=== PATIENT | male | born 1980 | race Caucasian/White ===

== ENCOUNTER 2019-07-14 11:46 | Inpatient (IN) | payer SELFPAY ==
[2019-07-14] VITALS (51 sets, daily range): BP systolic 117–156; BP diastolic 64–110; PULSE 82–120; RESP 15–33; TEMP 36.2–37.6; O2SAT 96–100
[2019-07-14 13:04] LABS: Abs Immature Grans 0.09 k/cumm (0.0-0.09); Absolute Basophil Count 0.02 k/cumm (0.0-0.2); Absolute Lymphocyte Count 0.48 k/cumm (1.2-3.4); Absolute Monocyte Count 1.33 k/cumm (0.11-0.7); Absolute Neutrophil Count 17.12 k/cumm (1.2-6.7); Basophils % 0.1; HCT 49.9 % (40.0-50.0); HGB 17.3 g/dL (13.5-17.5); Immature Grans % 0.5 %; Lymphocytes % 2.5; Mean Corp. HGB Concentration 34.7 g/dL (32.0-36.0); Mean Corpuscular Hemoglobin 33.7 pg (27.0-33.0); Mean Corpuscular Volume 97.1 fL (80-95); Mean Platelet Volume 9.9 fL (8.0-11.0); Neutrophils % 89.9; Platelet Count 296 x1000/uL (130-400); RBC 5.14 m/cumm (4.50-6.00); RBC Distribution Width 13.3 % (11.8-14.1); White Blood Cell Count 19.04 k/cumm (4.4-10.8)
[2019-07-14] MEDS: Normal Saline 1,000 ML 1000 ML IV ×2 (13:19→14:48)
[2019-07-14] MEDS: Lidocaine 5% Patch 1 PATCH TP (13:19)
[2019-07-14 13:24] LABS: ALT 38 U/L (16-63); AST 57 U/L (15-37); Albumin 3.5 g/dL (3.4-5.0); Alkaline Phosphatase 107 U/L (46-116); Anion Gap 10.6 mmol/L (3-11); BUN 11 mg/dL (7-18); Bilirubin, Total 1.4 mg/dL (0.2-1.0); CO2 28.4 mmol/L (21.0-32.0); CREATININE 0.84 mg/dL (0.70-1.30); Calcium 8.8 mg/dL (8.5-10.1); Chloride 96 mmol/L (98-107); Glucose 107 mg/dL (74-106); Potassium 3.7 mmol/L (3.5-5.1); Sodium 135 mmol/L (136-145); Total Protein 7.5 g/dL (6.4-8.2)
[2019-07-14 13:41] LABS: Lipase 2858 U/L (73-393)
[2019-07-14 14:01] LABS: Troponin I < 0.05 ng/Ml (<0.06)
[2019-07-14 14:24] LABS: D-Dimer 4212 ng/mlFEU (<500)
--- NOTE | 2019-07-14 14:30 | DI.CT_ITS ---
EXAM: CT CHEST PE ABD PELVIS W CLINICAL HISTORY: R/O PE; CHEST AND ABDOMINAL PAIN. WBC 20K TECHNIQUE: CT angiogram chest, abdomen and pelvis was performed with intravenous infusion of 100 cc of Omnipaque 350. COMPARISON: No exams were available for comparison FINDINGS: No evidence of pulmonary embolic disease. No abnormality of the thoracic aorta. No mediastinal or h ilar adenopathy. Predominantly subpleural emphysema noted. No pulmonary consolidation. Tracheobron chial tree appears intact. There is large quantity of free fluid surrounding the pancreas, lesser sac and retroperitoneal, and f ree fluid is present in the pericolic gutters in the pelvis. The pancreas appears mildly edematous a nd somewhat heterogeneous in appearance particularly the pancreatic head and body. The findings are highly suggestive of severe acute pancreatitis. There is associated wall thickening of the duodenum and proximal jejunum, presumably secondary to adjacent inflammation. No biliary dilatation. Unrema rkable appearance of the gallbladder, liver, and spleen. Abdominal aorta is of normal diameter and no abnormality is seen apart from slight calcified plaque. Major arterial branches of the abdominal aorta appear normal. No abdominal or pelvic adenopathy see n. Unremarkable appearance of adrenals and kidneys. No significant abdominal wall hernia. Appendix is normal. No evidence of diverticulitis. IMPRESSION: No evidence of pulmonary embolic disease. Severe acute pancreatitis with associated small bowel wall thickening as described above. Intraperit matson and retroperitoneal fluid collections as described above.
[2019-07-14] MEDS: HYDROmorphone 2 MG/ML VIAL 1 MG IVP (15:24)
--- NOTE | 2019-07-14 15:28 | W.ED.GENAD ---
Discharge Plan Disposition Patient Disposition: [facility] INPATIENT Condition: Poor Discharge Details Chief Complaint: Abd Prob Clinical Impression: Pancreatitis Admit Date/Time: 07/14/19 18:15 Admit Provider: Dipak Lopez Attending Provider: Dipak Lopez Primary Care Provider: Antonio Harper ED Provider: Elizabeth Chávez Discharge Data Discharge Date/Time-TO BE ENTERED AT DEPARTURE: 07/14/19 18:50 Medical Decision Making <STACIE Wilson - Last Filed: 07/15/19 14:22> Is a 39-year-old patient presenting to the emergency room for acute onset of abdominal pain in the last 2 days. Patient is also complaining of moderate back pain for approximately 3 months. Patient due to see a chiropractor today but has had no evaluation. Patient has had difficulty sleeping in the last 2 nights due to severe belly pain. Patient reports difficulty breathing due to pain. Patient reports shallowly breathing and heart racing. Patient denies obvious fever. Generalized malaise present with associated nausea in the last few days. Patient denies bowel changes. No history of similar. Patient does report he drinks alcohol approximately 3 drinks daily, does smoke marijuana as well as cigarettes. Denies any history of IV drug use. Initial presentation of patient reveals an ill-appearing patient with moderate upper abdominal pain. Patient's initial vital signs reveal obvious tachycardia. Patient is somewhat ill-appearing. Afebrile. On exam patient has moderate upper abdominal pain with palpation and is complaining predominantly of back pain and pain with deep breathing. Patient does report shortness of breath however lung sounds are clear oxygenation is normal and patient has no increase in respiratory effort. Labs initially ordered as well as IV fluids. Patient's labs reveal significant leukocytosis of 19,000 and a lipase of 2858. Minimal elevation of bilirubin at 1.4. LFTs essentially normal. Patient's d-dimer was elevated at [address] at this time to include PE protocol of chest and abdomen and pelvis. Additional IV fluid ordered as well as Dilaudid for pain relief as patient is uncomfortable at this time. CT reveals right pancreatitis without sign of abscess at this time with peritoneal fluid present. Patient has no gallbladder abnormalities noted on CT specifically no ductal dilation or gallstones present. Patient signed out pending disposition with a plan for admission and discussion with hospitalist. <STACIE Griffin - Last Filed: 07/14/19 21:04> Care transitioned to myself from Nirali Ayon PA-C, with consult from hospitalist pending. Patient diagnosed with pancreatitis. Please see her notes for initial presentation and exam. In brief, patient presented chief complaint of back and abdominal discomfort. Back pain began 3 months ago, abdominal pain new over the past 24 hours. Patient was having difficulty breathing secondary to pain. Initial laboratory evaluation significant for leukocytosis with a white count of 19, absolute neutrophil count 17. D-dimer was elevated at 4000, CT for PE protocol was obtained which was significant for severe pancreatitis but did not show any evidence of pulmonary embolism. Sodium was mildly low at 135. He is currently on his third liter of normal saline. Normal anion gap, normal BUN, creatinine and GFR. Total bili 1.4, AST 57, ALT 38, albumin 3.5. No previous for comparisons. Troponin negative at 0.05. Lipase 2858. Patient does drink alcohol daily, had reported 3 drinks daily. Patient continues to have pain, states that pain is severe but he was sleeping on arrival to the room. Will give IV tylenol, toradol and 50mcg Fentanyl. The patient's request, ordered an nicotine patch. Consulted with Dr. Lopez, he agrees to admission. He is requested that I place admission orders to include pain management orders. Orders are placed. Patient transition to medical surgical unit for further management of pancreatitis. HPI <STACIE Wilson - Last Filed: 07/15/19 14:22> General Date/Time Provider Initiated Documentation: 07/14/19 12:27. HPI Narrative: This is a 39-year-old patient presenting to the emergency room for complaints of back pain and abdominal pain. Patient reports onset of back pain approximately 3 months ago with no associated injury or trauma. Patient reports he is due to see chiropractor today. Patient reports in the last few days increase in abdominal pain. Patient reports when breathing having difficulty breathing due to pain in his back and breathing shallowly. Patient denies active chest pain. Patient does report mild dizziness, does feel like his heart is racing. Patient reports abdominal pain for the last 24 hours causing difficulty sleeping at night. Patient reports nausea without vomiting. Denies associated diarrhea or bowel change. Patient denies dysuria, urgency or frequency. Patient denies any measured fever. Patient does report a mild headache intermittently. Patient reports difficulty sleeping for the last few days due to pain. Patient denies any history of similar pain. Patient reports he has been taking ibuprofen frequently due to his back pain. Patient denies radicular symptoms into the legs. Denies any other concerns or complaints at this time. Patient denies IV drug use. Patient admits to smoking cigarettes and marijuana. Related Data Home Medications Medication Instructions Recorded Confirmed Unknown [No Known Home Meds] 07/14/19 07/14/19 Allergies Allergy/AdvReac Type Severity Reaction Status Date / Time No Known Allergies Allergy Unverified 07/14/19 12:00 General Stated Complaint: Abd Prob DEIDRE: 3 Review of Systems <STACIE Wilson - Last Filed: 07/15/19 14:22> All systems reviewed & are unremarkable except as noted in HPI and below Constitutional Constitutional: Denies chills, Denies fatigue, Denies fever(s), Reports headache(s) and Reports malaise ENT Ears, Nose, Mouth, and Throat: Reports headache(s) and Denies neck pain Cardiovascular Cardiovascular: Denies chest pain and Denies diaphoresis Respiratory Respiratory: Denies cough, Reports pain on inspiration, Reports pain with cough and Denies wheezing Gastrointestinal Gastrointestinal: Reports abdominal pain, Denies diarrhea, Reports nausea and Denies vomiting Musculoskeletal Musculoskeletal: Reports back pain, Denies neck pain, Denies numbness and Denies radiating pain into limb Neurologic Neurologic: Reports headache(s) and Denies numbness Endocrine Endocrine: Denies fatigue Allergic/Immunologic Allergic/Immunologic: Denies wheezing PFSH <STACIE Wilson - Last Filed: 07/15/19 14:22> Medical History (Updated 07/15/19 @ 12:39 by Yelitza Ramirez NP) Chronic alcohol use (Chronic) Tobacco dependence (Chronic) Social History Smoking/Tobacco Use Status: Current every day Tobacco Type: cigarettes Alcohol Intake: current Alcohol Intake frequency: 3 or more drinks per day Drug use: Occasionally Substance use type: marijuana Do you feel safe at home: Yes Do you feel safe in your relationship?: Yes Exam <STCAIE Wilson - Last Filed: 07/15/19 14:22> Narrative Exam Narrative: CONST: Ill appearing patient, alert and oriented. HENMT: Head nomocephalic, normal to inspection. Atraumatic. Hearing grossly normal. External ear canal no erythema or swelling. TM normal bilaterally. Nose normal to inspection. No rhinnorhea. Normal facial exam. Oral mucosa normal. Tounge normal. Dentition normal. Normal posterior oropharynx. Uvula midline. EYES: General normal appearance. Alignment normal. Eyelids normal. Conjunctiva normal. Sclera normal. PERRL. NECK: Normal visual inspection. FROM. No lymphadenopathy. Trachea midline. No Midline tenderness. CHEST: Normal insepection of the chest. RESP: Normal respiratory effort. Speaking full sentences. No cough. No wheezing. No retractions. Clear to auscaltation. Breath sound equal and present bilaterally. CARDIO: No JVD. Normal PMI. Tachycardic. Regular Rhythm. Normal peripheral pulses. GI: Normal inspection of abdomen. No distension. Soft. Diffuse upper abdominal tenderness. Periumbilical tenderness. Bowel sounds present diminished throughout. No guarding. MUSCULOSKELETAL: no LE edema Course <STACIE Wilson - Last Filed: 07/15/19 14:22> Vital Signs Vital signs: Vital Signs Temperature 36.5 C 07/14/19 11:53 Pulse 120 H 07/14/19 11:53 Respiratory Rate 18 07/14/19 11:53 Blood Pressure 133/89 07/14/19 11:53 Pulse Oximetry 100 07/14/19 11:53 Temperature 36.2 C L 07/14/19 12:46 Temperature Source Skin 07/14/19 12:46 Pulse 100 H 07/14/19 14:46 Pulse Rhythm Regular 07/14/19 12:46 Pulse Strength Strong 07/14/19 12:46 Pulse 108 H 07/14/19 14:46 Respiratory Rate 26 H 07/14/19 14:46 Respiratory Effort 07/14/19 12:46 Respiratory Depth Normal 07/14/19 12:46 Respiratory Pattern Normal 07/14/19 12:46 Blood Pressure 145/97 H 07/14/19 14:46 Blood Pressure Mean 108 07/14/19 14:46 Blood Pressure Position Sitting 07/14/19 12:46 Pulse Oximetry 99 07/14/19 14:46 Oxygen Delivery Method Room Air 07/14/19 12:46 Oxygen Flow Rate 0 07/14/19 12:46 Pain Level 10 07/14/19 15:24 Comment takes excedrin and ibuprofen 07/14/19 11:53 Lab/Test Results Lab/Test Results: Laboratory Tests Range/Units 07/14/19 07/14/19 07/14/19 12:57 12:57 13:27 WBC (4.4-10.8) k/cumm 19.04 H RBC (4.50-6.00) m/cumm 5.14 Hgb (13.5-17.5) g/dL 17.3 Hct (40.0-50.0) % 49.9 MCV (80-95) fL 97.1 H MCH (27.0-33.0) pg 33.7 H MCHC (32.0-36.0) g/dL 34.7 RDW (11.8-14.1) % 13.3 Plt Count (130-400) x1000/uL 296 MPV (8.0-11.0) fL 9.9 Immature Gran % % 0.5 Neutrophils % 89.9 Lymphocytes % 2.5 Monocytes % 7.0 Eosinophils % 0.0 Basophils % 0.1 Absolute Neutrophils (1.2-6.7) k/cumm 17.12 H Absolute Lymphocytes (1.2-3.4) k/cumm 0.48 L Absolute Monocytes (0.11-0.7) k/cumm 1.33 H Absolute Eosinophils (0.0-0.7) k/cumm 0.00 Absolute Basophils (0.0-0.2) k/cumm 0.02 D-Dimer (<500) ng/mlFEU Sodium (136-145) mmol/L 135 L Cancelled Potassium (3.5-5.1) mmol/L 3.7 Cancelled Chloride (98-107) mmol/L 96 L Cancelled Carbon Dioxide (21.0-32.0) mmol/L 28.4 Cancelled Anion Gap (3-11) mmol/L 10.6 Cancelled BUN (7-18) mg/dL 11 Cancelled Creatinine (0.70-1.30) mg/dL 0.84 Cancelled Estimated GFR/1.73 m2 (mL/min/1.73m2) >= 60.00 Cancelled Glucose (74-106) mg/dL 107 H Cancelled Calcium (8.5-10.1) mg/dL 8.8 Cancelled Total Bilirubin (0.2-1.0) mg/dL 1.4 H Cancelled AST (15-37) U/L 57 H Cancelled ALT (16-63) U/L 38 Cancelled Alkaline Phosphatase (46-116) U/L 107 Cancelled Troponin I (<0.06) ng/Ml < 0.05 Total Protein (6.4-8.2) g/dL 7.5 Cancelled Albumin (3.4-5.0) g/dL 3.5 Cancelled Lipase (73-393) U/L 2858 H Range/Units 07/14/19 07/14/19 13:27 16:04 WBC (4.4-10.8) k/cumm RBC (4.50-6.00) m/cumm Hgb (13.5-17.5) g/dL Hct (40.0-50.0) % MCV (80-95) fL MCH (27.0-33.0) pg MCHC (32.0-36.0) g/dL RDW (11.8-14.1) % Plt Count (130-400) x1000/uL MPV (8.0-11.0) fL Immature Gran % % Neutrophils % Lymphocytes % Monocytes % Eosinophils % Basophils % Absolute Neutrophils (1.2-6.7) k/cumm Absolute Lymphocytes (1.2-3.4) k/cumm Absolute Monocytes (0.11-0.7) k/cumm Absolute Eosinophils (0.0-0.7) k/cumm Absolute Basophils (0.0-0.2) k/cumm D-Dimer (<500) ng/mlFEU 4212 H Sodium (136-145) mmol/L Potassium (3.5-5.1) mmol/L Chloride (98-107) mmol/L Carbon Dioxide (21.0-32.0) mmol/L Anion Gap (3-11) mmol/L BUN (7-18) mg/dL Creatinine (0.70-1.30) mg/dL Estimated GFR/1.73 m2 (mL/min/1.73m2) Glucose (74-106) mg/dL Calcium (8.5-10.1) mg/dL Total Bilirubin (0.2-1.0) mg/dL AST (15-37) U/L ALT (16-63) U/L Alkaline Phosphatase (46-116) U/L Troponin I (<0.06) ng/Ml Cancelled Total Protein (6.4-8.2) g/dL Albumin (3.4-5.0) g/dL Lipase (73-393) U/L Sign Out <STACIE Wilson - Last Filed: 07/15/19 14:22> Sign Out Data: Sign Out Comment: Signed out pending admission for pancreatitis Last updated by Lucie Ayon PA at 07/14/19 16:53
[2019-07-14] MEDS: Omnipaque 350 MG/ML 100 ML BTL IJ (15:56)
[2019-07-14] MEDS: Normal Saline 1,000 ML 250 ML IV (16:14)
[2019-07-14 17:18] LABS: Triglyceride 53 mg/dL (<150)
[2019-07-14] MEDS: ACETAMINOPHEN 1,000 MG/100 ML BTL 400 MG IVPB (17:30)
[2019-07-14] MEDS: Ketorolac 15 MG/ML VIAL IVP ×2 (17:30→23:18)
[2019-07-14] MEDS: fentaNYL 100 MCG/2 ML VIAL 50 MCG IVP ×3 (17:31→23:16)
[2019-07-14 17:41] LABS: ETHANOL BLOOD < 3.0 mg/dL (<3)
[2019-07-14] MEDS: Nicotine 21 MG/24 HR PATCH TD (17:53)
[2019-07-14] MEDS: Normal Saline Flush 10 ML SYR IVP ×2 (20:40→23:19)
--- NOTE | 2019-07-14 21:38 | HPE_ITS ---
Date of service: 07/14/19 Time of Service: 21:38 Assessment and Plan Assessment and plan (1) Pancreatitis: Start date: 07/14/19 Status: Acute Assessment and plan: This is a 39-year-old gentleman who uses alcohol daily and most likely has alcoholic pancreatitis. CT scan of the abdomen was consistent with this diagnosis as well as an elevated lipase. Will treat with gastric rest with n.p.o. for diet and only ice chips for comfort. Pain control will be continued with IV Toradol and acetaminophen for longer acting pain control and IV fentanyl as needed for acute pain. He will be watched closely for alcohol withdrawal. He is a full code. Qualifiers: Acute pancreatitis complication: no infection or necrosis Chronicity: acute Pancreatitis type: alcohol induced Qualified Code(s): K85.20 - Alcohol induced acute pancreatitis without necrosis or infection (2) Chronic alcohol use: Status: Chronic Assessment and plan: Patient drinks heavily with beer daily and has decreased recently though he has had increased abdominal discomfort as he has weaned. Motivation for complete cessation may be present at this time but patient may need alcohol rehabilitation as an outpatient after he recovers from his acute pancreatitis. This consultation will be made after he is medically stable. Continue IV hydration patient appears slightly dry with tachycardia and watch closely for alcohol withdrawal with CIWA protocol and treatment with Ativan p.o. (3) Tobacco dependence: Status: Chronic Assessment and plan: Patient has been attempting to wean on nicotine I will place him on NicoDerm patch while in the hospital and he cannot smoke in the hospital. He also uses THC and does have some lung disease with nebulizers to be used as needed. There is no evidence of acute pulmonary complications by CT of the chest. History of Present Illness History of Present Illness Chief Complaint: Abdominal pain for 2 days with nausea Narrative: This is a 39-year-old gentleman who has a long history of alcohol use drinking up to 15 beers daily recently decreasing to 4 beers daily. He also smokes tobacco decreased to 1/2 pack/day more recently. He has biweekly use of marijuana for treatment of pain. He chronically has low back pain and this is been worse over the last 3 months. More recently been to have epigastric abdominal pain which radiates around the bottom of his chest into his back. He has associated nausea with malaise but no fever or chills. He does have increased pain when breathing deep but this is referred into his upper abdomen. He is thin and has had a decrease appetite recently but no significant weight loss. In the ED he was evaluated for his symptoms with a negative CT of the chest for any embolic phenomenon in the pulmonary vasculature but significant changes consistent with pancreatitis with no abscess or pseudocyst formation. His lipase was markedly elevated at 2,850 he had a negative troponin. The CT PE protocol was done because of significantly increased d- dimer but this is most likely secondary to his acute pancreatitis. Is most likely alcoholic pancreatitis with his history. His triglycerides were not elevated. His white blood cell count was elevated. This will be trended. He did respond to IV acetaminophen with IV Toradol and IV fentanyl. IV Dilaudid was not effective. He denies any significant nausea if he does not try to drink anything at this time. He is comfortable at the time of my exam except for palpation of his abdomen. Review of Systems Narrative: 13 point review of systems otherwise unrevealing or stable this patient. He has attempted to decrease his alcohol intake recently has had no alcohol withdrawal symptoms but does drink alcohol daily. [facility] Medical History (Updated 07/14/19 @ 21:46 by Dipak Lopez) Chronic alcohol use (Chronic) Tobacco dependence (Chronic) Social History Smoking/Tobacco Use Status: Current every day Tobacco Type: cigarettes Alcohol Intake: current Alcohol Intake frequency: 3 or more drinks per day Drug use: Occasionally Substance use type: marijuana Do you feel safe at home: Yes Do you feel safe in your relationship?: Yes Meds Home Medications and Allergies Home Medications Medication Instructions Recorded Confirmed Type Unknown [No Known Home Meds] 07/14/19 07/14/19 History Allergies Allergy/AdvReac Type Severity Reaction Status Date / Time No Known Allergies Allergy Unverified 07/14/19 12:00 Exam Narrative Exam Narrative: General: Patient is thin, appears slightly older than stated age but in no acute distress with flattened affect but good eye contact and normal conversation. HEENT: Normocephalic with slightly dry oral mucosa and fair dentition. Eyes with pupils equal reactive light symmetrically and extraocular movement intact. Sclera anicteric. External ears normal. Neck: Supple without JVD. Back: Slightly stooped posture and loss of lumbar lordotic curve, no CVA tenderness. Lungs: Bronchovesicular breath sounds diffusely with no focalizing rales or rhonchi and no expiratory wheeze. Fair aeration. Heart: Tachycardic rate with normal rhythm, no murmurs or gallops appreciated. Abdomen: Scaphoid contour, tender to palpation over the epigastrium mostly with guarding and no appreciable hepatosplenomegaly with limited palpation secondary to guarding. Bowel sounds are positive but hypoactive in all quadrants. Genitalia/rectal: Exam deferred. Extremities: Without clubbing, cyanosis or edema. Peripheral pulses are intact and symmetrical. Skin: Tanned, warm and dry with no rash noted. Slightly decreased turgor. Neuro: Cranial nerves II through XII grossly intact, no focalizing motor deficits, no tremor or asterixis. Psych: Flattened affect with poor eye contact but remote and recent memory intact. Normal thought processes. Some denial process with conversation as to his addictions but he is attempting to wean his use of tobacco and alcohol. Results Imaging Imaging Studies: EXAM: CT CHEST PE ABD PELVIS W CLINICAL HISTORY: R/O PE; CHEST AND ABDOMINAL PAIN. WBC 20K TECHNIQUE: CT angiogram chest, abdomen and pelvis was performed with intravenous infusion of 100 cc of Omnipaque 350. COMPARISON: No exams were available for comparison FINDINGS: No evidence of pulmonary embolic disease. No abnormality of the thoracic aorta. No mediastinal or hilar adenopathy. Predominantly subpleural emphysema noted. No pulmonary consolidation. Tracheobronchial tree appears intact. There is large quantity of free fluid surrounding the pancreas, lesser sac and retroperitoneal, and free fluid is present in the pericolic gutters in the pelvis. The pancreas appears mildly edematous and somewhat heterogeneous in appearance particularly the pancreatic head and body. The findings are highly suggestive of severe acute pancreatitis. There is associated wall thickening of the duodenum and proximal jejunum, presumably secondary to adjacent inflammation. No biliary dilatation. Unremarkable appearance of the gallbladder, liver, and spleen. Abdominal aorta is of normal diameter and no abnormality is seen apart from slight calcified plaque. Major arterial branches of the abdominal aorta appear normal. No abdominal or pelvic adenopathy seen. Unremarkable appearance of adrenals and kidneys. No significant abdominal wall hernia. Appendix is normal. No evidence of diverticulitis. IMPRESSION: No evidence of pulmonary embolic disease. Severe acute pancreatitis with associated small bowel wall thickening as described above. Intraperitoneal and retroperitoneal fluid collections as described above. Labs Result diagrams: 07/14/19 12:57 07/14/19 12:57 Labs: Laboratory Results - last 24 hr 07/14/19 07/14/19 07/14/19 12:57 12:57 13:27 WBC 19.04 H RBC 5.14 Hgb 17.3 Hct 49.9 MCV 97.1 H MCH 33.7 H MCHC 34.7 RDW 13.3 Plt Count 296 MPV 9.9 Immature Gran % 0.5 Neutrophils % 89.9 Lymphocytes % 2.5 Monocytes % 7.0 Eosinophils % 0.0 Basophils % 0.1 Absolute Neutrophils 17.12 H Absolute Lymphocytes 0.48 L Absolute Monocytes 1.33 H Absolute Eosinophils 0.00 Absolute Basophils 0.02 D-Dimer Sodium 135 L Cancelled Potassium 3.7 Cancelled Chloride 96 L Cancelled Carbon Dioxide 28.4 Cancelled Anion Gap 10.6 Cancelled BUN 11 Cancelled Creatinine 0.84 Cancelled Estimated GFR/1.73 m2 >= 60.00 Cancelled Glucose 107 H Cancelled Calcium 8.8 Cancelled Total Bilirubin 1.4 H Cancelled AST 57 H Cancelled ALT 38 Cancelled Alkaline Phosphatase 107 Cancelled Troponin I < 0.05 Total Protein 7.5 Cancelled Albumin 3.5 Cancelled Triglycerides Lipase 2858 H Ethyl Alcohol 07/14/19 07/14/19 07/14/19 13:27 13:27 16:04 WBC RBC Hgb Hct MCV MCH MCHC RDW Plt Count MPV Immature Gran % Neutrophils % Lymphocytes % Monocytes % Eosinophils % Basophils % Absolute Neutrophils Absolute Lymphocytes Absolute Monocytes Absolute Eosinophils Absolute Basophils D-Dimer 4212 H Sodium Potassium Chloride Carbon Dioxide Anion Gap BUN Creatinine Estimated GFR/1.73 m2 Glucose Calcium Total Bilirubin AST ALT Alkaline Phosphatase Troponin I Cancelled Total Protein Albumin Triglycerides 53 Lipase Ethyl Alcohol 07/14/19 17:14 WBC RBC Hgb Hct MCV MCH MCHC RDW Plt Count MPV Immature Gran % Neutrophils % Lymphocytes % Monocytes % Eosinophils % Basophils % Absolute Neutrophils Absolute Lymphocytes Absolute Monocytes Absolute Eosinophils Absolute Basophils D-Dimer Sodium Potassium Chloride Carbon Dioxide Anion Gap BUN Creatinine Estimated GFR/1.73 m2 Glucose Calcium Total Bilirubin AST ALT Alkaline Phosphatase Troponin I Total Protein Albumin Triglycerides Lipase Ethyl Alcohol < 3.0 Last Vital Signs Temp 37.6 C H 07/14/19 20:46 Pulse 82 07/14/19 20:46 Resp 18 07/14/19 20:46 BP 124/78 07/14/19 20:46 Pulse Ox 99 07/14/19 20:46
[2019-07-14] MEDS: Normal Saline 1,000 ML 150 ML IV (23:28)
[2019-07-14] MEDS: MULTIVITAMIN 10 ML, THIAMINE 100 MG, FOLIC ACID 1 MG in DEXTROSE 5%-0.45% SALINE 1,000 ML 42 ML IV (23:45)
--- NOTE | 2019-07-15 | DI.US_ITS ---
EXAM: US ABDOMEN CLINICAL HISTORY: pancreatitis, ? gall bladder TECHNIQUE: Ultrasound performed using standard protocol. COMPARISON: No exams were available for comparison FINDINGS: Abdominal ultrasound was performed according to the usual protocol. Liver appears mildly enlarged. There is no evidence of cholelithiasis. Gallbladder wall is not thickened. There is no significant pericholecystic fluid collection. Negative sonographic Ward sign. Pancreas not ideally visualized, pancreas appears mildly heterogeneous. Mild peripancreatic fluid no jorden, this was also noted CT obtained yesterday. No biliary dilatation. Spleen is unremarkable in ap pearance. Abdominal aorta and IVC are of normal diameter. Kidneys are unremarkable in appearance with no nephrolithiasis or hydronephrosis. IMPRESSION: Mild free intraperitoneal fluid in patient with CT findings consistent with pancreatitis. No evidenc e of cholelithiasis. DATA REPOSITORY:
[2019-07-15 00:05] LABS: Magnesium 1.5 mg/dL (1.8-2.4)
[2019-07-15 00:09] LABS: PHOSPHORUS 2.1 mg/dL (2.6-4.7)
[2019-07-15 01:29] VITALS: BP 123/81; PULSE 97; RESP 16; TEMP 36.8; O2SAT 99
[2019-07-15] MEDS: fentaNYL 100 MCG/2 ML VIAL 50 MCG IVP ×4 (02:21→10:27)
[2019-07-15] MEDS: Normal Saline Flush 10 ML SYR IVP ×3 (02:22→06:00)
[2019-07-15 03:10] VITALS: BP 127/86; PULSE 93; RESP 16; TEMP 36.7; O2SAT 99
[2019-07-15] MEDS: Ketorolac 15 MG/ML VIAL IVP ×2 (05:47→14:59)
[2019-07-15 05:51] VITALS: BP 123/85; PULSE 99; RESP 21; TEMP 36.6; O2SAT 99
[2019-07-15] MEDS: Normal Saline 1,000 ML 150 ML IV ×2 (05:59→17:15)
[2019-07-15 07:57] LABS: HCT 42.5 % (40.0-50.0); HGB 14.1 g/dL (13.5-17.5); Mean Corp. HGB Concentration 33.2 g/dL (32.0-36.0); Mean Corpuscular Hemoglobin 33.1 pg (27.0-33.0); Mean Corpuscular Volume 99.8 fL (80-95); Mean Platelet Volume 10.4 fL (8.0-11.0); Platelet Count 233 x1000/uL (130-400); RBC 4.26 m/cumm (4.50-6.00); RBC Distribution Width 13.6 % (11.8-14.1)
[2019-07-15 08:21] LABS: ALT 21 U/L (16-63); AST 31 U/L (15-37); Albumin 2.2 g/dL (3.4-5.0); Alkaline Phosphatase 65 U/L (46-116); Anion Gap 6.5 mmol/L (3-11); BUN 10 mg/dL (7-18); Bilirubin, Total 0.8 mg/dL (0.2-1.0); CO2 26.5 mmol/L (21.0-32.0); CREATININE 0.67 mg/dL (0.70-1.30); Chloride 104 mmol/L (98-107); Glucose 85 mg/dL (74-106); Lipase 705 U/L (73-393); Potassium 3.8 mmol/L (3.5-5.1); Sodium 137 mmol/L (136-145); Total Protein 5.5 g/dL (6.4-8.2)
[2019-07-15 08:39] VITALS: BP 126/80; PULSE 89; RESP 16; TEMP 36.7; O2SAT 99
[2019-07-15] MEDS: Magnesium Gluconate 500 MG TAB PO (09:38)
[2019-07-15] MEDS: MAGNESIUM SULFATE 4 GM/100 ML BAG IVPB (09:38)
--- NOTE | 2019-07-15 12:36 | W.PM.PROGNOT ---
Date of Service Date of service: 07/15/19 Time of Service: 12:37 Assessment and Plan Assessment and plan (1) Pancreatitis: Status: Acute Assessment and plan: Pain improved with bowel rest, hydration and pain management. lipase normalizing. will taper pain medications and advance diet after abdominal ultrasound to r/o gall bladder disease. this is most likely alcoholic pancreatitis Qualifiers: Acute pancreatitis complication: no infection or necrosis Chronicity: acute Pancreatitis type: alcohol induced Qualified Code(s): K85.20 - Alcohol induced acute pancreatitis without necrosis or infection (2) Chronic alcohol use: Status: Chronic Assessment and plan: Patient drinks heavily with beer daily and has decreased recently though he has had increased abdominal discomfort as he has weaned. Motivation for complete cessation may be present at this time but patient may need alcohol rehabilitation as an outpatient after he recovers from his acute pancreatitis. This consultation will be made after he is medically stable. Continue IV hydration patient appears slightly dry with tachycardia and watch closely for alcohol withdrawal with CIWA protocol and treatment with Ativan p.o. (3) Tobacco dependence: Status: Chronic Assessment and plan: nicotine replacement while hospitalized (4) Discharge planning issues: Status: Acute Assessment and plan: discharge to home tomorrow if tolerates po and remains medically stable. Subjective Subjective Patient reports: feels better and still having pain (but markedly improved and with no signs of distress on exam) Interval history since last seen: reporting thirst, wanting to take PO Exam Const General: cooperative, healthy appearing, comfortable, no acute distress and well developed Nutritional Appearance: average body habitus Orientation: alert, awake and oriented x3 HENMT Head: normal to inspection, normocephalic and atraumatic Mouth: oral mucosae normal (no exudate) Resp Effort & Inspection: normal respiratory effort Auscultation: clear to auscultation bilaterally Cardio Rate: regular rate Rhythm: regular rhythm GI Inspection: normal to inspection, no edema and non-distended Palpation: soft and tender in the epigastrum Auscultation: normal bowel sounds Skin General skin exam: no rashes or lesions noted Neuro General: alert, awake and oriented x3 Extrem General: normal to inspection, full ROM and no pedal edema Objective Objective Clinical Data: Abnormal lab results 07/14/19 07/14/19 07/14/19 Range/Units 12:57 12:57 12:57 WBC 19.04 H (4.4-10.8) k/cumm RBC (4.50-6.00) m/cumm MCV 97.1 H (80-95) fL MCH 33.7 H (27.0-33.0) pg Absolute Neutrophils 17.12 H (1.2-6.7) k/cumm Absolute Lymphocytes 0.48 L (1.2-3.4) k/cumm Absolute Monocytes 1.33 H (0.11-0.7) k/cumm D-Dimer (<500) ng/mlFEU Sodium 135 L (136-145) mmol/L Chloride 96 L (98-107) mmol/L Creatinine (0.70-1.30) mg/dL Glucose 107 H (74-106) mg/dL Calcium (8.5-10.1) mg/dL Phosphorus (2.6-4.7) mg/dL Magnesium 1.5 L (1.8-2.4) mg/dL Total Bilirubin 1.4 H (0.2-1.0) mg/dL AST 57 H (15-37) U/L Total Protein (6.4-8.2) g/dL Albumin (3.4-5.0) g/dL Lipase 2858 H (73-393) U/L 07/14/19 07/14/19 07/15/19 Range/Units 12:57 13:27 07:20 WBC (4.4-10.8) k/cumm RBC (4.50-6.00) m/cumm MCV (80-95) fL MCH (27.0-33.0) pg Absolute Neutrophils (1.2-6.7) k/cumm Absolute Lymphocytes (1.2-3.4) k/cumm Absolute Monocytes (0.11-0.7) k/cumm D-Dimer 4212 H (<500) ng/mlFEU Sodium (136-145) mmol/L Chloride (98-107) mmol/L Creatinine 0.67 L (0.70-1.30) mg/dL Glucose (74-106) mg/dL Calcium 8.0 L (8.5-10.1) mg/dL Phosphorus 2.1 L (2.6-4.7) mg/dL Magnesium (1.8-2.4) mg/dL Total Bilirubin (0.2-1.0) mg/dL AST (15-37) U/L Total Protein 5.5 L (6.4-8.2) g/dL Albumin 2.2 L (3.4-5.0) g/dL Lipase 705 H (73-393) U/L 07/15/19 Range/Units 07:20 WBC 13.00 H D (4.4-10.8) k/cumm RBC 4.26 L (4.50-6.00) m/cumm MCV 99.8 H (80-95) fL MCH 33.1 H (27.0-33.0) pg Absolute Neutrophils (1.2-6.7) k/cumm Absolute Lymphocytes (1.2-3.4) k/cumm Absolute Monocytes (0.11-0.7) k/cumm D-Dimer (<500) ng/mlFEU Sodium (136-145) mmol/L Chloride (98-107) mmol/L Creatinine (0.70-1.30) mg/dL Glucose (74-106) mg/dL Calcium (8.5-10.1) mg/dL Phosphorus (2.6-4.7) mg/dL Magnesium (1.8-2.4) mg/dL Total Bilirubin (0.2-1.0) mg/dL AST (15-37) U/L Total Protein (6.4-8.2) g/dL Albumin (3.4-5.0) g/dL Lipase (73-393) U/L Vital Signs Temperature 36.7 C 07/15/19 08:39 Temperature Source Tympanic 07/15/19 08:39 Pulse 89 07/15/19 08:39 Pulse Rhythm Regular 07/15/19 04:12 Pulse Strength Strong 07/14/19 12:46 Pulse 108 H 07/14/19 18:46 Respiratory Rate 16 07/15/19 08:39 Respiratory Effort Non-Labored 07/15/19 04:12 Respiratory Depth Normal 07/15/19 04:12 Respiratory Pattern Normal 07/15/19 04:12 Blood Pressure 126/80 07/15/19 08:39 Blood Pressure Mean 99 07/14/19 18:45 Blood Pressure Position Sitting 07/14/19 12:46 Pulse Oximetry 99 07/15/19 08:39 Oxygen Delivery Method Room Air 07/15/19 08:39 Oxygen Flow Rate 0 07/15/19 08:39 Pain Level 8 07/15/19 10:27 Comment takes excedrin and ibuprofen 07/14/19 11:53 Intake & Output 07/14/19 07/15/19 07/15/19 23:59 11:59 23:59 Intake Total 2099 / 2100 977.5 / 977.5 Output Total 900 / 900 450 / 450 Balance 1200 / 1200 527.5 / 527.5 Weight 72.575 kg 74.3 kg Intake: IV 2099 977.5 / 977.5 Output: Urine 900 / 900 450 / 450 Other: Urine Color [place] Urine Appearance Clear Clear Urine Odor Normal Voiding Methods Toilet Laboratory Results WBC 13.00 k/cumm (4.4-10.8) H D 07/15/19 07:20 RBC 4.26 m/cumm (4.50-6.00) L 07/15/19 07:20 Hgb 14.1 g/dL (13.5-17.5) D 07/15/19 07:20 Hct 42.5 % (40.0-50.0) 07/15/19 07:20 MCV 99.8 fL (80-95) H 07/15/19 07:20 MCH 33.1 pg (27.0-33.0) H 07/15/19 07:20 MCHC 33.2 g/dL (32.0-36.0) 07/15/19 07:20 RDW 13.6 % (11.8-14.1) 07/15/19 07:20 Plt Count 233 x1000/uL (130-400) 07/15/19 07:20 MPV 10.4 fL (8.0-11.0) 07/15/19 07:20 Immature Gran % 0.5 % 07/14/19 12:57 Neutrophils % 89.9 07/14/19 12:57 Lymphocytes % 2.5 07/14/19 12:57 Monocytes % 7.0 07/14/19 12:57 Eosinophils % 0.0 07/14/19 12:57 Basophils % 0.1 07/14/19 12:57 Absolute Neutrophils 17.12 k/cumm (1.2-6.7) H 07/14/19 12:57 Absolute Lymphocytes 0.48 k/cumm (1.2-3.4) L 07/14/19 12:57 Absolute Monocytes 1.33 k/cumm (0.11-0.7) H 07/14/19 12:57 Absolute Eosinophils 0.00 k/cumm (0.0-0.7) 07/14/19 12:57 Absolute Basophils 0.02 k/cumm (0.0-0.2) 07/14/19 12:57 D-Dimer 4212 ng/mlFEU (<500) H 07/14/19 13:27 Sodium 137 mmol/L (136-145) 07/15/19 07:20 Potassium 3.8 mmol/L (3.5-5.1) 07/15/19 07:20 Chloride 104 mmol/L (98-107) 07/15/19 07:20 Carbon Dioxide 26.5 mmol/L (21.0-32.0) 07/15/19 07:20 Anion Gap 6.5 mmol/L (3-11) 07/15/19 07:20 BUN 10 mg/dL (7-18) 07/15/19 07:20 Creatinine 0.67 mg/dL (0.70-1.30) L 07/15/19 07:20 Estimated GFR/1.73 m2 >= 60.00 (mL/min/1.73m2) 07/15/19 07:20 Glucose 85 mg/dL (74-106) 07/15/19 07:20 Calcium 8.0 mg/dL (8.5-10.1) L 07/15/19 07:20 Phosphorus 2.1 mg/dL (2.6-4.7) L 07/14/19 12:57 Magnesium 1.5 mg/dL (1.8-2.4) L 07/14/19 12:57 Total Bilirubin 0.8 mg/dL (0.2-1.0) 07/15/19 07:20 AST 31 U/L (15-37) 07/15/19 07:20 ALT 21 U/L (16-63) 07/15/19 07:20 Alkaline Phosphatase 65 U/L (46-116) 07/15/19 07:20 Troponin I Cancelled 07/14/19 16:04 Total Protein 5.5 g/dL (6.4-8.2) L 07/15/19 07:20 Albumin 2.2 g/dL (3.4-5.0) L 07/15/19 07:20 Triglycerides 53 mg/dL (<150) 07/14/19 13:27 Lipase 705 U/L (73-393) H 07/15/19 07:20 Ethyl Alcohol < 3.0 mg/dL (<3) 07/14/19 17:14
--- NOTE | 2019-07-15 12:59 | W.NUTCONSULT ---
Date of service: 07/15/19 Time of Service: 13:00 Nutritional Consult ASSESSMENT: 39 year old male with pancreatits and NPO x 2 days. Long history of alcohol and tobacco use. BMI on low end of normal. At high nutritional risk in view of long history of alcohol and tobacco abuse now with pancreatits related to excessive alcohol intake. 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 NUTRITIONAL DIAGNOSIS: excessive alcohol intake INTERVENTION: NPO secondary to pancreatitis MONITORING AND EVALUATION: diet advancement po intake labs Time Spent in Nutritional Counseling and Treatment: 0 time spent face to face
--- NOTE | 2019-07-15 14:55 | INITIAL_ITS ---
- If Service Date Differs Date of service: 07/15/19 Time of Service: 14:55 Care Management Initial Assess REASON FOR HOSPITALIZATION:: Acute pancreatitis, chronic alcoholism PAST MEDICAL HISTORY/PAST SURGICAL HISTORY:: Medical History (Updated 07/14/19 @ 21:46 by Dipak Lopez). Chronic alcohol use (Chronic). Tobacco dependence (Chronic) PREVIOUS FUNCTIONAL STATUS/SOCIAL/FAMILY SUPPORTS:: Acosta lives with his mother in [place]. 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 He is independent at baseline, although he does not drive at this time. He reported that he let his license lapse, and has to retake his driving test in order to obtain his license again. He stated that he has family/friend supports locally, and that he helps care for his mother, who has had some problems with her health recently. CURRENT FUNCTIONAL STATUS:: Acosta was sitting up in his bed when CM met with him. He reported that he was feeling better today, and he is hoping to return home later, after his scheduled u/s. Per provider, if his u/s is clear, he may be discharged later today. CM discussed alcohol dependence with Acosta, who stated that he plans to 'wean' down his alcohol intake, and that he has spoken to the women's basketball coach since being at [facility] to talk about resourses and support. CM faxed a referral to [employer] for assistance with insurance, as he is in self pay status. CM also provided a financial assist packet to Acosta for him to fill out, and offered assistance, if needed. CM will continue to follow. ADVANCE DIRECTIVES:: None on file. Has patient been provided with information about the portal?: No Did the patient sign up for the portal?: No CODE STATUS:: Full Code INSURANCE COVERAGE / FINANCIAL ISSUES:: Self Pay. CM faxed a referral to [employer] for health insurance, and also provided a financial assist packet. CURRENT HOME/COMMUNITY SERVICES/EQUIPMENT:: Acosta does not have any services or equipment at this time. PRIMARY CARE PHYSICIAN:: Antonio Harper POTENTIAL DISCHARGE NEEDS:: Evaluations for further needs, community resources for alcohol cessation, follow up appointments PATIENT/FAMILY EDUCATION NEEDS:: Review discharge instructions regarding activi ty levels, medications and diet, discussion of self care needs including ask me three ANTICIPATED BARRIERS TO DISCHARGE:: None identified at this time. TRANSPORTATION:: Acosta's mother will drive him home via private vehicle. PLAN:: Anticipate Acosta will return home with no additional services when medically cleared. He will follow up with his PCP, and a women's basketball coach, as recommended. Diane will follow up with Acosta, outpatient, regarding insurance coverage. His mother will drive him home via private vehicle when ready. CM will continue to follow.
[2019-07-15 16:15] VITALS: BP 127/83; PULSE 93; RESP 16; TEMP 37; O2SAT 99
--- NOTE | 2019-07-15 17:14 | W.PM.DS.N ---
Date of service: 07/15/19 Time of Service: 17:14 DS: Diagnosis Discharge Diagnosis (1) Pancreatitis: Status: Acute (2) Chronic alcohol use: Status: Chronic (3) Tobacco dependence: Status: Chronic (4) Discharge planning issues: Status: Acute Discharge Plan Disposition Patient Disposition: HOME Condition: Poor Discharge Details Chief Complaint: Abd Prob Clinical Impression: Pancreatitis Reason For Visit: ACUTE PANCREATITIS,CHRONIC ALCOHOLISM Admit Date/Time: 07/14/19 18:15 Admit Provider: Dipak Lopez Attending Provider: Ramón Winters Primary Care Provider: Antonio Harper ED Provider: Elizabeth Chávez Home Meds and New Rx's Prescriptions: No Action No Known Home Meds RF: 0 Discharge Instructions Instructions: Pancreatitis (DC) Additional Instructions: avoid alcohol. Stand Alone Forms: Nursing Discharge Form Referrals: Antonio Harper [Primary Care Provider] - (please call to follow up in one week) Activity:: Activity as Tolerated Equipment/Supplies:: No Equipment Needed Diet:: low fat Discharge Orders Discharge Orders: Discharge Order (Routine); Ordered 07/15/19 Ordered By: Yelitza Ramirez Discharge Data Discharge Date/Time-TO BE ENTERED AT DEPARTURE: 07/15/19 18:46 DS: Summary Status at Discharge Functional status at discharge: independent ambulation Overall status at discharge: patient is progressing back to baseline Mental Status: mental status grossly normal Speech and Movement: speech and movement normal Mood: congruent mood Affect: normal affect Exam Const General: cooperative, healthy appearing, comfortable and no acute distress Nutritional Appearance: average body habitus Orientation: alert, awake and oriented x3 HENMT Head: normal to inspection, normocephalic and atraumatic Mouth: oral mucosae normal Resp Effort & Inspection: normal respiratory effort Auscultation: clear to auscultation bilaterally Cardio Rate: regular rate Rhythm: regular rhythm GI Inspection: normal to inspection Palpation: soft Auscultation: normal bowel sounds Skin General skin exam: no rashes or lesions noted Neuro General: alert, awake and oriented x3 Cranial Nerves: CN's II-XI intact bilaterally Cognition: normal cognition Speech: speech normal Gait: normal gait Motor: muscle tone normal throughout Sensory Exam: no sensory deficits noted Extrem General: normal to inspection and full ROM Psych Mental Status: mental status grossly normal Speech and Movement: speech and movement normal Mood: congruent mood Affect: normal affect DS: Data Vitals/I&O Vitals and I&O: Vital Signs Temperature 37 C 07/15/19 16:15 Temperature Source Tympanic 07/15/19 16:15 Pulse 93 H 07/15/19 16:15 Pulse Rhythm Regular 07/15/19 12:52 Pulse Strength Strong 07/14/19 12:46 Pulse 108 H 07/14/19 18:46 Respiratory Rate 16 07/15/19 16:15 Respiratory Effort Short of Breath 07/15/19 12:52 Respiratory Depth Normal 07/15/19 12:52 Respiratory Pattern Normal 07/15/19 12:52 Blood Pressure 127/83 07/15/19 16:15 Blood Pressure Mean 99 07/14/19 18:45 Blood Pressure Position Sitting 07/14/19 12:46 Pulse Oximetry 99 07/15/19 16:15 Oxygen Delivery Method Room Air 07/15/19 16:15 Oxygen Flow Rate 0 07/15/19 16:15 Pain Level 0 07/15/19 16:15 Comment takes excedrin and ibuprofen 07/14/19 11:53 Intake & Output 07/14/19 07/15/19 07/15/19 23:59 11:59 23:59 Intake Total 2100 / 2100 977.5 / 977.5 Output Total 900 / 900 450 / 850 400 / 850 Balance 1200 / 1200 527.5 / 127.5 -400 / 127.5 Weight 72.575 kg 74.3 kg Intake: IV 2100 / 2100 977.5 / 977.5 Output: Urine 900 / 900 450 / 850 400 / 850 Other: Urine Color [place] Urine Appearance Clear Clear Clear Urine Odor Normal Voiding Methods Toilet Data Completed and Pending Labs on day of discharge: Labs from last 24 hours 07/15/19 07/15/19 07/14/19 07:20 07:20 17:14 WBC 13.00 H D RBC 4.26 L Hgb 14.1 D Hct 42.5 MCV 99.8 H MCH 33.1 H MCHC 33.2 RDW 13.6 Plt Count 233 MPV 10.4 Sodium 137 Potassium 3.8 Chloride 104 Carbon Dioxide 26.5 Anion Gap 6.5 BUN 10 Creatinine 0.67 L Estimated GFR/1.73 m2 >= 60.00 Glucose 85 Calcium 8.0 L Phosphorus Magnesium Total Bilirubin 0.8 AST 31 ALT 21 Alkaline Phosphatase 65 Total Protein 5.5 L Albumin 2.2 L Triglycerides Lipase 705 H Ethyl Alcohol < 3.0 07/14/19 07/14/19 07/14/19 13:27 12:57 12:57 WBC RBC Hgb Hct MCV MCH MCHC RDW Plt Count MPV Sodium Potassium Chloride Carbon Dioxide Anion Gap BUN Creatinine Estimated GFR/1.73 m2 Glucose Calcium Phosphorus 2.1 L Magnesium 1.5 L Total Bilirubin AST ALT Alkaline Phosphatase Total Protein Albumin Triglycerides 53 Lipase Ethyl Alcohol [facility] Medical History (Updated 07/15/19 @ 12:39 by Yelitza Ramirez NP) Chronic alcohol use (Chronic) Tobacco dependence (Chronic) Social History Smoking/Tobacco Use Status: Current every day Tobacco Type: cigarettes Alcohol Intake: current Alcohol Intake frequency: 3 or more drinks per day Drug use: Occasionally Substance use type: marijuana Do you feel safe at home: Yes Do you feel safe in your relationship?: Yes
--- NOTE | 2019-07-15 18:21 | PDOC.CMDIS ---
- If Service Date Differs Date of service: 07/15/19 Time of Service: 18:21 LACE Index Scoring Tool - Questions: Length of Stay (in days): 2 Acuity (Admit via E.D.?): Yes E.D. Visits: 1 - Answers: Total Score: 6 Risk of Readmission: Low Risk Care Management Discharge Reason for Hospitalization: Acute pancreatitis, chronic alcoholism Discharge Plan: Acosta will return home with no additional services at this time. CM sent a referral for Marisela to follow up with him in the community. He will follow up with his PCP, as recommended. He will be driven home via private vehicle by his mother. Patient/Family Education Needs: Review discharge instructions regarding activity levels and medications, discussion of self care needs including ask me three
== END 2019-07-15 18:46 | disposition home or self-care (01) | DRG 440 ==
LOC: ER 18:52 → MS 18:57
PROVIDERS: Physician Assistant; Admitting Provider Family Medicine; Emergency Provider Physician Assistant; PCP Neuromusculoskeletal Medicine & OMM; Visit Provider Internal Medicine
DX: K85.20 Alcohol induced acute pancreatitis without necrosis or infection (principal); F10.20 Alcohol dependence, uncomplicated; F17.210 Nicotine dependence, cigarettes, uncomplicated; F12.10 Cannabis abuse, uncomplicated
CPT/HCPCS: 36415; 71275; 74177; 80053; 83690; 85027; 93005; 96361; 96374; 96375; 99223; 99233; 99238; 99285; 76700; 80320; 83735; 84100; 84478; 84484; 85025; 85379; 93010; J0131; J1885; J3010; J3475; J3490

== ENCOUNTER 2019-07-31 17:24 | Inpatient (IN) | payer MEDICAID, SELFPAY ==
[2019-07-31 17:27] VITALS: BP 92/53; PULSE 95; RESP 20; TEMP 36.9; O2SAT 100
[2019-07-31] MEDS: Normal Saline 1,000 ML 1000 ML IV ×2 (18:00→19:04)
[2019-07-31 18:18] LABS: ALT 21 U/L (16-63); AST 17 U/L (15-37); Albumin 3.3 g/dL (3.4-5.0); Alkaline Phosphatase 69 U/L (46-116); Anion Gap 10.3 mmol/L (3-11); BUN 8 mg/dL (7-18); Bilirubin, Total 0.2 mg/dL (0.2-1.0); CO2 26.7 mmol/L (21.0-32.0); CREATININE 0.83 mg/dL (0.70-1.30); Calcium 8.8 mg/dL (8.5-10.1); Chloride 100 mmol/L (98-107); Glucose 113 mg/dL (74-106); Magnesium 1.5 mg/dL (1.8-2.4); Sodium 137 mmol/L (136-145); Total Protein 7.2 g/dL (6.4-8.2)
[2019-07-31 18:35] LABS: Lipase > 15000 U/L (73-393)
[2019-07-31 18:48] LABS: Absolute Basophil Count 0.11 k/cumm (0.0-0.2); Absolute Eosinophil Count 0.21 k/cumm (0.0-0.7); Absolute Monocyte Count 1.52 k/cumm (0.11-0.7); Basophils % 0.6; Eosinophils % 1.1; Immature Grans % 2.7 %; Lymphocytes % 9.4; Mean Corp. HGB Concentration 33.3 g/dL (32.0-36.0); Mean Corpuscular Hemoglobin 32.6 pg (27.0-33.0); Mean Corpuscular Volume 97.9 fL (80-95); Mean Platelet Volume 9.3 fL (8.0-11.0); Monocytes % 8.1; Neutrophils % 78.1; Platelet Count 635 x1000/uL (130-400); RBC 4.29 m/cumm (4.50-6.00); RBC Distribution Width 13.5 % (11.8-14.1); White Blood Cell Count 18.79 k/cumm (4.4-10.8)
[2019-07-31 18:49] LABS: Absolute Lymphocyte Count 1.77 k/cumm (1.2-3.4); Absolute Neutrophil Count 14.67 k/cumm (1.2-6.7)
[2019-07-31 19:02] VITALS: BP 122/78; PULSE 83; RESP 16; O2SAT 98
[2019-07-31] MEDS: Ondansetron 4 MG/2 ML VIAL IVP (19:04)
--- NOTE | 2019-07-31 19:16 | ED.GENADUL_ITS ---
Discharge Plan Disposition Patient Disposition: OTHER Condition: Serious Discharge Details Chief Complaint: Abd Prob Clinical Impression: Pancreatitis Primary Care Provider: Antonio Harper ED Provider: Ramón Jaramillo Home Meds and New Rx's Prescriptions: No Action Prilosec OTC 20 mg Tablet,Delayed Release (Dr/Ec) 20 mg PO DAILY RF: 0 Medical Decision Making 39-year-old gentleman recently admitted to our facility for diagnosis of pancreatitis. He reports that he has never been pain-free since leaving the hospital but it has gotten worse over the past 24 hours or so. Exacerbated last night after drink 2 beers. Since with nausea, vomiting, abdominal pain. He appears comfortable but nontoxic. Blood pressure is in the 90s over 50s. Will initiate IV fluid, Zofran, obtain routine laboratory values and reassess. I will initially hold any narcotic pain medication given his pressures Laboratory values reveal WBC 13.79, platelet count of 635, glucose 113, magne sium 1.5, lipase greater than 15,000. A second liter of IV fluid written for, pressures trending up nicely. Given 4 mg IV morphine. We will also give IV magnesium for his magnesium of 1.5. Given his presentation, white count, lipase level, I do believe that he will likely require admission. Given his recent admission with CT, given his clinical presentation he does not appear toxic or septic, I do not believe that repeat emergent CT imaging is indicated at this time. I discussed the case with Dr. Borjas, he is agreeable to admission. I will write holding orders. Medical Records Medical records reviewed: Yes I reviewed the patient's medical records. Lab Data Lab results reviewed: Yes I reviewed the patient's lab results. Lab results narrative: Laboratory Tests Range/Units 07/31/19 07/31/19 07/31/19 17:30 17:30 18:00 WBC (4.4-10.8) k/cumm 18.79 H RBC (4.50-6.00) m/cumm 4.29 L Hgb (13.5-17.5) g/dL 14.0 Hct (40.0-50.0) % 42.0 MCV (80-95) fL 97.9 H MCH (27.0-33.0) pg 32.6 MCHC (32.0-36.0) g/dL 33.3 RDW (11.8-14.1) % 13.5 Plt Count (130-400) x1000/uL 635 H D MPV (8.0-11.0) fL 9.3 Sodium (136-145) mmol/L 137 Potassium (3.5-5.1) mmol/L 4.0 Chloride (98-107) mmol/L 100 Carbon Dioxide (21.0-32.0) mmol/L 26.7 Anion Gap (3-11) mmol/L 10.3 BUN (7-18) mg/dL 8 Creatinine (0.70-1.30) mg/dL 0.83 Estimated GFR/1.73 m2 (mL/min/1.73m2) >= 60.00 Glucose (74-106) mg/dL 113 H Calcium (8.5-10.1) mg/dL 8.8 Magnesium (1.8-2.4) mg/dL 1.5 L Total Bilirubin (0.2-1.0) mg/dL 0.2 AST (15-37) U/L 17 ALT (16-63) U/L 21 Alkaline Phosphatase (46-116) U/L 69 Total Protein (6.4-8.2) g/dL 7.2 Albumin (3.4-5.0) g/dL 3.3 L Lipase (73-393) U/L > 65071 H HPI General Mode of arrival: ambulatory . Date/Time Provider Initiated Documentation: 07/31/19 17:49 . Limitations to Documentation: no limitations . Information obtained by: patient . HPI Narrative: This is a 39-year-old gentleman presenting to the ER for increased abdominal pain, nausea, vomiting o raji the past 24-36 hours. He reports that he was admitted to our facility last month on the with a new diagnosis of pancreatitis. Subsequently discharged the next day and has been followed by his primary care provider who is not in our system as an outpatient. Had outpatient labs yesterday and was told his lipase was high but he does not know exactly how high. He does admit that he drinks 24 ounces of [place] Light yesterday evening which certainly exacerbated his symptoms afterward. He denies bad food exposure or sick contacts. Denies fever, chest pain, shortness of breath, diarrhea, constipation, dysuria, hematuria. He does report that the pain is moderate at baseline with severe episodes of stabbing like pain, radiates to his back. Related Data Home Medications Medication Instructions Recorded Confirmed omeprazole magnesium [Prilosec OTC] 20 mg PO DAILY 07/31/19 07/31/19 Allergies Allergy/AdvReac Type Severity Reaction Status Date / Time No Known Allergies Allergy Unverified 07/31/19 17:29 General Stated Complaint: Abd Prob DEIDRE: 3 Review of Systems Constitutional Constitutional: Denies fatigue, Denies fever(s) and Denies headache(s) ENT Ears, Nose, Mouth, and Throat: Denies headache(s) and Denies sore throat Cardiovascular Cardiovascular: Denies chest pain Respiratory Respiratory: Denies cough Gastrointestinal Gastrointestinal: Reports abdominal pain, Denies diarrhea, Reports nausea and Reports vomiting Genitourinary Genitourinary: Denies dysuria Musculoskeletal Musculoskeletal: Reports back pain Integumentary/Breasts Skin/Breast: Denies rash Neurologic Neurologic: Denies headache(s) Endocrine Endocrine: Denies fatigue [facility] Medical History Chronic alcohol use (Chronic) Tobacco dependence (Chronic) Social History Smoking/Tobacco Use Status: Current every day Tobacco Type: cigarettes Alcohol Intake: current Alcohol Intake frequency: 3 or more drinks per day Drug use: Daily Substance use type: marijuana Do you feel safe at home: Yes Do you feel safe in your relationship?: Yes Exam Const General: cooperative, healthy appearing and uncomfortable Orientation: alert, awake and oriented x3 HENMT Head: normal to inspection, normocephalic and atraumatic Mouth: moist mucous membranes abnormal (Slightly dry) Throat: posterior oropharynx normal Eyes Conjunctivae: conjunctivae normal Neck Neck: normal visual inspection, full ROM, trachea midline and supple Resp Effort & Inspection: normal respiratory effort and able to speak in complete sentences Auscultation: clear to auscultation bilaterally Cardio Rate: regular rate Rhythm: regular rhythm GI Inspection: normal to inspection Palpation: soft, not firm, guarding in the LUQ (Mild in nature), not rigid and tender in the epigastrum and in the LUQ; with no rebound tenderness Auscultation: normal bowel sounds Back/Spine/Pelvis Back: no CVA tenderness and back tenderness (Left lower thoracic upper lumbar discomfort, no spasm or erythema, diffuse) Skin General skin exam: no rashes or lesions noted Neuro General: patient alert, patient awake, patient oriented x3, moves all extremities and no focal motor deficits Cranial Nerves: CN's II-XI intact bilaterally Cognition: normal cognition Motor: muscle tone normal throughout Sensory Exam: no sensory deficits noted Extrem General: normal to inspection, full ROM and capillary refill normal Psych Appearance: grossly normal Mental Status: mental status grossly normal Course Vital Signs Vital signs: Vital Signs Temperature 36.9 C 07/31/19 17:27 Pulse 95 H 07/31/19 17:27 Respiratory Rate 20 07/31/19 17:27 Blood Pressure 92/53 L 07/31/19 17:27 Pulse Oximetry 100 07/31/19 17:27 Temperature 36.9 C 07/31/19 17:27 Temperature Source Temporal Artery Scan 07/31/19 17:27 Pulse 83 07/31/19 19:02 Respiratory Rate 16 07/31/19 19:02 Respiratory Effort Non-Labored 07/31/19 17:46 Blood Pressure 122/78 07/31/19 19:02 Pulse Oximetry 98 07/31/19 19:02 Oxygen Delivery Method Room Air 07/31/19 19:02 Oxygen Flow Rate 0 07/31/19 19:02 Pain Level 10 07/31/19 19:03 Lab/Test Results Lab/Test Results: Laboratory Tests Range/Units 07/31/19 07/31/19 07/31/19 17:30 17:30 18:00 WBC (4.4-10.8) k/cumm 18.79 H RBC (4.50-6.00) m/cumm 4.29 L Hgb (13.5-17.5) g/dL 14.0 Hct (40.0-50.0) % 42.0 MCV (80-95) fL 97.9 H MCH (27.0-33.0) pg 32.6 MCHC (32.0-36.0) g/dL 33.3 RDW (11.8-14.1) % 13.5 Plt Count (130-400) x1000/uL 635 H D MPV (8.0-11.0) fL 9.3 Sodium (136-145) mmol/L 137 Potassium (3.5-5.1) mmol/L 4.0 Chloride (98-107) mmol/L 100 Carbon Dioxide (21.0-32.0) mmol/L 26.7 Anion Gap (3-11) mmol/L 10.3 BUN (7-18) mg/dL 8 Creatinine (0.70-1.30) mg/dL 0.83 Estimated GFR/1.73 m2 (mL/min/1.73m2) >= 60.00 Glucose (74-106) mg/dL 113 H Calcium (8.5-10.1) mg/dL 8.8 Magnesium (1.8-2.4) mg/dL 1.5 L Total Bilirubin (0.2-1.0) mg/dL 0.2 AST (15-37) U/L 17 ALT (16-63) U/L 21 Alkaline Phosphatase (46-116) U/L 69 Total Protein (6.4-8.2) g/dL 7.2 Albumin (3.4-5.0) g/dL 3.3 L Lipase (73-393) U/L > 11300 H
[2019-07-31] MEDS: MAGNESIUM SULFATE 1 GM/100 ML BAG IVPB (19:33)
[2019-07-31 19:39] LABS: Diff Comment Diff Reviewed; Macrocytosis 2+
[2019-07-31 19:39] LABS: ETHANOL BLOOD 5.3 mg/dL (<3)
[2019-07-31 19:52] VITALS: BP 114/70; PULSE 77; RESP 16; O2SAT 99
[2019-07-31 20:05] VITALS: BP 123/85; PULSE 80; RESP 18; TEMP 37; O2SAT 99
--- NOTE | 2019-07-31 22:13 | HPE_ITS ---
Date of service: 07/31/19 Time of Service: 22:13 Assessment and Plan Assessment and plan (1) Pancreatitis: Status: Acute Assessment and plan: Patient with recurrence of pancreatitis. He had a full work-up last time including a CAT scan and abdominal ultrasound did not demonstrate another cause for the pancreatitis other than the alcohol use. Imaging is not been done in the emergency room, and I think it is reasonable to forego repeat CAT scan at this point given the presentation and elevated lipase is very consistent with pancreatitis. If he clinically worsens or is not improving, I would repeat the CAT scan to look for complications such as necrosis or pseudocyst causing obstruction. For now, treat supportively with fluids, ondansetron, morphine for pain, n.p.o. with possible progression of diet tomorrow. I will also treat with pantoprazole given risk of gastritis and ulcers. Qualifiers: Chronicity: acute Pancreatitis type: alcohol induced Acute pancreatitis complication: no infection or necrosis Qualified Code(s): K85.20 - Alcohol induced acute pancreatitis without necrosis or infection (2) Chronic alcohol use: Status: Chronic Assessment and plan: Patient meets criteria for alcohol use disorder. He does self identify as an alcoholic and he expresses the desire to stop drinking altogether. We discussed resources to help treat this disorder, including medication and counseling. Referral and possible prescription should be reviewed prior to discharge. Plan should also be made to clarify and address possible underlying depression that has triggered drinking. This point does not appear to be intoxicated or in withdrawal. Patient was on the Ativan protocol previous admission, but did not need Lorazepam dosing. We will resume withdrawal protocol if he shows any signs of withdrawal. (3) Tobacco dependence: Status: Chronic Assessment and plan: Encourage cessation. Will use nicotine patch for now. (4) DVT prophylaxis: Status: Acute Assessment and plan: Lovenox (5) Discharge planning issues: Status: Acute Assessment and plan: Patient is currently stable on the medical floor. He is full code. Should offer counseling resources prior to discharge. History of Present Illness History of Present Illness Chief Complaint: Abdominal pain Narrative: 39-year-old male with history of severe alcohol use disorder and recent admission 07/14/2019 to 07/15/2019 with alcoholic pancreatitis who presented with recurrence of the same epigastric pain as he had during his previous admission. He had recovered from his previous bout of pancreatitis and was eating roughly normal diet. 3 days prior to admission, he started having mild epigastric to l eft upper quadrant pain. At about 2 PM on the day of admission, he had the onset of severe epigastric to left-sided pain. He describes the pain is sharp, radiating across the mid back. Associated with nausea and vomiting, started watery and it became yellow-orange color. Pain is severe caused him to double over at work. He states he has been drinking 1 or 2 beers a night over the past few days. Most recently the night prior to admission. This is much less than his previous consumption of 15 beers daily prior to his initial admission. He also mentions he took small doses of ibuprofen and Tylenol the evening prior to admission to try to treat the pain. He is not aware of any other possible triggers, including major diet changes or medications or other drugs. He denies any trauma to the abdomen. He denies any travel. On his previous admission, he had a CT of the abdomen pelvis that showed severe acute pancreatitis. Abdominal ultrasound did not show any signs of biliary disease including stones. His triglycerides were normal. His lipase on admission last time was 2858. Alcohol withdrawal protocol was ordered last admission but he did not show signs of withdrawal. Regarding his alcohol use disorder, he states he was drinking heavily for 3 years on a daily basis. He was able to stay away from alcohol for 1 episode of 2 months. He has not had luck with AA. He is not used medication or seeing a alcohol counselor for this. Review of Systems Narrative: General: No fevers or chills. Has not eaten since this morning. HEENT: No headaches. No vision changes or eye pain. No runny nose or congestion. No sore throat or oral lesions. No dysphagia. Respiratory: No cough or wheeze. He does have pain with taking a deep breath in the epigastrium. No dyspnea. Cardiovascular: No chest pain or palpitations. GI: No diarrhea. Normal stooling for the past 2 weeks. No blood or melena. No jaundice. MSK: No joint redness or swelling Skin: No rashes or other skin lesions. He does feel itchy. Neurologic: No numbness or weakness. Not dizzy. Hematologic: No bleeding or swollen lymph nodes : No dysuria or hematuria. Psychiatric: Patient endorses a long history of depression, which she feels like triggers his drinking. He states he has tried treatment with his PCP in the past. 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 He shares a home with his mother. He denies any travel or recent sexual partners. Meds Home Medications and Allergies Home Medications Medication Instructions Recorded Confirmed Type omeprazole magnesium [Prilosec OTC] 20 mg PO DAILY 07/31/19 07/31/19 History Allergies Allergy/AdvReac Type Severity Reaction Status Date / Time No Known Allergies Allergy Unverified 07/31/19 17:29 Exam Narrative Exam Narrative: General: Alert and oriented x3, sitting up in bed speaking in full sentences, no acute distress. HEENT: Normocephalic, atraumatic. Conjunctive are clear with no icterus. Pupils midsize in room light and reactive. Mucous membranes moist, oropharynx benign, but poor dentition. Neck is supple with normal thyroid and no thyromegaly, lymphadenopathy, or other masses. Supple with normal range of motion. Lungs: Clear to auscultation bilaterally normal effort Cardiovascular: Regular rate and rhythm no murmurs gallops or rubs Abdomen: Nondistended. Active bowel sounds more in lower abdomen. Tender across the epigastrium to palpation. No organomegaly to percussion. No rebound or guarding. Extremities: No cyanosis clubbing or edema. Nontender palpation. No joint redness or swelling. Skin: Warm and dry. No rashes or other skin lesions. No marked bruising. Neurologic: Cranial nerves II through XII grossly intact. Normal speech and coordination. No tremor. Lymph: No lymphadenopathy in neck axilla or groin Psychiatric: Normal mood and affect. Normal thought process. Results Labs Result diagrams: 07/31/19 18:00 07/31/19 17:30 Labs: Laboratory Results - last 24 hr 07/31/19 07/31/19 07/31/19 17:30 17:30 18:00 WBC 18.79 H RBC 4.29 L Hgb 14.0 Hct 42.0 MCV 97.9 H MCH 32.6 MCHC 33.3 RDW 13.5 Plt Count 635 H D MPV 9.3 Immature Gran % 2.7 Neutrophils % 78.1 Lymphocytes % 9.4 Monocytes % 8.1 Eosinophils % 1.1 Basophils % 0.6 Absolute Neutrophils 14.67 H Absolute Lymphocytes 1.77 Absolute Monocytes 1.52 H Absolute Eosinophils 0.21 Absolute Basophils 0.11 Differential Comment Diff reviewed RBC Morphology See below Macrocytosis 2+ Sodium 137 Potassium 4.0 Chloride 100 Carbon Dioxide 26.7 Anion Gap 10.3 BUN 8 Creatinine 0.83 Estimated GFR/1.73 m2 >= 60.00 Glucose 113 H Calcium 8.8 Magnesium 1.5 L Total Bilirubin 0.2 AST 17 ALT 21 Alkaline Phosphatase 69 Total Protein 7.2 Albumin 3.3 L Lipase > 35122 H Ethyl Alcohol 07/31/19 19:10 WBC RBC Hgb Hct MCV MCH MCHC RDW Plt Count MPV Immature Gran % Neutrophils % Lymphocytes % Monocytes % Eosinophils % Basophils % Absolute Neutrophils Absolute Lymphocytes Absolute Monocytes Absolute Eosinophils Absolute Basophils Differential Comment RBC Morphology Macrocytosis Sodium Potassium Chloride Carbon Dioxide Anion Gap BUN Creatinine Estimated GFR/1.73 m2 Glucose Calcium Magnesium Total Bilirubin AST ALT Alkaline Phosphatase Total Protein Albumin Lipase Ethyl Alcohol 5.3 Last Vital Signs Temp 36.9 C 07/31/19 17:27 Pulse 77 07/31/19 19:52 Resp 16 07/31/19 19:52 BP 114/70 07/31/19 19:52 Pulse Ox 99 07/31/19 19:52
[2019-07-31] MEDS: Nicotine 21 MG/24 HR PATCH TD (22:36)
[2019-07-31] MEDS: Enoxaparin 40 MG/0.4 ML SYR SC (22:37)
[2019-07-31] MEDS: Normal Saline Flush 10 ML SYR IVP (22:37)
[2019-07-31] MEDS: Pantoprazole 40 MG VIAL IVP (22:37)
[2019-07-31] MEDS: MAGNESIUM SULFATE 2 GM/50 ML BAG IVPB (22:37)
[2019-07-31] MEDS: POTASSIUM CHLORIDE/D5-0.45NACL 1,000 ML 150 MEQ IV (22:37)
[2019-07-31] MEDS: MORPHine 2 MG/ML SYR IVP (22:49)
[2019-08-01] MEDS: MORPHine 2 MG/ML SYR IVP ×9 (01:37→21:25)
[2019-08-01 04:36] LABS: Bilirubin Negative (Negative); Blood Negative (Negative); Clarity Clear (Clear); Glucose Negative (Negative); Ketones Negative (Negative); Leukocyte Esterase Negative (Negative); Nitrite Negative (Negative); Specific Gravity 1.025 (1.005-1.025); Urobilinogen 0.2 EU/dL (Up TO 0.2)
[2019-08-01 07:35] LABS: Abs Immature Grans 0.21 k/cumm (0.0-0.09); Absolute Basophil Count 0.07 k/cumm (0.0-0.2); Absolute Eosinophil Count 0.28 k/cumm (0.0-0.7); Absolute Monocyte Count 1.07 k/cumm (0.11-0.7); Basophils % 0.6; Eosinophils % 2.5; HCT 39.1 % (40.0-50.0); HGB 12.7 g/dL (13.5-17.5); Immature Grans % 1.9 %; Lymphocytes % 15.4; Mean Corp. HGB Concentration 32.5 g/dL (32.0-36.0); Mean Corpuscular Hemoglobin 32.1 pg (27.0-33.0); Mean Corpuscular Volume 98.7 fL (80-95); Mean Platelet Volume 9.5 fL (8.0-11.0); Monocytes % 9.5; Neutrophils % 70.1; Platelet Count 576 x1000/uL (130-400); RBC 3.96 m/cumm (4.50-6.00); RBC Distribution Width 13.7 % (11.8-14.1); White Blood Cell Count 11.27 k/cumm (4.4-10.8)
[2019-08-01 07:36] VITALS: BP 121/78; PULSE 73; RESP 16; TEMP 36.3; O2SAT 99
[2019-08-01 07:36] LABS: Absolute Lymphocyte Count 1.74 k/cumm (1.2-3.4)
[2019-08-01 07:56] LABS: ALT 16 U/L (16-63); AST 15 U/L (15-37); Albumin 2.7 g/dL (3.4-5.0); Alkaline Phosphatase 63 U/L (46-116); Anion Gap 6.6 mmol/L (3-11); BUN 5 mg/dL (7-18); Bilirubin, Total 0.3 mg/dL (0.2-1.0); CO2 27.4 mmol/L (21.0-32.0); CREATININE 0.74 mg/dL (0.70-1.30); Calcium 8.3 mg/dL (8.5-10.1); Chloride 105 mmol/L (98-107); Glucose 111 mg/dL (74-106); Magnesium 2.2 mg/dL (1.8-2.4); Potassium 4.1 mmol/L (3.5-5.1); Sodium 139 mmol/L (136-145); Total Protein 6.2 g/dL (6.4-8.2)
[2019-08-01] MEDS: MULTIVITAMIN 10 ML, THIAMINE 100 MG, FOLIC ACID 1 MG in DEXTROSE 5%-0.45% SALINE 1,000 ML 42 ML IV (09:23)
[2019-08-01] MEDS: POTASSIUM CHLORIDE/D5-0.45NACL 1,000 ML 150 MEQ IV (09:30)
[2019-08-01] MEDS: Normal Saline 1,000 ML 200 ML IV ×3 (09:33→19:34)
--- NOTE | 2019-08-01 10:30 | NUR.NOTE ---
Nursing Note: 929: pt reports last alcoholic beverage was Sunday night when he consumed a tall budlight orange flavored which he drank over a 5 hour period. pt states he slipped a little following discharge in June. pt has had a difficult time with his diet and reports losing weight over the last 3 weeks.
[2019-08-01 11:31] VITALS: BP 142/81; PULSE 68; RESP 16; TEMP 36.8; O2SAT 98
--- NOTE | 2019-08-01 11:31 | INITIAL_ITS ---
- If Service Date Differs Date of service: 08/01/19 Time of Service: 11:31 Care Management Initial Assess REASON FOR HOSPITALIZATION:: Pancreatitis PAST MEDICAL HISTORY/PAST SURGICAL HISTORY:: ETOH Abuse. pancreatitis PREVIOUS FUNCTIONAL STATUS/SOCIAL/FAMILY SUPPORTS:: Acosta lives with his mother in [place]. 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 He is independent at baseline, although he does not drive at this time. He reported that he let his license lapse, and has to retake his driving test in order to obtain his license again. He stated that he has family/friend supports locally, and that he helps care for his mother. CURRENT FUNCTIONAL STATUS:: Acosta was sitting up in bed watching TV when CM met with him. He was cordial and agreeable to conversation. Acosta stated that he is feeling a bit better. He is receiving morphine for pain, which is effective. Acosta stated that he can have the morphine every hour but tries to wait at least 2-3 hours in between. 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 he stated that he really enjoys the work and the people he works with. They treat him as family. ADVANCE DIRECTIVES:: none but provided with forms by CM Has patient been provided with information about the portal?: Yes Did the patient sign up for the portal?: No CODE STATUS:: Full Code INSURANCE COVERAGE / FINANCIAL ISSUES:: has applied for Financial Assist CURRENT HOME/COMMUNITY SERVICES/EQUIPMENT:: none PRIMARY CARE PHYSICIAN:: Antonio Harper PATIENT/FAMILY EDUCATION NEEDS:: Follow up with PCP and discharge plan of care. Acosta would likely benefit from speaking to staff at [facility] regarding Insurance. TRANSPORTATION:: via private vehicle with family PLAN:: Acosta will likely be discharged home with no new services. He will follow up with his PCP and discharge plan of care. CM will continue to support patient, family and discharge planning needs. Readmission - Within the Past 30 Days Yes or No: Y - Date of First Admission Date of 1st Admission: 07/14/19 - Date of this Admission Date of Admission: 07/31/19 - Office Visit Since 1st Admission Have you seen your PCP in the office since discharge?: Yes - I. Interview patient and/or Family Difficulty reaching your doctor or getting an office appt?: No Have you had trouble purchasing/ or taking medication?: No Have you had trouble with getting meals at home?: No Did you feel ready for discharge when you left the last time: Yes Did you call your physician beore you came to the ED?: No How do you think you became sick enough to come back?: the pancreatitis never completely got better then it started to get worse. Had been drinking [place] beer - thought it had no alcohol so felt it would not be harmful. - Ask the Care Team Members: What do you think caused the patient to be readmitted: He continued to drink alcohol, albeit very low of alcohol amount in the beer. - Assessment for Readmission Summary of readmission circumstances, based upon interviews: Acosta was hospitalized for pancreatitis last month. He was advised not to drink alcohol so drank non-alcoholic beer which still has 1% alcohol.
--- NOTE | 2019-08-01 12:52 | PHA.ADMREV ---
Pharmacy Clinical Review - Admission Clinical Review (Last Reviewed 07/31/19 @ 22:22 by Acosta Borjas) DVT prophylaxis (Acute) Pancreatitis (Acute) Discharge planning issues (Acute) No Known Allergies Allergy (Unverified 07/31/19 17:29) Height 6 ft 4 in Weight 70.3 kg - Renal Dosing Renal Dosing: BUN 5 mg/dL (7-18) L 08/01/19 06:20 Creatinine 0.74 mg/dL (0.70-1.30) 08/01/19 06:20 Medications needing adjustments: Reviewed (CrCl~ 124 mL/min No adjustment needed.) - Anticoagulation Anticoagulation: Hgb 12.7 g/dL (13.5-17.5) L 08/01/19 06:20 Hct 39.1 % (40.0-50.0) L 08/01/19 06:20 Plt Count 576 x1000/uL (130-400) H 08/01/19 06:20 Creatinine 0.74 mg/dL (0.70-1.30) 08/01/19 06:20 DVT Prohphylaxis: Reviewed Medications: Enoxaparin - Opiate Usage Evaluate Pain Scale/Pains Meds: Reviewed (Morphine 2mg IVP q1h prn) Scheduled Bowel Reg ordered if on Opiates?: Yes - Relevant Labs Sodium 139 mmol/L (136-145) 08/01/19 06:20 Potassium 4.1 mmol/L (3.5-5.1) 08/01/19 06:20 Chloride 105 mmol/L (98-107) 08/01/19 06:20 Magnesium 2.2 mg/dL (1.8-2.4) 08/01/19 06:20 Electrolytes, C-Reactive P, ESR: Reviewed (banana bag daily) - Antimicrobial Stewardship Antibiotic appropriateness: N/A - DM Control DM Control: Glucose 111 mg/dL (74-106) H 08/01/19 06:20 Insulin Dosing: N/A - Heart Failure/RI EF%, MAX's, B-Blockers, Diuretics: N/A - BP Control BP Control: Blood Pressure 142/81 Blood Pressure 121/78 If elevated: Reviewed ([id number] on 07/14/2019) - IV to PO Switch IV Medications: N/A - Home Meds Home Med List reviewed: Reviewed - Current meds Current Medication Order Review: Reviewed
--- NOTE | 2019-08-01 13:39 | CHAPLAIN ---
Acosta was sitting up in bed when I visited. He said he is worried about missing work and pay. 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 He said his mom will be in to visit after work this afternoon.
[2019-08-01 13:55] VITALS: BP 115/70; PULSE 64; RESP 16; TEMP 36.1; O2SAT 100
--- NOTE | 2019-08-01 14:10 | W.NUTCONSULT ---
Date of service: 08/01/19 Time of Service: 14:11 Nutritional Consult ASSESSMENT: is a 39 y/.o male admitted for pancreatitis w/ hx tobacco/ ETOH abuse. Currently on clear lx diet which he states that he tolerates if he consumes slowly. Patient reports recent weight loss and is aware his current weight is 154.6. Documentation shows 9.6 lbs weight loss in two months. He is omwoazksa26.5% IBW w/ BMI 18.9 indicating malnutrition. Rec: Ensure Enlive clear 237 ml TID to promote weight gain and nutrient density. Noted: on MVI, B1 zofran, omeprazole. Labs indicate low H+H, Total pro and Alb. Enc intake as yi. NUTRITIONAL DIAGNOSIS: Malnutrition INTERVENTION: Ensure Enlive TID and diet as yi MONITORING AND EVALUATION: Weights, Labs, PO intake Time Spent in Nutritional Counseling and Treatment: 10 minutes spent face to minutes
--- NOTE | 2019-08-01 14:23 | W.PM.PROGNOT ---
Date of Service Date of service: 08/01/19 Time of Service: 14:24 Assessment and Plan Assessment and plan (1) Pancreatitis: Start date: 08/01/19 Start time: 14:25 Status: Acute Assessment and plan: Patient with recurrence of pancreatitis. He had a full work-up last time including a CAT scan and abdominal ultrasound did not demonstrate another cause for the pancreatitis other than the alcohol use. Diet advanced to clears, tolerating, with no pain, nausea or vomiting. Banana bag started with IVF at 200. Continue to monitor for pain. Repeat lipase in am with BMP and CBC. Qualifiers: Chronicity: acute Pancreatitis type: alcohol induced Acute pancreatitis complication: no infection or necrosis Qualified Code(s): K85.20 - Alcohol induced acute pancreatitis without necrosis or infection (2) Chronic alcohol use: Start date: 08/01/19 Start time: 14:26 Status: Chronic Assessment and plan: Patient endorses drinking 15 odulls beers, he did not think the low alcohol content would affect his pancreas. He is ready to quite he has tried over methods in the past without success. He states if he withdrawals usually he gets shakes, will place on CIWA and banana bag at this time. See above. CM to set up community resources to help him stop drinking. (3) Tobacco dependence: Start date: 08/01/19 Start time: 14:28 Status: Chronic Assessment and plan: Encourage cessation. Will use nicotine patch for now. (4) DVT prophylaxis: Start date: 08/01/19 Start time: 14:28 Status: Acute Assessment and plan: Lovenox (5) Discharge planning issues: Start date: 08/01/19 Start time: 14:28 Status: Acute Assessment and plan: Patient is currently stable on the medical floor. He is full code. He is interested in counseling services. Subjective Subjective Patient reports: feels better Interval history since last seen: Improving. Pain is better, tolerating clears. Denies N/V/D. Trial soft foods for am. Exam Narrative Exam Narrative: General: Alert and oriented x3, sitting up in bed speaking in full sentences, no acute distress. HEENT: Normocephalic, atraumatic. Conjunctive are clear with no icterus. Pupils midsize in room light and reactive. Mucous membranes moist, oropharynx benign, but poor dentition. Neck is supple with normal thyroid and no thyromegaly, lymphadenopathy, or other masses. Supple with normal range of motion. Lungs: Clear to auscultation bilaterally normal effort Cardiovascular: Regular rate and rhythm no murmurs gallops or rubs Abdomen: Nondistended. Active bowel sounds more in lower abdomen. Tender across the epigastrium to palpation. No organomegaly to percussion. No rebound or guarding. Extremities: No cyanosis clubbing or edema. Nontender palpation. No joint redness or swelling. Skin: Warm and dry. No rashes or other skin lesions. No marked bruising. Neurologic: Cranial nerves II through XII grossly intact. Normal speech and coordination. No tremor. Lymph: No lymphadenopathy in neck axilla or groin Psychiatric: Normal mood and affect. Normal thought process. Objective Objective Clinical Data: Abnormal lab results 07/31/19 07/31/19 07/31/19 Range/Units 17:30 17:30 18:00 WBC 18.79 H (4.4-10.8) k/cumm RBC 4.29 L (4.50-6.00) m/cumm Hgb (13.5-17.5) g/dL Hct (40.0-50.0) % MCV 97.9 H (80-95) fL Plt Count 635 H D (130-400) x1000/uL Absolute Neutrophils 14.67 H (1.2-6.7) k/cumm Absolute Monocytes 1.52 H (0.11-0.7) k/cumm BUN (7-18) mg/dL Glucose 113 H (74-106) mg/dL Calcium (8.5-10.1) mg/dL Magnesium 1.5 L (1.8-2.4) mg/dL Total Protein (6.4-8.2) g/dL Albumin 3.3 L (3.4-5.0) g/dL Lipase > 13775 H (73-393) U/L 08/01/19 08/01/19 Range/Units :20 06:20 WBC 11.27 H D (4.4-10.8) k/cumm RBC 3.96 L (4.50-6.00) m/cumm Hgb 12.7 L (13.5-17.5) g/dL Hct 39.1 L (40.0-50.0) % MCV 98.7 H (80-95) fL Plt Count 576 H (130-400) x1000/uL Absolute Neutrophils 7.90 H (1.2-6.7) k/cumm Absolute Monocytes 1.07 H (0.11-0.7) k/cumm BUN 5 L (7-18) mg/dL Glucose 111 H (74-106) mg/dL Calcium 8.3 L (8.5-10.1) mg/dL Magnesium (1.8-2.4) mg/dL Total Protein 6.2 L (6.4-8.2) g/dL Albumin 2.7 L (3.4-5.0) g/dL Lipase (73-393) U/L Vital Signs Temperature 36.1 C L 08/01/19 13:55 Temperature Source Tympanic 08/01/19 13:55 Pulse 64 08/01/19 13:55 Pulse Rhythm Regular 08/01/19 08:00 Respiratory Rate 16 08/01/19 13:55 Respiratory Effort Non-Labored 08/01/19 08:00 Respiratory Depth Normal 08/01/19 08:00 Respiratory Pattern Normal 08/01/19 08:00 Blood Pressure 115/70 08/01/19 13:55 Pulse Oximetry 100 08/01/19 13:55 Oxygen Delivery Method Room Air 08/01/19 13:55 Oxygen Flow Rate 0 08/01/19 13:55 Pain Level 5 08/01/19 13:55 Intake & Output 07/31/19 08/01/19 08/01/19 23:59 11:59 23:59 Intake Total 2009 1000 / 2575.833 1575.833 / 2575.833 Balance 2009 1000 / 2575.833 1575.833 / 2575.833 Weight 68.946 kg 70.3 kg Intake: IV 2009 1000 / 2375.833 1375.833 / 2375.833 Oral 200 / 200 Other: Urine Color Yellow Urine Appearance Clear Clear Urine Odor Normal Comment patient toilets self Voiding Methods Toilet Laboratory Results WBC 11.27 k/cumm (4.4-10.8) H D 08/01/19 06:20 RBC 3.96 m/cumm (4.50-6.00) L 08/01/19 06:20 Hgb 12.7 g/dL (13.5-17.5) L 08/01/19 06:20 Hct 39.1 % (40.0-50.0) L 08/01/19 06:20 MCV 98.7 fL (80-95) H 08/01/19 06:20 MCH 32.1 pg (27.0-33.0) 08/01/19 06:20 MCHC 32.5 g/dL (32.0-36.0) 08/01/19 06:20 RDW 13.7 % (11.8-14.1) 08/01/19 06:20 Plt Count 576 x1000/uL (130-400) H 08/01/19 06:20 MPV 9.5 fL (8.0-11.0) 08/01/19 06:20 Immature Gran % 1.9 % 08/01/19 06:20 Neutrophils % 70.1 08/01/19 06:20 Lymphocytes % 15.4 08/01/19 06:20 Monocytes % 9.5 08/01/19 06:20 Eosinophils % 2.5 08/01/19 06:20 Basophils % 0.6 08/01/19 06:20 Absolute Neutrophils 7.90 k/cumm (1.2-6.7) H 08/01/19 06:20 Absolute Lymphocytes 1.74 k/cumm (1.2-3.4) 08/01/19 06:20 Absolute Monocytes 1.07 k/cumm (0.11-0.7) H 08/01/19 06:20 Absolute Eosinophils 0.28 k/cumm (0.0-0.7) 08/01/19 06:20 Absolute Basophils 0.07 k/cumm (0.0-0.2) 08/01/19 06:20 Differential Comment Diff reviewed 07/31/19 18:00 RBC Morphology See below 07/31/19 18:00 Macrocytosis 2+ 07/31/19 18:00 Sodium 139 mmol/L (136-145) 08/01/19 06:20 Potassium 4.1 mmol/L (3.5-5.1) 08/01/19 06:20 Chloride 105 mmol/L (98-107) 08/01/19 06:20 Carbon Dioxide 27.4 mmol/L (21.0-32.0) 08/01/19 06:20 Anion Gap 6.6 mmol/L (3-11) 08/01/19 06:20 BUN 5 mg/dL (7-18) L 08/01/19 06:20 Creatinine 0.74 mg/dL (0.70-1.30) 08/01/19 06:20 Estimated GFR/1.73 m2 >= 60.00 (mL/min/1.73m2) 08/01/19 06:20 Glucose 111 mg/dL (74-106) H 08/01/19 06:20 Calcium 8.3 mg/dL (8.5-10.1) L 08/01/19 06:20 Magnesium 2.2 mg/dL (1.8-2.4) 08/01/19 06:20 Total Bilirubin 0.3 mg/dL (0.2-1.0) 08/01/19 06:20 AST 15 U/L (15-37) 08/01/19 06:20 ALT 16 U/L (16-63) 08/01/19 06:20 Alkaline Phosphatase 63 U/L (46-116) 08/01/19 06:20 Total Protein 6.2 g/dL (6.4-8.2) L 08/01/19 06:20 Albumin 2.7 g/dL (3.4-5.0) L 08/01/19 06:20 Lipase > 49447 U/L (73-393) H 07/31/19 17:30 Urine Color Yellow (Yellow) 08/01/19 04:16 Urine Clarity Clear (Clear) 08/01/19 04:16 Urine pH 6.0 (5-8) 08/01/19 04:16 Ur Specific [place] 1.025 (1.005-1.025) 08/01/19 04:16 Urine Protein Negative mg/dL (Negative) 08/01/19 04:16 Urine Ketones Negative mg/dL (Negative) 08/01/19 04:16 Urine Blood Negative (Negative) 08/01/19 04:16 Urine Nitrite Negative (Negative) 08/01/19 04:16 Urine Bilirubin Negative (Negative) 08/01/19 04:16 Urine Urobilinogen 0.2 EU/dL (Up TO 0.2) 08/01/19 04:16 Ur Leukocyte Esterase Negative (Negative) 08/01/19 04:16 Urine Glucose Negative mg/dL (Negative) 08/01/19 04:16 Ethyl Alcohol 5.3 mg/dL (<3) 07/31/19 19:10
--- NOTE | 2019-08-01 14:26 | W.NUTRFU ---
Date of service: 08/01/19 Time of Service: 14:26 Nutritional Follow up NOTE: addendum: Nutritional Needs are as follows CHO- [id number] k/arun/day Pro- 138 g/dayFluids- 2754 ml/day, encourage intake as tolerated and will monitor for potential diet upgrade Time Spent in Nutritional Counseling and Treatment: 0 time spent face to face
[2019-08-01 15:46] VITALS: BP 118/81; PULSE 69; RESP 16; TEMP 37.1; O2SAT 98
[2019-08-01] MEDS: Normal Saline Flush 10 ML SYR IVP ×3 (16:04→21:27)
[2019-08-01 19:17] VITALS: BP 117/66; PULSE 67; RESP 16; TEMP 36.7; O2SAT 100
[2019-08-01] MEDS: Nicotine 21 MG/24 HR PATCH TD (21:22)
[2019-08-01] MEDS: Enoxaparin 40 MG/0.4 ML SYR SC (21:24)
[2019-08-01] MEDS: Pantoprazole 40 MG VIAL IVP (21:24)
[2019-08-02] MEDS: Normal Saline 1,000 ML 200 ML IV ×3 (00:44→10:23)
[2019-08-02] MEDS: MORPHine 2 MG/ML SYR IVP ×3 (01:55→08:03)
[2019-08-02] MEDS: Normal Saline Flush 10 ML SYR IVP ×2 (01:56→08:04)
[2019-08-02 02:06] VITALS: BP 123/79; PULSE 66; RESP 18; TEMP 35.8; O2SAT 100
[2019-08-02 06:53] LABS: Absolute Basophil Count 0.07 k/cumm (0.0-0.2); Absolute Eosinophil Count 0.42 k/cumm (0.0-0.7); Absolute Lymphocyte Count 1.86 k/cumm (1.2-3.4); Absolute Monocyte Count 0.99 k/cumm (0.11-0.7); Absolute Neutrophil Count 4.37 k/cumm (1.2-6.7); Basophils % 0.9; Eosinophils % 5.4; HCT 37.3 % (40.0-50.0); HGB 11.9 g/dL (13.5-17.5); Immature Grans % 1.3 %; Lymphocytes % 23.8; Mean Corp. HGB Concentration 31.9 g/dL (32.0-36.0); Mean Corpuscular Hemoglobin 31.7 pg (27.0-33.0); Mean Corpuscular Volume 99.5 fL (80-95); Mean Platelet Volume 9.4 fL (8.0-11.0); Monocytes % 12.7; Neutrophils % 55.9; Platelet Count 469 x1000/uL (130-400); RBC 3.75 m/cumm (4.50-6.00); RBC Distribution Width 13.7 % (11.8-14.1); White Blood Cell Count 7.81 k/cumm (4.4-10.8)
[2019-08-02 07:05] LABS: Anion Gap 4.1 mmol/L (3-11); BUN 3 mg/dL (7-18); CO2 27.9 mmol/L (21.0-32.0); CREATININE 0.71 mg/dL (0.70-1.30); Calcium 8.1 mg/dL (8.5-10.1); Chloride 106 mmol/L (98-107); Glucose 90 mg/dL (74-106); Lipase 586 U/L (73-393); Magnesium 1.6 mg/dL (1.8-2.4); Sodium 138 mmol/L (136-145)
[2019-08-02 08:04] VITALS: BP 133/82; PULSE 70; RESP 18; TEMP 36.7; O2SAT 93
--- NOTE | 2019-08-02 08:23 | PDOC.CMPRO ---
- If Service Date Differs Date of service: 08/02/19 Time of Service: 08:23 Care Management Progress Note S/O:Acosta is sitting up in the bed he is alert no changes to the plan today. Continue to monitor labs and diet tolerance. Acosta will discharged home when medically ready with no additional services at time of discharge. A:Acosta is a 39 year old male admitted with pancreatitis P: Acosta will likely be discharged home with no new services. He will follow up with his PCP and discharge plan of care. CM will continue to support patient, family and discharge planning needs.
[2019-08-02] MEDS: MAGNESIUM SULFATE 4 GM/100 ML BAG IVPB (09:14)
[2019-08-02] MEDS: MULTIVITAMIN 10 ML, THIAMINE 100 MG, FOLIC ACID 1 MG in DEXTROSE 5%-0.45% SALINE 1,000 ML 42 ML IV (10:23)
[2019-08-02] MEDS: traMADol 50 MG TAB PO ×3 (11:31→22:20)
[2019-08-02] MEDS: Acetaminophen 500 MG TAB 1000 MG PO ×2 (12:30→18:30)
--- NOTE | 2019-08-02 13:30 | PGE_ITS ---
Date of Service Date of service: 08/02/19 Time of Service: 13:31 Assessment and Plan Assessment and plan (1) Pancreatitis: Start date: 08/02/19 Start time: 13:40 Status: Acute Assessment and plan: Improving. Symptoms are improving. Pain present but less. Able to tolerate soft diet. Denies N/V. Possible discharge home tomorrow. Qualifiers: Chronicity: acute Pancreatitis type: alcohol induced Acute pancreatitis complication: no infection or necrosis Qualified Code(s): K85.20 - Alcohol induced acute pancreatitis without necrosis or infection (2) Chronic alcohol use: Start date: 08/02/19 Start time: 13:40 Status: Chronic Assessment and plan: Would like help. CM is getting patient a counsler from community (3) Tobacco dependence: Start date: 08/02/19 Start time: 13:41 Status: Chronic Assessment and plan: Encourage cessation. Will use nicotine patch for now. add nicotrol in haler, he continues to crave nicotine. (4) DVT prophylaxis: Start date: 08/02/19 Start time: 13:41 Status: Acute Assessment and plan: Lovenox (5) Discharge planning issues: Start date: 08/02/19 Start time: 13:41 Status: Acute Assessment and plan: Patient is currently stable on the medical floor. He is full code. He is interested in counseling services. Above case discussed with Dr. Petersen who is in agreement. Subjective Subjective Patient reports: feels better Interval history since last seen: Pain is present but improving. Tolerating soft diet. Lipase down from 15,000 to 586. He denies Cp, SOB, N/V/D. Exam Narrative Exam Narrative: General: Alert and oriented x3, sitting up in bed speaking in full sentences, no acute distress. HEENT: Normocephalic, atraumatic. Conjunctive are clear with no icterus. Pupils midsize in room light and reactive. Mucous membranes moist, oropharynx benign, but poor dentition. Neck is supple with normal thyroid and no thyromegaly, lymphadenopathy, or other masses. Supple with normal range of mo tion. Lungs: Clear to auscultation bilaterally normal effort Cardiovascular: Regular rate and rhythm no murmurs gallops or rubs Abdomen: Nondistended. Active bowel sounds more in lower abdomen. Tender across the epigastrium to palpation. No organomegaly to percussion. No rebound or guarding. Extremities: No cyanosis clubbing or edema. Nontender palpation. No joint redness or swelling. Skin: Warm and dry. No rashes or other skin lesions. No marked bruising. Neurologic: Cranial nerves II through XII grossly intact. Normal speech and coordination. No tremor. Lymph: No lymphadenopathy in neck axilla or groin Psychiatric: Normal mood and affect. Normal thought process. Objective Objective Clinical Data: Abnormal lab results 08/02/19 08/02/19 Range/Units 06:13 06:13 RBC 3.75 L (4.50-6.00) m/cumm Hgb 11.9 L (13.5-17.5) g/dL Hct 37.3 L (40.0-50.0) % MCV 99.5 H (80-95) fL MCHC 31.9 L (32.0-36.0) g/dL Plt Count 469 H (130-400) x1000/uL Absolute Monocytes 0.99 H (0.11-0.7) k/cumm BUN 3 L (7-18) mg/dL Calcium 8.1 L (8.5-10.1) mg/dL Magnesium 1.6 L (1.8-2.4) mg/dL Lipase 586 H (73-393) U/L Vital Signs Temperature 36.7 C 08/02/19 08:04 Temperature Source Tympanic 08/02/19 08:04 Pulse 70 08/02/19 08:04 Pulse Rhythm Regular 08/02/19 08:00 Respiratory Rate 18 08/02/19 08:04 Respiratory Effort Non-Labored 08/02/19 08:00 Respiratory Depth Normal 08/02/19 08:00 Respiratory Pattern Normal 08/02/19 08:00 Blood Pressure 133/82 08/02/19 08:04 Pulse Oximetry 93 L 08/02/19 08:04 Oxygen Delivery Method Room Air 08/02/19 08:04 Oxygen Flow Rate 0 08/02/19 08:04 Pain Level 6 08/02/19 12:30 Intake & Output 08/01/19 08/02/19 08/02/19 23:59 11:59 23:59 Intake Total 2975.833 / 3975.833 4661.2 / 5093.933 432.733 / 5093.933 Balance 2975.833 / 3975.833 4661.2 / 5093.933 432.733 / 5093.933 Intake: IV 2375.833 / 3375.833 3941.2 / 4373.933 432.733 / 4373.933 Oral 600 / 600 720 / 720 Other: Urine Color Yellow Urine Appearance Clear Clear Comment per patient pt reports voiding every 2 hours. Voiding Methods Toilet Laboratory Results WBC 7.81 k/cumm (4.4-10.8) D 08/02/19 06:13 RBC 3.75 m/cumm (4.50-6.00) L 08/02/19 06:13 Hgb 11.9 g/dL (13.5-17.5) L 08/02/19 06:13 Hct 37.3 % (40.0-50.0) L 08/02/19 06:13 MCV 99.5 fL (80-95) H 08/02/19 06:13 MCH 31.7 pg (27.0-33.0) 08/02/19 06:13 MCHC 31.9 g/dL (32.0-36.0) L 08/02/19 06:13 RDW 13.7 % (11.8-14.1) 08/02/19 06:13 Plt Count 469 x1000/uL (130-400) H 08/02/19 06:13 MPV 9.4 fL (8.0-11.0) 08/02/19 06:13 Immature Gran % 1.3 % 08/02/19 06:13 Neutrophils % 55.9 08/02/19 06:13 Lymphocytes % 23.8 08/02/19 06:13 Monocytes % 12.7 08/02/19 06:13 Eosinophils % 5.4 08/02/19 06:13 Basophils % 0.9 08/02/19 06:13 Absolute Neutrophils 4.37 k/cumm (1.2-6.7) 08/02/19 06:13 Absolute Lymphocytes 1.86 k/cumm (1.2-3.4) 08/02/19 06:13 Absolute Monocytes 0.99 k/cumm (0.11-0.7) H 08/02/19 06:13 Absolute Eosinophils 0.42 k/cumm (0.0-0.7) 08/02/19 06:13 Absolute Basophils 0.07 k/cumm (0.0-0.2) 08/02/19 06:13 Differential Comment Diff reviewed 07/31/19 18:00 RBC Morphology See below 07/31/19 18:00 Macrocytosis 2+ 07/31/19 18:00 Sodium 138 mmol/L (136-145) 08/02/19 06:13 Potassium 4.0 mmol/L (3.5-5.1) 08/02/19 06:13 Chloride 106 mmol/L (98-107) 08/02/19 06:13 Carbon Dioxide 27.9 mmol/L (21.0-32.0) 08/02/19 06:13 Anion Gap 4.1 mmol/L (3-11) 08/02/19 06:13 BUN 3 mg/dL (7-18) L 08/02/19 06:13 Creatinine 0.71 mg/dL (0.70-1.30) 08/02/19 06:13 Estimated GFR/1.73 m2 >= 60.00 (mL/min/1.73m2) 08/02/19 06:13 Glucose 90 mg/dL (74-106) 08/02/19 06:13 Calcium 8.1 mg/dL (8.5-10.1) L 08/02/19 06:13 Magnesium 1.6 mg/dL (1.8-2.4) L 08/02/19 06:13 Total Bilirubin 0.3 mg/dL (0.2-1.0) 08/01/19 06:20 AST 15 U/L (15-37) 08/01/19 06:20 ALT 16 U/L (16-63) 08/01/19 06:20 Alkaline Phosphatase 63 U/L (46-116) 08/01/19 06:20 Total Protein 6.2 g/dL (6.4-8.2) L 08/01/19 06:20 Albumin 2.7 g/dL (3.4-5.0) L 08/01/19 06:20 Lipase 586 U/L (73-393) H 08/02/19 06:13 Urine Color Yellow (Yellow) 08/01/19 04:16 Urine Clarity Clear (Clear) 08/01/19 04:16 Urine pH 6.0 (5-8) 08/01/19 04:16 Ur Specific [place] 1.025 (1.005-1.025) 08/01/19 04:16 Urine Protein Negative mg/dL (Negative) 08/01/19 04:16 Urine Ketones Negative mg/dL (Negative) 08/01/19 04:16 Urine Blood Negative (Negative) 08/01/19 04:16 Urine Nitrite Negative (Negative) 08/01/19 04:16 Urine Bilirubin Negative (Negative) 08/01/19 04:16 Urine Urobilinogen 0.2 EU/dL (Up TO 0.2) 08/01/19 04:16 Ur Leukocyte Esterase Negative (Negative) 08/01/19 04:16 Urine Glucose Negative mg/dL (Negative) 08/01/19 04:16 Ethyl Alcohol 5.3 mg/dL (<3) 07/31/19 19:10
[2019-08-02 16:24] VITALS: BP 138/88; PULSE 62; RESP 16; TEMP 37; O2SAT 98
[2019-08-02] MEDS: Normal Saline 1,000 ML 100 ML IV (18:30)
[2019-08-02] MEDS: Pantoprazole 40 MG VIAL IVP (22:19)
[2019-08-02] MEDS: Enoxaparin 40 MG/0.4 ML SYR SC (22:19)
[2019-08-02] MEDS: Nicotine 21 MG/24 HR PATCH TD (22:20)
[2019-08-03] MEDS: Acetaminophen 500 MG TAB 1000 MG PO ×2 (01:11→08:09)
[2019-08-03 04:30] VITALS: BP 134/87; PULSE 66; RESP 16; TEMP 36.7; O2SAT 99
[2019-08-03] MEDS: traMADol 50 MG TAB PO ×2 (04:38→09:04)
[2019-08-03] MEDS: Normal Saline 1,000 ML 100 ML IV (04:38)
[2019-08-03 07:03] LABS: Abs Immature Grans 0.06 k/cumm (0.0-0.09); Absolute Basophil Count 0.06 k/cumm (0.0-0.2); Absolute Eosinophil Count 0.39 k/cumm (0.0-0.7); Absolute Lymphocyte Count 1.58 k/cumm (1.2-3.4); Absolute Monocyte Count 0.75 k/cumm (0.11-0.7); Absolute Neutrophil Count 2.83 k/cumm (1.2-6.7); Basophils % 1.1; Eosinophils % 6.9; HCT 37.7 % (40.0-50.0); HGB 12.3 g/dL (13.5-17.5); Immature Grans % 1.1 %; Lymphocytes % 27.9; Mean Corp. HGB Concentration 32.6 g/dL (32.0-36.0); Mean Corpuscular Hemoglobin 32.2 pg (27.0-33.0); Mean Corpuscular Volume 98.7 fL (80-95); Mean Platelet Volume 9.5 fL (8.0-11.0); Monocytes % 13.2; Neutrophils % 49.8; Platelet Count 392 x1000/uL (130-400); RBC 3.82 m/cumm (4.50-6.00); RBC Distribution Width 13.3 % (11.8-14.1); White Blood Cell Count 5.67 k/cumm (4.4-10.8)
[2019-08-03 07:16] LABS: BUN 6 mg/dL (7-18); CREATININE 0.69 mg/dL (0.70-1.30); Calcium 8.4 mg/dL (8.5-10.1); Chloride 105 mmol/L (98-107); Glucose 91 mg/dL (74-106); Sodium 140 mmol/L (136-145)
[2019-08-03 07:49] VITALS: BP 135/88; PULSE 67; RESP 16; TEMP 36; O2SAT 92
[2019-08-03 08:43] LABS: ALT 15 U/L (16-63); AST 16 U/L (15-37); Albumin 2.6 g/dL (3.4-5.0); Alkaline Phosphatase 59 U/L (46-116); Bilirubin, Direct 0.06 mg/dL (0.00-0.20); Bilirubin, Total 0.2 mg/dL (0.2-1.0); Magnesium 1.8 mg/dL (1.8-2.4); Total Protein 6.1 g/dL (6.4-8.2)
--- NOTE | 2019-08-03 10:06 | W.PM.DS.N ---
Date of service: 08/03/19 Time of Service: 10:06 DS: Diagnosis Discharge Diagnosis (1) Pancreatitis: Start date: 08/03/19 Start time: 10:07 Status: Acute Asessment and Plan: With lipase 15,000 in admission, severe pain and n/v. Admitted to /s for IVF, pain management. Increased diet to soft regular this morning. Tolerating without pain. Able to eat without n/v. Pain management with tramadol. Patient feels ready to go home. (2) Chronic alcohol use: Start date: 08/03/19 Start time: 10:08 Status: Chronic Asessment and Plan: Interested in readiness to quit. Community resources given to patient by CM (3) Tobacco dependence: Start date: 08/03/19 Start time: 10:09 Status: Chronic Asessment and Plan: Continue to consider smoking cessation Discharge Plan Disposition Patient Disposition: HOME Condition: Improving Discharge Details Chief Complaint: Abd Prob Clinical Impression: Pancreatitis Reason For Visit: PANCREATITIS Admit Date/Time: 08/02/19 11:49 Admit Provider: Acosta Borjas Attending Provider: Acosta Borjas Primary Care Provider: Antonio Harper ED Provider: Ramón Jaramillo Hospital Course Hospital Course: 39 y.o male admitted to [facility] m/s for pancreatitis. Patient endorses drinking beer prior to admission he has tried to quite several times without success. [place] [id number]. He was admitted given IV pain medication initially, with transition to PO tramadol with good relief. Placed on a banana bag due to NPO, with IVF. Started on a regular diet with clears and overnight increased to a soft diet which he is well tolerating without n/v and minimal pain. Repeat lipase 586, AST 16, ALT 15. He is interested in quitting alcohol, so the CM has given him resources. His CIWA while hospitalized was 0-1, with no signs of withdrawal. He feels well enough to go home. He denies CP, SOB, N/V/D. Home Meds and New Rx's Prescriptions: New tramadol 50 mg Tablet 50 mg PO Q4H PRN PRNQty: 10 RF: 0 Continued Prilosec OTC 20 mg Tablet,Delayed Release (Dr/Ec) 20 mg PO DAILY RF: 0 Discharge Instructions Instructions: Pancreatitis (DC), Cirrhosis (DC), Non-pharmacological Pain Management Therapies for Adults (GEN), Narcotic Pain Management (DC), Abuse of Alcohol (DC), Alcohol Dependence (GEN), Alcoholic Hepatitis (DC) Additional Instructions: Follow up with PCP in 2 weeks Follow up with Community resources regarding quitting alcohol Take tramadol once every 4-6 hours if needed for pain Continue soft diet until all pain releived. DO NOT DRINK ALCOHOL Activity:: Activity as Tolerated Equipment/Supplies:: No Equipment Needed Diet:: As Tolerated Discharge Orders Discharge Orders: Discharge Order (Routine); Ordered 08/03/19 Ordered By: Salina Jiménez DS: Summary Status at Discharge Functional status at discharge: independent ambulation Overall status at discharge: patient is back to baseline Mental Status: mental status grossly normal Speech and Movement: speech and movement normal Mood: congruent mood Affect: normal affect Exam Narrative Exam Narrative: General: Alert and oriented x3, sitting up in bed speaking in full sentences, no acute distress. HEENT: Normocephalic, atraumatic. Conjunctive are clear with no icterus. Pupils midsize in room light and reactive. Mucous membranes moist, oropharynx benign, but poor dentition. Neck is supple with normal thyroid and no thyromegaly, lymphadenopathy, or other masses. Supple with normal range of motion. Lungs: Clear to auscultation bilaterally normal effort Cardiovascular: Regular rate and rhythm no murmurs gallops or rubs Abdomen: Nondistended. Active bowel sounds more in lower abdomen. Tender across the epigastrium to palpation. No organomegaly to percussion. No rebound or guarding. Extremities: No cyanosis clubbing or edema. Nontender palpation. No joint redness or swelling. Skin: Warm and dry. No rashes or other skin lesions. No marked bruising. Neurologic: Cranial nerves II through XII grossly intact. Normal speech and coordination. No tremor. Lymph: No lymphadenopathy in neck axilla or groin Psychiatric: Normal mood and affect. Normal thought process. Psych Mental Status: mental status grossly normal Speech and Movement: speech and movement normal Mood: congruent mood Affect: normal affect DS: Data Vitals/I&O Vitals and I&O: Vital Signs Temperature 36.0 C L 08/03/19 07:49 Temperature Source Tympanic 08/03/19 07:49 Pulse 67 08/03/19 07:49 Pulse Rhythm Regular 08/03/19 09:07 Respiratory Rate 16 08/03/19 07:49 Respiratory Effort 08/03/19 09:07 Respiratory Depth Normal 08/03/19 09:07 Respiratory Pattern Normal 08/03/19 09:07 Blood Pressure 135/88 08/03/19 07:49 Pulse Oximetry 92 L 08/03/19 07:49 Oxygen Delivery Method Room Air 08/03/19 07:49 Oxygen Flow Rate 0 08/03/19 07:49 Pain Level 6 08/03/19 07:49 Intake & Output 08/02/19 08/02/19 08/03/19 11:59 23:59 11:59 Intake Total 4661.2 / 6908.933 2247.733 / 6908.933 1400 / 1400 Balance 4661.2 / 6908.933 2247.733 / 6908.933 1400 / 1400 Weight 70.3 kg Intake: IV 3941.2 / 5018.933 1077.733 / 5018.933 1000 / 1000 Oral 720 / 1890 1170 / 1890 400 / 400 Other: Urine Color Yellow Urine Appearance Clear Clear Comment pt reports voiding every 2 hours. Per pt rate. Voiding Methods Toilet Toilet Data Completed and Pending Labs on day of discharge: Labs from last 24 hours 08/03/19 08/03/19 06:30 06:30 WBC 5.67 RBC 3.82 L Hgb 12.3 L Hct 37.7 L MCV 98.7 H MCH 32.2 MCHC 32.6 RDW 13.3 Plt Count 392 MPV 9.5 Immature Gran % 1.1 Neutrophils % 49.8 Lymphocytes % 27.9 Monocytes % 13.2 Eosinophils % 6.9 Basophils % 1.1 Absolute Neutrophils 2.83 Absolute Lymphocytes 1.58 Absolute Monocytes 0.75 H Absolute Eosinophils 0.39 Absolute Basophils 0.06 Sodium 140 Potassium 4.0 Chloride 105 Carbon Dioxide 28.0 Anion Gap 7.0 BUN 6 L Creatinine 0.69 L Estimated GFR/1.73 m2 >= 60.00 Glucose 91 Calcium 8.4 L Magnesium 1.8 Total Bilirubin 0.2 Conjugated Bilirubin 0.06 AST 16 ALT 15 L Alkaline Phosphatase 59 Total Protein 6.1 L Albumin 2.6 L [facility] Social History (Updated 07/31/19 @ 22:24 by Acosta Borjas) Smoking/Tobacco Use Status: Current every day Tobacco Type: cigarettes Alcohol Intake: current Alcohol Intake frequency: 3 or more drinks per day Drug use: Daily Substance use type: marijuana Do you feel safe at home: Yes Do you feel safe in your relationship?: Yes Additional Social history: 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 He shares a home with his mother. He denies any travel or recent sexual partners.
--- NOTE | 2019-08-03 11:16 | CMDISCH_ITS ---
- If Service Date Differs Date of service: 08/03/19 Time of Service: 11:16 LACE Index Scoring Tool - Questions: Length of Stay (in days): 3 Acuity (Admit via E.D.?): Yes E.D. Visits: 2 - Answers: Total Score: 8 Risk of Readmission: Low Risk Care Management Discharge Reason for Hospitalization: Pancreatitis Discharge Plan: Acosta is being discharged home with no additional services at this time. He has contact [facility] for recovery operator helper and local supports. Acosta completed the application for [employer] which CM sent to patient accounts.Acosta has been discharged with diet instructions and will need to follow up with primary care at [facility]. CM will fax information to office for follow up by [facility]. Patient/Family Education Needs: Discharge education, limitations and follow up plan of care including ask me three and self management.
== END 2019-08-03 12:08 | disposition home or self-care (01) | DRG 440 ==
LOC: ER 19:30 → MS 21:09
PROVIDERS: Nurse Practitioner Family; Admitting Provider Family Medicine; Emergency Provider Physician Assistant; PCP Neuromusculoskeletal Medicine & OMM; Visit Provider Family Medicine
DX: K85.20 Alcohol induced acute pancreatitis without necrosis or infection (principal); F17.210 Nicotine dependence, cigarettes, uncomplicated; F10.20 Alcohol dependence, uncomplicated; F12.90 Cannabis use, unspecified, uncomplicated
CPT/HCPCS: 36415; 80048; 80053; 80076; 83690; 96361; 96365; 96375; 99219; 99233; 99239; 99285; J1650; 80320; 81003; 83735; 85025; 99226; 99284; G0378; J2270; J2405; J3475

== ENCOUNTER 2019-08-15 17:52 | Inpatient (IN) | payer MEDICAID, SELFPAY ==
[2019-08-15 17:56] VITALS: BP 130/86; PULSE 72; TEMP 36.5; O2SAT 97
--- NOTE | 2019-08-15 18:22 | W.ED.GENAD ---
Discharge Plan Disposition Patient Disposition: [facility] INPATIENT Condition: Stable Discharge Details Chief Complaint: Abd Prob Clinical Impression: Acute pancreatitis Primary Care Provider: Antonio Harper ED Provider: Yves Zambrano Home Meds and New Rx's Prescriptions: No Action tramadol 50 mg Tablet 50 mg PO Q4H PRN PRNQty: 10 RF: 0 Medical Decision Making 39-year-old male presents for recurrent epigastric abdominal pain he states began approximate 4:30 PM today. Denies an inciting event and specifically denies use of alcohol. He was admitted to the hospital July 30 through August 02 for acute pancreatitis. He arrives in moderate distress, his vital signs are unremarkable, he is diffusely tender in his abdomen. Differential diagnosis would include recurrent pancreatitis. IV placed, patient given fluids, antiemetic, analgesia and referred for laboratory testing. Patient does have evidence of hypokalemia of 3.0 which may be due to GI losses. Potassium supplementation initiated. Labs otherwise notable for elevated white blood cell count of 22. Chemistries with unremarkable AST and ALT. Lipase is significantly elevated at greater than 15,000. Patient has had some improvement of his discomfort with fluids and parenteral medications. He will require admission for further management. Case discussed with Dr. Lopez & patient will be admitted HPI General Mode of arrival: ambulatory. Date/Time Provider Initiated Documentation: 08/15/19 17:52. Limitations to Documentation: no limitations. Information obtained by: patient. History of Present Illness 39 year old M presents to the emergency department with the chief complaint of Recurrent abdominal pain, described as severe and similar to prior episodes, Quality is described as dull and constant, and is localized to the abdomen. Patient reports no radiation. Patient started experiencing this hour(s) and it has been constant. No relieving factors improve symptom(s), No exacerbating factors reported . Patient notes nausea/vomiting; denies fever/chills. Patient did receive the following treatments prior to arrival, none Related Data Home Medications Medication Instructions Recorded Confirmed tramadol 50 mg PO Q4H PRN PRN #10 tab 08/03/19 08/15/19 Previous Rx's Medication Instructions Recorded tramadol 50 mg PO Q4H PRN PRN #10 tab 08/03/19 Allergies Allergy/AdvReac Type Severity Reaction Status Date / Time No Known Allergies Allergy Unverified 08/15/19 18:16 General Stated Complaint: Abd Prob DEIDRE: 3 Review of Systems Narrative: Denies current alcohol use. Vomited at home. No fever. No travel. 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 He shares a home with his mother. He denies any travel or recent sexual partners. Exam Narrative Exam Narrative: GEN: awake, alert, oriented 3. Pleasant, well groomed, interactive. HEAD: Normocephalic, atraumatic ENT: Mucous membranes moist, oropharynx unremarkable, External ear exam unremarkable EYES: PERRL, EOMI NECK: Full ROM, no ANA, no menigismus CHEST/RESP: Nontender, clear to auscultation bilateral, no wheeze/rhonchi/rales CARDIOVASCULAR: RRR, no murmur, rub mirella. 2+ Rad pulse bilateral ABDOMEN: Soft, mild diffusely tender without rebound. +Bowel sounds EXT: Full ROM, no edema, no rash Neuro: Grossly normal neurologic exam, conversant, interactive. Psych: Speech fluent, thoughts congruent, affect anxious Course Vital Signs Vital signs: Vital Signs Temperature 36.5 C 08/15/19 17:56 Pulse 72 08/15/19 17:56 Blood Pressure 130/86 08/15/19 17:56 Pulse Oximetry 97 08/15/19 17:56 Temperature 36.5 C 08/15/19 17:56 Temperature Source Skin 08/15/19 17:56 Pulse 72 08/15/19 17:56 Respiratory Effort Non-Labored 08/15/19 18:13 Blood Pressure 130/86 08/15/19 17:56 Blood Pressure Position Sitting 08/15/19 17:56 Pulse Oximetry 97 08/15/19 17:56 Oxygen Delivery Method Room Air 08/15/19 17:56 Oxygen Flow Rate 0 08/15/19 17:56 Pain Level 10 08/15/19 17:56 Comment 08/15/19 17:56
[2019-08-15] MEDS: MORPHine 10 MG/ML VIAL 6 MG IVP (18:31)
[2019-08-15] MEDS: Normal Saline Flush 10 ML SYR IVP ×3 (18:32→22:42)
[2019-08-15] MEDS: Ondansetron 4 MG/2 ML VIAL IVP (18:32)
[2019-08-15] MEDS: Normal Saline 1,000 ML 1000 ML IV (18:32)
[2019-08-15 18:35] LABS: Abs Immature Grans 0.24 k/cumm (0.0-0.09); Absolute Eosinophil Count 0.62 k/cumm (0.0-0.7); Absolute Monocyte Count 1.59 k/cumm (0.11-0.7); Basophils % 0.2; Eosinophils % 2.8; HCT 47.2 % (40.0-50.0); Immature Grans % 1.1 %; Lymphocytes % 11.5; Mean Corp. HGB Concentration 33.9 g/dL (32.0-36.0); Mean Corpuscular Hemoglobin 32.1 pg (27.0-33.0); Mean Corpuscular Volume 94.8 fL (80-95); Monocytes % 7.2; Neutrophils % 77.2; Platelet Count 274 x1000/uL (130-400); RBC 4.98 m/cumm (4.50-6.00); RBC Distribution Width 13.7 % (11.8-14.1); White Blood Cell Count 22.03 k/cumm (4.4-10.8)
[2019-08-15 18:40] LABS: Absolute Basophil Count 0.04 k/cumm (0.0-0.2); Absolute Lymphocyte Count 2.53 k/cumm (1.2-3.4); Absolute Neutrophil Count 17.01 k/cumm (1.2-6.7)
[2019-08-15 18:48] LABS: ALT 21 U/L (16-63); AST 15 U/L (15-37); Albumin 3.8 g/dL (3.4-5.0); Alkaline Phosphatase 69 U/L (46-116); Anion Gap 11.2 mmol/L (3-11); BUN 12 mg/dL (7-18); Bilirubin, Total 0.3 mg/dL (0.2-1.0); CO2 25.8 mmol/L (21.0-32.0); CREATININE 0.94 mg/dL (0.70-1.30); Calcium 9.6 mg/dL (8.5-10.1); Chloride 102 mmol/L (98-107); Glucose 108 mg/dL (74-106); Sodium 139 mmol/L (136-145); Total Protein 7.9 g/dL (6.4-8.2)
[2019-08-15 19:04] LABS: ETHANOL BLOOD < 3.0 mg/dL (<3); Magnesium 1.6 mg/dL (1.8-2.4)
[2019-08-15 19:09] LABS: Troponin I < 0.05 ng/Ml (<0.06)
[2019-08-15 19:13] LABS: Diff Comment Diff Reviewed; RBC Morphology Normal
[2019-08-15 19:14] LABS: Lipase > 15000 U/L (73-393)
[2019-08-15] MEDS: MAGNESIUM SULFATE 1 GM/100 ML BAG IVPB (19:30)
--- NOTE | 2019-08-15 21:12 | HPE_ITS ---
Date of service: 08/15/19 Time of Service: 21:13 Assessment and Plan Assessment and plan (1) Acute pancreatitis: Start date: 08/15/19 Status: Acute Assessment and plan: This is a 39-year-old gentleman with recurrent pancreatitis last hospitalized mid-July with severe pancreatitis by CT scan. Ultrasound at that time showed no gallbladder disease and previous triglycerides in late June were normal but will be repeated. He denies recent alcohol use but had been drinking prior to his last hospitalization 2 weeks ago. He works at a [employer] and with [employer] and has not been working recently. He will be admitted for IV hydration and bowel rest and consider repeat imaging if improving quickly. Pseudocyst needs to be considered. The laborer plumbing may have been his large fatty protein meal prior to onset. The patient is a full code this will be respected. Qualifiers: Acute pancreatitis complication: unspecified Pancreatitis type: alcohol induced Qualified Code(s): K85.20 - Alcohol induced acute pancreatitis without necrosis or infection (2) Chronic alcohol use: Status: Chronic Assessment and plan: Patient denies alcohol intake since his last hospitalization with a negative alcohol level upon this admission urine drug screen is pending. (3) Tobacco dependence: Status: Chronic Assessment and plan: Patient will be placed on NicoDerm patches while hospitalized and long-term he should consider cessation. History of Present Illness History of Present Illness Chief Complaint: Acute onset abdominal pain Narrative: This is a 39-year-old man who recently admitted for acute alcoholic pancreatitis which was severe by CT scan, July 30 through August 03, 2019. He was discharged home on tramadol and states that he was doing well until the day of admission when he had had a meatball sub-for lunch. He had not been drinking alcohol discharge. He did have a positive alcohol level on his last admission and negative upon this admission. He had diaphoresis and nausea with vomiting with acute onset of pain and in ED was found to have hypomagnesemia and hypo kalemia which was replaced IV. He responded to IV morphine admitted for bowel rest and treatment of acute pancreatitis. No imaging was performed in the ED with previous hospitalization being recent and ultrasound of the abdomen not revealing any gallbladder disease. His liver functions were not elevated specifically alkaline phosphatase normal. His lipase was markedly elevated. With previous admission for the same problem and laboratory a triglyceride level but these will be repeated in the morning. Patient had no cardiovascular, respiratory or complaints upon vision. He had no fever. Review of Systems Narrative: 13 point review of systems otherwise unrevealing or stable. Patient may have lost some weight with his recent hospitalizations. 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 He shares a home with his mother. He denies any travel or recent sexual partners. Meds Home Medications and Allergies Home Medications Medication Instructions Recorded Confirmed Type tramadol 50 mg PO Q4H PRN PRN #10 tab 08/03/19 08/15/19 Rx Allergies Allergy/AdvReac Type Severity Reaction Status Date / Time No Known Allergies Allergy Unverified 08/15/19 18:16 Exam Narrative Exam Narrative: General: Patient is thin with flattened affect and poor eye contact. He is alert and oriented x3 and in moderate distress from epigastric discomfort with pain radiating into his back. HEENT: Normocephalic with eyes revealing pupils equal and reactive to light symmetrically, extraocular movements active and sclera anicteric. External ears normal. Oropharynx with dry oral mucosa and no erythema. Patient is edentulous. Neck: Supple without daily. Back: Stooped posture with kyphosis which appears functional, no CVA tenderness. Lungs: Decreased aeration diffusely with bronchovesicular sounds, no focalizing rales or rhonchi and no increased expiratory phase or wheeze. Heart: Regular rate and rhythm with no murmurs or gallop appreciated. Abdomen: Scaphoid contour, guarding to palpation with tenderness mostly over the mid to epigastric abdomen without palpable masses or hepatosplenomegaly. Bowel sounds positive but hypoactive. Genitalia/rectal: Exam deferred. Extremities: Without clubbing, cyanosis or edema. All joints have a range of motion with no edema. Skin: Brown, warm and dry with no apparent rashes. Neuro: Without focal motor deficits, cranial nerves II 12 grossly intact. Psych: Flattened affect with depressed mood and monotonous voice which is slow. Remote and recent may intact. Results Imaging Imaging Studies: EXAM: US ABDOMEN CLINICAL HISTORY: pancreatitis, ? gall bladder TECHNIQUE: Ultrasound performed using standard protocol. COMPARISON: No exams were available for comparison FINDINGS: Abdominal ultrasound was performed according to the usual protocol. Liver appears mildly enlarged. There is no evidence of cholelithiasis. Gallbladder wall is not thickened. There is no significant pericholecystic fluid collection. Negative sonographic Ward sign. Pancreas not ideally visualized, pancreas appears mildly heterogeneous. Mild peripancreatic fluid noted, this was also noted CT obtained yesterday. No biliary dilatation. Spleen is unremarkable in appearance. Abdominal aorta and IVC are of normal diameter. Kidneys are unremarkable in appearance with no nephrolithiasis or hydronephrosis. IMPRESSION: Mild free intraperitoneal fluid in patient with CT findings consistent with pancreatitis. No evidence of cholelithiasis. Dictated By: Yves Barros M.D. 07/15/19 1511 EXAM: CT CHEST PE ABD PELVIS W CLINICAL HISTORY: R/O PE; CHEST AND ABDOMINAL PAIN. WBC 20K TECHNIQUE: CT angiogram chest, abdomen and pelvis was performed with intravenous infusion of 100 cc of Omnipaque 350. COMPARISON: No exams were available for comparison FINDINGS: No evidence of pulmonary embolic disease. No abnormality of the thoracic aorta. No mediastinal or hilar adenopathy. Predominantly subpleural emphysema noted. No pulmonary consolidation. Tracheobronchial tree appears intact. There is large quantity of free fluid surrounding the pancreas, lesser sac and retroperitoneal, and free fluid is present in the pericolic gutters in the pelvis. The pancreas appears mildly edematous and somewhat heterogeneous in appearance particularly the pancreatic head and body. The findings are highly suggestive of severe acute pancreatitis. There is associated wall thickening of the duodenum and proximal jejunum, presumably secondary to adjacent inflammation. No biliary dilatation. Unremarkable appearance of the gallbladder, liver, and spleen. Abdominal aorta is of normal diameter and no abnormality is seen apart from slight calcified plaque. Major arterial branches of the abdominal aorta appear normal. No abdominal or pelvic adenopathy seen. Unremarkable appearance of adrenals and kidneys. No significant abdominal wall hernia. Appendix is nor mal. No evidence of diverticulitis. IMPRESSION: No evidence of pulmonary embolic disease. Severe acute pancreatitis with associated small bowel wall thickening as described above. Intraperitoneal and retroperitoneal fluid collections as described above. Dictated By: Yves Barros M.D. 07/14/19 1613 Labs Result diagrams: 08/15/19 18:15 08/15/19 18:15 Labs: Laboratory Results - last 24 hr 08/15/19 08/15/19 08/15/19 18:15 18:15 18:15 WBC 22.03 H RBC 4.98 Hgb 16.0 Hct 47.2 MCV 94.8 MCH 32.1 MCHC 33.9 RDW 13.7 Plt Count 274 D MPV 10.0 Immature Gran % 1.1 Neutrophils % 77.2 Lymphocytes % 11.5 Monocytes % 7.2 Eosinophils % 2.8 Basophils % 0.2 Absolute Neutrophils 17.01 H Absolute Lymphocytes 2.53 Absolute Monocytes 1.59 H Absolute Eosinophils 0.62 Absolute Basophils 0.04 Differential Comment Diff reviewed RBC Morphology Normal Sodium 139 Potassium 3.0 L Chloride 102 Carbon Dioxide 25.8 Anion Gap 11.2 H BUN 12 Creatinine 0.94 Estimated GFR/1.73 m2 >= 60.00 Glucose 108 H Calcium 9.6 Magnesium 1.6 L Total Bilirubin 0.3 AST 15 ALT 21 Alkaline Phosphatase 69 Troponin I < 0.05 Total Protein 7.9 Albumin 3.8 Lipase > 68932 H Ethyl Alcohol < 3.0 08/15/19 21:05 WBC RBC Hgb Hct MCV MCH MCHC RDW Plt Count MPV Immature Gran % Neutrophils % Lymphocytes % Monocytes % Eosinophils % Basophils % Absolute Neutrophils Absolute Lymphocytes Absolute Monocytes Absolute Eosinophils Absolute Basophils Differential Comment RBC Morphology Sodium Potassium Chloride Carbon Dioxide Anion Gap BUN Creatinine Estimated GFR/1.73 m2 Glucose Calcium Magnesium Total Bilirubin AST ALT Alkaline Phosphatase Troponin I Total Protein Albumin Lipase Cancelled Ethyl Alcohol Last Vital Signs Temp 36.5 C 08/15/19 17:56 Pulse 72 08/15/19 17:56 BP 130/86 08/15/19 17:56 Pulse Ox 97 08/15/19 17:56 COVID-19 Screening Traveled to [place] from one of the affected countries or regions?: No Recent travel in the [place] within the last 8 weeks?: No Recent out of the country travel within the last 8 weeks?: No Exposure or possible exposure to illness during travel?: No Had IN PERSON contact w/suspected or confirmed C-19 person: No Have you had the following symptoms in the past few days?: No Symptoms noted since travel?: No Symptoms
[2019-08-15 21:18] VITALS: BP 127/87; PULSE 86; RESP 16; TEMP 36.5; O2SAT 95
[2019-08-15] MEDS: POTASSIUM CHLORIDE/0.9% NACL 1,000 ML 125 MEQ IV (21:55)
[2019-08-15] MEDS: Nicotine 21 MG/24 HR PATCH TD (21:56)
[2019-08-15 23:40] VITALS: BP 133/87; PULSE 84; RESP 19; TEMP 37.1; O2SAT 97
[2019-08-16] MEDS: MORPHine 10 MG/ML VIAL 6 MG IVP (00:39)
[2019-08-16] MEDS: Normal Saline 1,000 ML 250 ML IV ×4 (00:40→21:59)
[2019-08-16 03:25] VITALS: BP 156/94; PULSE 85; RESP 19; TEMP 36.8; O2SAT 99
[2019-08-16 04:12] LABS: Bilirubin Negative (Negative); Blood Negative (Negative); Clarity Clear (Clear); Glucose Negative (Negative); Ketones Negative (Negative); Leukocyte Esterase Negative (Negative); Nitrite Negative (Negative); Specific Gravity >= 1.030 (1.005-1.025); Urobilinogen 0.2 EU/dL (Up TO 0.2); pH 5.5 (5-8)
[2019-08-16 04:25] LABS: *AMPHETAMINES SCREEN URINE Negative (Negative); *BARBITURATES SCREEN URINE Negative (Negative); *BENZODIAZEPINES SCREEN URINE Negative (Negative); Cannabinoids THC POSITIVE (Negative); Cocaine Screen,Urine Negative (Negative); METHADONE URINE SCREEN Negative (Negative); OPIATES URINE SCREEN POSITIVE (Negative)
[2019-08-16 04:26] LABS: Tricyclic Antidepressants Negative (Negative)
[2019-08-16 07:11] LABS: HCT 42.6 % (40.0-50.0); HGB 14.2 g/dL (13.5-17.5); Mean Corp. HGB Concentration 33.3 g/dL (32.0-36.0); Mean Corpuscular Hemoglobin 32.2 pg (27.0-33.0); Mean Corpuscular Volume 96.6 fL (80-95); Mean Platelet Volume 9.9 fL (8.0-11.0); Platelet Count 239 x1000/uL (130-400); RBC 4.41 m/cumm (4.50-6.00); RBC Distribution Width 13.4 % (11.8-14.1); White Blood Cell Count 12.75 k/cumm (4.4-10.8)
[2019-08-16] MEDS: POTASSIUM CHLORIDE/0.9% NACL 1,000 ML 125 MEQ IV (07:17)
[2019-08-16] MEDS: Normal Saline Flush 10 ML SYR IVP ×3 (07:17→21:58)
[2019-08-16 07:20] VITALS: BP 122/82; PULSE 73; RESP 19; TEMP 37; O2SAT 95
[2019-08-16 07:22] LABS: ALT 17 U/L (16-63); AST 13 U/L (15-37); Albumin 3.1 g/dL (3.4-5.0); Alkaline Phosphatase 59 U/L (46-116); Anion Gap 6.6 mmol/L (3-11); BUN 9 mg/dL (7-18); Bilirubin, Total 0.5 mg/dL (0.2-1.0); CO2 27.4 mmol/L (21.0-32.0); Chloride 106 mmol/L (98-107); Glucose 99 mg/dL (74-106); Magnesium 1.6 mg/dL (1.8-2.4); Potassium 4.4 mmol/L (3.5-5.1); Sodium 140 mmol/L (136-145); Total Protein 6.5 g/dL (6.4-8.2)
[2019-08-16 07:30] VITALS: O2SAT 95
[2019-08-16 07:36] LABS: Lipase 4943 U/L (73-393)
[2019-08-16 07:46] LABS: Calculated LDL 104 mg/dL (<100); Cholesterol 163 mg/dL (<200); HDL Cholesterol 43 mg/dL (40-60); Triglyceride 81 mg/dL (<150)
[2019-08-16] MEDS: Nicotine 21 MG/24 HR PATCH TD (08:29)
[2019-08-16] MEDS: MAGNESIUM SULFATE 4 GM/100 ML BAG IVPB (08:30)
--- NOTE | 2019-08-16 08:58 | PDOC.CMIN ---
- If Service Date Differs Date of service: 08/16/19 Time of Service: 08:58 Care Management Initial Assess REASON FOR HOSPITALIZATION:: Acute pancreatitis PAST MEDICAL HISTORY/PAST SURGICAL HISTORY:: Medical History . Chronic alcohol use (Chronic). Pancreatitis (Acute). Tobacco dependence (Chronic) PREVIOUS FUNCTIONAL STATUS/SOCIAL/FAMILY SUPPORTS:: Acosta lives with his mother in [place]. 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 He is independent at baseline, although he does not drive at this time. He reported that he let his license lapse, and has to retake his driving test in order to obtain his license again. He stated that he has family/friend supports locally, and that he helps care for his mother.0 CURRENT FUNCTIONAL STATUS:: Acosta was sitting up in bed, bent over holding his abdomen when CM met with him. Acosta stated that he had been medicated earlier but was still uncomfortable. He also shared that his back aches. Acosta is undergoing testing today. He had an ultrasouind this morning and will have a CT scan this afternoon. Acosta shared that a cyst or abscess was identified on ultrasound. ADVANCE DIRECTIVES:: none on file Has patient been provided with information about the portal?: Yes Did the patient sign up for the portal?: No CODE STATUS:: Full Code INSURANCE COVERAGE / FINANCIAL ISSUES:: Financial Assist 100 CURRENT HOME/COMMUNITY SERVICES/EQUIPMENT:: none PRIMARY CARE PHYSICIAN:: Antonio Harper POTENTIAL DISCHARGE NEEDS:: Follow up with PCP and discharge plan of care PATIENT/FAMILY EDUCATION NEEDS:: Discharge plan, limitations, follow up plan, Ask Me Three TRANSPORTATION:: via private vehicle with mother when ready PLAN:: Acosta will likely be discharged home with no new services. He will follow up with his PCP and discharge plan of care. CM will continue to support Preet, his family and discharge planning needs. Readmission - Date of First Admission Date of 1st Admission: 08/02/19 - Date of this Admission Date of Admission: 08/15/19 This admission was: Through ED - Office Visit Since 1st Admission Have you seen your PCP in the office since discharge?: Yes Date of PCP Appointment: 08/07/19 - I. Interview patient and/or Family Difficulty reaching your doctor or getting an office appt?: No Have you had trouble purchasing/ or taking medication?: No Did you feel ready for discharge when you left the last time: Yes Did you call your physician beore you came to the ED?: No How do you think you became sick enough to come back?: I wish I knew. I have not been drinking at all. I had a meatball sub and threw it up because of the pain and came back to the hospital - Ask the Care Team Members: What do you think caused the patient to be readmitted: Flare up of pancreatitis - Assessment for Readmission Summary of readmission circumstances, based upon interviews: Acosta has recurrent pancreatitis. It is felt that he may have a pseudocyst.
--- NOTE | 2019-08-16 10:09 | PHA.ADMREV ---
Pharmacy Clinical Review - Admission Clinical Review (Last Reviewed 08/15/19 @ 21:12 by Dipak Lopez) Acute pancreatitis (Acute) No Known Allergies Allergy (Unverified 08/15/19 18:16) Height 6 ft 4 in Weight 74.843 kg - Renal Dosing Renal Dosing: BUN 9 mg/dL (7-18) 08/16/19 06:22 Creatinine 0.70 mg/dL (0.70-1.30) 08/16/19 06:22 Medications needing adjustments: Reviewed (crcl ~132ml/min) - Anticoagulation Anticoagulation: Hgb 14.2 g/dL (13.5-17.5) 08/16/19 06:22 Hct 42.6 % (40.0-50.0) 08/16/19 06:22 Plt Count 239 x1000/uL (130-400) 08/16/19 06:22 Creatinine 0.70 mg/dL (0.70-1.30) 08/16/19 06:22 DVT Prohphylaxis: Reviewed (will ask provider if appropriate) Therapeutic Anticoagulation: N/A - Opiate Usage Evaluate Pain Scale/Pains Meds: Reviewed (IV pain meds) Scheduled Bowel Reg ordered if on Opiates?: Yes - Relevant Labs Sodium 140 mmol/L (136-145) 08/16/19 06:22 Potassium 4.4 mmol/L (3.5-5.1) D 08/16/19 06:22 Chloride 106 mmol/L (98-107) 08/16/19 06:22 Magnesium 1.6 mg/dL (1.8-2.4) L 08/16/19 06:22 Electrolytes, C-Reactive P, ESR: Reviewed (Mag IV x 1 ordered today) - Antimicrobial Stewardship Antibiotic appropriateness: N/A Surgical Abx d/c within 24 hr: N/A Culture review/Resistance: N/A - DM Control DM Control: Glucose 99 mg/dL (74-106) 08/16/19 06:22 Insulin Dosing: N/A - Heart Failure/DC Heart Failure/DC: Troponin I < 0.05 ng/Ml (<0.06) 08/15/19 18:15 EF%, MAX's, B-Blockers, Diuretics: N/A - BP Control BP Control: Blood Pressure 122/82 Blood Pressure 156/94 Blood Pressure 133/87 If elevated: N/A - QTc Review If Elevated: N/A - IV to PO Switch IV Medications: Reviewed - Home Meds Home Med List reviewed: Reviewed (tramadol not ordered) - Current meds Current Medication Order Review: Reviewed
--- NOTE | 2019-08-16 10:30 | DI.US_ITS ---
EXAM: US ABDOMEN CLINICAL HISTORY: pancreatitis r/o abscess and pseudocyst TECHNIQUE: Ultrasound performed using standard protocol. COMPARISON: US ABDOMEN from 07/15/2019 CT ABDOMEN W from 08/16/2019 FINDINGS: Abdominal ultrasound was performed according to the usual protocol. The liver appears mildly enlarge d. There is no evidence of cholelithiasis or biliary dilatation and there is a negative sonographic Ward sign. There is a nearly 10 cm in diameter, predominantly cystic lesion anterior to the pancreas, please see accompanying CT report for further anatomic description. This contains some heterogeneous/solid co mponents. Kidneys are unremarkable in appearance with no hydronephrosis or nephrolithiasis. Unremarkable appearance of the spleen. Abdominal aorta and IVC are of normal diameter. IMPRESSION: New large fluid collection anterior to the pancreas. This patient has recent history of severe pancr eatitis. Please see accompanying CT report. DATA REPOSITORY:
--- NOTE | 2019-08-16 10:58 | DI.VRAD_ITS ---
PROCEDURE INFORMATION: Exam: US Abdomen Complete Exam date and time: 08/16/2019 10:41 AM Age: 39 years old Clinical indication: Abdominal pain; Epigastric; Patient HX: HX of pancreatitis. ? Pancreatic pseudocyst vs. Abscess. Elevated lipase. TECHNIQUE: Imaging protocol: Real-time ultrasound of the abdomen with image documentation. COMPARISON: SD US ABDOMEN 07/15/2019 2:19 PM FINDINGS: Liver: The liver is large and homogeneous in echotexture. No demonstrated mass or intrahepatic biliary ductal dilatation. Gallbladder: The gallbladder is without demonstrated stones, sludge or wall thickening, and there is no pericholecystic fluid. Sonographic Ward sign is reportedly negative. Common bile duct: The common bile duct appears large for a patient of this age, measuring 8.4 mm. Pancreas: Newly demonstrated along the pancreas is a predominantly cystic lesion measuring 9.5 x 7.9 x 8.2 cm, with some solid components. Right kidney: The right kidney is normal in size. There is no hydronephrosis or demonstrated renal stone, cyst or mass. Left kidney: The left kidney is normal in size. There is no hydronephrosis or demonstrated renal stone, cyst or mass. Spleen: The spleen is normal in length at 11.8 cm. Aorta: The abdominal aorta is nonaneurysmal. Inferior vena cava: The IVC is present. Portal venous: Portal venous flow is normal in direction. IMPRESSION: 1. Cystic lesion along the pancreas, newly demonstrated as compared with 07/15/19, measuring up to 9.5 cm, with some solid components. Suggest this could be better characterized with cross-sectional imaging. 2. Dilatation of the common bile duct up to 8.4 cm. Consider further evaluation with MRI/MRCP. 3. Hepatomegaly. Dictated and Authenticated by: Mansoor Singleton MD. Ordering:YUMIKO Downing MD
--- NOTE | 2019-08-16 11:00 | W.PM.PROGNOT ---
Date of Service Date of service: 08/16/19 Time of Service: 11:00 Assessment and Plan Assessment and plan (1) Acute pancreatitis: Start date: 08/16/19 Start time: 11:04 Status: Acute Assessment and plan: Triglyceride level 81, denies ETOH use since last admission. U/s of abd revealing 9.5x7.9x8.[address] with contrast to r/o abscess. Cyst not present on last admission u/s. Surgery consulted. Continue NPO, IVF @ 250 ml/hr. Antiemetics and analgesics. Qualifiers: Pancreatitis type: alcohol induced Acute pancreatitis complication: unspecified Qualified Code(s): K85.20 - Alcohol induced acute pancreatitis without necrosis or infection (2) Chronic alcohol use: Start date: 08/16/19 Start time: 11:05 Status: Chronic Assessment and plan: Patient denies alcohol intake since his last hospitalization with a negative alcohol level upon this admission urine drug screen is pending. (3) Tobacco dependence: Start date: 08/16/19 Start time: 11:05 Status: Chronic Assessment and plan: Patient will be placed on NicoDerm patches while hospitalized and long-term he should consider cessation. Would also like nicotrol inhaler. Above case discussed with Dr. Petersen who is in agreement. Subjective Subjective Patient reports: still having pain Interval history since last seen: Continues to have pain. NPO, IVF at 250 ml/hr. Abd u/s with cyst, will obtain CT with contrast. Surgical consult, denies CP, SOB, N/V/D, Exam Narrative Exam Narrative: Middle aged male, appropriate for age, sitting up in bed. AAOx2 NAD. Poor dentition, c/o abd pain, to RLQ and LLQ, Breathing unlabored, able to speak complete sentences, LSC. BLE without clubbing, edema or cyanosis. Objective Objective Clinical Data: Abnormal lab results 08/15/19 08/15/19 08/15/19 Range/Units 18:15 18:15 18:15 WBC 22.03 H (4.4-10.8) k/cumm RBC (4.50-6.00) m/cumm MCV (80-95) fL Absolute Neutrophils 17.01 H (1.2-6.7) k/cumm Absolute Monocytes 1.59 H (0.11-0.7) k/cumm Potassium 3.0 L (3.5-5.1) mmol/L Anion Gap 11.2 H (3-11) mmol/L Glucose 108 H (74-106) mg/dL Magnesium 1.6 L (1.8-2.4) mg/dL AST (15-37) U/L Albumin (3.4-5.0) g/dL LDL Cholesterol, Calc (<100) mg/dL Lipase > 82138 H (73-393) U/L Ur Specific [place] (1.005-1.025) Urine Opiates Screen (Negative) Ur THC Screen (Negative) 08/16/19 08/16/19 08/16/19 Range/Units 03:25 03:25 06:12 WBC (4.4-10.8) k/cumm RBC (4.50-6.00) m/cumm MCV (80-95) fL Absolute Neutrophils (1.2-6.7) k/cumm Absolute Monocytes (0.11-0.7) k/cumm Potassium (3.5-5.1) mmol/L Anion Gap (3-11) mmol/L Glucose (74-106) mg/dL Magnesium (1.8-2.4) mg/dL AST (15-37) U/L Albumin (3.4-5.0) g/dL LDL Cholesterol, Calc 104 H (<100) mg/dL Lipase (73-393) U/L Ur Specific [place] >= 1.030 H (1.005-1.025) Urine Opiates Screen Positive A (Negative) Ur THC Screen Positive A (Negative) 08/16/19 08/16/19 Range/Units 06:22 06:22 WBC 12.75 H D (4.4-10.8) k/cumm RBC 4.41 L (4.50-6.00) m/cumm MCV 96.6 H (80-95) fL Absolute Neutrophils (1.2-6.7) k/cumm Absolute Monocytes (0.11-0.7) k/cumm Potassium (3.5-5.1) mmol/L Anion Gap (3-11) mmol/L Glucose (74-106) mg/dL Magnesium 1.6 L (1.8-2.4) mg/dL AST 13 L (15-37) U/L Albumin 3.1 L (3.4-5.0) g/dL LDL Cholesterol, Calc (<100) mg/dL Lipase 4943 H (73-393) U/L Ur Specific [place] (1.005-1.025) Urine Opiates Screen (Negative) Ur THC Screen (Negative) Vital Signs Temperature 37.0 C 08/16/19 07:20 Temperature Source Tympanic 08/16/19 07:20 Pulse 73 08/16/19 07:20 Pulse Rhythm Regular 08/16/19 07:30 Respiratory Rate 19 08/16/19 07:20 Respiratory Effort Non-Labored 08/16/19 07:30 Respiratory Depth Normal 08/16/19 07:30 Respiratory Pattern Normal 08/16/19 07:30 Blood Pressure 122/82 08/16/19 07:20 Blood Pressure Position Sitting 08/15/19 17:56 Pulse Oximetry 95 08/16/19 07:30 Oxygen Delivery Method Room Air 08/16/19 07:30 Oxygen Flow Rate 0 08/16/19 07:30 Pain Level 8 08/16/19 09:19 Comment 08/16/19 03:25 Intake & Output 08/15/19 08/15/19 08/16/19 11:59 23:59 11:59 Intake Total 1120 / 1120 2180.833 / 2180.833 Balance 1120 / 1120 2180.833 / 2180.833 Weight 74.843 kg Intake: IV 1120 / 1120 2180.833 / 2180.833 Other: Urine Appearance Clear Comment void x 1, urine sample taken to lab by [facility]. Laboratory Results WBC 12.75 k/cumm (4.4-10.8) H D 08/16/19 06:22 RBC 4.41 m/cumm (4.50-6.00) L 08/16/19 06:22 Hgb 14.2 g/dL (13.5-17.5) 08/16/19 06:22 Hct 42.6 % (40.0-50.0) 08/16/19 06:22 MCV 96.6 fL (80-95) H 08/16/19 06:22 MCH 32.2 pg (27.0-33.0) 08/16/19 06:22 MCHC 33.3 g/dL (32.0-36.0) 08/16/19 06:22 RDW 13.4 % (11.8-14.1) 08/16/19 06:22 Plt Count 239 x1000/uL (130-400) 08/16/19 06:22 MPV 9.9 fL (8.0-11.0) 08/16/19 06:22 Immature Gran % 1.1 % 08/15/19 18:15 Neutrophils % 77.2 08/15/19 18:15 Lymphocytes % 11.5 08/15/19 18:15 Monocytes % 7.2 08/15/19 18:15 Eosinophils % 2.8 08/15/19 18:15 Basophils % 0.2 08/15/19 18:15 Absolute Neutrophils 17.01 k/cumm (1.2-6.7) H 08/15/19 18:15 Absolute Lymphocytes 2.53 k/cumm (1.2-3.4) 08/15/19 18:15 Absolute Monocytes 1.59 k/cumm (0.11-0.7) H 08/15/19 18:15 Absolute Eosinophils 0.62 k/cumm (0.0-0.7) 08/15/19 18:15 Absolute Basophils 0.04 k/cumm (0.0-0.2) 08/15/19 18:15 Differential Comment Diff reviewed 08/15/19 18:15 RBC Morphology Normal 08/15/19 18:15 Sodium 140 mmol/L (136-145) 08/16/19 06:22 Potassium 4.4 mmol/L (3.5-5.1) D 08/16/19 06:22 Chloride 106 mmol/L (98-107) 08/16/19 06:22 Carbon Dioxide 27.4 mmol/L (21.0-32.0) 08/16/19 06:22 Anion Gap 6.6 mmol/L (3-11) 08/16/19 06:22 BUN 9 mg/dL (7-18) 08/16/19 06:22 Creatinine 0.70 mg/dL (0.70-1.30) 08/16/19 06:22 Estimated GFR/1.73 m2 >= 60.00 (mL/min/1.73m2) 08/16/19 06:22 Glucose 99 mg/dL (74-106) 08/16/19 06:22 Calcium 9.0 mg/dL (8.5-10.1) 08/16/19 06:22 Magnesium 1.6 mg/dL (1.8-2.4) L 08/16/19 06:22 Total Bilirubin 0.5 mg/dL (0.2-1.0) 08/16/19 06:22 AST 13 U/L (15-37) L 08/16/19 06:22 ALT 17 U/L (16-63) 08/16/19 06:22 Alkaline Phosphatase 59 U/L (46-116) 08/16/19 06:22 Troponin I < 0.05 ng/Ml (<0.06) 08/15/19 18:15 Total Protein 6.5 g/dL (6.4-8.2) 08/16/19 06:22 Albumin 3.1 g/dL (3.4-5.0) L 08/16/19 06:22 Triglycerides 81 mg/dL (<150) 08/16/19 06:12 Total Cholesterol 163 mg/dL (<200) 08/16/19 06:12 LDL Cholesterol, Calc 104 mg/dL (<100) H 08/16/19 06:12 HDL Cholesterol 43 mg/dL (40-60) 08/16/19 06:12 Lipase 4943 U/L (73-393) H 08/16/19 06:22 Urine Color Yellow (Yellow) 08/16/19 03:25 Urine Clarity Clear (Clear) 08/16/19 03:25 Urine pH 5.5 (5-8) 08/16/19 03:25 Ur Specific [place] >= 1.030 (1.005-1.025) H 08/16/19 03:25 Urine Protein Negative mg/dL (Negative) 08/16/19 03:25 Urine Ketones Negative mg/dL (Negative) 08/16/19 03:25 Urine Blood Negative (Negative) 08/16/19 03:25 Urine Nitrite Negative (Negative) 08/16/19 03:25 Urine Bilirubin Negative (Negative) 08/16/19 03:25 Urine Urobilinogen 0.2 EU/dL (Up TO 0.2) 08/16/19 03:25 Ur Leukocyte Esterase Negative (Negative) 08/16/19 03:25 Urine Glucose Negative mg/dL (Negative) 08/16/19 03:25 Urine Opiates Screen Positive (Negative) A 08/16/19 03:25 Urine Methadone Screen Negative (Negative) 08/16/19 03:25 Ur Barbiturates Screen Negative (Negative) 08/16/19 03:25 Ur Tricyclics Screen Negative (Negative) 08/16/19 03:25 Ur Amphetamines Screen Negative (Negative) 08/16/19 03:25 U Benzodiazepines Scrn Negative (Negative) 08/16/19 03:25 Urine Cocaine Screen Negative (Negative) 08/16/19 03:25 Ur THC Screen Positive (Negative) A 08/16/19 03:25 Ethyl Alcohol < 3.0 mg/dL (<3) 08/15/19 18:15
[2019-08-16] MEDS: ACETAMINOPHEN 1,000 MG/100 ML BTL 400 MG IVPB ×2 (11:28→17:45)
--- NOTE | 2019-08-16 11:55 | DI.CT_ITS ---
EXAM: Abd CT CLINICAL HISTORY: PANCREATITIS, CYST FOUND BY US,? ABSCESS COMPARISON: CT CHEST PE ABD PELVIS W from 07/14/2019 FINDINGS: CT examination the abdomen was performed with a bolus infusion of 100 cc of Omnipaque 350. Current e xamination is compared with prior examination of 07/14. The lung bases appear clear. No free intrap eritoneal air is seen. The liver and spleen are unremarkable in appearance. There is moderate free intra-abdominal fluid in the pericolic gutters and in a perihepatic location. Pancreatic enlargement again noted consistent w ith acute pancreatitis, some inhomogeneity of the pancreatic head may be present related to inflammat ory process. Marked increase in anterior fluid collection measuring up to 11 x 7 millimeters. Littl e interval change in size of posterior pancreatic collection although thin apparent enhancing wall is now present not seen on prior study. Adrenals and kidneys are unremarkable. Abdominal aorta and ma marguerite vessels are unremarkable. There is a question of thrombus in portal vein in its course through t he pancreatic head. No gross venous obstruction identified at this time. IMPRESSION: Findings consistent with acute peripancreatic fluid collection as described above. Severe pancreatit is. New thrombus noted in portal vein, nonocclusive.
[2019-08-16] MEDS: Omnipaque 350 MG/ML 100 ML BTL IJ (11:58)
--- NOTE | 2019-08-16 12:23 | DI.VRAD_ITS ---
PROCEDURE INFORMATION: Exam: CT Abdomen With Contrast Exam date and time: 08/16/2019 10:54 AM Age: 39 years old Clinical indication: Abdominal pain; Epigastric; Patient HX: Pancreatitis, cyst found by US. R/O abscess TECHNIQUE: Imaging protocol: Computed tomography images of the abdomen with intravenous contrast. Radiation optimization: All CT scans at this facility use at least one of these dose optimization techniques: automated exposure control; mA and/or kV adjustment per patient size (includes targeted exams where dose is matched to clinical indication); or iterative reconstruction. Contrast material: OMNIPAQUE 350; Contrast volume: 100 ml; Contrast route: IV; COMPARISON: CT CHEST PE ABD PELVIS W 07/14/2019 3:53:09 PM FINDINGS: Lungs: The visualized lung bases demonstrate mild dependent atelectasis. Liver: The liver contains a stable subcentimeter hypodense lesion. It appears otherwise unremarkable. Gallbladder and bile ducts: No gallstones are evident, but ultrasound would be more sensitive. No gross biliary ductal dilatation. Pancreas: There is a mildly increasingly edematous appearance of the pancreas. Mildly increased fatty haziness, stranding and confluent fluid is present in the retroperitoneum, including about the pancreas. A new thin walled fluid density focus along the anterior aspect of the body, displacing the stomach, measures up to approximately 11.3 x 7.6 x 10.7 cm. It does not contain gas and is compatible with an acute peripancreatic fluid collection. An additional collection of fluid posterior to the distal body and tail now has a thin wall, measuring approximately 6.9 x 2.3 cm. Neither collection contains gas. Spleen: Normal. No splenomegaly. Adrenals: Normal. No mass. Kidneys and ureters: Normal. No hydronephrosis. Stomach and bowel: The visualized unopacified small bowel is not significantly distended to suggest obstruction. There appears to be wall thickening involving the partially visualized descending colon. The visualized large bowel is otherwise grossly unremarkable in appearance. Intraperitoneal space: Small free fluid is again present. There is no free air. Retroperitoneal space: No abnormal retroperitoneal gas is evident. Lymph nodes: Unremarkable. No enlarged lymph nodes. Vasculature: There is a new filling defect suggesting nonocclusive thrombus in the portal vein (images 4:30-33). The abdominal aorta is nonaneurysmal. Atherosclerotic vascular calcifications are again present. Bones/joints: Bony structures appear unchanged. IMPRESSION: 1. Findings compatible with acute pancreatitis, with a mildly increasingly edematous appearance of the pancreas as compared with 07/14/19, and with mildly increased surrounding inflammatory change. 2. Increased surrounding confluent fluid with a new acute peripancreatic fluid collection anteriorly measuring up to 11.3 cm, as well as additional pre-existing collection posteriorly which now has a thin wall. No abnormal gas in the fluid or surrounding soft tissues to indicate abscess. 3. New nonocclusive thrombus in the portal vein. 4. Persistent small free fluid. 5. Apparent wall thickening involving the partially visualized descending colon, could be reactive or related to primary nonspecific colitis. Dictated and Authenticated by: Mansoor Singleton MD. Ordering:YUMIKO Downing MD
[2019-08-16] MEDS: MORPHine 10 MG/ML VIAL IM (13:48)
[2019-08-16 14:04] LABS: Prothrombin Time 9.8 sec (9.3-11.0)
[2019-08-16 15:10] VITALS: BP 120/76; PULSE 77; RESP 21; TEMP 37; O2SAT 99
[2019-08-16] MEDS: Enoxaparin 80 MG/0.8 ML SYR SC (16:05)
--- NOTE | 2019-08-16 16:49 | SCONE_ITS ---
Date of service: 08/16/19 Time of Service: 11:30 Assessment and Plan Assessment and plan (1) Pancreatic pseudocyst: Status: Acute Assessment and plan: This is a new finding from a month ago. It does not appear infected and I would not advise antibiotics at this time. Aspiration/culture could be performed if more clinical suspicion for infection arises. The cyst is large and pushing on the stomach. He was advised he will feel full easily and may have some trouble with stomach emptying. It is possible he will only tolerate a liquid diet. The cyst should be followed as it may resolve spontaneously. If it persists or remains too symptomatic then percutaneous or endoscopic drainage is an option. Hospitalist note and advice from GI reviewed. Continue NPO until lipase and symptoms improve. History of Present Illness Narrative: This patient was admitted in June with alcohol induced pancreatitis. Ct from the admission reviewed. US at the time did not show any gallstones, triglycerides normal. He recovered and has not used alcohol since. Yesterday after eating a meatball sub had increased epigastric pain and vomiting. He presented to the ER with evaluation showing an elevated lipase >15,000. US showed a new peripancreatic cyst. CT today is reviewed and shows an 11.3 pseudocyst in the lesser sac with some compression of the stomach. No air present within. He also has a nonobstructing thrombus in the splenic vein. Review of Systems Narrative: Reports back pain related to the pancreatitis. 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 He shares a home with his mother. He denies any travel or recent sexual partners. Exam Narrative Exam Narrative: Not in acute distress Sclera anicteric Abdomen soft, nondistended. Mild epigastric tenderness. Results Last Vital Signs Temp 98.6 F 08/16/19 15:10 Pulse 77 08/16/19 15:10 Resp 21 08/16/19 15:10 BP 120/76 08/16/19 15:10 Pulse Ox 99 08/16/19 15:10 Labs Result diagrams: 08/16/19 06:22 08/16/19 06:22 Labs: Laboratory Results - last 24 hr 08/15/19 08/15/19 08/15/19 18:15 18:15 18:15 WBC 22.03 H RBC 4.98 Hgb 16.0 Hct 47.2 MCV 94.8 MCH 32.1 MCHC 33.9 RDW 13.7 Plt Count 274 D MPV 10.0 Immature Gran % 1.1 Neutrophils % 77.2 Lymphocytes % 11.5 Monocytes % 7.2 Eosinophils % 2.8 Basophils % 0.2 Absolute Neutrophils 17.01 H Absolute Lymphocytes 2.53 Absolute Monocytes 1.59 H Absolute Eosinophils 0.62 Absolute Basophils 0.04 Differential Comment Diff reviewed RBC Morphology Normal PT INR Sodium 139 Potassium 3.0 L Chloride 102 Carbon Dioxide 25.8 Anion Gap 11.2 H BUN 12 Creatinine 0.94 Estimated GFR/1.73 m2 >= 60.00 Glucose 108 H Calcium 9.6 Magnesium 1.6 L Total Bilirubin 0.3 AST 15 ALT 21 Alkaline Phosphatase 69 Troponin I < 0.05 Total Protein 7.9 Albumin 3.8 Triglycerides Total Cholesterol LDL Cholesterol, Calc HDL Cholesterol Lipase > 67734 H Urine Color Urine Clarity Urine pH Ur Specific [place] Urine Protein Urine Ketones Urine Blood Urine Nitrite Urine Bilirubin Urine Urobilinogen Ur Leukocyte Esterase Urine Glucose Urine Opiates Screen Urine Methadone Screen Ur Barbiturates Screen Ur Tricyclics Screen Ur Amphetamines Screen U Benzodiazepines Scrn Urine Cocaine Screen Ur THC Screen Ethyl Alcohol < 3.0 08/15/19 08/16/19 08/16/19 21:05 03:25 03:25 WBC RBC Hgb Hct MCV MCH MCHC RDW Plt Count MPV Immature Gran % Neutrophils % Lymphocytes % Monocytes % Eosinophils % Basophils % Absolute Neutrophils Absolute Lymphocytes Absolute Monocytes Absolute Eosinophils Absolute Basophils Differential Comment RBC Morphology PT INR Sodium Potassium Chloride Carbon Dioxide Anion Gap BUN Creatinine Estimated GFR/1.73 m2 Glucose Calcium Magnesium Total Bilirubin AST ALT Alkaline Phosphatase Troponin I Total Protein Albumin Triglycerides Total Cholesterol LDL Cholesterol, Calc HDL Cholesterol Lipase Cancelled Urine Color Yellow Urine Clarity Clear Urine pH 5.5 Ur Specific [place] >= 1.030 H Urine Protein Negative Urine Ketones Negative Urine Blood Negative Urine Nitrite Negative Urine Bilirubin Negative Urine Urobilinogen 0.2 Ur Leukocyte Esterase Negative Urine Glucose Negative Urine Opiates Screen Positive A Urine Methadone Screen Negative Ur Barbiturates Screen Negative Ur Tricyclics Screen Negative Ur Amphetamines Screen Negative U Benzodiazepines Scrn Negative Urine Cocaine Screen Negative Ur THC Screen Positive A Ethyl Alcohol 08/16/19 08/16/19 08/16/19 06:12 06:22 06:22 WBC 12.75 H D RBC 4.41 L Hgb 14.2 Hct 42.6 MCV 96.6 H MCH 32.2 MCHC 33.3 RDW 13.4 Plt Count 239 MPV 9.9 Immature Gran % Neutrophils % Lymphocytes % Monocytes % Eosinophils % Basophils % Absolute Neutrophils Absolute Lymphocytes Absolute Monocytes Absolute Eosinophils Absolute Basophils Differential Comment RBC Morphology PT INR Sodium 140 Potassium 4.4 D Chloride 106 Carbon Dioxide 27.4 Anion Gap 6.6 BUN 9 Creatinine 0.70 Estimated GFR/1.73 m2 >= 60.00 Glucose 99 Calcium 9.0 Magnesium 1.6 L Total Bilirubin 0.5 AST 13 L ALT 17 Alkaline Phosphatase 59 Troponin I Total Protein 6.5 Albumin 3.1 L Triglycerides 81 Total Cholesterol 163 LDL Cholesterol, Calc 104 H HDL Cholesterol 43 Lipase 4943 H Urine Color Urine Clarity Urine pH Ur Specific [place] Urine Protein Urine Ketones Urine Blood Urine Nitrite Urine Bilirubin Urine Urobilinogen Ur Leukocyte Esterase Urine Glucose Urine Opiates Screen Urine Methadone Screen Ur Barbiturates Screen Ur Tricyclics Screen Ur Amphetamines Screen U Benzodiazepines Scrn Urine Cocaine Screen Ur THC Screen Ethyl Alcohol 08/16/19 12:52 WBC RBC Hgb Hct MCV MCH MCHC RDW Plt Count MPV Immature Gran % Neutrophils % Lymphocytes % Monocytes % Eosinophils % Basophils % Absolute Neutrophils Absolute Lymphocytes Absolute Monocytes Absolute Eosinophils Absolute Basophils Differential Comment RBC Morphology PT 9.8 INR 1.0 Sodium Potassium Chloride Carbon Dioxide Anion Gap BUN Creatinine Estimated GFR/1.73 m2 Glucose Calcium Magnesium Total Bilirubin AST ALT Alkaline Phosphatase Troponin I Total Protein Albumin Triglycerides Total Cholesterol LDL Cholesterol, Calc HDL Cholesterol Lipase Urine Color Urine Clarity Urine pH Ur Specific [place] Urine Protein Urine Ketones Urine Blood Urine Nitrite Urine Bilirubin Urine Urobilinogen Ur Leukocyte Esterase Urine Glucose Urine Opiates Screen Urine Methadone Screen Ur Barbiturates Screen Ur Tricyclics Screen Ur Amphetamines Screen U Benzodiazepines Scrn Urine Cocaine Screen Ur THC Screen Ethyl Alcohol
[2019-08-16 18:45] VITALS: BP 109/71; PULSE 77; RESP 21; TEMP 37; O2SAT 99
[2019-08-16 22:52] VITALS: BP 111/70; PULSE 68; RESP 22; TEMP 36.1; O2SAT 100
[2019-08-17] VITALS (8 sets, daily range): BP systolic 114–138; BP diastolic 72–85; PULSE 68–89; RESP 17–19; TEMP 36.4–37.2; O2SAT 96–99
[2019-08-17] MEDS: ACETAMINOPHEN 1,000 MG/100 ML BTL 400 MG IVPB ×4 (00:04→18:01)
[2019-08-17] MEDS: Normal Saline Flush 10 ML SYR IVP ×2 (02:22→05:31)
[2019-08-17] MEDS: Normal Saline 1,000 ML 250 ML IV ×4 (02:22→22:28)
[2019-08-17] MEDS: Enoxaparin 80 MG/0.8 ML SYR SC ×2 (04:40→17:05)
[2019-08-17 06:30] LABS: Abs Immature Grans 0.05 k/cumm (0.0-0.09); Absolute Basophil Count 0.03 k/cumm (0.0-0.2); Absolute Eosinophil Count 0.65 k/cumm (0.0-0.7); Absolute Lymphocyte Count 1.28 k/cumm (1.2-3.4); Absolute Monocyte Count 1.15 k/cumm (0.11-0.7); Absolute Neutrophil Count 5.65 k/cumm (1.2-6.7); Basophils % 0.3; Eosinophils % 7.4; HCT 39.7 % (40.0-50.0); Immature Grans % 0.6 %; Lymphocytes % 14.5; Mean Corp. HGB Concentration 32.7 g/dL (32.0-36.0); Mean Corpuscular Hemoglobin 31.8 pg (27.0-33.0); Mean Corpuscular Volume 97.1 fL (80-95); Monocytes % 13.1; Neutrophils % 64.1; Platelet Count 190 x1000/uL (130-400); RBC 4.09 m/cumm (4.50-6.00); RBC Distribution Width 13.2 % (11.8-14.1); White Blood Cell Count 8.81 k/cumm (4.4-10.8)
[2019-08-17 06:41] LABS: BUN 4 mg/dL (7-18); CREATININE 0.69 mg/dL (0.70-1.30); Calcium 8.5 mg/dL (8.5-10.1); Chloride 103 mmol/L (98-107); Glucose 84 mg/dL (74-106); Magnesium 1.5 mg/dL (1.8-2.4); Sodium 136 mmol/L (136-145)
[2019-08-17] MEDS: MAGNESIUM SULFATE 4 GM/100 ML BAG IVPB (08:10)
[2019-08-17] MEDS: Nicotine 21 MG/24 HR PATCH TD (08:10)
--- NOTE | 2019-08-17 09:50 | W.PM.PROGNOT ---
Date of Service Date of service: 08/17/19 Time of Service: 09:50 Assessment and Plan Assessment and plan (1) Acute pancreatitis: Start date: 08/17/19 Start time: 09:53 Status: Acute Assessment and plan: Continues to have pain. U/s imaging revealing Cystic lesion along the pancreas, newly demonstrated as compared with 07/15/19, measuring up to 9.5 cm, with some solid components. Surgery consulted, and CT with contrast revealing New nonocclusive thrombus in the portal vein, Findings compatible with acute pancreatitis, with a mildly increasingly edematous appearance of the pancreas as compared with 07/14/19, and with mildly increased surrounding inflammatory change. Increased surrounding confluent fluid with a new acute peripancreatic fluid collection anteriorly measuring up to 11.3 cm, as well as additional pre-existing collection posteriorly which now has a thin wall. No abnormal gas in the fluid or surrounding soft tissues to indicate abscess. Spoke with surgery at this time, monitor pseudocyst, contacted [facility] regarding cyst and portal thrombosis, at this time treat with enoxaparin transition to DOAC on discharge will likely need treatment for 3-6 months. Monitor cyst with repeat CT in 4 weeks. Follow up with [facility], concern for gastric outlet obstruction given size of cyst will monitor patient, if he becomes nauseated or vomiting after trialing PO clears consider barium swallow. Will trial PO in am. Continue IVF in at 250 for 24 hours. Qualifiers: Pancreatitis type: alcohol induced Acute pancreatitis complication: unspecified Qualified Code(s): K85.20 - Alcohol induced acute pancreatitis without necrosis or infection (2) Portal vein thrombosis: Start date: 08/17/19 Start time: 10:07 Status: Acute Assessment and plan: Found by CT, likely due to pancreatitis. Treat with Enoxaparin 1 mg/kg at this time q 12 hours and transition to DOAC on discharge (3) Pancreatic pseudocyst: Start date: 08/17/19 Start time: 10:08 Status: Acute Assessment and plan: Found by imaging, see above. Will monitor and repeat CT in 4 weeks. Recommend follow up with [facility] (4) Chronic alcohol use: Start date: 08/17/19 Start time: 10:07 Status: Chronic Assessment and plan: Patient denies alcohol intake since his last hospitalization with a negative alcohol level upon this admission urine drug screen is pending. (5) Tobacco dependence: Start date: 08/17/19 Start time: 10:08 Status: Chronic Assessment and plan: Patient will be placed on NicoDerm patches while hospitalized and long-term he should consider cessation. Would also like nicotrol inhaler. Above case discussed with Dr. Petersen who is in agreement. (6) DVT prophylaxis: Start date: 08/17/19 Start time: 10:18 Status: Acute Assessment and plan: On enoxaparin for PVT see above. (7) Discharge planning issues: Start date: 08/17/19 Start time: 10:19 Status: Acute Assessment and plan: Will need DOAC on discharge. Does not have insurance at this time. CM to work with patient. Subjective Subjective Patient reports: no new complaints Interval history since last seen: Continues to have pain. Will continue IVF and NPO. Trial PO in am. Denies CP, SOB, NVD Exam Narrative Exam Narrative: Middle aged male, appropriate for age, sitting up in bed. AAOx2 NAD. Poor dentition, c/o abd pain, to RLQ and LLQ, Breathing unlabored, able to speak complete sentences, LSC. BLE without clubbing, edema or cyanosis. Objective Objective Clinical Data: Abnormal lab results 08/17/19 08/17/19 Range/Units 06:02 06:02 RBC 4.09 L (4.50-6.00) m/cumm Hgb 13.0 L (13.5-17.5) g/dL Hct 39.7 L (40.0-50.0) % MCV 97.1 H (80-95) fL Absolute Monocytes 1.15 H (0.11-0.7) k/cumm BUN 4 L (7-18) mg/dL Creatinine 0.69 L (0.70-1.30) mg/dL Magnesium 1.5 L (1.8-2.4) mg/dL Vital Signs Temperature 36.6 C 08/17/19 07:10 Temperature Source Tympanic 08/17/19 07:10 Pulse 89 08/17/19 07:10 Pulse Rhythm Regular 08/17/19 02:06 Respiratory Rate 18 08/17/19 07:10 Respiratory Effort Non-Labored 08/17/19 02:06 Respiratory Depth Normal 08/17/19 02:06 Respiratory Pattern Normal 08/17/19 02:06 Blood Pressure 114/72 08/17/19 07:10 Blood Pressure Position Sitting 08/15/19 17:56 Pulse Oximetry 99 08/17/19 07:10 Oxygen Delivery Method Room Air 08/17/19 07:10 Oxygen Flow Rate 0 08/17/19 07:10 Pain Level 0 08/17/19 07:10 Comment 08/16/19 03:25 Intake & Output 08/16/19 08/16/19 08/17/19 11:59 23:59 11:59 Intake Total 2280.833 / 4500.833 2220 / 4500.833 2230 / 2230 Balance 2280.833 / 4500.833 2220 / 4500.833 2230 / 2230 Intake: IV 2280.833 / 4380.833 2100 / 4380.833 0 / 2110 Oral 120 / 120 120 / 120 Other: Urine Color Yellow Yellow Yellow Urine Appearance Clear Clear Clear Urine Odor None None Comment void x 1, urine sample taken to lab by MONICA. pt state he has been voiding in the tiolet Voiding Methods Toilet Toilet Laboratory Results WBC 8.81 k/cumm (4.4-10.8) D 08/17/19 06:02 RBC 4.09 m/cumm (4.50-6.00) L 08/17/19 06:02 Hgb 13.0 g/dL (13.5-17.5) L 08/17/19 06:02 Hct 39.7 % (40.0-50.0) L 08/17/19 06:02 MCV 97.1 fL (80-95) H 08/17/19 06:02 MCH 31.8 pg (27.0-33.0) 08/17/19 06:02 MCHC 32.7 g/dL (32.0-36.0) 08/17/19 06:02 RDW 13.2 % (11.8-14.1) 08/17/19 06:02 Plt Count 190 x1000/uL (130-400) 08/17/19 06:02 MPV 10.0 fL (8.0-11.0) 08/17/19 06:02 Immature Gran % 0.6 % 08/17/19 06:02 Neutrophils % 64.1 08/17/19 06:02 Lymphocytes % 14.5 08/17/19 06:02 Monocytes % 13.1 08/17/19 06:02 Eosinophils % 7.4 08/17/19 06:02 Basophils % 0.3 08/17/19 06:02 Absolute Neutrophils 5.65 k/cumm (1.2-6.7) 08/17/19 06:02 Absolute Lymphocytes 1.28 k/cumm (1.2-3.4) 08/17/19 06:02 Absolute Monocytes 1.15 k/cumm (0.11-0.7) H 08/17/19 06:02 Absolute Eosinophils 0.65 k/cumm (0.0-0.7) 08/17/19 06:02 Absolute Basophils 0.03 k/cumm (0.0-0.2) 08/17/19 06:02 Differential Comment Diff reviewed 08/15/19 18:15 RBC Morphology Normal 08/15/19 18:15 PT 9.8 sec (9.3-11.0) 08/16/19 12:52 INR 1.0 (0.9-1.1) 08/16/19 12:52 Sodium 136 mmol/L (136-145) 08/17/19 06:02 Potassium 4.0 mmol/L (3.5-5.1) 08/17/19 06:02 Chloride 103 mmol/L (98-107) 08/17/19 06:02 Carbon Dioxide 27.0 mmol/L (21.0-32.0) 08/17/19 06:02 Anion Gap 6.0 mmol/L (3-11) 08/17/19 06:02 BUN 4 mg/dL (7-18) L 08/17/19 06:02 Creatinine 0.69 mg/dL (0.70-1.30) L 08/17/19 06:02 Estimated GFR/1.73 m2 >= 60.00 (mL/min/1.73m2) 08/17/19 06:02 Glucose 84 mg/dL (74-106) 08/17/19 06:02 Calcium 8.5 mg/dL (8.5-10.1) 08/17/19 06:02 Magnesium 1.5 mg/dL (1.8-2.4) L 08/17/19 06:02 Total Bilirubin 0.5 mg/dL (0.2-1.0) 08/16/19 06:22 AST 13 U/L (15-37) L 08/16/19 06:22 ALT 17 U/L (16-63) 08/16/19 06:22 Alkaline Phosphatase 59 U/L (46-116) 08/16/19 06:22 Troponin I < 0.05 ng/Ml (<0.06) 08/15/19 18:15 Total Protein 6.5 g/dL (6.4-8.2) 08/16/19 06:22 Albumin 3.1 g/dL (3.4-5.0) L 08/16/19 06:22 Triglycerides 81 mg/dL (<150) 08/16/19 06:12 Total Cholesterol 163 mg/dL (<200) 08/16/19 06:12 LDL Cholesterol, Calc 104 mg/dL (<100) H 08/16/19 06:12 HDL Cholesterol 43 mg/dL (40-60) 08/16/19 06:12 Lipase 4943 U/L (73-393) H 08/16/19 06:22 Urine Color Yellow (Yellow) 08/16/19 03:25 Urine Clarity Clear (Clear) 08/16/19 03:25 Urine pH 5.5 (5-8) 08/16/19 03:25 Ur Specific [place] >= 1.030 (1.005-1.025) H 08/16/19 03:25 Urine Protein Negative mg/dL (Negative) 08/16/19 03:25 Urine Ketones Negative mg/dL (Negative) 08/16/19 03:25 Urine Blood Negative (Negative) 08/16/19 03:25 Urine Nitrite Negative (Negative) 08/16/19 03:25 Urine Bilirubin Negative (Negative) 08/16/19 03:25 Urine Urobilinogen 0.2 EU/dL (Up TO 0.2) 08/16/19 03:25 Ur Leukocyte Esterase Negative (Negative) 08/16/19 03:25 Urine Glucose Negative mg/dL (Negative) 08/16/19 03:25 Urine Opiates Screen Positive (Negative) A 08/16/19 03:25 Urine Methadone Screen Negative (Negative) 08/16/19 03:25 Ur Barbiturates Screen Negative (Negative) 08/16/19 03:25 Ur Tricyclics Screen Negative (Negative) 08/16/19 03:25 Ur Amphetamines Screen Negative (Negative) 08/16/19 03:25 U Benzodiazepines Scrn Negative (Negative) 08/16/19 03:25 Urine Cocaine Screen Negative (Negative) 08/16/19 03:25 Ur THC Screen Positive (Negative) A 08/16/19 03:25 Ethyl Alcohol < 3.0 mg/dL (<3) 08/15/19 18:15
--- NOTE | 2019-08-17 09:57 | CMPROGNOTE_ITS ---
- If Service Date Differs Date of service: 08/17/19 Time of Service: 09:57 Care Management Progress Note S/O:Acosta was sitting up in bed watching TV when CM met with him. He stated that he is very bored; bored out of my mind was the phrase he used. He was offered puzzle books and coloring materials from the activity cart by CM but he declined the offer.On a positive note, Acosta stated that he is having much less pain today. He stated that he had not been medicated for about 6 hours and was pain free. CM discussed insurance coverage with Acosta. 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 With all of his hospital stays however, Acosta has been unable to work so feels that now he may qualify. JORI will follow up with the CC at Acosta's PCP's office with whom he has been working. JORI will also reach out to [employer] to see if a [employer] application can be filed. A: Acosta is a pleasant 39 year old gentleman admitted on 08/15/19 with pancreatitis P:Acosta will likely be discharged home with no new services. He will follow up with his PCP and discharge plan of care. CM will work with community partners to help Acosta apply for Medicaid which he will need if he is to receive DOAC therapy at discharge. CM will continue to support Acosta, his family and discharge planning needs.
--- NOTE | 2019-08-17 12:49 | W.PM.PROGNOT ---
Date of Service Date of service: 08/17/19 Time of Service: 12:50 Assessment and Plan Assessment and plan (1) Pancreatic pseudocyst: Status: Acute Assessment and plan: His WBC has normalized. Had pain with eating, so agree with keeping NPO today with trial of clears again in the am. Will follow. Subjective Subjective Interval history since last seen: Had some more epigastric pain overnight. Has now improved after returning to NPO status. He estimates last narcotic dose was at 0400. No new complaints. Exam Narrative Exam Narrative: Alert, no acute distress Minimal epigastric tenderness. No distension. Objective Objective Clinical Data: Abnormal lab results 08/17/19 08/17/19 Range/Units 06:02 06:02 RBC 4.09 L (4.50-6.00) m/cumm Hgb 13.0 L (13.5-17.5) g/dL Hct 39.7 L (40.0-50.0) % MCV 97.1 H (80-95) fL Absolute Monocytes 1.15 H (0.11-0.7) k/cumm BUN 4 L (7-18) mg/dL Creatinine 0.69 L (0.70-1.30) mg/dL Magnesium 1.5 L (1.8-2.4) mg/dL Vital Signs Temperature 97.9 F 08/17/19 12:03 Temperature Source Tympanic 08/17/19 12:03 Pulse 79 08/17/19 12:03 Pulse Rhythm Regular 08/17/19 08:00 Respiratory Rate 18 08/17/19 12:03 Respiratory Effort Non-Labored 08/17/19 08:00 Respiratory Depth Normal 08/17/19 08:00 Respiratory Pattern Normal 08/17/19 08:00 Blood Pressure 118/73 08/17/19 12:03 Blood Pressure Position Sitting 08/15/19 17:56 Pulse Oximetry 99 08/17/19 12:03 Oxygen Delivery Method Room Air 08/17/19 12:03 Oxygen Flow Rate 0 08/17/19 12:03 Pain Level 0 08/17/19 12:03 Comment 08/16/19 03:25 Intake & Output 08/16/19 08/17/19 08/17/19 23:59 11:59 23:59 Intake Total 2220 / 4500.833 2330 / 2330 Balance 2220 / 4500.833 2330 / 2330 Intake: IV 2100 / 4380.833 2210 / 2210 Oral 120 / 120 120 / 120 Other: Urine Color Yellow Yellow Urine Appearance Clear Clear Urine Odor None Comment up independently Voiding Methods Toilet Toilet Laboratory Results WBC 8.81 k/cumm (4.4-10.8) D 08/17/19 06:02 RBC 4.09 m/cumm (4.50-6.00) L 08/17/19 06:02 Hgb 13.0 g/dL (13.5-17.5) L 08/17/19 06:02 Hct 39.7 % (40.0-50.0) L 08/17/19 06:02 MCV 97.1 fL (80-95) H 08/17/19 06:02 MCH 31.8 pg (27.0-33.0) 08/17/19 06:02 MCHC 32.7 g/dL (32.0-36.0) 08/17/19 06:02 RDW 13.2 % (11.8-14.1) 08/17/19 06:02 Plt Count 190 x1000/uL (130-400) 08/17/19 06:02 MPV 10.0 fL (8.0-11.0) 08/17/19 06:02 Immature Gran % 0.6 % 08/17/19 06:02 Neutrophils % 64.1 08/17/19 06:02 Lymphocytes % 14.5 08/17/19 06:02 Monocytes % 13.1 08/17/19 06:02 Eosinophils % 7.4 08/17/19 06:02 Basophils % 0.3 08/17/19 06:02 Absolute Neutrophils 5.65 k/cumm (1.2-6.7) 08/17/19 06:02 Absolute Lymphocytes 1.28 k/cumm (1.2-3.4) 08/17/19 06:02 Absolute Monocytes 1.15 k/cumm (0.11-0.7) H 08/17/19 06:02 Absolute Eosinophils 0.65 k/cumm (0.0-0.7) 08/17/19 06:02 Absolute Basophils 0.03 k/cumm (0.0-0.2) 08/17/19 06:02 Differential Comment Diff reviewed 08/15/19 18:15 RBC Morphology Normal 08/15/19 18:15 PT 9.8 sec (9.3-11.0) 08/16/19 12:52 INR 1.0 (0.9-1.1) 08/16/19 12:52 Sodium 136 mmol/L (136-145) 08/17/19 06:02 Potassium 4.0 mmol/L (3.5-5.1) 08/17/19 06:02 Chloride 103 mmol/L (98-107) 08/17/19 06:02 Carbon Dioxide 27.0 mmol/L (21.0-32.0) 08/17/19 06:02 Anion Gap 6.0 mmol/L (3-11) 08/17/19 06:02 BUN 4 mg/dL (7-18) L 08/17/19 06:02 Creatinine 0.69 mg/dL (0.70-1.30) L 08/17/19 06:02 Estimated GFR/1.73 m2 >= 60.00 (mL/min/1.73m2) 08/17/19 06:02 Glucose 84 mg/dL (74-106) 08/17/19 06:02 Calcium 8.5 mg/dL (8.5-10.1) 08/17/19 06:02 Magnesium 1.5 mg/dL (1.8-2.4) L 08/17/19 06:02 Total Bilirubin 0.5 mg/dL (0.2-1.0) 08/16/19 06:22 AST 13 U/L (15-37) L 08/16/19 06:22 ALT 17 U/L (16-63) 08/16/19 06:22 Alkaline Phosphatase 59 U/L (46-116) 08/16/19 06:22 Troponin I < 0.05 ng/Ml (<0.06) 08/15/19 18:15 Total Protein 6.5 g/dL (6.4-8.2) 08/16/19 06:22 Albumin 3.1 g/dL (3.4-5.0) L 08/16/19 06:22 Triglycerides 81 mg/dL (<150) 08/16/19 06:12 Total Cholesterol 163 mg/dL (<200) 08/16/19 06:12 LDL Cholesterol, Calc 104 mg/dL (<100) H 08/16/19 06:12 HDL Cholesterol 43 mg/dL (40-60) 08/16/19 06:12 Lipase 4943 U/L (73-393) H 08/16/19 06:22 Urine Color Yellow (Yellow) 08/16/19 03:25 Urine Clarity Clear (Clear) 08/16/19 03:25 Urine pH 5.5 (5-8) 08/16/19 03:25 Ur Specific [place] >= 1.030 (1.005-1.025) H 08/16/19 03:25 Urine Protein Negative mg/dL (Negative) 08/16/19 03:25 Urine Ketones Negative mg/dL (Negative) 08/16/19 03:25 Urine Blood Negative (Negative) 08/16/19 03:25 Urine Nitrite Negative (Negative) 08/16/19 03:25 Urine Bilirubin Negative (Negative) 08/16/19 03:25 Urine Urobilinogen 0.2 EU/dL (Up TO 0.2) 08/16/19 03:25 Ur Leukocyte Esterase Negative (Negative) 08/16/19 03:25 Urine Glucose Negative mg/dL (Negative) 08/16/19 03:25 Urine Opiates Screen Positive (Negative) A 08/16/19 03:25 Urine Methadone Screen Negative (Negative) 08/16/19 03:25 Ur Barbiturates Screen Negative (Negative) 08/16/19 03:25 Ur Tricyclics Screen Negative (Negative) 08/16/19 03:25 Ur Amphetamines Screen Negative (Negative) 08/16/19 03:25 U Benzodiazepines Scrn Negative (Negative) 08/16/19 03:25 Urine Cocaine Screen Negative (Negative) 08/16/19 03:25 Ur THC Screen Positive (Negative) A 08/16/19 03:25 Ethyl Alcohol < 3.0 mg/dL (<3) 08/15/19 18:15
[2019-08-18] MEDS: ACETAMINOPHEN 1,000 MG/100 ML BTL 400 MG IVPB ×5 (00:07→23:19)
[2019-08-18] MEDS: Normal Saline 1,000 ML 250 ML IV ×2 (02:20→05:36)
[2019-08-18 03:15] VITALS: O2SAT 97
[2019-08-18] MEDS: Enoxaparin 80 MG/0.8 ML SYR SC (03:54)
[2019-08-18 04:10] VITALS: BP 127/78; PULSE 66; RESP 16; TEMP 37; O2SAT 99
[2019-08-18 06:43] LABS: Abs Immature Grans 0.04 k/cumm (0.0-0.09); Absolute Basophil Count 0.04 k/cumm (0.0-0.2); Absolute Eosinophil Count 0.55 k/cumm (0.0-0.7); Absolute Lymphocyte Count 1.35 k/cumm (1.2-3.4); Absolute Monocyte Count 0.72 k/cumm (0.11-0.7); Absolute Neutrophil Count 5.53 k/cumm (1.2-6.7); Basophils % 0.5; Eosinophils % 6.7; HCT 39.3 % (40.0-50.0); Immature Grans % 0.5 %; Lymphocytes % 16.4; Mean Corp. HGB Concentration 33.1 g/dL (32.0-36.0); Mean Corpuscular Hemoglobin 31.7 pg (27.0-33.0); Mean Corpuscular Volume 95.9 fL (80-95); Mean Platelet Volume 10.2 fL (8.0-11.0); Monocytes % 8.7; Neutrophils % 67.2; Platelet Count 196 x1000/uL (130-400); RBC Distribution Width 12.9 % (11.8-14.1); White Blood Cell Count 8.23 k/cumm (4.4-10.8)
[2019-08-18 06:55] LABS: Anion Gap 10.8 mmol/L (3-11); BUN 4 mg/dL (7-18); CO2 23.2 mmol/L (21.0-32.0); CREATININE 0.68 mg/dL (0.70-1.30); Calcium 8.4 mg/dL (8.5-10.1); Chloride 104 mmol/L (98-107); Glucose 63 mg/dL (74-106); Magnesium 1.5 mg/dL (1.8-2.4); Potassium 4.1 mmol/L (3.5-5.1); Sodium 138 mmol/L (136-145)
[2019-08-18 07:18] VITALS: BP 125/80; PULSE 78; RESP 18; TEMP 37.1; O2SAT 99
[2019-08-18 07:45] VITALS: O2SAT 99
[2019-08-18] MEDS: Dextrose 50%-Water 25 GM/50 ML SYR IVP (07:49)
[2019-08-18] MEDS: DEXTROSE 5%-0.9% SALINE 1,000 ML 100 ML IV (07:50)
[2019-08-18] MEDS: Nicotine 21 MG/24 HR PATCH TD (07:50)
[2019-08-18] MEDS: MAGNESIUM SULFATE 4 GM/100 ML BAG IVPB (08:58)
[2019-08-18] MEDS: Normal Saline Flush 10 ML SYR IVP ×2 (09:42→23:20)
--- NOTE | 2019-08-18 10:18 | PGE_ITS ---
Date of Service Date of service: 08/18/19 Time of Service: 10:18 Assessment and Plan Assessment and plan (1) Acute pancreatitis: Status: Acute Assessment and plan: Improving. Denies pain, n/v. Increase diet to clears. Monitor overnight for n/v or pain. Possible discharge in am. Will need follow up CT in 4 weeks and follow up with GI at [facility] Qualifiers: Pancreatitis type: alcohol induced Acute pancreatitis complication: unspecified Qualified Code(s): K85.20 - Alcohol induced acute pancreatitis without necrosis or infection (2) Portal vein thrombosis: Start date: 08/18/19 Start time: 10:21 Status: Acute Assessment and plan: Found by CT, likely due to pancreatitis. Transition to DOAC apixaban 10 mg x 7 days then decreased to 5 mg BID for 6 months. He will need to be followed by GI and PCP on discharge (3) Pancreatic pseudocyst: Start date: 08/18/19 Start time: 10:31 Status: Acute Assessment and plan: Found by imaging, see above. Will monitor and repeat CT in 4 weeks. Recommend follow up with [facility] (4) Chronic alcohol use: Start date: 08/18/19 Start time: 10:31 Status: Chronic Assessment and plan: Patient denies alcohol intake since his last hospitalization with a negative alcohol level upon this admission urine drug screen is pending. No signs of withdrawal (5) Tobacco dependence: Start date: 08/18/19 Start time: 10:32 Status: Chronic Assessment and plan: Patient will be placed on NicoDerm patches while hospitalized and long-term he should consider cessation. Would also like nicotrol inhaler. Above case discussed with Dr. Petersen who is in agreement. (6) DVT prophylaxis: Start date: 08/18/19 Start time: 10:32 Status: Acute Assessment and plan: Transitioned to apixaban with anticipation of discharge in am. (7) Discharge planning issues: Start date: 08/18/19 Start time: 10:32 Status: Acute Assessment and plan: Will need DOAC on discharge. Does not have insurance at this time. CM to work with patient. Subjective Subjective Patient reports: feels better Interval history since last seen: Improving. No pain overnight, will change diet to PO. D/c fluids. BGL this am 69 asymptomatic. Possible discharge in am if tolerating diet today without N/V and no pain overnight. Exam Narrative Exam Narrative: Middle aged male, appropriate for age, sitting up in bed. AAOx2 NAD. Poor dentition, no abdominal pain with palpation at this time. Breathing unlabored, able to speak complete sentences, LSC. BLE without clubbing, edema or cyanosis. Objective Objective Clinical Data: Abnormal lab results 08/18/19 08/18/19 Range/Units 06:10 06:10 RBC 4.10 L (4.50-6.00) m/cumm Hgb 13.0 L (13.5-17.5) g/dL Hct 39.3 L (40.0-50.0) % MCV 95.9 H (80-95) fL Absolute Monocytes 0.72 H (0.11-0.7) k/cumm BUN 4 L (7-18) mg/dL Creatinine 0.68 L (0.70-1.30) mg/dL Glucose 63 L (74-106) mg/dL Calcium 8.4 L (8.5-10.1) mg/dL Magnesium 1.5 L (1.8-2.4) mg/dL Vital Signs Temperature 37.1 C 08/18/19 07:18 Temperature Source Temporal Artery Scan 08/18/19 07:18 Pulse 78 08/18/19 07:18 Pulse Rhythm Regular 08/18/19 07:45 Respiratory Rate 18 08/18/19 07:18 Respiratory Effort Non-Labored 08/18/19 07:45 Respiratory Depth Normal 08/18/19 07:45 Respiratory Pattern Normal 08/18/19 07:45 Blood Pressure 125/80 08/18/19 07:18 Blood Pressure Position Sitting 08/15/19 17:56 Pulse Oximetry 99 08/18/19 07:45 Oxygen Delivery Method Room Air 08/18/19 07:45 Oxygen Flow Rate 0 08/18/19 07:45 Pain Level 0 08/18/19 07:18 Comment 08/16/19 03:25 Intake & Output 08/17/19 08/17/19 08/18/19 11:59 23:59 11:59 Intake Total 2330 / 4446.667 2116.667 / 4446.667 3071.667 / 3071.667 Balance 2330 / 4446.667 2116.667 / 4446.667 3071.667 / 3071.667 Weight 73.2 kg Intake: IV 2210 / 4326.667 2116.667 / 4326.667 2471.667 / 2471.667 Oral 120 / 120 600 / 600 Other: Urine Color Yellow Yellow Yellow Urine Appearance Clear Clear Clear Urine Odor None Comment up independently patient uses toilet independently Voiding Methods Toilet Toilet Toilet Laboratory Results WBC 8.23 k/cumm (4.4-10.8) 08/18/19 06:10 RBC 4.10 m/cumm (4.50-6.00) L 08/18/19 06:10 Hgb 13.0 g/dL (13.5-17.5) L 08/18/19 06:10 Hct 39.3 % (40.0-50.0) L 08/18/19 06:10 MCV 95.9 fL (80-95) H 08/18/19 06:10 MCH 31.7 pg (27.0-33.0) 08/18/19 06:10 MCHC 33.1 g/dL (32.0-36.0) 08/18/19 06:10 RDW 12.9 % (11.8-14.1) 08/18/19 06:10 Plt Count 196 x1000/uL (130-400) 08/18/19 06:10 MPV 10.2 fL (8.0-11.0) 08/18/19 06:10 Immature Gran % 0.5 % 08/18/19 06:10 Neutrophils % 67.2 08/18/19 06:10 Lymphocytes % 16.4 08/18/19 06:10 Monocytes % 8.7 08/18/19 06:10 Eosinophils % 6.7 08/18/19 06:10 Basophils % 0.5 08/18/19 06:10 Absolute Neutrophils 5.53 k/cumm (1.2-6.7) 08/18/19 06:10 Absolute Lymphocytes 1.35 k/cumm (1.2-3.4) 08/18/19 06:10 Absolute Monocytes 0.72 k/cumm (0.11-0.7) H 08/18/19 06:10 Absolute Eosinophils 0.55 k/cumm (0.0-0.7) 08/18/19 06:10 Absolute Basophils 0.04 k/cumm (0.0-0.2) 08/18/19 06:10 Differential Comment Diff reviewed 08/15/19 18:15 RBC Morphology Normal 08/15/19 18:15 PT 9.8 sec (9.3-11.0) 08/16/19 12:52 INR 1.0 (0.9-1.1) 08/16/19 12:52 Sodium 138 mmol/L (136-145) 08/18/19 06:10 Potassium 4.1 mmol/L (3.5-5.1) 08/18/19 06:10 Chloride 104 mmol/L (98-107) 08/18/19 06:10 Carbon Dioxide 23.2 mmol/L (21.0-32.0) 08/18/19 06:10 Anion Gap 10.8 mmol/L (3-11) 08/18/19 06:10 BUN 4 mg/dL (7-18) L 08/18/19 06:10 Creatinine 0.68 mg/dL (0.70-1.30) L 08/18/19 06:10 Estimated GFR/1.73 m2 >= 60.00 (mL/min/1.73m2) 08/18/19 06:10 Glucose 63 mg/dL (74-106) L 08/18/19 06:10 Calcium 8.4 mg/dL (8.5-10.1) L 08/18/19 06:10 Magnesium 1.5 mg/dL (1.8-2.4) L 08/18/19 06:10 Total Bilirubin 0.5 mg/dL (0.2-1.0) 08/16/19 06:22 AST 13 U/L (15-37) L 08/16/19 06:22 ALT 17 U/L (16-63) 08/16/19 06:22 Alkaline Phosphatase 59 U/L (46-116) 08/16/19 06:22 Troponin I < 0.05 ng/Ml (<0.06) 08/15/19 18:15 Total Protein 6.5 g/dL (6.4-8.2) 08/16/19 06:22 Albumin 3.1 g/dL (3.4-5.0) L 08/16/19 06:22 Triglycerides 81 mg/dL (<150) 08/16/19 06:12 Total Cholesterol 163 mg/dL (<200) 08/16/19 06:12 LDL Cholesterol, Calc 104 mg/dL (<100) H 08/16/19 06:12 HDL Cholesterol 43 mg/dL (40-60) 08/16/19 06:12 Lipase 4943 U/L (73-393) H 08/16/19 06:22 Urine Color Yellow (Yellow) 08/16/19 03:25 Urine Clarity Clear (Clear) 08/16/19 03:25 Urine pH 5.5 (5-8) 08/16/19 03:25 Ur Specific [place] >= 1.030 (1.005-1.025) H 08/16/19 03:25 Urine Protein Negative mg/dL (Negative) 08/16/19 03:25 Urine Ketones Negative mg/dL (Negative) 08/16/19 03:25 Urine Blood Negative (Negative) 08/16/19 03:25 Urine Nitrite Negative (Negative) 08/16/19 03:25 Urine Bilirubin Negative (Negative) 08/16/19 03:25 Urine Urobilinogen 0.2 EU/dL (Up TO 0.2) 08/16/19 03:25 Ur Leukocyte Esterase Negative (Negative) 08/16/19 03:25 Urine Glucose Negative mg/dL (Negative) 08/16/19 03:25 Urine Opiates Screen Positive (Negative) A 08/16/19 03:25 Urine Methadone Screen Negative (Negative) 08/16/19 03:25 Ur Barbiturates Screen Negative (Negative) 08/16/19 03:25 Ur Tricyclics Screen Negative (Negative) 08/16/19 03:25 Ur Amphetamines Screen Negative (Negative) 08/16/19 03:25 U Benzodiazepines Scrn Negative (Negative) 08/16/19 03:25 Urine Cocaine Screen Negative (Negative) 08/16/19 03:25 Ur THC Screen Positive (Negative) A 08/16/19 03:25 Ethyl Alcohol < 3.0 mg/dL (<3) 08/15/19 18:15
--- NOTE | 2019-08-18 10:58 | W.NUTCONSULT ---
Date of service: 08/18/19 Time of Service: 10:59 Nutritional Consult ASSESSMENT: 39 year old male with reoccurrent alcoholic pancreatitis. BMI on low end of normal. Appears malnourished with poor dentition. Acosta reports no alcoholic intake since recent hospitalization in early July. MD to order barium swallow to rule out obstruction due to cyst. Met with Acosta after breakfast, tolerating clear liquids well, would like diet advanced. Explained risks of advancing diet primaturly. Will provide ensure clear TID for additional caloric/protein intake (provides extra 600 kcal, 40 grams protein. Estimated Needs: 0498-5605 kcal (30-35 kcal/kg), 73-87 g pro (1.0-1.2 g pro), 2400 ml fluid. Recommend repletion with MVI, thiamin and folic acid in view of hx of alcohol abuse. At high nutritional risk for malnutrition associated with long history of alcoholism and acute illness. NUTRITIONAL DIAGNOSIS: Inadequate nutrient intake History of excess alcohol intake Malnutrition INTERVENTION: Clear Liquids Ensure Clear TID MONITORING AND EVALUATION: weight, po intake, labs Time Spent in Nutritional Counseling and Treatment: 15 min spent face to face
[2019-08-18 11:19] VITALS: BP 125/80; PULSE 62; RESP 17; TEMP 37.5; O2SAT 100
[2019-08-18 15:22] VITALS: BP 127/70; PULSE 63; RESP 16; TEMP 36.7; O2SAT 99
--- NOTE | 2019-08-18 15:50 | PDOC.CMPRO ---
- If Service Date Differs Date of service: 08/18/19 Time of Service: 15:50 Care Management Progress Note S/O:Acosta was sitting up in bed when CM met with him. He was pleasant and interactive and stated that he is feeling better. Acosta's diet has been advanced to clear liquids and he is tolerating it well. He hopes to be discharged tomorrow. CM coordinated the completion of a Medicaid application with [employer] today. It is hoped that Acosta will have coverage within the next few days. A: Acosta is a pleasant 39 year old gentleman admitted on 08/15/19 with pancreatitis P:Acosta will likely be discharged home with no new services. He will follow up with his PCP and discharge plan of care. Acosta's mother will transport via private vehicle. CM worked with [employer] to help Acosta apply for Medicaid today. He will hopefully have coverage within the next few days. CM will continue to support Acosta, his family and discharge planning needs.
--- NOTE | 2019-08-18 16:02 | CHAPLAIN ---
Acosta was sitting on his bed when I visited. He was working on [employer]. He said he is feeling better and hopes to be discharged tomorrow.
--- NOTE | 2019-08-18 16:58 | PGE_ITS ---
Date of Service Date of service: 08/18/19 Time of Service: 10:30 Assessment and Plan Assessment and plan (1) Pancreatic pseudocyst: Status: Acute Assessment and plan: He is clinically improving May need to stay on light diet depending on how much the fluid collection distorts the stomach. Plan is for follow up with CT/GI appt in one month. Patient was advised he could contact our office if needed. Will sign off. Please contact surgeon director of business operations with any concerns. Subjective Subjective Interval history since last seen: Feels much better. Tolerated a clear liquid diet with no N/V or increased pain. Exam Narrative Exam Narrative: In no distress Abdomen soft, nontender. Objective Objective Clinical Data: Abnormal lab results 08/18/19 08/18/19 Range/Units 06:10 06:10 RBC 4.10 L (4.50-6.00) m/cumm Hgb 13.0 L (13.5-17.5) g/dL Hct 39.3 L (40.0-50.0) % MCV 95.9 H (80-95) fL Absolute Monocytes 0.72 H (0.11-0.7) k/cumm BUN 4 L (7-18) mg/dL Creatinine 0.68 L (0.70-1.30) mg/dL Glucose 63 L (74-106) mg/dL Calcium 8.4 L (8.5-10.1) mg/dL Magnesium 1.5 L (1.8-2.4) mg/dL Vital Signs Temperature 98.1 F 08/18/19 15:22 Temperature Source Tympanic 08/18/19 15:22 Pulse 63 08/18/19 15:22 Pulse Rhythm Regular 08/18/19 16:00 Respiratory Rate 16 08/18/19 15:22 Respiratory Effort Non-Labored 08/18/19 16:00 Respiratory Depth Normal 08/18/19 16:00 Respiratory Pattern Normal 08/18/19 16:00 Blood Pressure 127/70 08/18/19 15:22 Blood Pressure Position Sitting 08/15/19 17:56 Pulse Oximetry 99 08/18/19 15:22 Oxygen Delivery Method Room Air 08/18/19 15:22 Oxygen Flow Rate 0 08/18/19 15:22 Pain Level 0 08/18/19 15:22 Comment 08/16/19 03:25 Intake & Output 08/17/19 08/18/19 08/18/19 23:59 11:59 23:59 Intake Total 2116.667 / 4446.667 3488.334 / 4548.334 1060 / 4548.334 Balance 2116.667 / 4446.667 3488.334 / 4548.334 1060 / 4548.334 Weight 161 lb 6.054 oz Intake: IV 2116.667 / 4326.667 2888.334 / 2888.334 Oral 600 / 1660 1060 / 1660 Other: Urine Color Yellow Yellow Urine Appearance Clear Clear Clear Urine Odor None Comment patient uses toilet independently Voiding Methods Toilet Toilet Laboratory Results WBC 8.23 k/cumm (4.4-10.8) 08/18/19 06:10 RBC 4.10 m/cumm (4.50-6.00) L 08/18/19 06:10 Hgb 13.0 g/dL (13.5-17.5) L 08/18/19 06:10 Hct 39.3 % (40.0-50.0) L 08/18/19 06:10 MCV 95.9 fL (80-95) H 08/18/19 06:10 MCH 31.7 pg (27.0-33.0) 08/18/19 06:10 MCHC 33.1 g/dL (32.0-36.0) 08/18/19 06:10 RDW 12.9 % (11.8-14.1) 08/18/19 06:10 Plt Count 196 x1000/uL (130-400) 08/18/19 06:10 MPV 10.2 fL (8.0-11.0) 08/18/19 06:10 Immature Gran % 0.5 % 08/18/19 06:10 Neutrophils % 67.2 08/18/19 06:10 Lymphocytes % 16.4 08/18/19 06:10 Monocytes % 8.7 08/18/19 06:10 Eosinophils % 6.7 08/18/19 06:10 Basophils % 0.5 08/18/19 06:10 Absolute Neutrophils 5.53 k/cumm (1.2-6.7) 08/18/19 06:10 Absolute Lymphocytes 1.35 k/cumm (1.2-3.4) 08/18/19 06:10 Absolute Monocytes 0.72 k/cumm (0.11-0.7) H 08/18/19 06:10 Absolute Eosinophils 0.55 k/cumm (0.0-0.7) 08/18/19 06:10 Absolute Basophils 0.04 k/cumm (0.0-0.2) 08/18/19 06:10 Differential Comment Diff reviewed 08/15/19 18:15 RBC Morphology Normal 08/15/19 18:15 PT 9.8 sec (9.3-11.0) 08/16/19 12:52 INR 1.0 (0.9-1.1) 08/16/19 12:52 Sodium 138 mmol/L (136-145) 08/18/19 06:10 Potassium 4.1 mmol/L (3.5-5.1) 08/18/19 06:10 Chloride 104 mmol/L (98-107) 08/18/19 06:10 Carbon Dioxide 23.2 mmol/L (21.0-32.0) 08/18/19 06:10 Anion Gap 10.8 mmol/L (3-11) 08/18/19 06:10 BUN 4 mg/dL (7-18) L 08/18/19 06:10 Creatinine 0.68 mg/dL (0.70-1.30) L 08/18/19 06:10 Estimated GFR/1.73 m2 >= 60.00 (mL/min/1.73m2) 08/18/19 06:10 Glucose 63 mg/dL (74-106) L 08/18/19 06:10 Calcium 8.4 mg/dL (8.5-10.1) L 08/18/19 06:10 Magnesium 1.5 mg/dL (1.8-2.4) L 08/18/19 06:10 Total Bilirubin 0.5 mg/dL (0.2-1.0) 08/16/19 06:22 AST 13 U/L (15-37) L 08/16/19 06:22 ALT 17 U/L (16-63) 08/16/19 06:22 Alkaline Phosphatase 59 U/L (46-116) 08/16/19 06:22 Troponin I < 0.05 ng/Ml (<0.06) 08/15/19 18:15 Total Protein 6.5 g/dL (6.4-8.2) 08/16/19 06:22 Albumin 3.1 g/dL (3.4-5.0) L 08/16/19 06:22 Triglycerides 81 mg/dL (<150) 08/16/19 06:12 Total Cholesterol 163 mg/dL (<200) 08/16/19 06:12 LDL Cholesterol, Calc 104 mg/dL (<100) H 08/16/19 06:12 HDL Cholesterol 43 mg/dL (40-60) 08/16/19 06:12 Lipase 4943 U/L (73-393) H 08/16/19 06:22 Urine Color Yellow (Yellow) 08/16/19 03:25 Urine Clarity Clear (Clear) 08/16/19 03:25 Urine pH 5.5 (5-8) 08/16/19 03:25 Ur Specific [place] >= 1.030 (1.005-1.025) H 08/16/19 03:25 Urine Protein Negative mg/dL (Negative) 08/16/19 03:25 Urine Ketones Negative mg/dL (Negative) 08/16/19 03:25 Urine Blood Negative (Negative) 08/16/19 03:25 Urine Nitrite Negative (Negative) 08/16/19 03:25 Urine Bilirubin Negative (Negative) 08/16/19 03:25 Urine Urobilinogen 0.2 EU/dL (Up TO 0.2) 08/16/19 03:25 Ur Leukocyte Esterase Negative (Negative) 08/16/19 03:25 Urine Glucose Negative mg/dL (Negative) 08/16/19 03:25 Urine Opiates Screen Positive (Negative) A 08/16/19 03:25 Urine Methadone Screen Negative (Negative) 08/16/19 03:25 Ur Barbiturates Screen Negative (Negative) 08/16/19 03:25 Ur Tricyclics Screen Negative (Negative) 08/16/19 03:25 Ur Amphetamines Screen Negative (Negative) 08/16/19 03:25 U Benzodiazepines Scrn Negative (Negative) 08/16/19 03:25 Urine Cocaine Screen Negative (Negative) 08/16/19 03:25 Ur THC Screen Positive (Negative) A 08/16/19 03:25 Ethyl Alcohol < 3.0 mg/dL (<3) 08/15/19 18:15
[2019-08-18] MEDS: Apixaban 5 MG TAB 10 MG PO (19:52)
[2019-08-19 00:04] VITALS: BP 128/87; PULSE 68; RESP 17; TEMP 37.1; O2SAT 98
[2019-08-19 03:18] VITALS: BP 114/66; PULSE 68; RESP 18; TEMP 36.9; O2SAT 98
[2019-08-19] MEDS: ACETAMINOPHEN 1,000 MG/100 ML BTL 400 MG IVPB (05:45)
[2019-08-19 06:52] LABS: Abs Immature Grans 0.03 k/cumm (0.0-0.09); Absolute Basophil Count 0.03 k/cumm (0.0-0.2); Absolute Lymphocyte Count 1.43 k/cumm (1.2-3.4); Absolute Monocyte Count 0.91 k/cumm (0.11-0.7); Absolute Neutrophil Count 3.38 k/cumm (1.2-6.7); Basophils % 0.5; HCT 38.3 % (40.0-50.0); HGB 12.9 g/dL (13.5-17.5); Immature Grans % 0.5 %; Lymphocytes % 22.8; Mean Corp. HGB Concentration 33.7 g/dL (32.0-36.0); Mean Corpuscular Hemoglobin 31.9 pg (27.0-33.0); Mean Corpuscular Volume 94.8 fL (80-95); Mean Platelet Volume 9.7 fL (8.0-11.0); Monocytes % 14.5; Neutrophils % 53.7; Platelet Count 218 x1000/uL (130-400); RBC 4.04 m/cumm (4.50-6.00); RBC Distribution Width 12.8 % (11.8-14.1); White Blood Cell Count 6.28 k/cumm (4.4-10.8)
[2019-08-19 07:16] LABS: Anion Gap 8.5 mmol/L (3-11); BUN 3 mg/dL (7-18); CO2 26.5 mmol/L (21.0-32.0); CREATININE 0.83 mg/dL (0.70-1.30); Calcium 8.7 mg/dL (8.5-10.1); Chloride 106 mmol/L (98-107); Glucose 99 mg/dL (74-106); Lipase 320 U/L (73-393); Magnesium 1.7 mg/dL (1.8-2.4); Potassium 3.6 mmol/L (3.5-5.1); Sodium 141 mmol/L (136-145)
[2019-08-19 07:22] VITALS: BP 134/86; PULSE 64; RESP 17; TEMP 37.1; O2SAT 98
[2019-08-19] MEDS: MAGNESIUM SULFATE 2 GM/50 ML BAG IVPB (08:17)
[2019-08-19] MEDS: Nicotine 21 MG/24 HR PATCH TD (08:18)
[2019-08-19] MEDS: Apixaban 5 MG TAB 10 MG PO (08:18)
--- NOTE | 2019-08-19 09:55 | W.PM.DS.N ---
Date of service: 08/19/19 Time of Service: 09:55 DS: Diagnosis Discharge Diagnosis (1) Pancreatic pseudocyst: Start date: 08/19/19 Start time: 09:56 Status: Acute Asessment and Plan: Found by u/s and CT. large in size, [facility] recommends repeat CT in 4 weeks. Follow up with GI at [facility]. (2) Acute pancreatitis: Start date: 08/19/19 Start time: 09:57 Status: Acute Asessment and Plan: Symptoms improving, No pain, no nausea or vomiting. Follow up with GI, follow clear diet as needed, increase to soft as tolerated. This is 3rd bout, second was approx 3 weeks ago, with large psuedocyst on imaging this admission, likely will take longer to be full healed. (3) Portal vein thrombosis: Start date: 08/19/19 Start time: 10:00 Status: Acute Asessment and Plan: nonocclusive by imaging. Found on CT. Spoke with [facility] started on enoxaparin for thrombusis, switched to apixaban, will need for 3-6 months. Follow up with PCP and GI. Discharge Plan Disposition Patient Disposition: HOME Condition: Improving Discharge Details Chief Complaint: Abd Prob Clinical Impression: Acute pancreatitis Reason For Visit: ACUTE PANCREATITIS Admit Date/Time: 08/15/19 19:24 Admit Provider: Dipak Lopez Attending Provider: Dipak Lopez Primary Care Provider: Antonio Harper ED Provider: Yves Zambrano Hospital Course Hospital Course: Mr. Manley is a 39 y.o male with PMH alcoholism, pancreatitis and Tobacco dependence. Admitted to [facility] m/s from ED for acute pancreatitis. This is third bout of pancreatitis, second in about a month. He denies etoh use since prior to last admission, labs in ED confirm. [place] [id number], with repeat 329 today. Abd u/s revealing for large cyst, ct scan with contrast revealing large cyst, pancreatitis and portal vein thrombus. After conversation with [facility] patient placed on enoxaparin 1mg/kg and transitioned to DOAC for dishcarge. Will need repeat CT in 4 weeks, to monitor cyst, follow up with GI, tolerating fluids po. Magnesium level has been low since admission requiring daily infusions, will start PO magnesium on discharge, follow up with PCP in 2 weeks. Advance diet as tolerated. Patient denies Cp, SOB, N/V/D. Home Meds and New Rx's Prescriptions: No Action tramadol 50 mg Tablet 50 mg PO Q4H PRN PRNQty: 10 RF: 0 Discharge Instructions Instructions: Pancreatitis (DC), Cirrhosis (DC), Pancreatic Pseudocyst (DC), Anxiety (DC), Venous Thromboembolism (DC), Alcohol Dependence (GEN), Blood Thinners (DC) Additional Instructions: Follow up with PCP in 2 weeks Follow up with [facility] GI Repeat CT with contrast in 4 weeks Drink fluids, continue clear diet with advance slowly to soft as tolerated. Continue Alcohol cessation, I would not try to stop smoking at the same time as this could add more stress and cause relapse. Continue to work on alcohol and when ready smoking cessation. Recommend therapy for stress management and trigger identification Activity:: Activity as Tolerated Equipment/Supplies:: No Equipment Needed Diet:: As Tolerated Discharge Orders Discharge Orders: Discharge Order (Routine); Ordered 08/19/19 Ordered By: Salina Jiménez DS: Summary Status at Discharge Functional status at discharge: independent ambulation Overall status at discharge: patient is progressing back to baseline Mental Status: mental status grossly normal Speech and Movement: speech and movement normal Mood: congruent mood Affect: normal affect Exam Narrative Exam Narrative: Middle aged male, appropriate for age, sitting up in bed. AAOx2 NAD. Poor dentition, no abdominal pain with palpation at this time, no nausea or vomiting. Breathing unlabored, able to speak complete sentences, LSC. BLE without clubbing, edema or cyanosis. Psych Mental Status: mental status grossly normal Speech and Movement: speech and movement normal Mood: congruent mood Affect: normal affect DS: Data Vitals/I&O Vitals and I&O: Vital Signs Temperature 37.1 C 08/19/19 07:22 Temperature Source Tympanic 08/19/19 07:22 Pulse 64 08/19/19 07:22 Pulse Rhythm Regular 08/19/19 01:44 Respiratory Rate 17 08/19/19 07:22 Respiratory Effort Non-Labored 08/19/19 01:44 Respiratory Depth Normal 08/19/19 01:44 Respiratory Pattern Normal 08/19/19 01:44 Blood Pressure 134/86 08/19/19 07:22 Blood Pressure Position Sitting 08/15/19 17:56 Pulse Oximetry 98 08/19/19 07:22 Oxygen Delivery Method Room Air 08/19/19 07:22 Oxygen Flow Rate 0 08/19/19 07:22 Pain Level 0 08/19/19 07:22 Comment 08/16/19 03:25 Intake & Output 08/18/19 08/18/19 08/19/19 11:59 23:59 11:59 Intake Total 3488.334 / 4848.334 1360 / 4848.334 Balance 3488.334 / 4848.334 1360 / 4848.334 Weight 73.2 kg 73 kg Intake: IV 2888.334 / 3188.334 300 / 3188.334 Oral 600 / 1660 1060 / 1660 Other: Urine Color Yellow Yellow Urine Appearance Clear Clear Clear Urine Odor None None Comment patient uses toilet independently patient voids independently Stool Size Large Stool Characteristics Soft Formed Voiding Methods Toilet Toilet Data Completed and Pending Completed studies during hospitalization [Text1]: Exam(s) PROCEDURE INFORMATION: Exam: US Abdomen Complete Exam date and time: 08/16/2019 10:41 AM Age: 39 years old Clinical indication: Abdominal pain; Epigastric; Patient HX: HX of pancreatitis. ? Pancreatic pseudocyst vs. Abscess. Elevated lipase. TECHNIQUE: Imaging protocol: Real-time ultrasound of the abdomen with image documentation. COMPARISON: SD US ABDOMEN 07/15/2019 2:19 PM FINDINGS: Liver: The liver is large and homogeneous in echotexture. No demonstrated mass or intrahepatic biliary ductal dilatation. Gallbladder: The gallbladder is without demonstrated stones, sludge or wall thickening, and there is no pericholecystic fluid. Sonographic Ward sign is reportedly negative. Common bile duct: The common bile duct appears large for a patient of this age, measuring 8.4 mm. Pancreas: Newly demonstrated along the pancreas is a predominantly cystic lesion measuring 9.5 x 7.9 x 8.2 cm, with some solid components. Right kidney: The right kidney is normal in size. There is no hydronephrosis or demonstrated renal stone, cyst or mass. Left kidney: The left kidney is normal in size. There is no hydronephrosis or demonstrated renal stone, cyst or mass. Spleen: The spleen is normal in length at 11.8 cm. Aorta: The abdominal aorta is nonaneurysmal. Inferior vena cava: The IVC is present. Portal venous: Portal venous flow is normal in direction. IMPRESSION: 1. Cystic lesion along the pancreas, newly demonstrated as compared with 07/15/19, measuring up to 9.5 cm, with some solid components. Suggest this could be better characterized with cross-sectional imaging. 2. Dilatation of the common bile duct up to 8.4 cm. Consider further evaluation with MRI/MRCP. 3. Hepatomegaly. Exam(s) a CT:CT abdomen w EXAM: Abd CT CLINICAL HISTORY: PANCREATITIS, CYST FOUND BY US,? ABSCESS COMPARISON: CT CHEST PE ABD PELVIS W from 07/14/2019 FINDINGS: CT examination the abdomen was performed with a bolus infusion of 100 cc of Omnipaque 350. Current examination is compared with prior examination of 07/14. The lung bases appear clear. No free intraperitoneal air is seen. The liver and spleen are unremarkable in appearance. There is moderate free intra-abdominal fluid in the pericolic gutters and in a perihepatic location. Pancreatic enlargement again noted consistent with acute pancreatitis, some inhomogeneity of the pancreatic head may be present related to inflammatory process. Marked increase in anterior fluid collection measuring up to 11 x 7 millimeters. Little interval change in size of posterior pancreatic collection although thin apparent enhancing wall is now present not seen on prior study. Adrenals and kidneys are unremarkable. Abdominal aorta and major vessels are unremarkable. There is a question of thrombus in portal vein in its course through the pancreatic head. No gross venous obstruction identified at this time. IMPRESSION: Findings consistent with acute peripancreatic fluid collection as described above. Severe pancreatitis. New thrombus noted in portal vein, nonocclusive. Exam(s) PROCEDURE INFORMATION: Exam: CT Abdomen With Contrast Exam date and time: 08/16/2019 10:54 AM Age: 39 years old Clinical indication: Abdominal pain; Epigastric; Patient HX: Pancreatitis, cyst found by US. R/O abscess TECHNIQUE: Imaging protocol: Computed tomography images of the abdomen with intravenous contrast. Radiation optimization: All CT scans at this facility use at least one of these dose optimization techniques: automated exposure control; mA and/or kV adjustment per patient size (includes targeted exams where dose is matched to clinical indication); or iterative reconstruction. Contrast material: OMNIPAQUE 350; Contrast volume: 100 ml; Contrast route: IV; COMPARISON: CT CHEST PE ABD PELVIS W 07/14/2019 3:53:09 PM FINDINGS: Lungs: The visualized lung bases demonstrate mild dependent atelectasis. Liver: The liver contains a stable subcentimeter hypodense lesion. It appears otherwise unremarkable. Gallbladder and bile ducts: No gallstones are evident, but ultrasound would be more sensitive. No gross biliary ductal dilatation. Pancreas: There is a mildly increasingly edematous appearance of the pancreas. Mildly increased fatty haziness, stranding and confluent fluid is present in the retroperitoneum, including about the pancreas. A new thin walled fluid density focus along the anterior aspect of the body, displacing the stomach, measures up to approximately 11.3 x 7.6 x 10.7 cm. It does not contain gas and is compatible with an acute peripancreatic fluid collection. An additional collection of fluid posterior to the distal body and tail now has a thin wall, measuring approximately 6.9 x 2.3 cm. Neither collection contains gas. Spleen: Normal. No splenomegaly. Adrenals: Normal. No mass. Kidneys and ureters: Normal. No hydronephrosis. Stomach and bowel: The visualized unopacified small bowel is not significantly distended to suggest obstruction. There appears to be wall thickening involving the partially visualized descending colon. The visualized large bowel is otherwise grossly unremarkable in appearance. Intraperitoneal space: Small free fluid is again present. There is no free air. Retroperitoneal space: No abnormal retroperitoneal gas is evident. Lymph nodes: Unremarkable. No enlarged lymph nodes. Vasculature: There is a new filling defect suggesting nonocclusive thrombus in the portal vein (images 4:30-33). The abdominal aorta is nonaneurysmal. Atherosclerotic vascular calcifications are again present. Bones/joints: Bony structures appear unchanged. IMPRESSION: 1. Findings compatible with acute pancreatitis, with a mildly increasingly edematous appearance of the pancreas as compared with 07/14/19, and with mildly increased surrounding inflammatory change. 2. Increased surrounding confluent fluid with a new acute peripancreatic fluid collection anteriorly measuring up to 11.3 cm, as well as additional pre-existing collection posteriorly which now has a thin wall. No abnormal gas in the fluid or surrounding soft tissues to indicate abscess. 3. New nonocclusive thrombus in the portal vein. 4. Persistent small free fluid. 5. Apparent wall thickening involving the partially visualized descending colon, could be reactive or related to primary nonspecific colitis. Exam(s) a US:US abdomen EXAM: US ABDOMEN CLINICAL HISTORY: pancreatitis r/o abscess and pseudocyst TECHNIQUE: Ultrasound performed using standard protocol. COMPARISON: US ABDOMEN from 07/15/2019 CT ABDOMEN W from 08/16/2019 FINDINGS: Abdominal ultrasound was performed according to the usual protocol. The liver appears mildly enlarged. There is no evidence of cholelithiasis or biliary dilatation and there is a negative sonographic Ward sign. There is a nearly 10 cm in diameter, predominantly cystic lesion anterior to the pancreas, please see accompanying CT report for further anatomic description. This contains some heterogeneous/solid components. Kidneys are unremarkable in appearance with no hydronephrosis or nephrolithiasis. Unremarkable appearance of the spleen. Abdominal aorta and IVC are of normal diameter. IMPRESSION: New large fluid collection anterior to the pancreas. This patient has recent history of severe pancreatitis. Please see accompanying CT report. D Labs on day of discharge: Labs from last 24 hours 08/19/19 08/19/19 06:25 06:25 WBC 6.28 RBC 4.04 L Hgb 12.9 L Hct 38.3 L MCV 94.8 MCH 31.9 MCHC 33.7 RDW 12.8 Plt Count 218 MPV 9.7 Immature Gran % 0.5 Neutrophils % 53.7 Lymphocytes % 22.8 Monocytes % 14.5 Eosinophils % 8.0 Basophils % 0.5 Absolute Neutrophils 3.38 Absolute Lymphocytes 1.43 Absolute Monocytes 0.91 H Absolute Eosinophils 0.50 Absolute Basophils 0.03 Sodium 141 Potassium 3.6 Chloride 106 Carbon Dioxide 26.5 Anion Gap 8.5 BUN 3 L Creatinine 0.83 Estimated GFR/1.73 m2 >= 60.00 Glucose 99 Calcium 8.7 Magnesium 1.7 L Lipase 320 [facility] Medical History Chronic alcohol use (Chronic) Pancreatitis (Acute) Tobacco dependence (Chronic) Social History Smoking/Tobacco Use Status: Current every day Tobacco Type: cigarettes Alcohol Intake: former Drug use: Daily Substance use type: marijuana Do you feel safe at home: Yes Do you feel safe in your relationship?: Yes Additional Social history: 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 He shares a home with his mother. He denies any travel or recent sexual partners.
--- NOTE | 2019-08-19 14:23 | PDOC.CMDIS ---
- If Service Date Differs Date of service: 08/19/19 Time of Service: 14:23 LACE Index Scoring Tool - Questions: Length of Stay (in days): 4 - 6 Acuity (Admit via E.D.?): Yes E.D. Visits: 3 - Answers: Total Score: 10 Risk of Readmission: High Risk Care Management Discharge Reason for Hospitalization: Acute pancreatitis Discharge Plan: Acosta will return home with no additional services at this time. He will follow up with GI at [facility], with a referral sent by JORI. JORI also faxed an [employer] 30 day free promotional card to Acosta's pharmacy for his new prescription. His NAN is now pending, anticipate it will be approved before the 30 day trial is past. He was anxious to return home. His mother will drive him home via private vehicle. Patient/Family Education Needs: Review discharge instructions regarding activity levels and medications, discussion of self care needs including ask me three
== END 2019-08-19 11:30 | disposition home or self-care (01) | DRG 438 ==
LOC: ER 19:33 → MS 21:30
PROVIDERS: Nurse Practitioner Family; Admitting Provider Family Medicine; Emergency Provider Emergency Medicine; PCP Neuromusculoskeletal Medicine & OMM; Visit Provider Internal Medicine
DX: K86.3 Pseudocyst of pancreas (principal); K85.90 Acute pancreatitis without necrosis or infection, unspecified; I81 Portal vein thrombosis; E83.42 Hypomagnesemia; E87.6 Hypokalemia; F17.210 Nicotine dependence, cigarettes, uncomplicated; F10.20 Alcohol dependence, uncomplicated
CPT/HCPCS: 36415; 80048; 80053; 80061; 80307; 83690; 85027; 96361; 96365; 96375; 96376; 99222; 99231; 99233; 99239; 99253; 99285; 74160; 76700; 80320; 81003; 83735; 84484; 85025; 85610; 99284; J0131; J1650; J2270; J2405; J3475; J3490; J7042

== ENCOUNTER 2019-10-21 10:35 | Emergency (ER) | payer MEDICAID, SELFPAY ==
[2019-10-21 10:39] VITALS: BP 132/95; PULSE 106; TEMP 36.4; O2SAT 98
[2019-10-21] MEDS: Normal Saline 1,000 ML 1000 ML IV (10:50)
--- NOTE | 2019-10-21 10:54 | ED.GENADUL_ITS ---
Discharge Plan Disposition Patient Disposition: HOME Condition: Improving Discharge Details Chief Complaint: Abd Prob Clinical Impression: Pancreatitis, Chronic alcohol use Primary Care Provider: Antonio Harper ED Provider: Yves Zambrano Home Meds and New Rx's Prescriptions: New ondansetron HCl [Zofran] 4 mg tablet 4 mg PO QID PRN (Reason: nausea and vomiting) Qty: 10 RF: 0 tramadol 50 mg tablet 50 mg PO BID PRN (Reason: pain) Qty: 7 RF: 0 No Action tramadol 50 mg Tablet 50 mg PO Q4H PRN PRNQty: 10 RF: 0 Discharge Instructions Instructions: Pancreatitis (ED) Additional Instructions: I discussed your case with Dr. Hong from the [facility] gastroenterology service. They will arrange an outpatient follow-up for you. Small, frequent sips of fluids to maintain hydration. You should continue your efforts to cease alcohol use as able only because you have ongoing pain and irritation of the pancreas. May use Zofran as needed for nausea. May use Tylenol if needed for pain with tramadol if needed for breakthrough pain. Return for persistent vomiting, develop a fever, or any other acute concerns. Medical Decision Making 39-year-old male presents from home. He has a history of pancreatitis with pseudocyst formation. He was discharged with follow-up at [facility] which he states is to be a CT scan for this coming Sunday. He now has 3 to 4 days of recurrent upper abdominal pain, does continue to drink daily alcohol. He arrives in discomfort with a pulse approximately 105, but afebrile. Exam reveals abdominal tenderness in the upper abdomen. Differential diagnosis includes pancreatitis, gastritis, must rule out recurrent pseudocyst. Patient had IV access established, laboratories including lipase and alcohol were obtained. He was given parenteral fluids, antiemetic, parenteral analgesia. I reviewed the patient's records including CT images from August 15 and July 14. July through the patient had an approximate 11 x 7 x 10 cm peripancreatic fluid collection. There was an additional approximately 7 x 2 cm collection of fluid posterior to the pancreatic tail. The patient's laboratories: White blood cell count of 12, hematocrit 53, platelets 267. Chemistries and LFTs are reassuring. Lipase is 2177. Alcohol negative. CT images obtained: Patient does have persistent edematous changes to the head of the pancreas, the pseudo-cystic fluid collection is significantly smaller with less free fluid in the abdomen when compared to previous. There is no compression of the bowel present. Patient felt improved following parenteral medications and fluids. He was able to complete a p.o. challenge. The CT images were uploaded to the [facility] tower observer and the case discussed with on-call gastroenterology, Dr. Hong. He will increase that the patient's images are significantly improved. He recommends that the patient continue his efforts to decrease alcohol. The GI service at [facility] will follow up with him outpatient. Given that the patient is improved and tolerating liquids by mouth he is stable for outpatient trial at this time. Lab Data Lab results reviewed: Yes I reviewed the patient's lab results. Labs: Laboratory Results - last 24 hr 10/21/19 10/21/19 10:50 10:50 WBC 12.77 H RBC 5.70 Hgb 17.7 H Hct 53.0 H MCV 93.0 MCH 31.1 MCHC 33.4 RDW 15.3 H Plt Count 267 MPV 10.1 Immature Gran % 0.5 Neutrophils % 80.3 Lymphocytes % 9.8 Monocytes % 8.5 Eosinophils % 0.8 Basophils % 0.1 Absolute Neutrophils 10.25 H Absolute Lymphocytes 1.25 Absolute Monocytes 1.09 H Absolute Eosinophils 0.10 Absolute Basophils 0.01 Sodium 136 Potassium 3.9 Chloride 98 Carbon Dioxide 26.6 Anion Gap 11.4 H BUN 7 Creatinine 0.96 Estimated GFR/1.73 m2 >= 60.00 Glucose 88 Calcium 9.1 Magnesium 1.8 Total Bilirubin 0.9 AST 20 ALT 24 Alkaline Phosphatase 126 H Total Protein 7.9 Albumin 4.0 Lipase 2177 H Ethyl Alcohol < 3.0 HPI General Mode of arrival: ambulatory . Date/Time Provider Initiated Documentation: 10/21/19 10:37 . Limitations to Documentation: no limitations . Information obtained by: patient . History of Present Illness 39 year old M presents to the emergency department with the chief complaint of Upper abdominal pain since Sunday, described as moderate and similar to prior episodes, Quality is described as dull and constant, and is localized to the abdomen. Patient reports radiation to back. Patient started experiencing this day(s) and it has been constant. No relieving factors improve symptom(s), No exacerbating factors reported . Patient notes loss of appetite; denies fever/chills. Patient did receive the following treatments prior to arrival, other (Ran out of tramadol) Related Data Home Medications Medication Instructions Recorded Confirmed tramadol 50 mg PO Q4H PRN PRN #10 tab 08/03/19 10/21/19 ondansetron HCl [Zofran] 4 mg PO QID PRN #10 tab 10/21/19 tramadol 50 mg PO BID PRN #7 tab 10/21/19 Previous Rx's Medication Instructions Recorded tramadol 50 mg PO Q4H PRN PRN #10 tab 08/03/19 ondansetron HCl [Zofran] 4 mg PO QID PRN #10 tab 10/21/19 tramadol 50 mg PO BID PRN #7 tab 10/21/19 Allergies Allergy/AdvReac Type Severity Reaction Status Date / Time No Known Allergies Allergy Unverified 10/21/19 10:42 General Stated Complaint: Abd Prob DEIDRE: 3 Review of Systems Narrative: Patient continues to drink approximately 36 to 48 ounces of beer daily. Significant decrease since previous use. States he is scheduled to have outpatient follow-up for previous pancreatic cyst with CT scan today. 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 He shares a home with his mother. He denies any travel or recent sexual partners. Exam Narrative Exam Narrative: GEN: awake, alert, oriented 3. Pleasant, well groomed, interactive. HEAD: Normocephalic, atraumatic ENT: Mucous membranes moist, oropharynx unremarkable, External ear exam unremarkable EYES: PERRL, EOMI NECK: Full ROM, no ANA, no menigismus CHEST/RESP: Nontender, clear to auscultation bilateral, no wheeze/rhonchi/rales CARDIOVASCULAR: RRR, no murmur, rub mirella. 2+ Rad pulse bilateral ABDOMEN: Soft, tender in the upper abdomen without rebound or guarding present. no mass. +Bowel sounds EXT: Full ROM, no edema, no rash Neuro: Grossly normal neurologic exam, conversant, interactive. Psych: Speech fluent, thoughts congruent, affect normal Course Vital Signs Vital signs: Vital Signs Temperature 36.4 C 10/21/19 10:39 Pulse 106 H 10/21/19 10:39 Blood Pressure 132/95 H 10/21/19 10:39 Pulse Oximetry 98 10/21/19 10:39 Temperature 36.4 C 10/21/19 10:39 Pulse 106 H 10/21/19 10:39 Respiratory Effort 10/21/19 10:43 Blood Pressure 132/95 H 10/21/19 10:39 Blood Pressure Position Sitting 10/21/19 10:39 Pulse Oximetry 98 10/21/19 10:39 Oxygen Delivery Method Room Air 10/21/19 10:39 Oxygen Flow Rate 0 10/21/19 10:39 Pain Level 8 10/21/19 10:45
[2019-10-21] MEDS: Ondansetron 4 MG/2 ML VIAL IVP (11:04)
[2019-10-21] MEDS: Pantoprazole 40 MG VIAL IVP (11:04)
[2019-10-21] MEDS: Ketorolac 15 MG/ML VIAL IVP (11:05)
[2019-10-21 11:09] LABS: Abs Immature Grans 0.06 k/cumm (0.0-0.09); Absolute Basophil Count 0.01 k/cumm (0.0-0.2); Absolute Lymphocyte Count 1.25 k/cumm (1.2-3.4); Absolute Monocyte Count 1.09 k/cumm (0.11-0.7); Absolute Neutrophil Count 10.25 k/cumm (1.2-6.7); Basophils % 0.1; Eosinophils % 0.8; HGB 17.7 g/dL (13.5-17.5); Immature Grans % 0.5 %; Lymphocytes % 9.8; Mean Corp. HGB Concentration 33.4 g/dL (32.0-36.0); Mean Corpuscular Hemoglobin 31.1 pg (27.0-33.0); Mean Platelet Volume 10.1 fL (8.0-11.0); Monocytes % 8.5; Neutrophils % 80.3; Platelet Count 267 x1000/uL (130-400); RBC Distribution Width 15.3 % (11.8-14.1); White Blood Cell Count 12.77 k/cumm (4.4-10.8)
[2019-10-21 11:22] LABS: ALT 24 U/L (16-63); AST 20 U/L (15-37); Alkaline Phosphatase 126 U/L (46-116); Anion Gap 11.4 mmol/L (3-11); BUN 7 mg/dL (7-18); Bilirubin, Total 0.9 mg/dL (0.2-1.0); CO2 26.6 mmol/L (21.0-32.0); CREATININE 0.96 mg/dL (0.70-1.30); Calcium 9.1 mg/dL (8.5-10.1); Chloride 98 mmol/L (98-107); Glucose 88 mg/dL (74-106); Magnesium 1.8 mg/dL (1.8-2.4); Potassium 3.9 mmol/L (3.5-5.1); Sodium 136 mmol/L (136-145); Total Protein 7.9 g/dL (6.4-8.2)
[2019-10-21 11:35] LABS: ETHANOL BLOOD < 3.0 mg/dL (<3)
[2019-10-21 11:36] LABS: Lipase 2177 U/L (73-393)
--- NOTE | 2019-10-21 11:52 | DI.CT_ITS ---
EXAM: CT ABDOMEN PELVIS W CLINICAL HISTORY: upper abd pain, hx pancreatitis/cyst TECHNIQUE: CT examination of the abdomen and pelvis was performed with bolus infusion of 100 cc Omni paque 350. COMPARISON: CT CT ABDOMEN W from 08/16/2019 FINDINGS: The current examination is compared with most recent prior CT August 15. The previous examination showed a large peripancreatic fluid collection in the lesser sac. This is again seen on today's exam ination but is significantly smaller in comparison with the prior examination, this now measures roug hly 65 x 39 millimeters in diameter as compared to about 69 millimeters on prior study. There is no evidence of bowel obstruction although left upper quadrant small bowel loops and duodenum as well as descending colon do show mildly thickened wall. Mild duodenal dilatation noted without e vidence of obstruction. Stomach is essentially empty. Liver and spleen appear normal. The pancreas again shows edema, probably less than on the prior stud y, although significant edema is seen associated with the pancreatic head. No definite necrosis of t he pancreas seen. No abdominal abscess seen. Adrenals and kidneys are unremarkable. Abdominal aort a and major branches are unremarkable. No significant abdominal or pelvic adenopathy. No pelvic fluid collection. Urinary bladder is nearly empty but may be thick-walled. IMPRESSION: Interval decrease in size of peripancreatic fluid collection since 08/16/2019 as described above. Sig nificant inflammation appears to persist with edema of the pancreatic head and wall thickening of mul tiple adjacent loops of bowel. No gross pancreatic necrosis, although subtle small predominantly line ar areas of decreased attenuation are noted in pancreatic head, minimal necrotic process not entirely excluded. Appropriate follow-up studies requested.
[2019-10-21] MEDS: Normal Saline Flush 10 ML SYR IVP (12:02)
[2019-10-21] MEDS: Omnipaque 350 MG/ML 100 ML BTL IJ (12:03)
[2019-10-21 12:15] VITALS: BP 121/65; RESP 16; O2SAT 99
[2019-10-21 12:24] LABS: Bilirubin Large (Negative); Blood Negative (Negative); Glucose Negative (Negative); Ketones >=160 mg/dL (Negative); Leukocyte Esterase Negative (Negative); Nitrite Negative (Negative)
[2019-10-21 12:25] LABS: Clarity Clear (Clear)
[2019-10-21 12:32] LABS: Bacteria Few HPF (Negative); C & S Indicated? Yes; Casts Negative LPF (Negative); Crystals Negative HPF (Negative); Epithelial Cells Negative HPF (Negative); Mucus Heavy (Negative); Other Cells Few Transitional (Negative)
== END 2019-10-21 13:25 | disposition home or self-care (01) ==
PROVIDERS: Emergency Provider Emergency Medicine; PCP Neuromusculoskeletal Medicine & OMM
DX: K85.90 Acute pancreatitis without necrosis or infection, unspecified (principal); F10.20 Alcohol dependence, uncomplicated
CPT/HCPCS: 36415; 80053; 83690; 96361; 96374; 96375; 99285; 74177; 80320; 81003; 81015; 83735; 85025; 87086; J1885; J2405; J3490

== ENCOUNTER 2019-12-31 13:17 | Observation (INO) | payer MEDICAID, SELFPAY ==
[2019-12-31] VITALS (7 sets, daily range): BP systolic 110–135; BP diastolic 67–93; PULSE 78–95; RESP 18–20; TEMP 36.4–37; O2SAT 96–100
--- NOTE | 2019-12-31 13:28 | W.ED.GENAD ---
Discharge Plan Disposition Patient Disposition: [facility] INPATIENT Condition: Stable Discharge Details Chief Complaint: Abd Prob Clinical Impression: Acute pancreatitis, Chronic alcohol abuse Primary Care Provider: Antonio Harper ED Provider: Dianna Sorensen Home Meds and New Rx's Prescriptions: No Action ondansetron HCl [Zofran] 4 mg tablet 4 mg PO BID RF: 0 sertraline 50 mg tablet 50 mg PO DAILY RF: 0 dextroamphetamine-amphetamine 30 mg tablet 30 mg PO DAILY RF: 0 omeprazole 40 mg capsule,delayed release(DR/EC) 20 mg PO DAILY RF: 0 tramadol 50 mg tablet 50 mg PO BID PRN (Reason: pain) Qty: 7 RF: 0 Medical Decision Making 1345 -- 39-year-old male with a history of chronic alcohol abuse and chronic pancreatitis presents for acute on chronic diffuse abdominal pain for the past week and vomiting multiple times today. Vitals within normal limits. Afebrile. Patient appears thin and chronically ill but otherwise nontoxic. Differential diagnosis includes acute on chronic pancreatitis, gastritis, gastroenteritis, cholecystitis, appendicitis, diverticulitis, etc. Will place an IV, bolus IV fluids, screening labs and CT abdomen and pelvis, dose of Dilaudid, Zofran and fluids and reassess. 1530 -- Labs reviewed. Lipase 1618 which is decreased from [address] abdomen Findings of worsening acute pancreatitis and sequela. Heterogeneous appearance of the pancreatic head. Pancreatic necrosis cannot be excluded. Interval increase in size of the peripancreatic pseudocyst. Worsening inflammation of the pancreatic head. Development of extrahepatic and mild intrahepatic biliary ductal dilatation. Small amount of abdominal ascites. Thickening of the wall of the distal stomach and duodenum likely secondary to the adjacent pancreatitis. Images reviewed with [facility] GI. Can consider admission overnight if patient's pain and nausea not controlled and follow-up with GI as outpatient. 1645 -- Patient reassessed and he states his pain and nausea is returning. Will give another dose of Dilaudid, Zofran and another liter of IV fluids and plan for admission. Case discussed with hospitalist who accepts patient for admission. Medical Records Medical records reviewed: Yes I reviewed the patient's medical records. Imaging Data Radiologic Study: Radiologist's impression: CT ABDOMEN PELVIS CLINICAL HISTORY: abdominal pain, r/o acute process TECHNIQUE: Imaging Protocol: Axial computed tomography images with coronal and sagittal reformatted images were created and reviewed CONTRAST MATERIAL: Intravenous: Omnipaque 350 Contrast volume:100 mL Oral: No COMPARISON: CT CT ABDOMEN PELVIS W from 10/21/2019 FINDINGS: ABDOMEN: Lung Bases: Normal where visualized. Liver: Normal density. No measurable mass. Portal, Superior Mesenteric, and Splenic Veins: Unremarkable. Gallbladder and Biliary Tract: No cholelithiasis. New common duct dilatation up to 1.2 cm. Mild intrahepatic bile duct dilatation. Pancreas: Pancreatic head is enlarged and heterogeneous with areas of decreased attenuation noted. Pancreatic necrosis cannot be excluded. Worsened surrounding peripancreatic inflammation is seen. The peripancreatic pseudocyst measures 10.8 cm x 5.7 cm compared with 8.9 cm x 4.4 cm using similar measuring technique. Debris is seen within the pseudocyst. Spleen: Normal. Adrenals: No masses seen. Kidneys: Normal size, contour and axis. No radiodense stones or obstructive uropathy. No masses seen. Abdominal Aorta: Abdominal portion non-dilated. Mild atherosclerosis. Bowel: Mild thickening of the wall of the distal stomach and the proximal duodenum are noted. This is likely secondary to the adjacent inflammatory pancreatitis. No evidence of appendicitis. Colonic diverticulosis. Peritoneal Cavity: Small amount of abdominal ascites. Lymph Nodes: Mildly enlarged lymph nodes are seen in the right upper quadrant of the abdomen. Bones: Unremarkable. Soft Tissues: Unremarkable. PELVIS: Bladder: There is diffuse urinary bladder wall thickening likely due to underdistention. Reproductive Organs: Unremarkable as visualized. Lymph Nodes: Within normal limits. Bones: Within normal limits. IMPRESSION: Findings of worsening acute pancreatitis and sequela. Heterogeneous appearance of the pancreatic head. Pancreatic necrosis cannot be excluded. Interval increase in size of the peripancreatic pseudocyst. Worsening inflammation of the pancreatic head. Development of extrahepatic and mild intrahepatic biliary ductal dilatation. Small amount of abdominal ascites. Thickening of the wall of the distal stomach and duodenum likely secondary to the adjacent pancreatitis. Lab Data Lab results reviewed: Yes I reviewed the patient's lab results. Labs: Laboratory Tests Range/Units 12/31/19 12/31/19 12/31/19 13:45 13:45 13:45 WBC (4.4-10.8) 10^3/uL 12.93 H RBC (4.36-5.78) 10^6/uL 4.55 Hgb (13.5-17.5) g/dL 14.8 Hct (40.0-50.0) % 43.9 MCV (80-95) fL 96.5 H MCH (27.0-33.0) pg 32.5 MCHC (32.0-36.0) % 33.7 RDW (11.8-14.1) % 14.9 H Plt Count (130-400) 10^3/uL 255 MPV (8.0-11.0) fL 9.6 Immature Gran % 0.0 Neutrophils % 82.0 Lymphocytes % 7.0 Monocytes % 11.0 Eosinophils % 0.0 Basophils % 0.0 Absolute Neutrophils (1.2-6.7) 10^3/uL 10.60 H Absolute Lymphocytes (1.2-3.4) 10^3/uL 0.91 L Absolute Monocytes (0.1-0.8) 10^3/uL 1.42 H Absolute Eosinophils (0.0-0.7) 10^3/uL 0.00 Absolute Basophils (0.0-0.2) 10^3/uL 0.00 RBC Morphology Normal Sodium (136-145) mmol/L 137 Potassium (3.5-5.1) mmol/L 3.2 L Chloride (98-107) mmol/L 97 L Carbon Dioxide (21.0-32.0) mmol/L 26.5 Anion Gap (3-11) mmol/L 13.5 H BUN (7-18) mg/dL 12 Creatinine (0.70-1.30) mg/dL 0.58 L Estimated GFR/1.73 m2 (mL/min/1.73m2) >= 60.00 Glucose (74-106) mg/dL 93 Calcium (8.5-10.1) mg/dL 9.6 Magnesium (1.8-2.4) mg/dL 2.0 Total Bilirubin (0.2-1.0) mg/dL 1.9 H AST (15-37) U/L 20 ALT (16-63) U/L 35 Alkaline Phosphatase (46-116) U/L 229 H Troponin I (<0.06) ng/mL < 0.05 Total Protein (6.4-8.2) g/dL 7.6 Albumin (3.4-5.0) g/dL 3.2 L Lipase (73-393) U/L 1618 H HPI General Mode of arrival: ambulatory. Date/Time Provider Initiated Documentation: 12/31/19 13:26. Limitations to Documentation: no limitations. Information obtained by: patient. HPI Narrative: Patient is a 39-year-old male with a history of chronic pancreatitis and chronic alcohol abuse who presents to the ER with acute on chronic diffuse abdominal pain and multiple episodes of vomiting today. Patient states he vomited approximately 20 times which is mainly clear bile. He states his pain feels like his usual episodes of pancreatitis. Patient denies any known fever or urinary symptoms. He has been having normal bowel movements. He denies any chest pain, shortness of breath, coughing or fever. Related Data Home Medications Medication Instructions Recorded Confirmed tramadol 50 mg PO BID PRN #7 tab 10/21/19 12/31/19 dextroamphetamine-amphetamine 30 mg PO DAILY 12/31/19 12/31/19 omeprazole 20 mg PO DAILY 12/31/19 12/31/19 ondansetron HCl [Zofran] 4 mg PO BID 12/31/19 12/31/19 sertraline 50 mg PO DAILY 12/31/19 12/31/19 Previous Rx's Medication Instructions Recorded tramadol 50 mg PO BID PRN #7 tab 10/21/19 Allergies Allergy/AdvReac Type Severity Reaction Status Date / Time No Known Allergies Allergy Unverified 10/21/19 10:42 General DEIDRE: 3 Review of Systems All systems reviewed & are unremarkable except as noted in HPI and below Constitutional Constitutional: Reports as per HPI, Denies chills and Denies fever(s) Eyes Eyes: Denies blurry vision ENT Ears, Nose, Mouth, and Throat: Denies dizziness, Denies sore throat and Denies throat swelling Cardiovascular Cardiovascular: Denies chest pain and Denies dyspnea Respiratory Respiratory: Denies cough and Denies dyspnea Gastrointestinal Gastrointestinal: Reports abdominal pain, Denies diarrhea and Reports vomiting Genitourinary Genitourinary: Denies hematuria and Denies dysuria Musculoskeletal Musculoskeletal: Denies back pain and Denies numbness Integumentary/Breasts Skin/Breast: Denies lesions and Denies rash Neurologic Neurologic: Denies dizziness, Denies localized weakness and Denies numbness Allergic/Immunologic Allergic/Immunologic: Denies throat swelling [facility] Medical History (Updated 12/31/19 @ 17:30 by Dianna Sorensen DO) Chronic alcohol use (Chronic) Pancreatitis (Acute) Tobacco dependence (Chronic) Social History Smoking/Tobacco Use Status: Current every day Tobacco Type: cigarettes Alcohol Intake: former Drug use: Daily Substance use type: marijuana Do you feel safe at home: Yes Do you feel safe in your relationship?: Yes Additional Social history: 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 He shares a home with his mother. He denies any travel or recent sexual partners. Exam Const General: cooperative, no acute distress and ill appearing chronically Orientation: alert, awake and oriented x3 HENMT Head: normal to inspection Face and sinus: normal facial exam Teeth and gingiva: poor dentition Eyes General: appearance normal, both eyes and all related structures EOM: EOM intact bilaterally Neck Neck: normal visual inspection and No submandibular swelling Lymphatic: no lymphadenopathy noted Chest Chest: normal inspection of the chest and no tenderness Resp Effort & Inspection: normal respiratory effort and able to speak in complete sentences Auscultation: clear to auscultation bilaterally Cardio Rate: regular rate Rhythm: regular rhythm GI Inspection: normal to inspection Palpation: soft, not firm, not rigid and tender (diffuse) Auscultation: hypoactive bowel sounds Skin General skin exam: no rashes or lesions noted Neuro General: patient alert, patient awake and patient oriented x3 Cognition: normal cognition Speech: speech normal Motor: muscle tone normal throughout Sensory Exam: no sensory deficits noted Extrem General: normal to inspection, full ROM, capillary refill normal, no calf tenderness bilaterally and no edema Psych Appearance: grossly normal Mental Status: mental status grossly normal Speech and Movement: speech and movement normal Affect: normal affect
[2019-12-31] MEDS: Normal Saline 1,000 ML 1000 ML IV ×3 (13:46→16:54)
[2019-12-31 13:52] LABS: HCT 43.9 % (40.0-50.0); HGB 14.8 g/dL (13.5-17.5); MCH 32.5 pg (27.0-33.0); MCHC 33.7 % (32.0-36.0); MCV 96.5 fL (80-95); MPV 9.6 fL (8.0-11.0); Nucleated RBC 0 %; Platelet Count 255 10^3/uL (130-400); RBC 4.55 10^6/uL (4.36-5.78); RDW 14.9 % (11.8-14.1); RDW-SD 52.6 fL; WBC 12.93 10^3/uL (4.4-10.8)
[2019-12-31 14:11] LABS: Absolute Lymphocyte Count 0.91 10^3/uL (1.2-3.4); Absolute Monocyte Count 1.42 10^3/uL (0.1-0.8); Diff Comment Manual Differential; RBC Morphology Normal
[2019-12-31 14:14] LABS: Lipase 1618 U/L (73-393)
--- NOTE | 2019-12-31 14:15 | DI.CT_ITS ---
EXAM: CT ABDOMEN PELVIS W tear with more solid 2 2 months ago more inflamed as is the certainly th e CLINICAL HISTORY: abdominal pain, r/o acute process TECHNIQUE: Imaging Protocol: Axial computed tomography images with coronal and sagittal reformatted images were created and reviewed CONTRAST MATERIAL: Intravenous: Omnipaque 350 Contrast volume:100 mL Oral: No COMPARISON: CT CT ABDOMEN PELVIS W from 10/21/2019 FINDINGS: ABDOMEN: Lung Bases: Normal where visualized. Liver: Normal density. No measurable mass. Portal, Superior Mesenteric, and Splenic Veins: Unremarkable. Gallbladder and Biliary Tract: No cholelithiasis. New common duct dilatation up to 1.2 cm. Mild int rahepatic bile duct dilatation. Pancreas: Pancreatic head is enlarged and heterogeneous with areas of decreased attenuation noted. P ancreatic necrosis cannot be excluded. Worsened surrounding peripancreatic inflammation is seen. Th e peripancreatic pseudocyst measures 10.8 cm x 5.7 cm compared with 8.9 cm x 4.4 cm using similar mario suring technique. Debris is seen within the pseudocyst. Spleen: Normal. Adrenals: No masses seen. Kidneys: Normal size, contour and axis. No radiodense stones or obstructive uropathy. No masses seen. Abdominal Aorta: Abdominal portion non-dilated. Mild atherosclerosis. Bowel: Mild thickening of the wall of the distal stomach and the proximal duodenum are noted. This i s likely secondary to the adjacent inflammatory pancreatitis. No evidence of appendicitis. Colonic diverticulosis. Peritoneal Cavity: Small amount of abdominal ascites. Lymph Nodes: Mildly enlarged lymph nodes are seen in the right upper quadrant of the abdomen. Bones: Unremarkable. Soft Tissues: Unremarkable. PELVIS: Bladder: There is diffuse urinary bladder wall thickening likely due to underdistention. Reproductive Organs: Unremarkable as visualized. Lymph Nodes: Within normal limits. Bones: Within normal limits. IMPRESSION: Findings of worsening acute pancreatitis and sequela. Heterogeneous appearance of the pancreatic hea d. Pancreatic necrosis cannot be excluded. Interval increase in size of the peripancreatic pseudocy st. Worsening inflammation of the pancreatic head. Development of extrahepatic and mild intrahepatic biliary ductal dilatation. Small amount of abdominal ascites. Thickening of the wall of the distal stomach and duodenum likely secondary to the adjacent pancreatit is. Findings were discussed with the emergency department on the date of the examination. RADIATION DOSE DELIVERED: 638.6mGy.cm Total DLP DATA REPOSITORY: All CT scans at this facility are submitted to the National Radiology Data Registry (NRDR) Dose Index Registry (DIR) with the [employer] (A[employer]). RADIATION OPTIMIZATION: All CT scans at this facility use at least one of these dose optimization te chniques: automated exposure control; mA and/or kV adjustment per patient size (includes targeted exa ms where dose is matched to clinical indication); or iterative reconstruction.
[2019-12-31 14:16] LABS: ALT 35 U/L (16-63); AST 20 U/L (15-37); Albumin 3.2 g/dL (3.4-5.0); Alkaline Phosphatase 229 U/L (46-116); Anion Gap 13.5 mmol/L (3-11); BUN 12 mg/dL (7-18); Bilirubin, Total 1.9 mg/dL (0.2-1.0); CO2 26.5 mmol/L (21.0-32.0); CREATININE 0.58 mg/dL (0.70-1.30); Calcium 9.6 mg/dL (8.5-10.1); Chloride 97 mmol/L (98-107); Glucose 93 mg/dL (74-106); Potassium 3.2 mmol/L (3.5-5.1); Sodium 137 mmol/L (136-145); Total Protein 7.6 g/dL (6.4-8.2)
[2019-12-31 14:17] LABS: Troponin I < 0.05 ng/mL (<0.06)
[2019-12-31] MEDS: Ondansetron 4 MG/2 ML VIAL IVP (15:19)
[2019-12-31] MEDS: HYDROmorphone 2 MG/ML VIAL 1 MG IVP ×2 (15:20→16:52)
[2019-12-31] MEDS: Omnipaque 350 MG/ML 100 ML BTL IJ (15:31)
[2019-12-31] MEDS: Potassium Chloride 20 MEQ TABCR 40 MEQ PO (15:50)
[2019-12-31] MEDS: Prochlorperazine 10 MG/2 ML VIAL IVP (16:55)
[2019-12-31] MEDS: Normal Saline 50 ML 200 ML (16:55)
[2019-12-31] MEDS: Nicotine 21 MG/24 HR PATCH TD (17:03)
--- NOTE | 2019-12-31 17:44 | W.PM.HP.N ---
Date of service: 12/31/19 Time of Service: 17:44 Assessment and Plan Assessment and plan (1) Pancreatitis: Status: Chronic Assessment and plan: Pancreatitis secondary to alcohol abuse. Will place NPO, IVF, and prn analgesics and antiemetic. Will track Lipase. EtOH: will place on CIWA, banana bag History of Present Illness History of Present Illness Chief Complaint: abdominal pain Narrative: 39 male with h/o alcohol abuse and recurrent pancreatitis. Here with 1-2 weeks of worsening epigastric pain with radiation to back along with nausea and vomiting. In ER findings of note for WBC 12, lipase [address] showing signs of pancreatic inflammation along with known pseudocyst. ER reviewed with [facility], advised overnight medical management and f/u with GI as outpatient. Reports last drink 2 days ago, denies h/o W/D seizure or DTs, just the shakes In ER received Dilaudid 2mg in divided doses, Zofran, Compazine and 40 KCl (K 3.2). 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 He shares a home with his mother. He denies any travel or recent sexual partners. Meds Home Medications and Allergies Home Medications Medication Instructions Recorded Confirmed Type tramadol 50 mg PO BID PRN #7 tab 10/21/19 12/31/19 Rx dextroamphetamine-amphetamine 30 mg PO DAILY 12/31/19 12/31/19 History omeprazole 20 mg PO DAILY 12/31/19 12/31/19 History ondansetron HCl [Zofran] 4 mg PO BID 12/31/19 12/31/19 History sertraline 50 mg PO DAILY 12/31/19 12/31/19 History Allergies Allergy/AdvReac Type Severity Reaction Status Date / Time No Known Allergies Allergy Unverified 10/21/19 10:42 Results Labs Result diagrams: 12/31/19 13:45 12/31/19 13:45 Labs: Laboratory Results - last 24 hr 12/31/19 12/31/19 12/31/19 13:45 13:45 13:45 WBC 12.93 H RBC 4.55 Hgb 14.8 Hct 43.9 MCV 96.5 H MCH 32.5 MCHC 33.7 RDW 14.9 H Plt Count 255 MPV 9.6 Immature Gran % 0.0 Neutrophils % 82.0 Lymphocytes % 7.0 Monocytes % 11.0 Eosinophils % 0.0 Basophils % 0.0 Absolute Neutrophils 10.60 H Absolute Lymphocytes 0.91 L Absolute Monocytes 1.42 H Absolute Eosinophils 0.00 Absolute Basophils 0.00 RBC Morphology Normal Sodium 137 Potassium 3.2 L Chloride 97 L Carbon Dioxide 26.5 Anion Gap 13.5 H BUN 12 Creatinine 0.58 L Estimated GFR/1.73 m2 >= 60.00 Glucose 93 Calcium 9.6 Magnesium 2.0 Total Bilirubin 1.9 H AST 20 ALT 35 Alkaline Phosphatase 229 H Troponin I < 0.05 Total Protein 7.6 Albumin 3.2 L Lipase 1618 H Last Vital Signs Temp 36.7 C 12/31/19 16:15 Pulse 82 12/31/19 16:15 Resp 18 12/31/19 16:15 BP 125/84 12/31/19 16:15 Pulse Ox 99 12/31/19 16:15 COVID-19 Screening Have you,or household,traveled outside [place] in last 14 days?: No Had IN PERSON contact w/suspected or confirmed C-19 person: No
[2019-12-31] MEDS: Pantoprazole 40 MG VIAL IVP (19:50)
[2019-12-31] MEDS: MAGNESIUM SULFATE 8.12 MEQ, MULTIVITAMIN 10 ML, THIAMINE 100 MG, FOLIC ACID 1 MG in Nor... 168.867 MG IV (19:51)
[2019-12-31] MEDS: Normal Saline Flush 10 ML SYR IVP ×2 (19:51→23:38)
[2019-12-31] MEDS: Thiamine 200 MG/2 ML VIAL (20:07)
[2019-12-31] MEDS: HYDROmorphone 2 MG/ML VIAL IVP (23:37)
[2020-01-01] MEDS: POTASSIUM CHLORIDE/0.9% NACL 1,000 ML 150 MEQ IV ×2 (02:12→09:19)
[2020-01-01 04:46] VITALS: BP 124/79; PULSE 62; RESP 18; TEMP 36.2; O2SAT 99
[2020-01-01] MEDS: HYDROmorphone 2 MG/ML VIAL IVP ×2 (04:59→09:20)
[2020-01-01] MEDS: Normal Saline Flush 10 ML SYR IVP ×3 (05:00→11:04)
[2020-01-01 06:56] LABS: HCT 36.7 % (40.0-50.0); HGB 11.9 g/dL (13.5-17.5); MCHC 32.4 % (32.0-36.0); MCV 98.7 fL (80-95); Platelet Count 190 10^3/uL (130-400); RBC 3.72 10^6/uL (4.36-5.78); RDW 15.2 % (11.8-14.1); RDW-SD 55.4 fL; WBC 8.06 10^3/uL (4.4-10.8)
[2020-01-01 07:13] LABS: Anion Gap 6.7 mmol/L (3-11); BUN 7 mg/dL (7-18); Bilirubin, Total 0.9 mg/dL (0.2-1.0); CO2 24.3 mmol/L (21.0-32.0); CREATININE 0.49 mg/dL (0.70-1.30); Calcium 8.3 mg/dL (8.5-10.1); Chloride 104 mmol/L (98-107); Glucose 96 mg/dL (74-106); Potassium 3.7 mmol/L (3.5-5.1); Sodium 135 mmol/L (136-145)
[2020-01-01 07:29] LABS: Lipase 2386 U/L (73-393)
[2020-01-01 07:48] VITALS: BP 111/68; PULSE 60; RESP 19; TEMP 36.3; O2SAT 98
[2020-01-01 08:16] LABS: COVID-19 RT-PCR UVMMC Result Negative (Negative)
--- NOTE | 2020-01-01 09:03 | W.PM.PROGNOT ---
Date of Service Date of service: 01/01/20 Time of Service: 09:03 Assessment and Plan Assessment and plan (1) Acute pancreatitis: Status: Acute Qualifiers: Pancreatitis type: alcohol induced Acute pancreatitis complication: unspecified Qualified Code(s): K85.20 - Alcohol induced acute pancreatitis without necrosis or infection (2) Chronic alcohol abuse: Status: Acute (3) Pancreatic pseudocyst: Status: Acute (4) Tobacco dependence: Status: Chronic (5) DVT prophylaxis: Status: Acute (6) Discharge planning issues: Status: Acute Objective Objective Clinical Data: Abnormal lab results 12/31/19 12/31/19 12/31/19 Range/Units 13:45 13:45 13:45 WBC 12.93 H (4.4-10.8) 10^3/uL RBC (4.36-5.78) 10^6/uL Hgb (13.5-17.5) g/dL Hct (40.0-50.0) % MCV 96.5 H (80-95) fL RDW 14.9 H (11.8-14.1) % Absolute Neutrophils 10.60 H (1.2-6.7) 10^3/uL Absolute Lymphocytes 0.91 L (1.2-3.4) 10^3/uL Absolute Monocytes 1.42 H (0.1-0.8) 10^3/uL Sodium (136-145) mmol/L Potassium 3.2 L (3.5-5.1) mmol/L Chloride 97 L (98-107) mmol/L Anion Gap 13.5 H (3-11) mmol/L Creatinine 0.58 L (0.70-1.30) mg/dL Calcium (8.5-10.1) mg/dL Total Bilirubin 1.9 H (0.2-1.0) mg/dL Alkaline Phosphatase 229 H (46-116) U/L Albumin 3.2 L (3.4-5.0) g/dL Lipase 1618 H (73-393) U/L 01/01/20 01/01/20 Range/Units 06:28 06:28 WBC (4.4-10.8) 10^3/uL RBC 3.72 L (4.36-5.78) 10^6/uL Hgb 11.9 L D (13.5-17.5) g/dL Hct 36.7 L (40.0-50.0) % MCV 98.7 H (80-95) fL RDW 15.2 H (11.8-14.1) % Absolute Neutrophils (1.2-6.7) 10^3/uL Absolute Lymphocytes (1.2-3.4) 10^3/uL Absolute Monocytes (0.1-0.8) 10^3/uL Sodium 135 L (136-145) mmol/L Potassium (3.5-5.1) mmol/L Chloride (98-107) mmol/L Anion Gap (3-11) mmol/L Creatinine 0.49 L (0.70-1.30) mg/dL Calcium 8.3 L (8.5-10.1) mg/dL Total Bilirubin (0.2-1.0) mg/dL Alkaline Phosphatase (46-116) U/L Albumin (3.4-5.0) g/dL Lipase 2386 H (73-393) U/L Vital Signs Temperature 36.3 C L 01/01/20 07:48 Temperature Source Tympanic 01/01/20 07:48 Pulse 60 01/01/20 07:48 Pulse Rhythm Regular 01/01/20 03:22 Respiratory Rate 19 01/01/20 07:48 Respiratory Effort Non-Labored 01/01/20 03:22 Respiratory Depth Normal 01/01/20 03:22 Respiratory Pattern Normal 01/01/20 03:22 Blood Pressure 111/68 01/01/20 07:48 Blood Pressure Position Supine 12/31/19 13:30 Pulse Oximetry 98 01/01/20 07:48 Oxygen Delivery Method Room Air 01/01/20 07:48 Oxygen Flow Rate 0 01/01/20 07:48 Pain Level 6 01/01/20 07:48 Intake & Output 12/31/19 12/31/19 01/01/20 11:59 23:59 11:59 Intake Total 3000 / 3000 10 / 10 Output Total 300 / 300 300 / 300 Balance 2700 / 2700 -290 / -290 Weight 65 kg Intake: IV 3000 / 3000 10 / 10 Output: Urine 300 / 300 300 / 300 Other: Urine Color Dark Bárbara Dark Bárbara Urine Appearance Clear Clear Urine Odor Normal Normal Voiding Methods Urinal Urinal Laboratory Results WBC 8.06 10^3/uL (4.4-10.8) D 01/01/20 06:28 RBC 3.72 10^6/uL (4.36-5.78) L 01/01/20 06:28 Hgb 11.9 g/dL (13.5-17.5) L D 01/01/20 06:28 Hct 36.7 % (40.0-50.0) L 01/01/20 06:28 MCV 98.7 fL (80-95) H 01/01/20 06:28 MCH 32.0 pg (27.0-33.0) 01/01/20 06:28 MCHC 32.4 % (32.0-36.0) 01/01/20 06:28 RDW 15.2 % (11.8-14.1) H 01/01/20 06:28 Plt Count 190 10^3/uL (130-400) 01/01/20 06:28 MPV 10.0 fL (8.0-11.0) 01/01/20 06:28 Immature Gran % 0.0 12/31/19 13:45 Neutrophils % 82.0 12/31/19 13:45 Lymphocytes % 7.0 12/31/19 13:45 Monocytes % 11.0 12/31/19 13:45 Eosinophils % 0.0 12/31/19 13:45 Basophils % 0.0 12/31/19 13:45 Absolute Neutrophils 10.60 10^3/uL (1.2-6.7) H 12/31/19 13:45 Absolute Lymphocytes 0.91 10^3/uL (1.2-3.4) L 12/31/19 13:45 Absolute Monocytes 1.42 10^3/uL (0.1-0.8) H 12/31/19 13:45 Absolute Eosinophils 0.00 10^3/uL (0.0-0.7) 12/31/19 13:45 Absolute Basophils 0.00 10^3/uL (0.0-0.2) 12/31/19 13:45 RBC Morphology Normal 12/31/19 13:45 Sodium 135 mmol/L (136-145) L 01/01/20 06:28 Potassium 3.7 mmol/L (3.5-5.1) 01/01/20 06:28 Chloride 104 mmol/L (98-107) 01/01/20 06:28 Carbon Dioxide 24.3 mmol/L (21.0-32.0) 01/01/20 06:28 Anion Gap 6.7 mmol/L (3-11) 01/01/20 06:28 BUN 7 mg/dL (7-18) 01/01/20 06:28 Creatinine 0.49 mg/dL (0.70-1.30) L 01/01/20 06:28 Estimated GFR/1.73 m2 >= 60.00 (mL/min/1.73m2) 01/01/20 06:28 Glucose 96 mg/dL (74-106) 01/01/20 06:28 Calcium 8.3 mg/dL (8.5-10.1) L 01/01/20 06:28 Magnesium 2.0 mg/dL (1.8-2.4) 12/31/19 13:45 Total Bilirubin 0.9 mg/dL (0.2-1.0) 01/01/20 06:28 AST 20 U/L (15-37) 12/31/19 13:45 ALT 35 U/L (16-63) 12/31/19 13:45 Alkaline Phosphatase 229 U/L (46-116) H 12/31/19 13:45 Troponin I < 0.05 ng/mL (<0.06) 12/31/19 13:45 Total Protein 7.6 g/dL (6.4-8.2) 12/31/19 13:45 Albumin 3.2 g/dL (3.4-5.0) L 12/31/19 13:45 Lipase 2386 U/L (73-393) H 01/01/20 06:28 COVID-19 PCR Negative (Negative) 12/31/19 17:35 Nasopharyn COVID-19 PCR Not Applicable 12/31/19 17:35 Ref Test Perform Site [place] [facility] 12/31/19 17:35
[2020-01-01] MEDS: Sertraline 50 MG TAB PO (09:19)
--- NOTE | 2020-01-01 10:52 | PDOC.CMIN ---
- If Service Date Differs Date of service: 01/01/20 Time of Service: 15:57 Care Management Initial Assess REASON FOR HOSPITALIZATION:: Pancreatitis PAST MEDICAL HISTORY/PAST SURGICAL HISTORY:: Chronic alcohol use, pancreatitis, tobacco dependence 39 male with h/o alcohol abuse and recurrent pancreatitis. Here with 1-2 weeks of worsening epigastric pain with radiation to back along with nausea and vomiting. In ER findings of note for WBC 12, lipase [address] showing signs of pancreatic inflammation along with known pseudocyst. ER reviewed with [facility], advised overnight medical management and f/u with GI as outpatient. Reports last drink 2 days ago, denies h/o W/D seizure or DTs, just the shakes PREVIOUS FUNCTIONAL STATUS/SOCIAL/FAMILY SUPPORTS:: Acosta resides with his mother in [place]. 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 He is independent at baseline, although he does not drive at this time. He stated that he has family/friend supports locally, and that he helps care for his mother. CURRENT FUNCTIONAL STATUS:: Acosta was sitting up on bed, ready for discharge. He shared no concerns regarding discharge and was pleasant in interaction. ADVANCE DIRECTIVES:: None on file at [facility]. Has patient been provided with info about the portal/API?: Yes Did the patient sign up for the portal?: No CODE STATUS:: Full Code INSURANCE COVERAGE / FINANCIAL ISSUES:: Medicaid. Financial Asst CURRENT HOME/COMMUNITY SERVICES/EQUIPMENT:: No services or equipment at this time. PRIMARY CARE PHYSICIAN:: Antonio Harper POTENTIAL DISCHARGE NEEDS:: Follow up with PCP and discharge plan of care PATIENT/FAMILY EDUCATION NEEDS:: Discharge plan, limitations, follow up plan, discuss Ask Me Three. ANTICIPATED BARRIERS TO DISCHARGE:: None identified at this time. TRANSPORTATION:: Acosta will transport private vehicle with his mother. PLAN:: Acosta will return home when ready per MD. He will follow up with his PCP and plan of care as prescribed. Acosta will transport private vehicle with his mother.
[2020-01-01] MEDS: Ketorolac 30 MG/ML VIAL IVP (11:03)
--- NOTE | 2020-01-01 14:04 | W.PM.DS.N ---
Date of service: 01/01/20 Time of Service: 14:04 DS: Diagnosis Discharge Diagnosis (1) Acute pancreatitis: Status: Acute (2) Chronic alcohol abuse: Status: Acute (3) Pancreatic pseudocyst: Status: Acute (4) Tobacco dependence: Status: Chronic Discharge Plan Disposition Patient Disposition: HOME Condition: Stable Discharge Details Chief Complaint: Abd Prob Clinical Impression: Acute pancreatitis, Chronic alcohol abuse Reason For Visit: PANCREATITIS Admit Date/Time: 01/01/20 09:10 Admit Provider: Dipak Bull Attending Provider: Dipak Bull Primary Care Provider: Antonio Harper ED Provider: Dianna Sorensen Hospital Course Hospital Course: This is a 39-year-old male with a past medical history significant for alcoholic pancreatitis who presents with abdominal pain that has had for several weeks worsening over the last few days. His last alcoholic beverage was on Sunday. He states he is cut his drinking down to 2-3 beers daily. He denies any symptoms of alcohol withdrawal. He states he stopped drinking due to his increased abdominal pain which she has had in the past associated with acute pancreatitis. He has been unable to take any oral intake. His work-up in the emergency department did show acute pancreatitis. He was referred to observation for bowel rest and pain management. Overnight he rested comfortably. He did drink water from the faucet in his bathroom all night long. He was requesting pain medication but states this is more chronic pain and the pain that brought him in is markedly improved. He did want to try a regular diet at lunch which he did and tolerated fine. He has not had any fevers and has been hemodynamically stable. His abdominal exam is with some mild tenderness as per his report which he states is chronic and essentially at his baseline. He states now that he is tolerating a regular diet he would like to try discharge to home. He states he is motivated to stop drinking and has been working with his primary care provider on this he declines any resources at this time. he states that he will return if his symptoms worsen or if he is unable to tolerate oral or starts with a fever or any worrisome symptoms. He will follow-up outpatient with his primary care provider. Discharge plan discussed with Dr. Petersen who is in agreement. Home Meds and New Rx's Prescriptions: Continued ondansetron HCl [Zofran] 4 mg tablet 4 mg PO BID RF: 0 sertraline 50 mg tablet 50 mg PO DAILY RF: 0 dextroamphetamine-amphetamine 30 mg tablet 30 mg PO DAILY RF: 0 omeprazole 40 mg capsule,delayed release(DR/EC) 20 mg PO DAILY RF: 0 tramadol 50 mg tablet 50 mg PO BID PRN (Reason: pain) Qty: 7 RF: 0 Discharge Instructions Instructions: Pancreatitis (DC) Additional Instructions: continue usual medications stop drinking Referrals: Antonio Harper [Primary Care Provider] - (one week ) [facility]STRO[facility]OLOGY,[facility] [OTHER] - Activity:: Activity as Tolerated Equipment/Supplies:: No Equipment Needed Diet:: As Tolerated Discharge Orders Discharge Orders: Discharge Order (Routine); Ordered 01/01/20 Ordered By: Yelitza Ramirez DS: Summary Status at Discharge Functional status at discharge: independent ambulation Overall status at discharge: patient is progressing back to baseline Mental Status: mental status grossly normal Speech and Movement: speech and movement normal Mood: congruent mood Affect: normal affect Exam Const General: cooperative Nutritional Appearance: thin Orientation: alert, awake and oriented x3 HENMT Head: normal to inspection, normocephalic and atraumatic Mouth: moist mucous membranes abnormal (dry) Chest Chest: normal inspection of the chest Resp Effort & Inspection: normal respiratory effort Auscultation: clear to auscultation bilaterally Cardio Rate: regular rate Rhythm: regular rhythm GI Inspection: normal to inspection Palpation: guarding (minimal ) Auscultation: normal bowel sounds Skin General skin exam: no rashes or lesions noted Neuro General: patient alert, patient awake and patient oriented x3 Cranial Nerves: CN's II-XI intact bilaterally Extrem General: normal to inspection, full ROM and no pedal edema Right upper extremity: normal to inspection Psych Mental Status: mental status grossly normal Speech and Movement: speech and movement normal Mood: congruent mood Affect: normal affect DS: Data Vitals/I&O Vitals and I&O: Vital Signs Temperature 36.3 C L 01/01/20 07:48 Temperature Source Tympanic 01/01/20 07:48 Pulse 60 01/01/20 07:48 Pulse Rhythm Regular 01/01/20 09:39 Respiratory Rate 19 01/01/20 07:48 Respiratory Effort Non-Labored 01/01/20 09:39 Respiratory Depth Normal 01/01/20 09:39 Respiratory Pattern Normal 01/01/20 09:39 Blood Pressure 111/68 01/01/20 07:48 Blood Pressure Position Supine 12/31/19 13:30 Pulse Oximetry 98 01/01/20 07:48 Oxygen Delivery Method Room Air 01/01/20 07:48 Oxygen Flow Rate 0 01/01/20 07:48 Pain Level 6 01/01/20 11:03 Intake & Output 12/31/19 01/01/20 01/01/20 23:59 11:59 23:59 Intake Total 3000 / 3000 1010 / 1250 240 / 1250 Output Total 300 / 300 300 / 300 Balance 2700 / 2700 710 / 950 240 / 950 Weight 65 kg Intake: IV 3000 / 3000 1010 / 1010 Oral 240 / 240 Output: Urine 300 / 300 300 / 300 Other: Urine Color Dark Bárbara Dark Bárbara Urine Appearance Clear Clear Urine Odor Normal Normal Comment voiding in toilet, reports dark colored urine Voiding Methods Urinal Urinal Data Completed and Pending Labs on day of discharge: Labs from last 24 hours 01/01/20 01/01/20 12/31/19 06:28 06:28 17:35 WBC 8.06 D RBC 3.72 L Hgb 11.9 L D Hct 36.7 L MCV 98.7 H MCH 32.0 MCHC 32.4 RDW 15.2 H Plt Count 190 MPV 10.0 Immature Gran % Neutrophils % Lymphocytes % Monocytes % Eosinophils % Basophils % Absolute Neutrophils Absolute Lymphocytes Absolute Monocytes Absolute Eosinophils Absolute Basophils RBC Morphology Sodium 135 L Potassium 3.7 Chloride 104 Carbon Dioxide 24.3 Anion Gap 6.7 BUN 7 Creatinine 0.49 L Estimated GFR/1.73 m2 >= 60.00 Glucose 96 Calcium 8.3 L Magnesium Total Bilirubin 0.9 AST ALT Alkaline Phosphatase Troponin I Total Protein Albumin Lipase 2386 H COVID-19 PCR Negative Nasopharyn COVID-19 PCR Not Applicable Ref Test Perform Site [place] [facility] 12/31/19 12/31/19 12/31/19 13:45 13:45 13:45 WBC 12.93 H RBC 4.55 Hgb 14.8 Hct 43.9 MCV 96.5 H MCH 32.5 MCHC 33.7 RDW 14.9 H Plt Count 255 MPV 9.6 Immature Gran % 0.0 Neutrophils % 82.0 Lymphocytes % 7.0 Monocytes % 11.0 Eosinophils % 0.0 Basophils % 0.0 Absolute Neutrophils 10.60 H Absolute Lymphocytes 0.91 L Absolute Monocytes 1.42 H Absolute Eosinophils 0.00 Absolute Basophils 0.00 RBC Morphology Normal Sodium 137 Potassium 3.2 L Chloride 97 L Carbon Dioxide 26.5 Anion Gap 13.5 H BUN 12 Creatinine 0.58 L Estimated GFR/1.73 m2 >= 60.00 Glucose 93 Calcium 9.6 Magnesium 2.0 Total Bilirubin 1.9 H AST 20 ALT 35 Alkaline Phosphatase 229 H Troponin I < 0.05 Total Protein 7.6 Albumin 3.2 L Lipase 1618 H COVID-19 PCR Nasopharyn COVID-19 PCR Ref Test Perform Site [facility] Medical History Chronic alcohol use (Chronic) Pancreatitis (Acute) Tobacco dependence (Chronic) Social History Smoking/Tobacco Use Status: Current every day Tobacco Type: cigarettes Alcohol Intake: former Drug use: Daily Substance use type: marijuana Do you feel safe at home: Yes Do you feel safe in your relationship?: Yes Additional Social history: 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 He shares a home with his mother. He denies any travel or recent sexual partners.
[2020-01-01] MEDS: traMADol 50 MG TAB PO (15:10)
== END 2020-01-01 15:20 | disposition home or self-care (01) ==
LOC: ER 17:30 → MS 18:41
PROVIDERS: Admitting Provider General Practice; Emergency Provider Physician Assistant; PCP Neuromusculoskeletal Medicine & OMM; Visit Provider General Practice
DX: K85.20 Alcohol induced acute pancreatitis without necrosis or infection; Z11.59 Encounter for screening for other viral diseases; F10.10 Alcohol abuse, uncomplicated; K86.3 Pseudocyst of pancreas; F17.210 Nicotine dependence, cigarettes, uncomplicated
CPT/HCPCS: 36415; 80048; 80053; 83690; 85027; 96361; 96374; 96375; 96376; 99217; 99222; 99285; U0003; 74177; 82247; 83735; 84484; 85025; 99219; G0378; J0780; J1885; J2405; J3490

== ENCOUNTER 2020-02-05 12:06 | Emergency (ER) | payer MEDICAID, SELFPAY ==
[2020-02-05 12:11] VITALS: BP 142/100; PULSE 121; RESP 18; TEMP 36.8; O2SAT 98
--- NOTE | 2020-02-05 12:29 | ED.GENADUL_ITS ---
Discharge Plan Disposition Patient Disposition: HOME Condition: Stable Discharge Details Clinical Impression: Pancreatitis Primary Care Provider: Antonio Harper ED Provider: Marcia Camacho Home Meds and New Rx's Prescriptions: New ondansetron HCl [Zofran] 4 mg tablet 4 mg PO TID PRN (Reason: nausea and vomiting) 5 Days Qty: 14 RF: 0 hydrocodone-acetaminophen 5-325 mg tablet 1 tab PO Q6H PRN (Reason: pain) 3 Days Qty: 7 RF: 0 No Action ondansetron HCl [Zofran] 4 mg tablet 4 mg PO BID RF: 0 sertraline 50 mg tablet 50 mg PO DAILY RF: 0 omeprazole 40 mg capsule,delayed release(DR/EC) 20 mg PO DAILY RF: 0 tramadol 50 mg tablet 50 mg PO BID PRN (Reason: pain) Qty: 7 RF: 0 Discharge Instructions Instructions: Pancreatitis (ED) Additional Instructions: Follow up with primary care provider in 3-5 days. Return to ED sooner if any worsening or concerns. Increase oral fluids. Please take Tylenol or Ibuprofen with food every 4-6 hours as needed for pain and swelling. Take medications as prescribed. I strongly encourage you to follow-up with GI as previously discussed. Stand Alone Forms: Work Release Referrals: Antonio Harper [Primary Care Provider] - Discharge Data Discharge Date/Time-TO BE ENTERED AT DEPARTURE: 02/05/20 15:40 Medical Decision Making 39-year-old male with a history of acute on chronic pancreatitis and pancreatic pseudocyst presents to the ER with abdominal pain associated with nausea vomiting. He was admitted approximately 1 month ago for similar symptoms. 1349: Preliminary result received from radiologist reports that the only changes from previous CT is that the free fluid in the pelvis is resolved at this time. The descending duodenum is dilated and thick-walled which is worse in the last CT. Also the transverse colon appears edematous which this could be attributed to the pancreatic fluid. Labs show a CBC largely within normal limits, sodium is 138, potassium is 4.0, BUN is 6, creatinine 0.80, glucose 107, AST 71, ALT is 46, alk phos is 122, initial troponin is within normal limits. Lipase is 501 which is decreased from his last visit he did have a level of a lipase at 2386. Patient has received a total of 1 mg of Dilaudid and 4 mg of Zofran which has improved his pain. Discuss strict return instructions and instructed to follow- up with GI as previously instructed, verbalized understanding. At this time I do feel it is safe for patient be discharged home largely in part he has his he is mostly unchanged from previous and his labs are stable and at his baseline. Patient verbalizes understanding. He is nontoxic-appearing has no fevers non- tachycardic. No emesis was observed while in department. HPI General Mode of arrival: ambulatory . Date/Time Provider Initiated Documentation: 02/05/20 12:07 . Limitations to Documentation: no limitations . Information obtained by: patient . HPI Narrative: 39-year-old male presents to the ER chief complaint of abdominal pain which began Sunday which is worsened last night. Associated with nausea vomiting and diarrhea which began last night. Patient has a history of alcoholic pancreatitis in which he was admitted approximately 1 month ago. He reports that he is due to have a follow-up with GI at [facility] which she has not had yet. He denies any hematochezia or hematemesis. No fever cough or shortness of breath. He does endorse having a couple of drinks last night. He did take some Tylenol prior to arrival. Related Data Home Medications Medication Instructions Recorded Confirmed tramadol 50 mg PO BID PRN #7 tab 10/21/19 02/05/20 omeprazole 20 mg PO DAILY 12/31/19 02/05/20 ondansetron HCl [Zofran] 4 mg PO BID 12/31/19 02/05/20 sertraline 50 mg PO DAILY 12/31/19 02/05/20 hydrocodone-acetaminophen 1 tab PO Q6H PRN 3 Days #7 tab 02/05/20 ondansetron HCl [Zofran] 4 mg PO TID PRN 5 Days #14 tab 02/05/20 Previous Rx's Medication Instructions Recorded tramadol 50 mg PO BID PRN #7 tab 10/21/19 hydrocodone-acetaminophen 1 tab PO Q6H PRN 3 Days #7 tab 02/05/20 ondansetron HCl [Zofran] 4 mg PO TID PRN 5 Days #14 tab 02/05/20 Allergies Allergy/AdvReac Type Severity Reaction Status Date / Time No Known Allergies Allergy Unverified 02/05/20 12:14 General Stated Complaint: Abd Prob DEIDRE: 3 Review of Systems Narrative: Constitutional: Negative for weight loss, alert and oriented, well groomed, normal body habitus, appears comfortable. HEENT: Denies trauma, headaches, blurry vision, nasal discharge, sore throat, trouble swallowing. Chest: Denies chest pain, palpitations, irregular rhythm, hypertension. Respiratory: Denies Shortness of breath, cough, hemoptysis. GI: Denies , constipation. Positive abdominal pain associated with nausea vomiting diarrhea. History of pancreatitis. : Denies dysuria, hematuria, flank pain, rectal bleeding. Neuro: Denies dizziness, blurry vision, weakness, syncope, headache or facial numbness. Hematologic: Denies easy bruising, intolerance to heat or cold, hair loss. 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 He shares a home with his mother. He denies any travel or recent sexual partners. Exam Narrative Exam Narrative: Constitutional: Alert and oriented x3. Appears stated age. Normal body habitus. Head: Normocephalic, no trauma. Eyes: Pupils PERRLA, Red reflex noted, EOM's intact. Eyelids symmetrical without lesions, discharge, or swelling. ENT: Bilateral TM's WNL, External ear normal to inspection, no mastoid TTP, swelling, or erythema, Nasal turbinates WNL, no nasal discharge. Normal dentition, Posterior pharynx WNL, no exudate. Chest: RRR, Normal S1, S2, distal pulses intact. Resp: Lungs clear to auscultation bilaterally, no wheezes, rales, or rhonchi. Abdomen: Nondistended, positive guarding all 4 quadrants and tenderness with palpation. No masses palpated. Increased bowel sounds all 4 quadrants. Musculoskeletal: Normal gait, 5/5 strength to all four extremities. Skin: No suspicious rashes or lesions. Capillary refill less than 2 sec. Neurologic: Cranial nerves II-XII intact. Alert and oriented x 3. DTR's intact. Hematologic/Lymphatic: No ecchymosis, no lymphadenopathy. Course Vital Signs Vital signs: Vital Signs Temperature 36.8 C 02/05/20 12:11 Pulse 121 H 02/05/20 12:11 Respiratory Rate 18 02/05/20 12:11 Blood Pressure 142/100 H 02/05/20 12:11 Pulse Oximetry 98 02/05/20 12:11 Temperature 36.8 C 02/05/20 12:11 Pulse 121 H 02/05/20 12:11 Respiratory Rate 18 02/05/20 12:11 Respiratory Effort Non-Labored 02/05/20 12:15 Blood Pressure 142/100 H 02/05/20 12:11 Blood Pressure Position Sitting 02/05/20 12:11 Pulse Oximetry 98 02/05/20 12:11 Oxygen Delivery Method Room Air 02/05/20 12:11 Oxygen Flow Rate 0 02/05/20 12:11 Pain Level 9 02/05/20 12:11
--- NOTE | 2020-02-05 12:30 | DI.CT_ITS ---
EXAM: CT ABDOMEN PELVIS W CLINICAL HISTORY: Hx pancreatitis TECHNIQUE: COMPARISON: CT CT ABDOMEN PELVIS W from 12/31/2019 FINDINGS: CT examination of the abdomen and pelvis was performed with bolus infusion of 94 cc of Omnipaque 350. Images obtained through the lung bases are unremarkable. The liver and spleen appear normal. Current examination is compared with prior scan December 30. Note is again made of chronic and acute pancreatitis with a pancreatic pseudocyst of the body of the pancreas grossly unchanged from prior s tudy and measuring roughly 5 cm in diameter transaxial images. A question of areas of necrosis of th e pancreatic head is again raised. There is increased dilatation of the descending duodenum on today 's examination. Fluid surrounds the duodenum and lies in Oconnor's pouch. These findings are uncha nged from prior study. Pelvic fluid noted on the prior examination is no longer visible. Adrenals and kidneys appear normal. Abdominal aorta and major branch vessels appear intact. No hayley l obstruction. IMPRESSION: Stable appearance of acute/subacute/chronic pancreatitis. Pancreatic pseudocyst noted, marked duoden al dilatation and wall thickening noted. Thickening of the wall of the transverse colon also noted a djacent to the involved right upper quadrant region. RADIATION DOSE DELIVERED: 606.82mGy.cm Total DLP
[2020-02-05] MEDS: HYDROmorphone 2 MG/ML VIAL 0.5 MG IVP ×2 (12:41→14:41)
[2020-02-05] MEDS: Normal Saline 1,000 ML 1000 ML IV (12:41)
[2020-02-05] MEDS: Ondansetron 4 MG/2 ML VIAL IVP (12:41)
[2020-02-05 12:50] LABS: Abs Immature Grans 0.03 10^3/uL (0.0-0.06); Absolute Basophil Count 0.06 10^3/uL (0.0-0.2); Absolute Eosinophil Count 0.14 10^3/uL (0.0-0.7); Absolute Lymphocyte Count 0.97 10^3/uL (1.2-3.4); Absolute Monocyte Count 1.08 10^3/uL (0.1-0.8); Basophils % 0.8; Eosinophils % 1.8; HCT 47.8 % (40.0-50.0); Immature Grans % 0.4; Lymphocytes % 12.5; MCH 32.5 pg (27.0-33.0); MCHC 33.5 % (32.0-36.0); MPV 9.5 fL (8.0-11.0); Monocytes % 13.9; Neutrophils % 70.6; Nucleated RBC 0 %; Platelet Count 329 10^3/uL (130-400); RBC 4.93 10^6/uL (4.36-5.78); RDW 15.1 % (11.8-14.1); RDW-SD 54.3 fL; WBC 7.78 10^3/uL (4.4-10.8)
[2020-02-05 12:56] LABS: ETHANOL BLOOD 73.6 mg/dL (<3)
[2020-02-05 12:59] LABS: ALT 46 U/L (16-63); AST 71 U/L (15-37); Albumin 3.7 g/dL (3.4-5.0); Alkaline Phosphatase 122 U/L (46-116); Anion Gap 8.4 mmol/L (3-11); BUN 6 mg/dL (7-18); CO2 27.6 mmol/L (21.0-32.0); Calcium 8.8 mg/dL (8.5-10.1); Chloride 102 mmol/L (98-107); Glucose 107 mg/dL (74-106); Lipase 501 U/L (73-393); Magnesium 1.8 mg/dL (1.8-2.4); Sodium 138 mmol/L (136-145); Total Protein 7.5 g/dL (6.4-8.2)
[2020-02-05 14:30] VITALS: BP 126/89; PULSE 82; RESP 16; TEMP 37.1; O2SAT 99
[2020-02-05] MEDS: Normal Saline Flush 10 ML SYR IVP (14:41)
[2020-02-05 15:12] VITALS: BP 126/89; PULSE 82; TEMP 37.1; O2SAT 99
[2020-02-05 15:36] VITALS: BP 128/98; PULSE 85; O2SAT 97
== END 2020-02-05 15:40 | disposition home or self-care (01) ==
PROVIDERS: Emergency Provider Registered Nurse Emergency; PCP Neuromusculoskeletal Medicine & OMM
DX: K85.80 Other acute pancreatitis without necrosis or infection (principal); K86.3 Pseudocyst of pancreas; F10.10 Alcohol abuse, uncomplicated; Y90.3 Blood alcohol level of 60-79 mg/100 ml
CPT/HCPCS: 36415; 80053; 83690; 96361; 96374; 96375; 96376; 99285; 74177; 80320; 81003; 83735; 84484; 85025; 99284; J2405

== ENCOUNTER 2020-02-14 10:27 | Inpatient (IN) | payer MEDICAID, SELFPAY ==
[2020-02-14] VITALS (47 sets, daily range): BP systolic 118–167; BP diastolic 72–116; PULSE 59–102; RESP 16–22; TEMP 35.9–37.2; O2SAT 93–100
--- NOTE | 2020-02-14 10:30 | ED.GENADUL_ITS ---
Discharge Plan Disposition Patient Disposition: [facility] INPATIENT Condition: Stable Discharge Details Clinical Impression: Acute pancreatitis, Chronic alcohol use Primary Care Provider: Antonio Harper ED Provider: Dianna Sorensen Home Meds and New Rx's Prescriptions: No Action ondansetron HCl [Zofran] 4 mg tablet 4 mg PO BID RF: 0 sertraline 50 mg tablet 50 mg PO DAILY RF: 0 omeprazole 40 mg capsule,delayed release(DR/EC) 20 mg PO DAILY RF: 0 tramadol 50 mg tablet 50 mg PO BID PRN (Reason: pain) Qty: 7 RF: 0 Medical Decision Making 1040 -- 39-year-old male with a history of chronic alcohol abuse and chronic pancreatitis presents with abdominal pain and vomiting consistent with his usual episodes of pancreatitis. Patient appears chronically ill. His vitals are within normal limits. He is afebrile and appears nontoxic. He is abdomen is tense and tender in the upper quadrants. Patient had a CT abdomen pelvis on 02/05/2020 which noted Stable appearance of acute/subacute/chronic pancreatitis. Pancreatic pseudocyst noted, marked duodenal dilatation and wall thickening noted. Thickening of the wall of the transverse colon also noted adjacent to the involved right upper quadrant region. Will hold on repeat CT scan at this time. Will check screening labs, give a dose of IV Dilaudid and IV Zofran and fluids and reassess. 1200 --labs reviewed. Normal white blood cell count. Potassium 3.3. Magnesium 1.7. Troponin negative. Lipase 4881, increased from 500 last week. Patient reassessed and nausea resolved but still complaining of some pain. Will give another dose of Dilaudid and plan for admission. Case discussed with hospitalist who accepts patient for admission. 1230 --patient states pain returning. Will give another dose of Dilaudid and continue IV fluids/banana bag. Medical Records Medical records reviewed: Yes I reviewed the patient's medical records. Lab Data Lab results reviewed: Yes I reviewed the patient's lab results. Labs: Laboratory Tests Range/Units 02/14/20 02/14/20 10:46 10:46 WBC (4.4-10.8) 10^3/uL 8.96 RBC (4.36-5.78) 10^6/uL 4.41 Hgb (13.5-17.5) g/dL 14.5 Hct (40.0-50.0) % 42.5 MCV (80-95) fL 96.4 H MCH (27.0-33.0) pg 32.9 MCHC (32.0-36.0) % 34.1 RDW (11.8-14.1) % 15.0 H Plt Count (130-400) 10^3/uL 262 MPV (8.0-11.0) fL 9.3 Immature Gran % 0.8 Neutrophils % 77.8 Lymphocytes % 9.9 Monocytes % 10.2 Eosinophils % 1.1 Basophils % 0.2 Nucleated RBC % % 0 Absolute Neutrophils (1.2-6.7) 10^3/uL 6.97 H Absolute Lymphocytes (1.2-3.4) 10^3/uL 0.89 L Absolute Monocytes (0.1-0.8) 10^3/uL 0.91 H Absolute Eosinophils (0.0-0.7) 10^3/uL 0.10 Absolute Basophils (0.0-0.2) 10^3/uL 0.02 Sodium (136-145) mmol/L 140 Potassium (3.5-5.1) mmol/L 3.3 L Chloride (98-107) mmol/L 105 Carbon Dioxide (21.0-32.0) mmol/L 23.0 Anion Gap (3-11) mmol/L 12.0 H BUN (7-18) mg/dL 6 L Creatinine (0.70-1.30) mg/dL 0.73 Estimated GFR/1.73 m2 (mL/min/1.73m2) >= 60.00 Glucose (74-106) mg/dL 124 H Calcium (8.5-10.1) mg/dL 8.5 Magnesium (1.8-2.4) mg/dL 1.7 L Total Bilirubin (0.2-1.0) mg/dL 0.7 AST (15-37) U/L 45 H ALT (16-63) U/L 35 Alkaline Phosphatase (46-116) U/L 97 Troponin I (<0.06) ng/mL < 0.05 Total Protein (6.4-8.2) g/dL 6.7 Albumin (3.4-5.0) g/dL 3.3 L Lipase (73-393) U/L 4881 H HPI General Mode of arrival: wheelchair . Date/Time Provider Initiated Documentation: 02/14/20 10:28 . Limitations to Documentation: no limitations . Information obtained by: patient . HPI Narrative: Patient is a 39-year-old male with a history of chronic daily alcohol abuse and chronic pancreatitis who presents with abdominal pain and vomiting since last night. Patient states he drank 6 beers last night and then his symptoms started. He states he feels consistent with his previous episodes of pancreatitis that he has had in the past. He states he vomited approximately 20 times which is mainly consisted of clear liquids and bile. Patient states he drinks approximately 6-12 alcoholic beverages daily. He denies any fever, recent travel. He admits to 2 episodes of diarrhea yesterday. He denies any urinary symptoms. Related Data Home Medications Medication Instructions Recorded Confirmed tramadol 50 mg PO BID PRN #7 tab 10/21/19 02/14/20 omeprazole 20 mg PO DAILY 12/31/19 02/14/20 ondansetron HCl [Zofran] 4 mg PO BID 12/31/19 02/14/20 sertraline 50 mg PO DAILY 12/31/19 02/14/20 Previous Rx's Medication Instructions Recorded tramadol 50 mg PO BID PRN #7 tab 10/21/19 Allergies Allergy/AdvReac Type Severity Reaction Status Date / Time No Known Allergies Allergy Unverified 02/05/20 12:14 General DEIDRE: 3 Review of Systems All systems reviewed & are unremarkable except as noted in HPI and below Constitutional Constitutional: Reports as per HPI, Denies chills and Denies fever(s) Eyes Eyes: Denies blurry vision ENT Ears, Nose, Mouth, and Throat: Denies dizziness, Denies sore throat and Denies throat swelling Cardiovascular Cardiovascular: Denies chest pain and Denies dyspnea Respiratory Respiratory: Denies cough and Denies dyspnea Gastrointestinal Gastrointestinal: Reports abdominal pain, Denies diarrhea and Reports vomiting Genitourinary Genitourinary: Denies hematuria and Denies dysuria Musculoskeletal Musculoskeletal: Denies back pain and Denies numbness Integumentary/Breasts Skin/Breast: Denies lesions and Denies rash Neurologic Neurologic: Denies dizziness, Denies localized weakness and Denies numbness Allergic/Immunologic Allergic/Immunologic: Denies throat swelling [facility] Medical History (Updated 09/26/20 @ 13:14 by Salina Jiménez NP) Chronic alcohol use Discharge planning issues Pancreatitis Tobacco dependence Social History Smoking/Tobacco Use Status: Current every day Tobacco Type: cigarettes Alcohol Intake: current Alcohol Intake frequency: 3 or more drinks per day Drug use: Occasionally Substance use type: marijuana Do you feel safe at home: Yes Do you feel safe in your relationship?: Yes Exam Const General: cooperative, no acute distress and ill appearing chronically Orientation: alert, awake and oriented x3 HENMT Head: normal to inspection Face and sinus: normal facial exam Eyes General: appearance normal, both eyes and all related structures EOM: EOM intact bilaterally Neck Neck: normal visual inspection and No submandibular swelling Lymphatic: no lymphadenopathy noted Chest Chest: normal inspection of the chest and no tenderness Resp Effort & Inspection: normal respiratory effort and able to speak in complete sentences Auscultation: clear to auscultation bilaterally Cardio Rate: regular rate Rhythm: regular rhythm GI Inspection: normal to inspection Palpation: soft, not firm, not rigid and tender (across upper quadrants) Auscultation: hypoactive bowel sounds Skin General skin exam: no rashes or lesions noted Neuro General: patient alert, patient awake and patient oriented x3 Cognition: normal cognition Speech: speech normal Motor: muscle tone normal throughout Sensory Exam: no sensory deficits noted Extrem General: normal to inspection, full ROM, capillary refill normal, no calf tenderness bilaterally and no edema Psych Appearance: grossly normal Mental Status: mental status grossly normal Speech and Movement: speech and movement normal Affect: normal affect
[2020-02-14 10:58] LABS: Abs Immature Grans 0.07 10^3/uL (0.0-0.06); Absolute Basophil Count 0.02 10^3/uL (0.0-0.2); Absolute Lymphocyte Count 0.89 10^3/uL (1.2-3.4); Absolute Monocyte Count 0.91 10^3/uL (0.1-0.8); Absolute Neutrophil Count 6.97 10^3/uL (1.2-6.7); Basophils % 0.2; Eosinophils % 1.1; HCT 42.5 % (40.0-50.0); HGB 14.5 g/dL (13.5-17.5); Immature Grans % 0.8; Lymphocytes % 9.9; MCH 32.9 pg (27.0-33.0); MCHC 34.1 % (32.0-36.0); MCV 96.4 fL (80-95); MPV 9.3 fL (8.0-11.0); Monocytes % 10.2; Neutrophils % 77.8; Nucleated RBC 0 %; Platelet Count 262 10^3/uL (130-400); RBC 4.41 10^6/uL (4.36-5.78); RDW-SD 53.5 fL; WBC 8.96 10^3/uL (4.4-10.8)
[2020-02-14] MEDS: Ondansetron 4 MG/2 ML VIAL IVP ×2 (11:01→17:53)
[2020-02-14] MEDS: HYDROmorphone 2 MG/ML VIAL 1 MG IVP ×6 (11:01→23:34)
[2020-02-14 11:17] LABS: ALT 35 U/L (16-63); AST 45 U/L (15-37); Albumin 3.3 g/dL (3.4-5.0); Alkaline Phosphatase 97 U/L (46-116); BUN 6 mg/dL (7-18); Bilirubin, Total 0.7 mg/dL (0.2-1.0); CREATININE 0.73 mg/dL (0.70-1.30); Calcium 8.5 mg/dL (8.5-10.1); Chloride 105 mmol/L (98-107); Glucose 124 mg/dL (74-106); Magnesium 1.7 mg/dL (1.8-2.4); Potassium 3.3 mmol/L (3.5-5.1); Sodium 140 mmol/L (136-145); Total Protein 6.7 g/dL (6.4-8.2)
[2020-02-14 11:27] LABS: Lipase 4881 U/L (73-393); Troponin I < 0.05 ng/mL (<0.06)
[2020-02-14] MEDS: Normal Saline 1,000 ML 1000 ML IV (11:56)
[2020-02-14] MEDS: HYDROmorphone 2 MG/ML VIAL 0.5 MG IVP (12:22)
[2020-02-14] MEDS: MAGNESIUM SULFATE 8.12 MEQ, MULTIVITAMIN 10 ML, THIAMINE 100 MG, FOLIC ACID 1 MG in Nor... 168.867 MG IV (12:55)
--- NOTE | 2020-02-14 13:04 | W.PM.HP.N ---
Date of service: 02/14/20 Time of Service: 13:05 Assessment and Plan Assessment and plan (1) Acute pancreatitis: Start date: 02/14/20 Start time: 13:12 Status: Acute Assessment and plan: Last drink was last evening, he endorses 4 alcoholic beverages, at least CIWA monitor for withdrawal, given thiamine, folic acid and multivit Lipase of 4481 presented with abd pain and vomiting antiemetics, pain management NS @ 175 Qualifiers: Acute pancreatitis complication: unspecified Pancreatitis type: alcohol induced Qualified Code(s): K85.20 - Alcohol induced acute pancreatitis without necrosis or infection (2) Chronic alcohol use: Start date: 02/14/20 Start time: 13:14 Status: Chronic Assessment and plan: Continues to drink, will monitor for w/drawal, as above (3) Pancreatic pseudocyst: Start date: 02/14/20 Start time: 13:14 Status: Chronic Assessment and plan: Chronic per CT on 02/04 (4) Tobacco dependence: Start date: 02/14/20 Start time: 13:14 Status: Chronic Assessment and plan: Continue to assess readiness to quit Nicotine replacement as needed. (5) DVT prophylaxis: Start date: 02/14/20 Start time: 13:15 Status: Acute Assessment and plan: Enoxaparin subcu, scd/teds Above case discussed with Dr. Petersen who is in agreement. History of Present Illness History of Present Illness Chief Complaint: Pancreatitis, ETOH abuse Narrative: 39 y.o male with alcohol abuse, history of pancreatitis, presents to ED with vomiting and abdominal pain, consistent with recurrent pancreatitis. Most recent CT was 02/05/2020 noted Stable appearance of acute/subacute/chronic pancreatitis. Pancreatic pseudocyst noted, marked duodenal dilatation and wall thickening noted. Thickening of the wall of the transverse colon also noted adjacent to the involved right upper quadrant region. therefore CT not done at this time. Labs showing lipase 4881, Potassium 3.3, mag 1.7. He has been asked to be admitted for further management. He will be hydrated with IVF, antiemetics for nausea, pain management and monitored for ETOH withdrawal. Review of Systems All systems reviewed & are unremarkable except as noted in HPI and below PFSH Medical History (Updated 02/14/20 @ 13:14 by Salina Jiménez NP) Chronic alcohol use Discharge planning issues Pancreatitis Tobacco dependence Social History Smoking/Tobacco Use Status: Current every day Tobacco Type: cigarettes Alcohol Intake: current Alcohol Intake frequency: 3 or more drinks per day Drug use: Occasionally Substance use type: marijuana Do you feel safe at home: Yes Do you feel safe in your relationship?: Yes Meds Home Medications and Allergies Home Medications Medication Instructions Recorded Confirmed Type tramadol 50 mg PO BID PRN #7 tab 10/21/19 02/14/20 Rx omeprazole 20 mg PO DAILY 12/31/19 02/14/20 History ondansetron HCl [Zofran] 4 mg PO BID 12/31/19 02/14/20 History sertraline 50 mg PO DAILY 12/31/19 02/14/20 History Allergies Allergy/AdvReac Type Severity Reaction Status Date / Time No Known Allergies Allergy Unverified 02/05/20 12:14 Exam Const General: cooperative, not healthy appearing, no acute distress and ill appearing chronically Nutritional Appearance: thin Orientation: alert and oriented x3 HENMT Head: normocephalic and atraumatic Ears: hearing grossly normal bilaterally Teeth and gingiva: poor dentition (multiple cracked and missing teeth) Eyes Sclera: sclerae normal Cornea: corneas normal Pupils: PERRL EOM: EOM intact bilaterally Neck Neck: normal visual inspection, full ROM and no JVD Lymphatic: no lymphadenopathy noted Chest Chest: normal inspection of the chest Resp Effort & Inspection: normal respiratory effort Auscultation: clear to auscultation bilaterally Cardio Jugular venous pressure: no JVD Rate: regular rate Rhythm: regular rhythm Heart Sounds: S1 normal and S2 normal GI Inspection: distended Palpation: tender in the LLQ, in the RLQ, in the LUQ and in the RUQ Auscultation: hypoactive bowel sounds General: deferred Back/Spine/Pelvis Back: no CVA tenderness and back tenderness Thoracic/Lumbar Spine: thoracic and lumbar spine normal to inspection Skin General skin exam: no rashes or lesions noted Neuro General: patient alert, patient awake and patient oriented x3 Cognition: normal cognition Extrem General: normal to inspection, full ROM and no clubbing, cyanosis or edema Psych Appearance: grossly normal Speech and Movement: speech and movement normal Affect: normal affect Attitude: cooperative Results Labs Result diagrams: 02/14/20 10:46 02/14/20 10:46 Labs: Laboratory Results - last 24 hr 02/14/20 02/14/20 10:46 10:46 WBC 8.96 RBC 4.41 Hgb 14.5 Hct 42.5 MCV 96.4 H MCH 32.9 MCHC 34.1 RDW 15.0 H Plt Count 262 MPV 9.3 Immature Gran % 0.8 Neutrophils % 77.8 Lymphocytes % 9.9 Monocytes % 10.2 Eosinophils % 1.1 Basophils % 0.2 Nucleated RBC % 0 Absolute Neutrophils 6.97 H Absolute Lymphocytes 0.89 L Absolute Monocytes 0.91 H Absolute Eosinophils 0.10 Absolute Basophils 0.02 Sodium 140 Potassium 3.3 L Chloride 105 Carbon Dioxide 23.0 Anion Gap 12.0 H BUN 6 L Creatinine 0.73 Estimated GFR/1.73 m2 >= 60.00 Glucose 124 H Calcium 8.5 Magnesium 1.7 L Total Bilirubin 0.7 AST 45 H ALT 35 Alkaline Phosphatase 97 Troponin I < 0.05 Total Protein 6.7 Albumin 3.3 L Lipase 4881 H Last Vital Signs Temp 36.5 C 02/14/20 10:34 Pulse 59 L 02/14/20 12:52 Resp 22 02/14/20 10:34 BP 149/92 H 02/14/20 12:52 Pulse Ox 96 02/14/20 12:52 COVID-19 Screening Have you,or household,traveled outside [place] in last 14 days?: No Had IN PERSON contact w/suspected or confirmed C-19 person: No
[2020-02-14 13:35] LABS: Triglyceride 122 mg/dL (<150)
[2020-02-14 13:38] LABS: *AMPHETAMINES SCREEN URINE Negative (Negative); *BARBITURATES SCREEN URINE Negative (Negative); *BENZODIAZEPINES SCREEN URINE Negative (Negative); Cannabinoids THC POSITIVE (Negative); Cocaine Screen,Urine Negative (Negative); METHADONE URINE SCREEN Negative (Negative); OPIATES URINE SCREEN POSITIVE (Negative)
[2020-02-14 13:39] LABS: Tricyclic Antidepressants Negative (Negative)
[2020-02-14] MEDS: Prochlorperazine 10 MG/2 ML VIAL IVP (14:28)
[2020-02-14] MEDS: LORazepam 1 MG TAB PO/SL ×2 (14:40→18:14)
[2020-02-14] MEDS: Normal Saline Flush 10 ML SYR IVP ×6 (15:30→21:56)
[2020-02-14] MEDS: Enoxaparin 40 MG/0.4 ML SYR SC (15:58)
[2020-02-14] MEDS: Pantoprazole 40 MG VIAL IVP (15:59)
[2020-02-14] MEDS: THIAMINE 100 MG in Normal Saline 100 ML 200 MG IVPB (16:00)
[2020-02-14] MEDS: Acetaminophen 325 MG TAB 650 MG PO (16:41)
[2020-02-14] MEDS: Normal Saline 1,000 ML 175 ML IV (20:28)
[2020-02-14] MEDS: Nicotine 14 MG/24 HR PATCH TD (21:58)
[2020-02-15] MEDS: HYDROmorphone 2 MG/ML VIAL 1 MG IVP ×4 (02:11→20:13)
[2020-02-15 04:40] VITALS: BP 157/91; PULSE 71; RESP 16; TEMP 37.2; O2SAT 98
[2020-02-15 08:09] VITALS: BP 154/88; PULSE 93; RESP 17; TEMP 36.9; O2SAT 97
[2020-02-15] MEDS: Acetaminophen 325 MG TAB 650 MG PO ×2 (08:20→12:00)
[2020-02-15] MEDS: Folic Acid 1 MG TAB PO (08:20)
[2020-02-15] MEDS: Multivitamin TAB 1 TAB PO (08:20)
[2020-02-15] MEDS: Thiamine 100 MG TAB PO (08:20)
[2020-02-15] MEDS: Pantoprazole 40 MG VIAL IVP (08:21)
[2020-02-15] MEDS: Normal Saline 1,000 ML 175 ML IV ×3 (08:22→22:26)
[2020-02-15] MEDS: Normal Saline Flush 10 ML SYR IVP ×4 (08:24→20:13)
[2020-02-15 08:37] LABS: Abs Immature Grans 0.05 10^3/uL (0.0-0.06); Absolute Basophil Count 0.02 10^3/uL (0.0-0.2); Absolute Eosinophil Count 0.11 10^3/uL (0.0-0.7); Absolute Lymphocyte Count 0.99 10^3/uL (1.2-3.4); Absolute Monocyte Count 1.31 10^3/uL (0.1-0.8); Absolute Neutrophil Count 9.43 10^3/uL (1.2-6.7); Basophils % 0.2; Eosinophils % 0.9; HCT 38.5 % (40.0-50.0); HGB 12.9 g/dL (13.5-17.5); Immature Grans % 0.4; Lymphocytes % 8.3; MCH 33.3 pg (27.0-33.0); MCHC 33.5 % (32.0-36.0); MCV 99.5 fL (80-95); MPV 10.1 fL (8.0-11.0); Neutrophils % 79.2; Nucleated RBC 0 %; Platelet Count 172 10^3/uL (130-400); RBC 3.87 10^6/uL (4.36-5.78); RDW 15.4 % (11.8-14.1); RDW-SD 55.7 fL; WBC 11.91 10^3/uL (4.4-10.8)
[2020-02-15 08:52] LABS: ALT 23 U/L (16-63); AST 24 U/L (15-37); Albumin 2.5 g/dL (3.4-5.0); Alkaline Phosphatase 82 U/L (46-116); Anion Gap 7.1 mmol/L (3-11); BUN 6 mg/dL (7-18); Bilirubin, Direct 0.27 mg/dL (0.00-0.20); C-Reactive Protein 8.44 mg/dL (0.0-0.3); CO2 24.9 mmol/L (21.0-32.0); CREATININE 0.63 mg/dL (0.70-1.30); Calcium 8.3 mg/dL (8.5-10.1); Chloride 104 mmol/L (98-107); Glucose 91 mg/dL (74-106); Magnesium 1.7 mg/dL (1.8-2.4); Potassium 3.7 mmol/L (3.5-5.1); Sodium 136 mmol/L (136-145); Total Protein 5.5 g/dL (6.4-8.2)
[2020-02-15] MEDS: MAGNESIUM SULFATE 2 GM/50 ML BAG IVPB (09:41)
[2020-02-15 09:45] LABS: COVID-19 RT-PCR UVMMC Result Negative (Negative)
--- NOTE | 2020-02-15 10:33 | PHA.REVIEW ---
Pharmacy Admission Review - Admission Clinical Review (Last Updated 02/14/20 @ 13:12 by Salina Jiménez NP) Acute pancreatitis (Acute) DVT prophylaxis (Acute) No Known Allergies Allergy (Unverified 02/05/20 12:14) Height 6 ft 3.98 in Weight 63.503 kg - Renal Dosing Renal Dosing: BUN 6 mg/dL (7-18) L 02/15/20 08:12 Creatinine 0.63 mg/dL (0.70-1.30) L 02/15/20 08:12 Medications needing adjustments: Reviewed (CRCL ~112ML/MIN) - Anticoagulation Anticoagulation: Hgb 12.9 g/dL (13.5-17.5) L 02/15/20 08:12 Hct 38.5 % (40.0-50.0) L 02/15/20 08:12 Plt Count 172 10^3/uL (130-400) 02/15/20 08:12 Creatinine 0.63 mg/dL (0.70-1.30) L 02/15/20 08:12 DVT Prohphylaxis: Reviewed Medications: Enoxaparin Therapeutic Anticoagulation: N/A - Opiate Usage Scheduled Bowel Reg ordered if on Opiates?: No (PRN) - Relevant Labs Sodium 136 mmol/L (136-145) 02/15/20 08:12 Potassium 3.7 mmol/L (3.5-5.1) 02/15/20 08:12 Chloride 104 mmol/L (98-107) 02/15/20 08:12 Magnesium 1.7 mg/dL (1.8-2.4) L 02/15/20 08:12 C-Reactive Protein 8.44 mg/dL (0.0-0.3) H 02/15/20 08:12 Electrolytes, C-Reactive P, ESR: Reviewed (Mag replacement ordered) - DM Control DM Control: Glucose 91 mg/dL (74-106) 02/15/20 08:12 Insulin Dosing: N/A - Heart Failure/KS Heart Failure/KS: Troponin I < 0.05 ng/mL (<0.06) 02/14/20 10:46 - BP Control BP Control: Blood Pressure 154/88 Blood Pressure 157/91 Blood Pressure 155/94 If elevated: Reviewed (no bp meds on home med list) - Qtc Review If Elevated: N/A - IV to PO Switch IV Medications: Reviewed (IV pain meds PO CIWA meds) - Home Meds Home Med List reviewed: Reviewed - Current meds Current Medication Order Review: Reviewed - Comments Comments/Follow Ups: CIWA protocol and meds ordered
--- NOTE | 2020-02-15 11:19 | PDOC.CMIN ---
- If Service Date Differs Date of service: 02/15/20 Time of Service: 11:20 Care Management Initial Assess REASON FOR HOSPITALIZATION:: Acute pancreatitis PAST MEDICAL HISTORY/PAST SURGICAL HISTORY:: Medical History (Updated 02/14/20 @ 13:14 by Salina Jiménez NP). Chronic alcohol use. Discharge planning issues. Pancreatitis. Tobacco dependence PREVIOUS FUNCTIONAL STATUS/SOCIAL/FAMILY SUPPORTS:: Acosta resides with his mother in [facility]. 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 He is independent at baseline, although he does not drive at this time. He stated that he has family/friend supports locally, and that he helps care for his mother. CURRENT FUNCTIONAL STATUS:: Acosta was siting up in bed when CM met with him. He informed CM that a addictions recovery specialist had just called him and would be helping him find treatment at discharge. (CM made the referral to addictions recovery specialist this morning). Acosta talked for a long time about his drinking and how and when it started. He shared that he used to do heavy drugs but had gotten clean. That is when he started drinking alcohol. He verbalized that he knows he should not drink at all and has cut down to about 6 beers a day and no hard liquor. He said he used to drink 30-40 beers a day. Acosta also shared that he is in pain every day with the pancreatitis. He has difficulty eating and vomits often. he admitted to being discouraged by the whole cycle. he also informed CM that every one around him drinks heavily, including his mother, boss and friends at work and that they continue to offer him hard liquor, even while knowing he is not supposed to drink. ADVANCE DIRECTIVES:: none on file Has patient been provided with info about the portal/API?: Yes Did the patient sign up for the portal?: No CODE STATUS:: Full Code INSURANCE COVERAGE / FINANCIAL ISSUES:: Medicaid. Financial assist CURRENT HOME/COMMUNITY SERVICES/EQUIPMENT:: none PRIMARY CARE PHYSICIAN:: Antonio Haprer POTENTIAL DISCHARGE NEEDS:: follow up with PCP and discharge plan of care. possible substance abuse treatment PATIENT/FAMILY EDUCATION NEEDS:: Discharge plan, limitations, follow up plan, [employer] TRANSPORTATION:: via private vehicle with friend/family PLAN:: Acosta will be discharged home with no new services. Hopefully he can find placement in an alcohol rehab program soon. He will follow up with his PCP and discharge plan of care. CM will continue to support Acosta and assess for discharge planning considerations.
[2020-02-15 11:35] VITALS: BP 160/101; PULSE 71; RESP 17; TEMP 36.4; O2SAT 97
[2020-02-15] MEDS: Nicotine 14 MG/24 HR PATCH TD (11:43)
--- NOTE | 2020-02-15 13:44 | W.PM.PROGNOT ---
Date of Service Date of service: 02/15/20 Time of Service: 13:45 Assessment and Plan Assessment and plan (1) Acute pancreatitis: Start date: 02/14/20 Start time: 13:12 Status: Acute Assessment and plan: Last drink was 2 days ago. He is being monitored for alcohol withdrawal on CIWA, scoring 3 & 6 today. Continue PO thiamine, folic acid and multivitamin Lipase 4481 on presentation. His abdominal pain has improved. Trial clear liquid diet. Continue dilaudid for pain and antiemetics. Continue IV fluids until tolerating PO well. Qualifiers: Pancreatitis type: alcohol induced Acute pancreatitis complication: unspecified Qualified Code(s): K85.20 - Alcohol induced acute pancreatitis without necrosis or infection (2) Chronic alcohol use: Start date: 02/14/20 Start time: 13:14 Status: Chronic Assessment and plan: He is being monitored for withdrawal as above. He has been connected with a assistant cross country coach. He is interested in rehab. His assistant cross country coach will help facilitate getting him into rehab. Continue to monitor for withdrawal and medicate per protocol. (3) Pancreatic pseudocyst: Start date: 02/14/20 Start time: 13:14 Status: Chronic Assessment and plan: Chronic per CT on 02/04 (4) Tobacco dependence: Start date: 02/14/20 Start time: 13:14 Status: Chronic Assessment and plan: Encourage smoking cessation. Nicotine replacement as needed. (5) DVT prophylaxis: Start date: 02/14/20 Start time: 13:15 Status: Acute Assessment and plan: Enoxaparin subcu, scd/teds Above case discussed with Dr. Petersen who is in agreement. Subjective Subjective Interval history since last seen: Acosta reports that he is feeling better, he has gone several hours without IV dilaudid. His abdominal pain has improved, his back is sore. He denies nausea or vomiting. He has not had a BM. He is a little shakey and anxious. His CIWA scores have been 3 & 6 today. He is interested in trying PO fluids. He has been connected with a assistant cross country coach. He is interested in going to alcohol rehab. His assistant cross country coach will help facilitate this. Exam Narrative Exam Narrative: General: thin, chronically ill appearing 39 year old man, laying in bed, awakens easily to verbal stimuli. Answers questions appropriately. + Diaphoretic. HEENT: normocephalic, atraumatic, pupils equal and round, poor dentition. Multiple broken teeth with caries. Neck: supple. Cardiovascular: heart has regular rate and rhythm, nontachycardic, no murmur appreciated. Respiratory: respirations appear even and unlabored, lung sounds diminished at bases, no rales or wheezing. GI: abdomen slightly distended, nontender on gentle palpation, +bs x4 quadrants. Extremities: no cyanosis or edema. Objective Last Vital Signs Temp 36.4 C L 02/15/20 11:35 Pulse 71 02/15/20 11:35 Resp 17 02/15/20 11:35 BP 160/101 H 02/15/20 11:35 Pulse Ox 97 02/15/20 11:35 Laboratory Results - last 24 hr 02/14/20 02/15/20 02/15/20 12:41 08:12 08:12 WBC 11.91 H D RBC 3.87 L Hgb 12.9 L Hct 38.5 L MCV 99.5 H D MCH 33.3 H MCHC 33.5 RDW 15.4 H Plt Count 172 MPV 10.1 Immature Gran % 0.4 Neutrophils % 79.2 Lymphocytes % 8.3 Monocytes % 11.0 Eosinophils % 0.9 Basophils % 0.2 Nucleated RBC % 0 Absolute Neutrophils 9.43 H Absolute Lymphocytes 0.99 L Absolute Monocytes 1.31 H Absolute Eosinophils 0.11 Absolute Basophils 0.02 Sodium 136 Potassium 3.7 Chloride 104 Carbon Dioxide 24.9 Anion Gap 7.1 BUN 6 L Creatinine 0.63 L Estimated GFR/1.73 m2 >= 60.00 Glucose 91 Calcium 8.3 L Magnesium 1.7 L Total Bilirubin 1.0 Conjugated Bilirubin 0.27 H AST 24 ALT 23 Alkaline Phosphatase 82 C-Reactive Protein 8.44 H Total Protein 5.5 L Albumin 2.5 L COVID-19 PCR Negative Nasopharyn COVID-19 PCR Not Applicable Ref Test Perform Site [facility] lab
[2020-02-15] MEDS: Enoxaparin 40 MG/0.4 ML SYR SC (14:20)
[2020-02-15 15:39] VITALS: BP 138/86; PULSE 77; RESP 19; TEMP 36.4; O2SAT 99
[2020-02-15] MEDS: LORazepam 1 MG TAB PO/SL ×2 (16:03→20:12)
[2020-02-15 19:40] VITALS: BP 147/90; PULSE 78; RESP 18; TEMP 37.6; O2SAT 99
[2020-02-15 23:20] VITALS: BP 144/95; PULSE 88; RESP 18; TEMP 36.3; O2SAT 98
[2020-02-16] MEDS: Normal Saline 1,000 ML 175 ML IV ×2 (03:03→08:32)
[2020-02-16] MEDS: Acetaminophen 325 MG TAB 650 MG PO ×2 (03:09→21:39)
[2020-02-16 03:35] VITALS: BP 146/89; PULSE 95; RESP 18; TEMP 36.8; O2SAT 98
[2020-02-16 07:34] LABS: Abs Immature Grans 0.03 10^3/uL (0.0-0.06); Absolute Basophil Count 0.02 10^3/uL (0.0-0.2); Absolute Eosinophil Count 0.18 10^3/uL (0.0-0.7); Absolute Lymphocyte Count 0.95 10^3/uL (1.2-3.4); Absolute Neutrophil Count 6.88 10^3/uL (1.2-6.7); Basophils % 0.2; HCT 34.4 % (40.0-50.0); HGB 11.5 g/dL (13.5-17.5); Immature Grans % 0.3; Lymphocytes % 10.6; MCH 32.8 pg (27.0-33.0); MCHC 33.4 % (32.0-36.0); MPV 10.4 fL (8.0-11.0); Neutrophils % 76.9; Nucleated RBC 0 %; Platelet Count 174 10^3/uL (130-400); RBC 3.51 10^6/uL (4.36-5.78); RDW 14.9 % (11.8-14.1); RDW-SD 54.1 fL; WBC 8.96 10^3/uL (4.4-10.8)
[2020-02-16 07:35] VITALS: BP 124/97; PULSE 87; RESP 18; TEMP 37.2; O2SAT 97
[2020-02-16 08:00] LABS: ALT 25 U/L (16-63); AST 35 U/L (15-37); Albumin 2.2 g/dL (3.4-5.0); Alkaline Phosphatase 100 U/L (46-116); Anion Gap 2.4 mmol/L (3-11); BUN 4 mg/dL (7-18); Bilirubin, Direct 0.26 mg/dL (0.00-0.20); Bilirubin, Total 0.8 mg/dL (0.2-1.0); C-Reactive Protein 10.85 mg/dL (0.0-0.3); CO2 24.6 mmol/L (21.0-32.0); CREATININE 0.56 mg/dL (0.70-1.30); Calcium 7.8 mg/dL (8.5-10.1); Chloride 101 mmol/L (98-107); Glucose 95 mg/dL (74-106); Magnesium 1.8 mg/dL (1.8-2.4); Potassium 3.4 mmol/L (3.5-5.1); Sodium 128 mmol/L (136-145); Total Protein 5.1 g/dL (6.4-8.2)
[2020-02-16] MEDS: Normal Saline Flush 10 ML SYR IVP ×2 (08:18→13:54)
[2020-02-16] MEDS: Multivitamin TAB 1 TAB PO (08:20)
[2020-02-16] MEDS: Folic Acid 1 MG TAB PO (08:21)
[2020-02-16] MEDS: Pantoprazole 40 MG VIAL IVP (08:21)
[2020-02-16] MEDS: Thiamine 100 MG TAB PO (08:21)
[2020-02-16] MEDS: LORazepam 1 MG TAB PO/SL ×2 (08:46→13:36)
--- NOTE | 2020-02-16 08:56 | PDOC.CMPRO ---
- If Service Date Differs Date of service: 02/16/20 Time of Service: 08:56 Care Management Progress Note S/O: Acosta verbalized that he was very anxious and did not sleep well because of it. This was noted by CM during the visit as he had difficulty maintaining eye contact . He was blinking a lot and his gaze was constantly darting around the room. Acosta also expressed concern about what will happen when he is discharged. He verbalized that he cannot be out of work yet he works with a lot of people who regularly drink alcohol on the job. Acosta was waiting for a call from his transit coach operator who will try to help him with placement in a rehab facility. His CIWA scores have been higher than in the past and he has required medication today. A: Acosta is a 39 year old man admitted on 02/14/20 with pancreatitis P:Acosta will be discharged home with no new services. Hopefully he can find placement in an alcohol rehab program soon. He will follow up with his PCP and discharge plan of care. CM will continue to support Acosta and assess for discharge planning considerations.
[2020-02-16] MEDS: Potassium Chloride 20 MEQ TABCR 40 MEQ PO (09:40)
[2020-02-16] MEDS: Nicotine 14 MG/24 HR PATCH TD ×2 (10:25→22:09)
[2020-02-16 11:24] VITALS: BP 134/79; PULSE 86; RESP 18; TEMP 37.4; O2SAT 99
[2020-02-16] MEDS: Enoxaparin 40 MG/0.4 ML SYR SC (13:36)
[2020-02-16] MEDS: HYDROmorphone 2 MG/ML VIAL 1 MG IVP ×2 (13:53→21:40)
--- NOTE | 2020-02-16 14:13 | PGE_ITS ---
Date of Service Date of service: 02/16/20 Time of Service: 14:15 Assessment and Plan Assessment and plan (1) Acute pancreatitis: Start date: 02/16/20 Start time: 14:25 Status: Acute Assessment and plan: Feeling better, Pain improved, tolerating diet. D/c IVF. Possible discharge in am Qualifiers: Pancreatitis type: alcohol induced Acute pancreatitis complication: u nspecified Qualified Code(s): K85.20 - Alcohol induced acute pancreatitis without necrosis or infection (2) Chronic alcohol use: Start date: 02/16/20 Start time: 14:27 Status: Chronic Assessment and plan: Continues to drink last drink, evening before admission he does have slight tremors day day 3 this evening. (3) Pancreatic pseudocyst: Start date: 02/16/20 Start time: 14:28 Status: Chronic Assessment and plan: Chronic per CT on 02/04 (4) Tobacco dependence: Start date: 02/16/20 Start time: 14:28 Status: Chronic Assessment and plan: Continue to assess readiness to quit Nicotine replacement as needed. (5) DVT prophylaxis: Start date: 02/16/20 Start time: 14:28 Status: Acute Assessment and plan: Enoxaparin subcu, scd/teds Above case discussed with Dr. Petersen who is in agreement. Subjective Subjective Patient reports: feels better Interval history since last seen: Feeling better, tolerating soft foods. No vomiting. Pain improving. Possible discharge in am. Exam Narrative Exam Narrative: General: thin, chronically ill appearing 39 year old man, laying in bed, sitting up in Answers questions appropriately. Slight tremors HEENT: normocephalic, atraumatic, pupils equal and round, poor dentition. Multiple broken teeth with caries. Neck: supple. Cardiovascular: heart has regular rate and rhythm, nontachycardic, no murmur appreciated. Respiratory: respirations appear even and unlabored, lung sounds diminished at bases, no rales or wheezing. GI: abdomen slightly distended, nontender on gentle palpation, +bs x4 quadrants. Extremities: no cyanosis or edema. Objective Last Vital Signs Temp 37.4 C 02/16/20 11:24 Pulse 86 02/16/20 11:24 Resp 18 02/16/20 11:24 BP 134/79 02/16/20 11:24 Pulse Ox 99 02/16/20 11:24 Laboratory Results - last 24 hr 02/16/20 02/16/20 07:11 07:11 WBC 8.96 RBC 3.51 L Hgb 11.5 L Hct 34.4 L MCV 98.0 H MCH 32.8 MCHC 33.4 RDW 14.9 H Plt Count 174 MPV 10.4 Immature Gran % 0.3 Neutrophils % 76.9 Lymphocytes % 10.6 Monocytes % 10.0 Eosinophils % 2.0 Basophils % 0.2 Nucleated RBC % 0 Absolute Neutrophils 6.88 H Absolute Lymphocytes 0.95 L Absolute Monocytes 0.90 H Absolute Eosinophils 0.18 Absolute Basophils 0.02 Sodium 128 L Potassium 3.4 L Chloride 101 Carbon Dioxide 24.6 Anion Gap 2.4 L BUN 4 L Creatinine 0.56 L Estimated GFR/1.73 m2 >= 60.00 Glucose 95 Calcium 7.8 L Magnesium 1.8 Total Bilirubin 0.8 Conjugated Bilirubin 0.26 H AST 35 ALT 25 Alkaline Phosphatase 100 C-Reactive Protein 10.85 H Total Protein 5.1 L Albumin 2.2 L
--- NOTE | 2020-02-16 14:49 | W.NUTCONSULT ---
Date of service: 02/16/20 Time of Service: 14:49 Nutritional Consult ASSESSMENT: 39 year old male readmitted with pancreatic pseudocyst. Has lost 22 lbs in last month with BMI <19 indicating underweight status and at high nutritional risk. Lipase: 4481 at admit. Long hx of etoh abuse, willing to go to rehab after this admission. Met with Acosta today, he reports having on going n/v/d over last couple months, did not realize that he has lost more weight. He presents with severe malnutrition in context of chronic illness with > 15% weight loss in last 6 months due to inability to meet nutrient needs due to ongoing symptoms for pancreatitis related to alcohol abuse. Estimated Needs: [id number] kcal, 70-80 g protein. Very poor dentition with multiple decaying health requiring soft bite size meals. Recommend swiching to low fat meals, MD and dietary aware. Spoke to Acosta again, he agrees to drink ensure clearn TID and reviewed easy to digest foods. reports difficulty digesting milk products. NUTRITIONAL DIAGNOSIS: ensure clear TID low fat, dairy free soft bite size meals INTERVENTION: Educated Acosta on low fat/dairy free diet for symptom management and encouraged him to complete ensure clear TID for additional calories/protein MONITORING AND EVALUATION: diet tolerance, weight, po intake Time Spent in Nutritional Counseling and Treatment: 15 min spent face to face
[2020-02-16 15:59] VITALS: BP 138/84; PULSE 75; RESP 17; TEMP 36.9; O2SAT 100
[2020-02-16] MEDS: traMADol 50 MG TAB PO (18:19)
[2020-02-16 19:05] VITALS: BP 147/85; PULSE 89; RESP 18; TEMP 37; O2SAT 99
[2020-02-17 00:30] VITALS: BP 121/78; PULSE 82; RESP 18; TEMP 35.9; O2SAT 97
[2020-02-17] MEDS: LORazepam 1 MG TAB PO/SL ×2 (02:39→08:26)
[2020-02-17] MEDS: HYDROmorphone 2 MG/ML VIAL 1 MG IVP ×2 (02:40→08:17)
[2020-02-17] MEDS: Normal Saline Flush 10 ML SYR IVP (02:55)
[2020-02-17 04:43] VITALS: BP 119/82; PULSE 78; RESP 18; TEMP 36.2; O2SAT 97
[2020-02-17 07:35] LABS: Anion Gap 7.3 mmol/L (3-11); BUN 4 mg/dL (7-18); CO2 26.7 mmol/L (21.0-32.0); CREATININE 0.53 mg/dL (0.70-1.30); Calcium 8.4 mg/dL (8.5-10.1); Chloride 100 mmol/L (98-107); Glucose 99 mg/dL (74-106); Magnesium 1.8 mg/dL (1.8-2.4); Potassium 3.3 mmol/L (3.5-5.1); Sodium 134 mmol/L (136-145)
[2020-02-17 07:51] VITALS: BP 135/88; PULSE 83; RESP 16; TEMP 36.9; O2SAT 99
[2020-02-17] MEDS: Folic Acid 1 MG TAB PO (08:20)
[2020-02-17] MEDS: Thiamine 100 MG TAB PO (08:20)
[2020-02-17] MEDS: Multivitamin TAB 1 TAB PO (08:20)
[2020-02-17] MEDS: Potassium Chloride 20 MEQ TABCR 40 MEQ PO (08:27)
--- NOTE | 2020-02-17 10:10 | W.PM.DS.N ---
Date of service: 02/17/20 Time of Service: 10:10 DS: Diagnosis Discharge Diagnosis (1) Acute pancreatitis: Start date: 02/17/20 Start time: 10:10 Status: Acute Asessment and Plan: Acute on chronic with psuedocyst. Pain has improved. Tolerating soft bland diet. Last drink was prior to evening of admission. Highest CIWA during admission was 7 . Overnight he was 0. (2) Chronic alcohol use: Start date: 02/17/20 Start time: 10:17 Status: Chronic Asessment and Plan: Interested in assistant softball coach. Will need to follow up with as an outpatient. (3) Pancreatic pseudocyst: Start date: 02/17/20 Start time: 10:17 Status: Chronic Asessment and Plan: Stable. Continue to monitor. (4) Tobacco dependence: Start date: 02/17/20 Start time: 10:17 Status: Chronic Asessment and Plan: Continue smoking cessation Above case discussed with Dr. petersen who is in agreement. Discharge Plan Disposition Patient Disposition: HOME Condition: Improving Discharge Details Reason For Visit: ACUTE PANCREATITIS, ALCOHOL ABUSE Admit Date/Time: 02/14/20 12:15 Admit Provider: Charlotte Petersen Attending Provider: Charlotte Petersen Primary Care Provider: Antonio Harper [facility] Course Hospital Course: 39 y.o male with alcohol abuse, history of pancreatitis, presented to ED with vomiting and abdominal pain, consistent with recurrent pancreatitis. Most recent CT was 02/05/2020 noted Stable appearance of acute/subacute/chronic pancreatitis. Pancreatic pseudocyst noted, marked duodenal dilatation and wall thickening noted. Thickening of the wall of the transverse colon also noted adjacent to the involved right upper quadrant region. therefore CT not done at this time. Labs showing lipase 4881, Potassium 3.3, mag 1.7. He was admitted for further management. Over course of hospitalization he was set up with assistant softball coach. He did have CIWA score as high as 6 overnight 0. He has not had withdrawal symptoms before. Pain has improved. He was able to tolerate soft diet without nausea or vomiting. Potassium was repleted with PO potassium and IV mag. He is being discharged home. He denies CP, SOB, N/V/D Home Meds and New Rx's Prescriptions: New hydrocodone-acetaminophen 5-325 mg tablet 1 tab PO Q8H PRNQty: 10 RF: 0 Continued ondansetron HCl [Zofran] 4 mg tablet 4 mg PO BID RF: 0 sertraline 50 mg tablet 50 mg PO DAILY RF: 0 Discontinued tramadol 50 mg tablet 50 mg PO BID PRN (Reason: pain) Qty: 7 RF: 0 No Action omeprazole 40 mg capsule,delayed release(DR/EC) 20 mg PO DAILY RF: 0 Discharge Instructions Instructions: Pancreatitis (DC), Pancreatic Pseudocyst (DC) Additional Instructions: Follow up with personal coach as outpatient STOP DRINKING Soft bland diet as tolerated. Drink plenty of water Activity:: Activity as Tolerated Equipment/Supplies:: No Equipment Needed Diet:: As Tolerated Discharge Orders Discharge Orders: Discharge Order (Routine); Ordered 02/17/20 Ordered By: Salina Jiménez DS: Summary Status at Discharge Functional status at discharge: independent ambulation Overall status at discharge: patient is back to baseline Mental Status: mental status grossly normal Speech and Movement: speech and movement normal Mood: congruent mood Affect: normal affect Exam Narrative Exam Narrative: General: thin, chronically ill appearing 39 year old man, laying in bed, sitting up in Answers questions appropriately. Slight tremors HEENT: normocephalic, atraumatic, pupils equal and round, poor dentition. Multiple broken teeth with caries. Neck: supple. Cardiovascular: heart has regular rate and rhythm, nontachycardic, no murmur appreciated. Respiratory: respirations appear even and unlabored, lung sounds diminished at bases, no rales or wheezing. GI: abdomen slightly distended, nontender on gentle palpation, +bs x4 quadrants. Extremities: no cyanosis or edema. Psych Mental Status: mental status grossly normal Speech and Movement: speech and movement normal Mood: congruent mood Affect: normal affect DS: Data Vitals/I&O Vitals and I&O: Vital Signs Temperature 36.9 C 02/17/20 07:51 Temperature Source Tympanic 02/17/20 07:51 Pulse 83 02/17/20 07:51 Pulse Rhythm Regular 02/17/20 04:43 Respiratory Rate 16 02/17/20 07:51 Respiratory Effort Non-Labored 02/17/20 04:43 Respiratory Depth Normal 02/17/20 04:43 Respiratory Pattern Normal 02/17/20 04:43 Blood Pressure 135/88 02/17/20 07:51 Blood Pressure Mean 123 02/14/20 14:30 Blood Pressure Position Sitting 02/14/20 10:34 Pulse Oximetry 99 02/17/20 07:51 Oxygen Delivery Method Room Air 02/17/20 07:51 Oxygen Flow Rate 0 02/17/20 07:51 Pain Level 8 02/17/20 08:17 Comment 02/15/20 11:35 Intake & Output 02/16/20 02/16/20 02/17/20 11:59 23:59 11:59 Intake Total 2264.167 / 2984.167 720 / 2984.167 540 / 540 Output Total 100 / 100 Balance 2164.167 / 2884.167 720 / 2884.167 540 / 540 Weight 70.1 kg 66.361 kg Intake: IV 2023.167 / 2023.167 Oral 240 / 960 720 / 960 540 / 540 Output: Urine 100 / 100 Other: Urine Color Yellow Urine Appearance Clear Urine Odor None Comment Patient voids independently in toilet in room, per patient. Voiding Methods Toilet Toilet Data Completed and Pending Labs on day of discharge: Labs from last 24 hours 02/17/20 06:36 Sodium 134 L Potassium 3.3 L Chloride 100 Carbon Dioxide 26.7 Anion Gap 7.3 BUN 4 L Creatinine 0.53 L Estimated GFR/1.73 m2 >= 60.00 Glucose 99 Calcium 8.4 L Magnesium 1.8 PFSH Medical History Chronic alcohol use Discharge planning issues Pancreatitis Tobacco dependence Social History Smoking/Tobacco Use Status: Current every day Tobacco Type: cigarettes Alcohol Intake: current Alcohol Intake frequency: 3 or more drinks per day Drug use: Occasionally Substance use type: marijuana Do you feel safe at home: Yes Do you feel safe in your relationship?: Yes
[2020-02-17 11:11] VITALS: BP 121/83; PULSE 87; RESP 17; TEMP 36.3; O2SAT 99
--- NOTE | 2020-02-17 18:02 | CMDISCH_ITS ---
- If Service Date Differs Date of service: 02/17/20 Time of Service: 18:02 LACE Index Scoring Tool - Questions: Length of Stay (in days): 4 - 6 Acuity (Admit via E.D.?): Yes E.D. Visits: 7 - Answers: Total Score: 11 Risk of Readmission: High Risk Care Management Discharge Reason for Hospitalization: Acute pancreatitis Discharge Plan: Acosta will return home with no additional services today. He will follow up with his manager disaster recovery, who will follow him in the community. He r eported that he is considering rehab in order to quit drinking, as he stated that it is contributing to his poor health and several admissions. He will be driven home by a friend via private vehicle. He will follow up with his PCP and discharge plan of care. Patient/Family Education Needs: Review discharge instructions, discussion of self care needs and goals of care.
== END 2020-02-17 11:23 | disposition home or self-care (01) | DRG 439 ==
LOC: ER 12:26 → MS 14:55
PROVIDERS: Nurse Practitioner Family; Admitting Provider Internal Medicine; Emergency Provider Physician Assistant; PCP Neuromusculoskeletal Medicine & OMM; Visit Provider Internal Medicine
DX: K85.20 Alcohol induced acute pancreatitis without necrosis or infection (principal); K86.3 Pseudocyst of pancreas; F17.210 Nicotine dependence, cigarettes, uncomplicated; F10.10 Alcohol abuse, uncomplicated; K86.0 Alcohol-induced chronic pancreatitis
CPT/HCPCS: 36415; 80048; 80053; 80076; 80307; 83690; 96361; 96365; 96366; 96375; 96376; 99223; 99232; 99233; 99239; 99285; J1650; U0003; 83735; 84478; 84484; 85025; 86140; 99284; J0780; J2405; J3490

== ENCOUNTER 2020-04-17 00:41 | Inpatient (IN) | payer MEDICAID, SELFPAY ==
[2020-04-17] VITALS (9 sets, daily range): BP systolic 100–151; BP diastolic 70–96; PULSE 56–93; RESP 16–18; TEMP 36.6–37.1; O2SAT 96–100
--- NOTE | 2020-04-17 01:02 | ED.GENADUL_ITS ---
Discharge Plan Disposition Patient Disposition: [facility] INPATIENT Condition: Poor Discharge Details Chief Complaint: Abd Prob Clinical Impression: Pancreatitis Primary Care Provider: Antonio Harper ED Provider: Antonio Nunez Meds and New Rx's Prescriptions: No Action ondansetron HCl [Zofran] 4 mg tablet 4 mg PO BID RF: 0 omeprazole 40 mg capsule,delayed release(DR/EC) 20 mg PO DAILY RF: 0 tramadol 50 mg tablet 50 mg PO TID PRNRF: 0 HPI General Mode of arrival: ambulatory . Date/Time Provider Initiated Documentation: 04/17/20 00:42 . Limitations to Documentation: no limitations . Information obtained by: patient, RN notes reviewed and old records reviewed . Related Data Home Medications Medication Instructions Recorded Confirmed omeprazole 20 mg PO DAILY 12/31/19 04/17/20 ondansetron HCl [Zofran] 4 mg PO BID 12/31/19 04/17/20 tramadol 50 mg PO TID PRN 04/17/20 04/17/20 Allergies Allergy/AdvReac Type Severity Reaction Status Date / Time No Known Allergies Allergy Unverified 04/17/20 00:48 General Stated Complaint: Abd Prob DEIDRE: 3 PFSH Medical History Chronic alcohol use Discharge planning issues Pancreatitis Tobacco dependence Social History Smoking/Tobacco Use Status: Current every day Tobacco Type: cigarettes Smoking risk assessment performed?: Yes Alcohol Intake: current Alcohol Intake frequency: a few times a week Drug use: Occasionally Substance use type: marijuana Do you feel safe at home: Yes Do you feel safe in your relationship?: Yes Course Vital Signs Vital signs: Vital Signs Temperature 97.9 F 04/17/20 00:45 Pulse 93 H 04/17/20 00:45 Respiratory Rate 16 04/17/20 00:45 Blood Pressure 100/83 04/17/20 00:45 Pulse Oximetry 99 04/17/20 00:45 Temperature 97.9 F 04/17/20 00:45 Temperature Source Skin 04/17/20 00:45 Pulse 93 H 04/17/20 00:45 Respiratory Rate 16 04/17/20 00:45 Blood Pressure 100/83 04/17/20 00:45 Blood Pressure Position Sitting 11/28/20 00:45 Pulse Oximetry 99 04/17/20 00:45 Oxygen Delivery Method Room Air 04/17/20 00:45 Oxygen Flow Rate 0 04/17/20 00:45 Pain Level 9 04/17/20 00:45
[2020-04-17] MEDS: MORPHine 10 MG/ML VIAL 4 MG IVP (01:39)
[2020-04-17] MEDS: Ondansetron 4 MG/2 ML VIAL IVP (01:40)
[2020-04-17] MEDS: Lactated Ringers 1,000 ML 2000 ML IV (01:40)
[2020-04-17 01:41] LABS: Abs Immature Grans 0.19 10^3/uL (0.0-0.06); Absolute Basophil Count 0.07 10^3/uL (0.0-0.2); Absolute Eosinophil Count 0.36 10^3/uL (0.0-0.7); Absolute Monocyte Count 1.48 10^3/uL (0.1-0.8); Absolute Neutrophil Count 8.72 10^3/uL (1.2-6.7); Basophils % 0.6; Eosinophils % 2.9; HCT 43.6 % (40.0-50.0); HGB 14.7 g/dL (13.5-17.5); Immature Grans % 1.5; Lymphocytes % 12.2; MCH 32.8 pg (27.0-33.0); MCHC 33.7 % (32.0-36.0); MCV 97.3 fL (80-95); MPV 10.2 fL (8.0-11.0); Neutrophils % 70.8; Nucleated RBC 0 %; Platelet Count 267 10^3/uL (130-400); RBC 4.48 10^6/uL (4.36-5.78); RDW 13.6 % (11.8-14.1); RDW-SD 49.1 fL; WBC 12.32 10^3/uL (4.4-10.8)
[2020-04-17 02:12] LABS: ALT 138 U/L (16-63); AST 103 U/L (15-37); Albumin 3.7 g/dL (3.4-5.0); Alkaline Phosphatase 749 U/L (46-116); BUN 10 mg/dL (7-18); Bilirubin, Direct 0.89 mg/dL (0.00-0.20); Bilirubin, Total 1.7 mg/dL (0.2-1.0); CO2 28.7 mmol/L (21.0-32.0); CREATININE 0.69 mg/dL (0.70-1.30); Calcium 9.2 mg/dL (8.5-10.1); Glucose 106 mg/dL (74-106); Total Protein 7.4 g/dL (6.4-8.2)
[2020-04-17 02:20] LABS: Lipase 2092 U/L (73-393)
[2020-04-17 02:37] LABS: Anion Gap 6.3 mmol/L (3-11); Chloride 100 mmol/L (98-107); Potassium 4.3 mmol/L (3.5-5.1); Sodium 135 mmol/L (136-145)
--- NOTE | 2020-04-17 03:30 | DI.US_ITS ---
EXAM: US ABDOMEN LIMITED CLINICAL HISTORY: elevated LFTs, pancreatitis TECHNIQUE: Ultrasound performed using standard protocol. COMPARISON: US US ABDOMEN from 08/16/[address] ABDOMEN PELVIS W from 02/05/2020 FINDINGS: Ultrasound examination was performed utilizing right upper quadrant protocol. The examination was te chnically difficult. The pancreas appears enlarged and heterogeneous, cystic mass of the body and he ad of the pancreas appears to correspond to cystic mass identified on CT of February 04. There is increased diameter of the common hepatic duct and common bile duct on today's examination, measuring up to 14 millimeters. There is a question of hepatic contour abnormality or mass between gallbladder and common bile duct, I am uncertain of the etiology of this finding but findings could represent hepatic mass, enlarged du odenum, or enlarged lymph lymph node. Mild hepatomegaly also noted. Note is made of sludge in the gallbladder. No definite stone seen either in the gallbladder or in th e common duct. Right kidney is unremarkable in appearance with no evidence of hydronephrosis or nephrolithiasis. Ao rta and IVC are of normal diameter, portal vein is unremarkable with normal directional flow. IMPRESSION: Marked dilatation of the common bile duct associated with question pancreatitis and/or pancreatic mas s/pseudocyst. Additionally there is question of interval development of masslike focus adjacent to l iver and gallbladder, additional evaluation with CT or MRI is recommended to evaluate hepatic, pancre atic, and duodenal anatomy. MRCP may also be obtained to evaluate the common duct. DATA REPOSITORY:
[2020-04-17] MEDS: Lactated Ringers 1,000 ML 1000 ML IV (03:45)
--- NOTE | 2020-04-17 03:54 | NUR.NOTE ---
Nursing Note: Warm blanket provided to patient.
[2020-04-17] MEDS: Normal Saline Flush 10 ML SYR IVP ×2 (06:26→10:32)
[2020-04-17] MEDS: Normal Saline 50 ML 200 ML ×3 (07:42→12:38)
[2020-04-17] MEDS: Pantoprazole 40 MG VIAL IVP (07:42)
--- NOTE | 2020-04-17 08:16 | W.PM.HP.N ---
Date of service: 04/17/20 Time of Service: 07:32 Assessment and Plan Assessment and plan (1) Acute pancreatitis: Status: Acute Assessment and plan: Patient's elevated lipase and presentation are consistent with recurrence of his pancreatitis. The patient's right upper quadrant pain and picture of biliary obstruction are new, and are concerning for obstruction most likely at the pancreatic duct as he has had pancreatitis focused in his pancreatic head in the past. His pseudocyst could be obstructing the duct. He also has a history of portal vein thrombosis. The plan at the emergency room was to try to avoid another CAT scan and start with the ultrasound. If we can get this today we will do this, otherwise consider repeating the CAT scan or going directly to MRCP. Repeat CBC and CMP have been ordered for early afternoon to follow-up on this morning's labs. Currently n.p.o. on fluids, pain control with hydromorphone and ondansetron antiemetic. Qualifiers: Pancreatitis type: alcohol induced Acute pancreatitis complication: unspecified Qualified Code(s): K85.20 - Alcohol induced acute pancreatitis without necrosis or infection (2) Tobacco dependence: Status: Chronic Assessment and plan: Encourage cessation. Nicotine replacement as desired. (3) Chronic alcohol use: Status: Chronic Assessment and plan: Patient is still doing some alcohol consumption, even though he understands he should not with his condition. He does admit to cravings, I do think he has an alcohol use disorder. We discussed options of treatment for this including acamprosate. I do not think he is a candidate for disulfiram given his recurrent pancreatitis. He may also benefit from a consistent therapy with antianxiety medication given his report of difficulty dealing with stresses at work and turning to alcohol to cope. (4) DVT prophylaxis: Status: Acute Assessment and plan: Lovenox. History of Present Illness History of Present Illness Chief Complaint: Abdominal pain Narrative: 39-year-old male with a history of recurrent pancreatitis initially in the setting of alcohol use with a history of, pancreatic pseudocyst and portal vein thrombosis, who is presenting with increase of his typical epigastric pain for 2 days along with a new sharp right upper quadrant abdominal to mid back pain for the past 2 weeks. Patient states he has had more constant epigastric pain since yesterday. Pain is achy and across the entire epigastrium. Associated with increased vomiting. Did have one 16 ounce beer yesterday after work, and vomited up. He has been trying to eat, but has had difficulty tolerating it. He states he has a new right upper quadrant to mid back pain that has been present for the last 2 weeks. Pain is constant and more sharp and stabbing than his typical pancreatitis pain.. Patient has had difficulty with constipation, did have a bowel movement yesterday. No diarrhea. Patient states he has a goal of not drinking alcohol at all, but states it helps him deal with irritation and anger. He has been prescribed disulfiram in the past, but he stopped it when he wanted to drink. He does not admit to some cravings. He was prescribed sertraline, but he stopped it After a month or 2 because he did not feel like it was working. Patient did have a gastroenterology consult he has Via telehealth with department, but has not been down to [facility]. Several admissions over the past 9 months here at [facility] for pancreatitis. Also of note, patient reports his tramadol ran out on Sunday, 2 days prior to admission. Review of Systems All systems reviewed & are unremarkable except as noted in HPI and below Constitutional Constitutional: Reports anorexia, Denies chills, Denies fever(s), Reports lethargy, Denies weakness and Reports weight loss Eyes Eyes: Denies change in vision and Denies irritation ENT Ears, Nose, Mouth, and Throat: Denies dizziness, Denies nasal congestion, Denies nasal discharge, Denies odynophagia and Denies sore throat Cardiovascular Cardiovascular: Reports lightheadedness, Denies palpitations and Denies orthopnea Respiratory Respiratory: Denies cough, Denies excessive phlegm production and Denies wheezing Gastrointestinal Gastrointestinal: Denies melena, Denies coffee ground emesis, Denies heartburn, Denies odynophagia, Reports vomiting and Denies hematemesis Genitourinary Genitourinary: Denies hematuria, Denies dysuria and Denies urinary incontinence Musculoskeletal Musculoskeletal: Denies arthralgias and Denies joint swelling Integumentary/Breasts Skin/Breast: Denies rash and Denies skin ulcer Neurologic Neurologic: Denies dizziness, Denies sensory deficit, Denies tremor(s) and Denies weakness Psychiatric Psychiatric: Denies mood swings and Denies panic attacks Endocrine Endocrine: Denies palpitations Hematologic/Lymphatic Hematologic/Lymphatic: Denies easy bleeding Allergic/Immunologic Allergic/Immunologic: Denies wheezing [facility] Medical History Chronic alcohol use Discharge planning issues Pancreatitis Tobacco dependence Family History (Updated 04/17/20 @ 08:41 by Acosta Borjas) Other Alcohol abuse Substance abuse Social History (Updated 04/17/20 @ 08:43 by Acosta Borjas) Smoking/Tobacco Use Status: Current every day Tobacco Type: cigarettes Smoking risk assessment performed?: Yes Alcohol Intake: current Alcohol Intake frequency: a few times a week Counseling given: Yes Drug use: Occasionally Substance use type: marijuana Do you feel safe at home: Yes Do you feel safe in your relationship?: Yes Additional Social history: Live in [place] with mother, who is physically disabled 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 Thin. No acute distress at rest. HEENT: Head atraumatic. Conjunctiva clear, no icterus. PEERL, EOMI. no rhinorrhea. MMM, OP benign. Neck is supple with no masses or lymphadenopathy, trachea midline LUNGS: CTAB with normal effort CV: RRR with no murmurs, gallops, or rubs. ABD: no bowell sounds. Diffuse epigastric tenderness, more in RUQ. No HSM to palpation or percussion. No palpable masses. Mild guarding, no rebound. EXT: no cyanosis, clubbing, or edema MSK: No joint redness or swelling NEURO: CN 2-12 grossly intact. Normal movement of 4 extremities. Normal speech and coordination. no tremor SKIN: No rashs or open wounds. PSYCH: normal mood and affect Results Labs Result diagrams: 04/17/20 01:30 04/17/20 01:30 Labs: Laboratory Results - last 24 hr 04/17/20 04/17/20 04/17/20 01:30 01:30 01:30 WBC 12.32 H RBC 4.48 Hgb 14.7 Hct 43.6 MCV 97.3 H MCH 32.8 MCHC 33.7 RDW 13.6 Plt Count 267 MPV 10.2 Immature Gran % 1.5 Neutrophils % 70.8 Lymphocytes % 12.2 Monocytes % 12.0 Eosinophils % 2.9 Basophils % 0.6 Nucleated RBC % 0 Absolute Neutrophils 8.72 H Absolute Lymphocytes 1.50 Absolute Monocytes 1.48 H Absolute Eosinophils 0.36 Absolute Basophils 0.07 Sodium 135 L Potassium 4.3 Chloride 100 Carbon Dioxide 28.7 Anion Gap 6.3 BUN 10 Creatinine 0.69 L Estimated GFR/1.73 m2 >= 60.00 Glucose 106 Calcium 9.2 Total Bilirubin 1.7 H Conjugated Bilirubin 0.89 H AST 103 H ALT 138 H Alkaline Phosphatase 749 H Total Protein 7.4 Albumin 3.7 Lipase 2092 H Last Vital Signs Temp 37.0 C 04/17/20 04:58 Pulse 72 04/17/20 04:58 Resp 17 04/17/20 04:58 BP 151/96 H 04/17/20 04:58 Pulse Ox 99 04/17/20 04:58 COVID-19 Screening Have you, or household traveled for leisure in last 14 days?: No Had IN PERSON contact w/suspected or confirmed C-19 person: No
[2020-04-17] MEDS: Enoxaparin 40 MG/0.4 ML SYR SC (09:39)
[2020-04-17] MEDS: Nicotine 14 MG/24 HR PATCH TD (11:26)
[2020-04-17 12:19] LABS: COVID-19 RT-PCR UVMMC Result Negative (Negative)
--- NOTE | 2020-04-17 12:27 | DI.VRAD_ITS ---
PROCEDURE INFORMATION: Exam: US Abdomen, Limited; Right Upper Quadrant Exam date and time: 04/17/2020 11:21 AM Age: 39 years old Clinical indication: Pain and abnormal findings; Abnormal lab test; Abnormal function test of other organs/systems; Other: Ruq pain; Patient HX: Pancreatitis, elevated lfts. HX of multiple episodes of pancreatitis. TECHNIQUE: Imaging protocol: US abdomen. Real time ultrasound with image documentation. Limited exam focused on the right upper quadrant. COMPARISON: US ABDOMEN 08/16/2019 10:01 AM FINDINGS: Liver: Liver is enlarged and is 19.6 cm. The parenchyma is echogenic with fine echotexture and could reflect hepatic steatosis. Main portal vein is normal and demonstrates normal hepatopetal flow. There is a mass isoechoic to subjacent liver parenchyma and is 2.7 x 2.1 x 1.9 cm adjacent to pancreatic head and lies between gallbladder and common bile duct and lies inferior to lateral left lobe of liver. There is no color flow on Doppler interrogation. Gallbladder: Gallbladder is moderately distended and is 4.8 cm in the transverse diameter. There are layering sludge within the gallbladder. There is no pericholecystic fluid collection. Sonographic Ward's sign is negative. Gallbladder wall is smooth and is of 2.7 mm. Common bile duct: There is mild dilatation of intrahepatic biliary tree. Common bile duct is dilated and is 1.2 cm. Pancreas: Pancreatic duct is mildly dilated and is 4.7 mm. . Pancreas appears heterogeneous and edematous and has small peripancreatic fluid. There is a complex cystic lesion or mass in the body and tail of the pancreas which is 6.3 x 3 x 2.6 cm and is avascular on Doppler interrogation. Right kidney: Visualized right kidney is grossly unremarkable. IMPRESSION: 1. Enlarged heterogeneous pancreas which could be due to edema and might be associated with pancreatitis. Pancreatic duct is dilated and is of 4.7 mm. There is an abnormal cystic mass or lesion in the body and head of the pancreas which on color Doppler demonstrates no flow and could be pseudocyst or abscess or necrotic collections. 2. There is suspected mass between the gallbladder and common bile duct which lies inferior to the carmen hepatitis region and left lobe of liver and could be arising from the left lobe of liver. There is no definite blood flow on Doppler. This could reflect necrotic collection or mass versus enlarged lymph node. CT or MRI correlation is recommended with IV contrast. 3. Dilated common bile duct and pancreatic duct are likely due to obstruction. In addition, there is mild dilatation of intrahepatic biliary tree. 4. Hepatomegaly with hepatic steatosis. 5. Sludge in the gallbladder is likely due to stasis. There is no signs of acute inflammation. Dictated and Authenticated by: Fredrick Maradiaga MD. Ordering:VIRGIE Alvarez MD
[2020-04-17] MEDS: HYDROmorphone 2 MG/ML VIAL 1 MG IVP ×3 (12:38→22:22)
[2020-04-17 13:31] LABS: Abs Immature Grans 0.11 10^3/uL (0.0-0.06); Absolute Basophil Count 0.05 10^3/uL (0.0-0.2); Absolute Lymphocyte Count 1.68 10^3/uL (1.2-3.4); Absolute Monocyte Count 1.07 10^3/uL (0.1-0.8); Absolute Neutrophil Count 4.85 10^3/uL (1.2-6.7); Basophils % 0.6; Eosinophils % 6.1; HCT 41.3 % (40.0-50.0); HGB 13.5 g/dL (13.5-17.5); Immature Grans % 1.3; Lymphocytes % 20.3; MCH 32.7 pg (27.0-33.0); MCHC 32.7 % (32.0-36.0); Neutrophils % 58.7; Nucleated RBC 0 %; Platelet Count 245 10^3/uL (130-400); RBC 4.13 10^6/uL (4.36-5.78); RDW 13.6 % (11.8-14.1); WBC 8.26 10^3/uL (4.4-10.8)
[2020-04-17 13:43] LABS: ALT 118 U/L (16-63); AST 63 U/L (15-37); Albumin 3.1 g/dL (3.4-5.0); Alkaline Phosphatase 604 U/L (46-116); Anion Gap 3.4 mmol/L (3-11); BUN 6 mg/dL (7-18); Bilirubin, Total 1.7 mg/dL (0.2-1.0); CO2 28.6 mmol/L (21.0-32.0); CREATININE 0.68 mg/dL (0.70-1.30); Calcium 8.4 mg/dL (8.5-10.1); Chloride 107 mmol/L (98-107); Glucose 98 mg/dL (74-106); Potassium 4.4 mmol/L (3.5-5.1); Sodium 139 mmol/L (136-145); Total Protein 6.2 g/dL (6.4-8.2)
--- NOTE | 2020-04-17 14:11 | PHA.REVIEW ---
Pharmacy Admission Review - Admission Clinical Review (Last Reviewed 04/17/20 @ 08:40 by Acosta Borjas) Acute pancreatitis (Acute) DVT prophylaxis (Acute) No Known Allergies Allergy (Unverified 04/17/20 00:48) Height 6 ft 4 in Weight 63.503 kg Pancreatitis - Comments Comments/Follow Ups: Pain 11/27, Morphine changed to Hydromorphone, has KCL in IVF's, Trend Lipase, diet is NPO, has had frequent admissions for same reason. Ultrasound today shows: enlarged liver, gallbladder mass/sludge - Renal Dosing Renal Dosing: BUN 6 mg/dL (7-18) L 04/17/20 13:20 Creatinine 0.68 mg/dL (0.70-1.30) L 04/17/20 13:20 Medications needing adjustments: Reviewed (CrCl~112ml/min-no med adjustments) - Anticoagulation Anticoagulation: Hgb 13.5 g/dL (13.5-17.5) 04/17/20 13:20 Hct 41.3 % (40.0-50.0) 04/17/20 13:20 Plt Count 245 10^3/uL (130-400) 04/17/20 13:20 Creatinine 0.68 mg/dL (0.70-1.30) L 04/17/20 13:20 DVT Prohphylaxis: Reviewed Medications: Enoxaparin - Opiate Usage Evaluate Pain Scale/Pains Meds: Reviewed (Hydromorphone) Scheduled Bowel Reg ordered if on Opiates?: No (NO bowel meds-will as MD) - Relevant Labs Sodium 139 mmol/L (136-145) 04/17/20 13:20 Potassium 4.4 mmol/L (3.5-5.1) 04/17/20 13:20 Chloride 107 mmol/L (98-107) 04/17/20 13:20 Electrolytes, C-Reactive P, ESR: Reviewed (Lipase 2091, Bilirubin 1.7, LFT's elevated but decreasing) - DM Control DM Control: Glucose 98 mg/dL (74-106) 04/17/20 13:20 Insulin Dosing: N/A - Heart Failure/KS EF%, MAX's, B-Blockers, Diuretics: N/A - BP Control BP Control: Blood Pressure 120/79 Blood Pressure 113/70 Blood Pressure 151/96 Blood Pressure 129/90 Blood Pressure 138/89 Blood Pressure 138/96 If elevated: N/A - Qtc Review If Elevated: N/A - IV to PO Switch IV Medications: Reviewed (Zofran, Protonix, Hydromorphone, Potassium in IVF) - Home Meds Home Med List reviewed: Reviewed (Tramadol, Omeprazole (has Protonix ordered))
[2020-04-17 15:36] LABS: Lactate 0.8 mmol/L (0.6-1.4)
--- NOTE | 2020-04-17 15:50 | W.PM.PROGNOT ---
Date of Service Date of service: 04/17/20 Time of Service: 15:54 Subjective Subjective Patient reports: other Interval history since last seen: Spoke with Dr. Stevens at [facility] regarding patient u/s results. She feels at this time monitoring daily LFT and bilirubin is the best option with possible EUS, ERCP on Sunday with down and back if patient has continued elevated bilirubin will follow up on Sunday Objective Last Vital Signs Temp 36.7 C 04/17/20 15:38 Pulse 58 L 04/17/20 15:38 Resp 18 04/17/20 15:38 BP 110/70 04/17/20 15:38 Pulse Ox 100 04/17/20 15:38 Laboratory Results - last 24 hr 04/17/20 04/17/20 04/17/20 01:30 01:30 01:30 WBC 12.32 H RBC 4.48 Hgb 14.7 Hct 43.6 MCV 97.3 H MCH 32.8 MCHC 33.7 RDW 13.6 Plt Count 267 MPV 10.2 Immature Gran % 1.5 Neutrophils % 70.8 Lymphocytes % 12.2 Monocytes % 12.0 Eosinophils % 2.9 Basophils % 0.6 Nucleated RBC % 0 Absolute Neutrophils 8.72 H Absolute Lymphocytes 1.50 Absolute Monocytes 1.48 H Absolute Eosinophils 0.36 Absolute Basophils 0.07 VBG Lactate Sodium 135 L Potassium 4.3 Chloride 100 Carbon Dioxide 28.7 Anion Gap 6.3 BUN 10 Creatinine 0.69 L Estimated GFR/1.73 m2 >= 60.00 Glucose 106 Calcium 9.2 Total Bilirubin 1.7 H Conjugated Bilirubin 0.89 H AST 103 H ALT 138 H Alkaline Phosphatase 749 H Total Protein 7.4 Albumin 3.7 Lipase 2092 H COVID-19 PCR Nasopharyn COVID-19 PCR Ref Test Perform Site 04/17/20 04/17/20 04/17/20 03:45 13:20 13:20 WBC 8.26 D RBC 4.13 L Hgb 13.5 Hct 41.3 MCV 100.0 H MCH 32.7 MCHC 32.7 RDW 13.6 Plt Count 245 MPV 10.0 Immature Gran % 1.3 Neutrophils % 58.7 Lymphocytes % 20.3 Monocytes % 13.0 Eosinophils % 6.1 Basophils % 0.6 Nucleated RBC % 0 Absolute Neutrophils 4.85 Absolute Lymphocytes 1.68 Absolute Monocytes 1.07 H Absolute Eosinophils 0.50 Absolute Basophils 0.05 VBG Lactate Sodium 139 Potassium 4.4 Chloride 107 Carbon Dioxide 28.6 Anion Gap 3.4 BUN 6 L Creatinine 0.68 L Estimated GFR/1.73 m2 >= 60.00 Glucose 98 Calcium 8.4 L Total Bilirubin 1.7 H Conjugated Bilirubin AST 63 H ALT 118 H Alkaline Phosphatase 604 H Total Protein 6.2 L Albumin 3.1 L Lipase COVID-19 PCR Negative Nasopharyn COVID-19 PCR Not Applicable Ref Test Perform Site [facility] 04/17/20 15:12 WBC RBC Hgb Hct MCV MCH MCHC RDW Plt Count MPV Immature Gran % Neutrophils % Lymphocytes % Monocytes % Eosinophils % Basophils % Nucleated RBC % Absolute Neutrophils Absolute Lymphocytes Absolute Monocytes Absolute Eosinophils Absolute Basophils VBG Lactate 0.8 Sodium Potassium Chloride Carbon Dioxide Anion Gap BUN Creatinine Estimated GFR/1.73 m2 Glucose Calcium Total Bilirubin Conjugated Bilirubin AST ALT Alkaline Phosphatase Total Protein Albumin Lipase COVID-19 PCR Nasopharyn COVID-19 PCR Ref Test Perform Site
[2020-04-17] MEDS: Normal Saline 50 ML 200 ML IVPB (18:06)
[2020-04-17] MEDS: Normal Saline 1,000 ML 200 ML IV ×2 (18:29→22:55)
--- NOTE | 2020-04-17 18:55 | INITIAL_ITS ---
- If Service Date Differs Date of service: 04/17/20 Time of Service: 18:55 Care Management Initial Assess REASON FOR HOSPITALIZATION:: Pancreatitis PAST MEDICAL HISTORY/PAST SURGICAL HISTORY:: Medical History. Chronic alcohol use. Discharge planning issues. Pancreatitis. Tobacco dependence PREVIOUS FUNCTIONAL STATUS/SOCIAL/FAMILY SUPPORTS:: Acosta resides with his mother in [place]. 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 He is independent at baseline, although he does not drive at this time. He stated that he has family/friend supports locally, and that he helps care for his mother. CURRENT FUNCTIONAL STATUS:: Acosta was sitting up in his bed when CM met with him. He reported that he was feeling better today with less pain than when he arrived. He stated that he has chronic pain, and eats very little as it is very painful. He stated that when he drinks alcohol it helps his hunger, and doesn't cause pain initially, but it later affects him negatively, including pancreatitis flare ups. He stated that he has cut back on his alcohol intake greatly- going from 40 drinks a day to only a few daily, over the last year. He reports that he hasn't been in contact with the cross country/track and field coach since his last admission, but would like to be reconnected. CM will page the cross country/track and field coach. He expressed some interest in rehab, but is unsure about the process. CM encouraged him, stating that the cross country/track and field coach can assist with this from the community. CM will continue to follow. ADVANCE DIRECTIVES:: None on file, CM will offer [place] AD forms. 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 CM will reconnect Acosta with his RC on this admission. PRIMARY CARE PHYSICIAN:: Antonio Harper POTENTIAL DISCHARGE NEEDS:: Evaluations for further needs, follow up appointments, potential rehab stay PATIENT/FAMILY EDUCATION NEEDS:: Review discharge instructions regarding activity and medications, discussion of self care needs including ask me three . ANTICIPATED BARRIERS TO DISCHARGE:: None identified. TRANSPORTATION:: Via private vehicle by family. PLAN:: Anticipate Acosta will return home once medically cleared. CM will contact the cross country/track and field coach prior to discharge. He will be driven home via private vehicle by his mother. He will follow up with his PCP and discharge plan of care. CM will continue to support Acosta and assess for discharge planning considerations.
[2020-04-18 00:01] VITALS: BP 119/82; PULSE 64; RESP 18; TEMP 37; O2SAT 99
[2020-04-18] MEDS: HYDROmorphone 2 MG/ML VIAL 1 MG IVP ×5 (02:38→20:13)
[2020-04-18 03:36] VITALS: BP 120/75; PULSE 62; RESP 17; TEMP 37; O2SAT 100
[2020-04-18] MEDS: Normal Saline 1,000 ML 200 ML IV ×4 (04:02→21:24)
[2020-04-18 07:14] VITALS: BP 110/72; PULSE 57; RESP 18; TEMP 37.1; O2SAT 98
[2020-04-18 07:23] LABS: ALT 107 U/L (16-63); AST 100 U/L (15-37); Albumin 2.7 g/dL (3.4-5.0); Alkaline Phosphatase 563 U/L (46-116); Bilirubin, Direct 1.44 mg/dL (0.00-0.20); Bilirubin, Total 2.1 mg/dL (0.2-1.0); Total Protein 5.4 g/dL (6.4-8.2)
[2020-04-18 08:22] LABS: Abs Immature Grans 0.07 10^3/uL (0.0-0.06); Absolute Basophil Count 0.08 10^3/uL (0.0-0.2); Absolute Eosinophil Count 0.43 10^3/uL (0.0-0.7); Absolute Lymphocyte Count 1.39 10^3/uL (1.2-3.4); Absolute Neutrophil Count 3.46 10^3/uL (1.2-6.7); Basophils % 1.3; Eosinophils % 6.8; HCT 37.6 % (40.0-50.0); HGB 12.3 g/dL (13.5-17.5); Immature Grans % 1.1; MCH 33.2 pg (27.0-33.0); MCHC 32.7 % (32.0-36.0); MCV 101.3 fL (80-95); MPV 10.9 fL (8.0-11.0); Monocytes % 14.2; Neutrophils % 54.6; Nucleated RBC 0 %; Platelet Count 194 10^3/uL (130-400); RBC 3.71 10^6/uL (4.36-5.78); RDW 13.7 % (11.8-14.1); RDW-SD 51.7 fL; WBC 6.33 10^3/uL (4.4-10.8)
[2020-04-18 08:27] LABS: BUN 7 mg/dL (7-18); CREATININE 0.76 mg/dL (0.70-1.30); Calcium 8.3 mg/dL (8.5-10.1); Chloride 107 mmol/L (98-107); Glucose 91 mg/dL (74-106); Potassium 4.2 mmol/L (3.5-5.1); Sodium 138 mmol/L (136-145)
[2020-04-18] MEDS: Normal Saline Flush 10 ML SYR IVP (09:42)
[2020-04-18] MEDS: Normal Saline 50 ML 200 ML IVPB ×3 (09:43→16:12)
[2020-04-18] MEDS: Enoxaparin 40 MG/0.4 ML SYR SC (09:43)
[2020-04-18] MEDS: Pantoprazole 40 MG VIAL IVP (09:43)
--- NOTE | 2020-04-18 10:58 | W.PM.PROGNOT ---
Date of Service Date of service: 04/18/20 Time of Service: 10:59 Assessment and Plan Assessment and plan (1) Acute pancreatitis: Start date: 04/18/20 Start time: 11:06 Status: Acute Assessment and plan: U/s revealing Marked dilatation of the common bile duct associated with question pancreatitis and/or pancreatic mass/pseudocyst. Additionally there is question of interval development of masslike focus adjacent to liver and gallbladder, additional evaluation with CT or MRI is recommended to evaluate hepatic, pancreatic, and duodenal anatomy. MRCP may also be obtained to evaluate the common duct. Sp[place] with [facility] [place] Rahman regarding patient status, she recommend EUS with ERCP, will call in the morning to schedule for down and back, at this time he is stable. Continue to monitor bili levels, lfts Will speak with [facility] tomorrow and consider transfer if he becomes unstable Qualifiers: Pancreatitis type: alcohol induced Acute pancreatitis complication: unspecified Qualified Code(s): K85.20 - Alcohol induced acute pancreatitis without necrosis or infection (2) Tobacco dependence: Start date: 04/18/20 Start time: 11:09 Status: Chronic Assessment and plan: Encourage cessation. Nicotine replacement as desired. (3) Chronic alcohol use: Start date: 04/18/20 Start time: 11:10 Status: Chronic Assessment and plan: He would benefit from outpatient services. He does have increased stressors from work and home, however it sounds as though he is surrounded by family and friends that are constantly consuming alcohol around him. He does have a women's basketball coach but has not spoken to that person since last admission. He is considering rehabilitation this time. (4) DVT prophylaxis: Start date: 04/18/20 Start time: 11:11 Status: Acute Assessment and plan: Lovenox. On hold for procedure above case discussed with Dr. snyder who is in agreement. Subjective Subjective Patient reports: still having pain and other Interval history since last seen: Continues to have pain. Aqua k pack for relief with analgesics. Spoke with [facility] [place] Rahman today regarding lab values, he is being scheduled for an ERCP with possible EUS down and back either tomorrow or Sunday. He is stable at this time and will remain at our facility with daily LFT and bilirubin monitoring. He denies CP, SOB, N/v/D Exam Narrative Exam Narrative: GEN: Alert and oriented, pleasant and cooperative. cachectic. No acute distress at rest. HEENT: Head atraumatic. Conjunctiva clear, icterus to bilateral eyes. PEERL, EOMI. no rhinorrhea. MMM, OP benign. Neck is supple with no masses or lymphadenopathy, trachea midline LUNGS: CTAB with normal effort CV: RRR with no murmurs, gallops, or rubs. ABD: hypoactive bowel sounds. Diffuse epigastric tenderness, more in RUQ. No HSM to palpation or percussion. No palpable masses. Mild guarding, no rebound. EXT: no cyanosis, clubbing, or edema MSK: No joint redness or swelling NEURO: CN 2-12 grossly intact. Normal movement of 4 extremities. Normal speech and coordination. no tremor SKIN: No rashes or open wounds. PSYCH: normal mood and affect Objective Last Vital Signs Temp 37.1 C 04/18/20 07:14 Pulse 57 L 04/18/20 07:14 Resp 18 04/18/20 07:14 BP 110/72 04/18/20 07:14 Pulse Ox 98 04/18/20 07:14 Laboratory Results - last 24 hr 04/17/20 04/17/20 04/17/20 03:45 13:20 13:20 WBC 8.26 D RBC 4.13 L Hgb 13.5 Hct 41.3 MCV 100.0 H MCH 32.7 MCHC 32.7 RDW 13.6 Plt Count 245 MPV 10.0 Immature Gran % 1.3 Neutrophils % 58.7 Lymphocytes % 20.3 Monocytes % 13.0 Eosinophils % 6.1 Basophils % 0.6 Nucleated RBC % 0 Absolute Neutrophils 4.85 Absolute Lymphocytes 1.68 Absolute Monocytes 1.07 H Absolute Eosinophils 0.50 Absolute Basophils 0.05 VBG Lactate Sodium 139 Potassium 4.4 Chloride 107 Carbon Dioxide 28.6 Anion Gap 3.4 BUN 6 L Creatinine 0.68 L Estimated GFR/1.73 m2 >= 60.00 Glucose 98 Calcium 8.4 L Total Bilirubin 1.7 H Conjugated Bilirubin AST 63 H ALT 118 H Alkaline Phosphatase 604 H Total Protein 6.2 L Albumin 3.1 L COVID-19 PCR Negative Nasopharyn COVID-19 PCR Not Applicable Ref Test Perform Site [facility] 04/17/20 04/18/20 04/18/20 15:12 06:25 06:25 WBC RBC Hgb Hct MCV MCH MCHC RDW Plt Count MPV Immature Gran % Neutrophils % Lymphocytes % Monocytes % Eosinophils % Basophils % Nucleated RBC % Absolute Neutrophils Absolute Lymphocytes Absolute Monocytes Absolute Eosinophils Absolute Basophils VBG Lactate 0.8 Sodium 138 Potassium 4.2 Chloride 107 Carbon Dioxide 28.0 Anion Gap 3.0 BUN 7 Creatinine 0.76 Estimated GFR/1.73 m2 >= 60.00 Glucose 91 Calcium 8.3 L Total Bilirubin 2.1 H Conjugated Bilirubin 1.44 H AST 100 H ALT 107 H Alkaline Phosphatase 563 H Total Protein 5.4 L Albumin 2.7 L COVID-19 PCR [facility] COVID-19 PCR Ref Test Perform Site 04/18/20 06:25 WBC 6.33 RBC 3.71 L Hgb 12.3 L Hct 37.6 L MCV 101.3 H MCH 33.2 H MCHC 32.7 RDW 13.7 Plt Count 194 MPV 10.9 Immature Gran % 1.1 Neutrophils % 54.6 Lymphocytes % 22.0 Monocytes % 14.2 Eosinophils % 6.8 Basophils % 1.3 Nucleated RBC % 0 Absolute Neutrophils 3.46 Absolute Lymphocytes 1.39 Absolute Monocytes 0.90 H Absolute Eosinophils 0.43 Absolute Basophils 0.08 VBG Lactate Sodium Potassium Chloride Carbon Dioxide Anion Gap BUN Creatinine Estimated GFR/1.73 m2 Glucose Calcium Total Bilirubin Conjugated Bilirubin AST ALT Alkaline Phosphatase Total Protein [facility]in [facility] Ref Test Perform Site
[2020-04-18 11:27] VITALS: BP 131/89; PULSE 62; RESP 16; TEMP 36.5; O2SAT 99
[2020-04-18] MEDS: Ketorolac 30 MG/ML VIAL IVP ×2 (14:27→23:24)
--- NOTE | 2020-04-18 14:57 | CMPROGNOTE_ITS ---
- If Service Date Differs Date of service: 04/18/20 Time of Service: 14:57 Care Management Progress Note S/O: Acosta was sleeping when CM attempted to visit with him. Per report, he may need to go to [facility] for a down and back ERCP, possibly tomorrow. His provider stated that if his condition worsens, he may be transferred to [facility], but at this time he will likely return once his procedure is complete. CM contacted the production recovery operator, who will reach out to him during this admission. CM will isidoro nue to follow. A: Acosta is a 39 year old male admitted to [facility] on 04/17/20 with acute pancreatitis. P: Acosta will go to [facility] for an ERCP, likely a down and back procedure, but possibly a transfer. He will return home once medically cleared. He stated that he is interested in rehab, but is not sure if this is the right time for him to go. He will be followed by the production recovery operator out patient, who can assist with making plans for rehab if he chooses not to go after this admission. He will follow up with his PCP and discharge plan of care. CM will continue to follow.
--- NOTE | 2020-04-18 14:57 | PDOC.CMPRO ---
- If Service Date Differs Date of service: 04/18/20 Time of Service: 14:57 Care Management Progress Note S/O: Acosta was sleeping when CM attempted to visit with him. Per report, he may need to go to [facility] for a down and back ERCP, possibly tomorrow. His provider stated that if his condition worsens, he may be transferred to [facility], but at this time he will likely return once his procedure is complete. CM contacted the cost recovery technician, who will reach out to him during this admission. CM will continue to follow. A: Acosta is a 39 year old male admitted to [facility] on 04/17/20 with acute pancreatitis. P: Acosta will go to [facility] for an ERCP, likely a down and back procedure, but possibly a transfer. He will return home once medically cleared. He stated that he is interested in rehab, but is not sure if this is the right time for him to go. He will be followed by the cost recovery technician out patient, who can assist with making plans for rehab if he chooses not to go after this admission. He will follow up with his PCP and discharge plan of care. CM will continue to follow.
[2020-04-18 15:37] VITALS: BP 133/90; PULSE 61; RESP 18; TEMP 36.4; O2SAT 99
[2020-04-18 20:28] VITALS: BP 118/78; PULSE 66; RESP 17; TEMP 37; O2SAT 100
[2020-04-19] VITALS (8 sets, daily range): BP systolic 114–150; BP diastolic 53–99; PULSE 56–65; RESP 17–19; TEMP 36.3–37.1; O2SAT 97–100
[2020-04-19] MEDS: HYDROmorphone 2 MG/ML VIAL 1 MG IVP ×5 (01:27→20:04)
[2020-04-19] MEDS: Normal Saline 1,000 ML 200 ML IV ×2 (02:30→07:30)
[2020-04-19 07:19] LABS: ALT 96 U/L (16-63); AST 58 U/L (15-37); Albumin 2.5 g/dL (3.4-5.0); Alkaline Phosphatase 576 U/L (46-116); Bilirubin, Direct 0.59 mg/dL (0.00-0.20); Total Protein 5.3 g/dL (6.4-8.2)
[2020-04-19] MEDS: Ketorolac 30 MG/ML VIAL IVP ×2 (07:29→14:20)
[2020-04-19] MEDS: Pantoprazole 40 MG VIAL IVP (07:29)
[2020-04-19] MEDS: Normal Saline Flush 10 ML SYR IVP ×3 (07:30→20:04)
[2020-04-19] MEDS: Nicotine 14 MG/24 HR PATCH TD (10:25)
--- NOTE | 2020-04-19 12:02 | PGE_ITS ---
Date of Service Date of service: 04/19/20 Time of Service: 10:00 Assessment and Plan Assessment and plan (1) Acute pancreatitis: Start date: 04/17/20 Start time: 14:22 Status: Acute Assessment and plan: Pain is improving, added toradol in addition to dilaudid. Continue IV hydration decrease rate to 100 from 200 ml. Modify diet to clear liquids and monitor. See subjective for plan with [facility] Qualifiers: Acute pancreatitis complication: unspecified Pancreatitis type: alcohol induced Qualified Code(s): K85.20 - Alcohol induced acute pancreatitis without necrosis or infection (2) Pancreatic pseudocyst: Start date: 04/17/20 Start time: 10:57 Status: Chronic Assessment and plan: Per [facility] consult, continue monitoring until inflammation abates. See subjective. Consider inpatient or outpatient workup at that time for ERCP and EUS. (3) Portal vein thrombosis: Start date: 04/17/20 Start time: 14:31 Status: Acute Assessment and plan: As above. Likely secondary to cirrhosis. Alcohol cessation imperative. (4) Tobacco dependence: Start date: 04/17/20 Start time: 14:32 Status: Chronic Assessment and plan: Nicoderm and Nicitrol to prevent withdrawal. (5) Chronic alcohol use: Start date: 04/17/20 Start time: 14:32 Status: Chronic Assessment and plan: Discussed cessation with help of therapy. Identified environmental stressors and impediments to care. Recommended RCT. Patient amenable. (6) Discharge planning issues: Start date: 04/19/20 Status: Acute Assessment and plan: Pending resolution of symptoms and possible referral to [facility]. (7) DVT prophylaxis: Start date: 04/17/20 Start time: 14:37 Status: Acute Assessment and plan: Will resume enoxaparin Above case discussed with Dr. Meza who is in agreement Subjective Subjective Interval history since last seen: Patient is reporting hunger, thirst and boredom. He reports RUQ pain. He denies nausea/vomiting/chest pain/SOB. Reports pain with deep inhalation. He reports clear and frequent urine, with no BM. Will start on clears. Spoke with [facility] and they recommend letting the acute pancreatitis to heal. When patient is pain free, and able to tolerate food, they would like to be called back and discuss having ERCP as an inpatient vs outpatient. At this time it would be more beneficial for patient to have procedure while in patient vs outpatient. Exam Narrative Exam Narrative: General: The patient is calm and cooperative, friendly. Patient appears thin, borderline cachectic Cardiac: RRR, S1/S2 auscultated, no rubs, murmurs, gallops appreciated. Respiratory: CTAB b/l, no tripoding or accessory muscle breathing GI: Tenderness and guarding apparent on GI exam, all quadrants, with pain greatest in RUQ. Bowel sounds present. Extremities: No lower extremity edema present, posterior tibial pulses palpable Objective Last Vital Signs Temp 37.1 C 04/19/20 11:08 Pulse 59 L 04/19/20 11:08 Resp 19 04/19/20 11:08 BP 134/86 04/19/20 11:08 Pulse Ox 97 04/19/20 11:08 Laboratory Results - last 24 hr 04/19/20 06:18 Total Bilirubin 1.0 Conjugated Bilirubin 0.59 H AST 58 H ALT 96 H Alkaline Phosphatase 576 H Total Protein 5.3 L Albumin 2.5 L
--- NOTE | 2020-04-19 13:49 | CMPROGNOTE_ITS ---
- If Service Date Differs Date of service: 04/19/20 Time of Service: 13:49 Care Management Progress Note S/O: Acosta was sitting up in bed when CM met with him. He reported that he is very hungry, and is anticipating that he will be able to have some clear liquids today. Per provider, [facility] is waiting for the acute pancreatitis to resolve before taking him for a down and back ERCP procedure. He will trial clear liquids today, and may be ready in a day or two to have his appointment at [facility]. He may, once medically cleared, go to [facility] as a down and back vs discharge from [facility] and have the appointment at [facility] as an out patient. CM will continue to follow. A: Acosta is a 39 year old male admitted to [facility] on 04/17/20 with acute pancreatitis. P: Acosta will go to [facility] for an ERCP, likely a down and back procedure, but possibly a discharge from [facility], then outpatient. He will return home once med ically cleared. He stated that he is interested in rehab, but is not sure if this is the right time for him to go. He will be followed by the recovery operator helper out patient, who can assist with making plans for rehab if he chooses not to go after this admission. He will follow up with his PCP and discharge plan of care. CM will continue to follow.
--- NOTE | 2020-04-19 13:49 | PDOC.CMPRO ---
- If Service Date Differs Date of service: 04/19/20 Time of Service: 13:49 Care Management Progress Note S/O: Acosta was sitting up in bed when CM met with him. He reported that he is very hungry, and is anticipating that he will be able to have some clear liquids today. Per provider, [facility] is waiting for the acute pancreatitis to resolve before taking him for a down and back ERCP procedure. He will trial clear liquids today, and may be ready in a day or two to have his appointment at [facility] He may, once medically cleared, go to [facility] as a down and back vs discharge from [facility] and have the appointment at [facility] as an out patient. CM will continue to follow. A: Acosta is a 39 year old male admitted to [facility] on 04/17/20 with acute pancreatitis. P: Acosta will go to [facility] for an ERCP, likely a down and back procedure, but possibly a discharge from [facility], then outpatient. He will return home once medically cleared. He stated that he is interested in rehab, but is not sure if this is the right time for him to go. He will be followed by the acid recovery operator out patient, who can assist with making plans for rehab if he chooses not to go after this admission. He will follow up with his PCP and discharge plan of care. CM will continue to follow.
--- NOTE | 2020-04-19 14:38 | CHAPLAIN ---
Acosta was sitting up in bed working on a tablet when I visited him. He said he is likely going tomorrow to [facility] for a procedure and will possibly find out about a grown in his abdomen. He said he just found about his yesterday, but that it worries him that it could be cancerous. He lives with his mom and has been in touch with her about his trip to [facility]. Other than his mom, he said he doesn't have any family that he's in touch with. I will continue to visit.
[2020-04-19] MEDS: Creon, Lipase 6,000 CAPCR 1 CAP PO (17:03)
[2020-04-19] MEDS: Normal Saline 1,000 ML 100 ML IV (17:03)
[2020-04-20] MEDS: HYDROmorphone 2 MG/ML VIAL 1 MG IVP ×2 (00:21→08:26)
[2020-04-20] MEDS: Normal Saline 1,000 ML 100 ML IV ×2 (03:29→13:41)
[2020-04-20] MEDS: Ketorolac 30 MG/ML VIAL IVP ×3 (03:32→17:02)
[2020-04-20] MEDS: Normal Saline Flush 10 ML SYR IVP ×4 (03:32→12:08)
[2020-04-20 03:47] VITALS: BP 143/85; PULSE 54; RESP 16; TEMP 36.6; O2SAT 100
[2020-04-20 07:16] VITALS: BP 153/97; PULSE 61; RESP 17; TEMP 36.7; O2SAT 99
[2020-04-20 07:52] LABS: ALT 98 U/L (16-63); AST 45 U/L (15-37); Albumin 2.9 g/dL (3.4-5.0); Alkaline Phosphatase 636 U/L (46-116); Bilirubin, Direct 0.48 mg/dL (0.00-0.20)
[2020-04-20] MEDS: Creon, Lipase 6,000 CAPCR 1 CAP PO ×3 (08:14→17:02)
[2020-04-20] MEDS: Pantoprazole 40 MG VIAL IVP (08:14)
--- NOTE | 2020-04-20 08:23 | CMPROGNOTE_ITS ---
- If Service Date Differs Date of service: 04/20/20 Time of Service: 08:23 Care Management Progress Note S/O: Acosta was sitting up in bed when CM met with him. He was pleasant and interactive and open to conversation. CM is well known to Acosta from previous admissions and he shared some of the events since his last admission. 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 He continues to have pain from his chronic pancreatitis and pain management has been an issue. Acosta talked freely about his drinking and stated that he has significantly reduced the amount he drinks and, in particular, no longer drinks hard liquor. He faces the same challenges, in that his mother, with whom he lives, and his coworkers freely drink in front of him, making it harder to resist. He often mentions returning to [place] where he has a cohort of sober friends, but travel during Cov is problematic. Acosta did share that he was able to abstain completely for 2 weeks in February , but then started drinking a little bit again. He asserts that he is interested in sobriety and recovery, just not at this time. Acosta seems to be feeling a bit better and his laboratory values are stabilizing. The provider is hopeful that [facility] will acept him in transfer later today or tomorrow for an ERCP. A: Acosta is a 39 year old male admitted to [facility] on 04/17/20 with acute pancreatitis. P: Acosta will go to [facility] for an ERCP, likely a down and back procedure, but possibly a discharge from [facility], then outpatient. He will return home once medically cleared. He stated that he is interested in rehab, but is not sure if this is the right time for him to go. He will be followed by the recovery operator helper out patient, who can assist with making plans for rehab if he chooses not to go after this admission. He will follow up with his PCP and discharge plan of care. CM will continue to support Acosta and hs family and assess for ongoing discharge needs.
[2020-04-20] MEDS: Nicotine 14 MG/24 HR PATCH TD (08:26)
--- NOTE | 2020-04-20 09:27 | NS.NUTBLAN_ITS ---
Date of service: 04/20/20 Time of Service: 09:27 Nutritional Consult ASSESSMENT: 39 year old male admitted with pancreatitis, this is 6th hospitalization with pancreatitis in 2020. Hx of ETOH and tobacco abuse. Lipase elevated (04/17/202091). BMI has been stable x 1 year, underweight. At high nutritional risk in view of long history of substance abuse, reoccurrent pancreatitis, continued alcohol use and low body weight. Continues to be NPO (day 3), will advance when pain free. Acosta reports hunger, has not passed stool as yet. Acosta reports he is interested in rehab but has had a difficult time staying sober in the past due to his living situation with [facility] friends that drink heavily. In view of poor nutritional status, recommend consider TPN if unable to advance diet to clear liquids in next 24-48 hours. NUTRITIONAL DIAGNOSIS: Excessive alcohol intake as evidenced by chronic pancreatitis Impaired nutrient utilization due to reoccurrent pancreatitis INTERVENTION: NPO Advance as tolerated In view of poor nutritional status, recommend consider TPN if unable to advance diet to clear liquids in next 48 hours. MONITORING AND EVALUATION: weight, po intake, labs Time Spent in Nutritional Counseling and Treatment: 5 min
--- NOTE | 2020-04-20 10:11 | PGE_ITS ---
Date of Service Date of service: 04/20/20 Time of Service: 10:11 Assessment and Plan Assessment and plan (1) Acute pancreatitis: Status: Acute Assessment and plan: Pain is improving, added toradol will stop dilaudid. stop IV fluids. Advance diet from clear liquids to regular. Franky [employer] spoke with [facility] [place] and they recommend letting the acute pancreatitis to heal. When patient is pain free, and able to tolerate food, they would like to be called back and discuss having ERCP as an inpatient vs outpatient. Qualifiers: Acute pancreatitis complication: unspecified Pancreatitis type: alcohol induced Qualified Code(s): K85.20 - Alcohol induced acute pancreatitis without necrosis or infection (2) Pancreatic pseudocyst: Status: Chronic Assessment and plan: Per [facility] consult, continue monitoring until inflammation abates. Consider inpatient or outpatient workup at that time for ERCP and EUS. (3) Portal vein thrombosis: Status: Acute Assessment and plan: As above. Likely secondary to cirrhosis. Alcohol cessation imperative. (4) Tobacco dependence: Status: Chronic Assessment and plan: Nicoderm and Nicitrol to prevent withdrawal. (5) Chronic alcohol use: Status: Chronic Assessment and plan: Discussed cessation with help of therapy. Identified environmental stressors and impediments to care. Recommended RCT. Patient amenable. (6) Discharge planning issues: Status: Acute Assessment and plan: Pending resolution of symptoms and possible referral to [facility]. (7) DVT prophylaxis: Status: Acute Assessment and plan: Will resume enoxaparin Above case discussed with Dr. Meza who is in agreement Subjective Subjective Patient reports: no new complaints, feels better, tolerating liquids well, voiding w/o difficulty, flatus and afebrile Exam Const General: cooperative, healthy appearing, comfortable and no acute distress Nutritional Appearance: average body habitus Orientation: alert, awake and oriented x3 HENMT Head: normal to inspection, normocephalic and atraumatic Mouth: oral mucosae normal Resp Effort & Inspection: normal respiratory effort Auscultation: clear to auscultation bilaterally Cardio Rate: regular rate Rhythm: regular rhythm GI Inspection: normal to inspection Palpation: soft, not firm, no guarding, no masses, tender in the epigastrum (mild) and No ascites Auscultation: normal bowel sounds Skin General skin exam: no rashes or lesions noted Neuro General: patient alert, patient awake and patient oriented x3 Cranial Nerves: CN's II-XI intact bilaterally Cognition: normal cognition Speech: speech normal Extrem General: normal to inspection and full ROM Objective Last Vital Signs Temp 36.7 C 04/20/20 07:16 Pulse 61 04/20/20 07:16 Resp 17 04/20/20 07:16 BP 153/97 H 04/20/20 07:16 Pulse Ox 99 04/20/20 07:16 Laboratory Results - last 24 hr 04/20/20 06:12 Total Bilirubin 1.0 Conjugated Bilirubin 0.48 H AST 45 H ALT 98 H Alkaline Phosphatase 636 H Total Protein 6.0 L Albumin 2.9 L
[2020-04-20 11:11] VITALS: BP 133/86; PULSE 55; RESP 17; TEMP 37.1; O2SAT 100
--- NOTE | 2020-04-20 15:45 | DSE_ITS ---
Date of service: 04/20/20 Time of Service: 15:45 DS: Diagnosis Discharge Diagnosis (1) Acute pancreatitis: Status: Acute (2) Pancreatic pseudocyst: Status: Chronic (3) Portal vein thrombosis: Status: Acute (4) Tobacco dependence: Status: Chronic (5) Chronic alcohol use: Status: Chronic Discharge Plan Disposition Patient Disposition: HOME Condition: Improving Discharge Details Reason For Visit: PANCREATITIS Admit Date/Time: 04/17/20 03:39 Admit Provider: Acosta Borjas Attending Provider: Acosta Borjas Primary Care Provider: Antonio Harper [facility] Course Hospital Course: This is a 39-year-old male with a history of recurrent pancreatitis initially in the setting of alcohol use with a history of, pancreatic pseudocyst and portal vein thrombosis, who is presenting with increase of his typical epigastric pain for 2 days along with a new sharp right upper quadrant abdominal to mid back pain for the past 2 weeks, he had recent alcohol use. Work up in the ED in consistent with acute pancreatitis. He was admitted to med/surg for bowel rest, IV hydration and pain management. U/s revealed marked dilatation of the common bile duct associated with question pancreatitis and/or pancreatic mass/pseudocyst. Additionally there is question of interval development of masslike focus adjacent to liver and gallbladder, additional evaluation with CT or MRI is recommended to evaluate hepatic, pancreatic, and duodenal anatomy. Case was discussed with [facility] Dr. Rahman regarding recommendations, she recommend EUS with ERCP as outpatient when pancreatitis resolved, sooner for worsening symptoms. with bowel rest his symptoms and labs improved, t bili normalized. He remained afebrile and hemodynamically stable. His pain resolved and he began tolerating clear liquids. Diet advanced with no issues. His case was discussed with DR Cabrera from GI who agrees with outpatient GI follow up and will schedule in clinic. He will be discharged on Creon prior to meals and was advised to refrain from all alcohol and acetaminophen use. case discussed with Dr Jovel who is in agreement. Home Meds and New Rx's Prescriptions: New Creon 6,000-19,000 -30,000 unit Capsule,Delayed Release(Dr/Ec) 1 cap PO QMEALS Qty: 90 RF: 0 Continued ondansetron HCl [Zofran] 4 mg tablet 4 mg PO BID RF: 0 omeprazole 40 mg capsule,delayed release(DR/EC) 20 mg PO DAILY RF: 0 tramadol 50 mg tablet 50 mg PO TID PRNRF: 0 Discharge Instructions Instructions: Pancreatitis (DC) Additional Instructions: continue creon as directed. No alcohol or acetaminophen. Referrals: GASTROENTEROLOGY,[facility] [OTHER] - Activity:: Activity as Tolerated Equipment/Supplies:: No Equipment Needed Diet:: As Tolerated Discharge Orders Discharge Orders: Discharge Order (Routine); Ordered 04/20/20 Ordered By: Yelitza Ramirez DS: Summary Status at Discharge Functional status at discharge: independent ambulation Overall status at discharge: patient is progressing back to baseline Mental Status: mental status grossly normal Speech and Movement: speech and movement normal Mood: congruent mood Affect: normal affect Exam Const General: cooperative, healthy appearing, comfortable and no acute distress Nutritional Appearance: cachectic Orientation: alert, awake and oriented x3 HENMT Head: normal to inspection, normocephalic and atraumatic Mouth: other (poor dentition, missing teeth, decay. ) Resp Effort & Inspection: normal respiratory effort Auscultation: clear to auscultation bilaterally Cardio Rate: regular rate Rhythm: regular rhythm GI Inspection: normal to inspection Palpation: soft, not firm, no guarding, no masses, tender in the epigastrum (mild) and No ascites Auscultation: normal bowel sounds Skin General skin exam: no rashes or lesions noted Neuro General: patient alert, patient awake and patient oriented x3 Cranial Nerves: CN's II-XI intact bilaterally Cognition: normal cognition Speech: speech normal Extrem General: normal to inspection and full ROM Psych Mental Status: mental status grossly normal Speech and Movement: speech and movement normal Mood: congruent mood Affect: normal affect DS: Data Vitals/I&O Vitals and I&O: Vital Signs Temperature 37.1 C 04/20/20 11:11 Temperature Source Temporal Artery Scan 04/20/20 11:11 Pulse 55 L 04/20/20 11:11 Pulse Rhythm Regular 04/20/20 09:31 Respiratory Rate 17 04/20/20 11:11 Respiratory Effort Non-Labored 04/20/20 09:31 Respiratory Depth Normal 04/20/20 09:31 Respiratory Pattern Normal 04/20/20 09:31 Blood Pressure 133/86 04/20/20 11:11 Blood Pressure Position Sitting 04/17/20 00:45 Pulse Oximetry 100 04/20/20 11:11 Oxygen Delivery Method Room Air 04/20/20 11:11 Oxygen Flow Rate 0 04/20/20 11:11 Pain Level 7 04/20/20 12:08 Comment 04/19/20 22:36 Intake & Output 04/19/20 04/20/20 04/20/20 23:59 11:59 23:59 Intake Total 853.333 / 3000.000 2260 / 3380 1120 / 3380 Output Total 450 / 450 325 / 325 Balance 403.333 / 2550.000 1935 / 3055 1120 / 3055 Weight 64.2 kg Intake: IV 853.333 / 3000.000 1000 / 2000 1000 / 2000 Oral 1260 / 1380 120 / 1380 Output: Urine 450 / 450 325 / 325 Other: Urine Color Yellow Light Bárbara Urine Appearance Clear Clear Urine Odor Normal Comment Pt using bathroom independently. Voided into hat and left for RN to visualize. Voiding Methods Toilet Toilet Data Completed and Pending Labs on day of discharge: Labs from last 24 hours 04/20/20 06:12 Total Bilirubin 1.0 Conjugated Bilirubin 0.48 H AST 45 H ALT 98 H Alkaline Phosphatase 636 H Total Protein 6.0 L Albumin 2.9 L [facility] Medical History (Updated 04/19/20 @ 13:46 by Salina Jiménez NP) Chronic alcohol use Spoke about life stressors, RCT as alternative, patient receptive. Discharge planning issues Per [facility] consult, continue monitoring until inflammation abates. Consider inpatient or outpatient workup at that time for ERCP and Pancreatitis Hydromorphone PRN PRN for pain. As above. Tobacco dependence Nicoderm, Nicotrol Family History (Updated 04/17/20 @ 08:41 by Acosta Borjas) Other Alcohol abuse Substance abuse Social History (Updated 04/17/20 @ 08:43 by Acosta Borjas) Smoking/Tobacco Use Status: Current every day Tobacco Type: cigarettes Smoking risk assessment performed?: Yes Alcohol Intake: current Alcohol Intake frequency: a few times a week Counseling given: Yes Drug use: Occasionally Substance use type: marijuana Do you feel safe at home: Yes Do you feel safe in your relationship?: Yes Additional Social history: Live in [facility] with mother, who is physically disabled 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
[2020-04-20 15:53] VITALS: BP 158/86; PULSE 74; RESP 18; TEMP 36.3; O2SAT 97
== END 2020-04-20 18:04 | disposition home or self-care (01) | DRG 439 ==
LOC: ER 04:08 → MS 04:51
PROVIDERS: Nurse Practitioner Family; Admitting Provider Family Medicine; Emergency Provider Emergency Medicine; PCP Neuromusculoskeletal Medicine & OMM; Visit Provider Family Medicine
DX: K85.20 Alcohol induced acute pancreatitis without necrosis or infection (principal); K86.3 Pseudocyst of pancreas; R64 Cachexia; Z68.1 Body mass index [BMI] 19.9 or less, adult; K86.0 Alcohol-induced chronic pancreatitis; F17.210 Nicotine dependence, cigarettes, uncomplicated; K70.30 Alcoholic cirrhosis of liver without ascites; Z72.89 Other problems related to lifestyle
CPT/HCPCS: 36410; 36415; 80048; 80053; 80076; 83690; 90686; 96361; 96374; 96375; 96376; 99222; 99233; 99239; 99285; J1650; NC; U0003; 76705; 83605; 85025; J1885; J2270; J2405; J3490

== ENCOUNTER 2020-05-20 18:27 | Inpatient (IN) | payer MEDICAID, SELFPAY ==
[2020-05-20 18:30] VITALS: BP 127/85; PULSE 98; RESP 18; TEMP 36.8; O2SAT 97
--- NOTE | 2020-05-20 18:44 | ED.GENADUL_ITS ---
Discharge Plan Disposition Patient Disposition: [facility] INPATIENT Condition: Stable Discharge Details Clinical Impression: Pancreatitis Primary Care Provider: Antonio Harper ED Provider: Yelitza Ramirez [place] Meds and New Rx's Prescriptions: No Action ondansetron HCl [Zofran] 4 mg tablet 4 mg PO BID RF: 0 omeprazole 40 mg capsule,delayed release(DR/EC) 20 mg PO DAILY RF: 0 tramadol 50 mg tablet 50 mg PO TID PRNRF: 0 Creon 6,000-19,000 -30,000 unit Capsule,Delayed Release(Dr/Ec) 1 cap PO QMEALS Qty: 90 RF: 0 sertraline 50 mg tablet 50 mg PO DAILY RF: 0 Medical Decision Making patient presents with recurrent abdominal pain consistent with his history of pancreatitis. IV established and routine labs drawn. given toradol 15 mg IVP, zofran 4 mg IVP and 1 liter of NS started., little improvement in pain so dilaudid 1 mg IVP given labs reviewed and case discussed with DR Meza who accepts for admission to med surg for bowel rest and pain management of acute recurrent pancreatitis. Medical Records Medical records reviewed: Yes I reviewed the patient's medical records. Lab Data Lab results reviewed: Yes I reviewed the patient's lab results. Lab results narrative: Laboratory Results - last 24 hr 05/20/20 05/20/20 18:42 18:42 WBC 13.94 H RBC 5.09 Hgb 16.1 Hct 49.0 MCV 96.3 H MCH 31.6 MCHC 32.9 RDW 12.5 Plt Count 347 MPV 9.3 Immature Gran % 1.4 Neutrophils % 69.3 Lymphocytes % 16.4 Monocytes % 6.7 Eosinophils % 5.6 Basophils % 0.6 Nucleated RBC % 0 Absolute Neutrophils 9.66 H Absolute Lymphocytes 2.29 Absolute Monocytes 0.93 H Absolute Eosinophils 0.78 H Absolute Basophils 0.08 Sodium 138 Potassium 3.7 Chloride 100 Carbon Dioxide 31.8 Anion Gap 6.2 BUN 14 Creatinine 0.84 Estimated GFR/1.73 m2 >= 60.00 Glucose 111 H Calcium 9.4 Magnesium 1.8 Total Bilirubin 0.4 AST 13 L ALT 38 Alkaline Phosphatase 275 H Total Protein 7.5 Albumin 4.0 Lipase 1818 H HPI General Date/Time Provider Initiated Documentation: 05/20/20 18:34 . Limitations to Documentation: no limitations . Information obtained by: patient . HPI Narrative: onset of upper abdominal pain approx 1 week ago, pain consistent with his history of pancreatitis. he denies recent alcohol use. he denies fever chest pain or sob. he states he is unable to tolerate PO. Related Data Home Medications Medication Instructions Recorded Confirmed omeprazole 20 mg PO DAILY 12/31/19 05/20/20 ondansetron HCl [Zofran] 4 mg PO BID 12/31/19 05/20/20 tramadol 50 mg PO TID PRN 04/17/20 05/20/20 [id number]-[id number] [Creon] 1 cap PO QMEALS #90 cap 04/20/20 05/20/20 sertraline 50 mg PO DAILY 05/20/20 05/20/20 Previous Rx's Medication Instructions Recorded tiapsl-[id number]-[id number] [Creon] 1 cap PO QMEALS #90 cap 04/20/20 Allergies Allergy/AdvReac Type Severity Reaction Status Date / Time No Known Allergies Allergy Unverified 05/20/20 18:36 General Stated Complaint: Abd Prob DEIDRE: 3 Review of Systems All systems reviewed & are unremarkable except as noted in HPI and below Constitutional Constitutional: Denies fever(s) Gastrointestinal Gastrointestinal: Reports abdominal pain, Denies melena, Denies hematochezia, Reports nausea, Reports vomiting and Denies hematemesis [facility] Medical History (Updated 05/20/20 @ 20:19 by Yelitza Ramirez NP) Chronic alcohol use Spoke about life stressors, RCT as alternative, patient receptive. Discharge planning issues Per [facility] consult, continue monitoring until inflammation abates. Consider inpatient or outpatient workup at that time for ERCP and Pancreatitis Hydromorphone PRN PRN for pain. As above. Tobacco dependence DanieldermDanieltrol Family History (Updated 04/17/20 @ 08:41 by Acosta Borjas) Other Alcohol abuse Substance abuse Social History (Updated 04/17/20 @ 08:43 by Acosta Borjas) Smoking/Tobacco Use Status: Current every day Tobacco Type: cigarettes Smoking risk assessment performed?: Yes Alcohol Intake: former Counseling given: Yes Drug use: Occasionally Substance use type: marijuana Details: has not drank since last admission 3 weeks ago Do you feel safe at home: Yes Do you feel safe in your relationship?: Yes Additional Social history: Live in [place] [facility] with mother, who is physically disabled 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 [employer] Exam Const General: cooperative and ill appearing chronically Nutritional Appearance: thin Orientation: alert, awake and oriented x3 HENMT Head: normal to inspection, normocephalic and atraumatic Chest Chest: normal inspection of the chest Resp Effort & Inspection: normal respiratory effort Auscultation: clear to auscultation bilaterally Cardio Rate: regular rate Rhythm: regular rhythm GI Inspection: normal to inspection Palpation: soft and tender in the epigastrum, in the LUQ and in the RUQ Skin General skin exam: no rashes or lesions noted Neuro General: patient alert, patient awake and patient oriented x3 Cognition: normal cognition Speech: speech normal Course Vital Signs Vital signs: Vital Signs Temperature 36.8 C 05/20/20 18:30 Pulse 98 H 05/20/20 18:30 Respiratory Rate 18 05/20/20 18:30 Blood Pressure 127/85 05/20/20 18:30 Pulse Oximetry 97 05/20/20 18:30 Temperature 36.8 C 05/20/20 18:30 Temperature Source Skin 05/20/20 18:30 Pulse 98 H 05/20/20 18:30 Respiratory Rate 18 05/20/20 18:30 Respiratory Effort 05/20/20 18:38 Blood Pressure 127/85 05/20/20 18:30 Blood Pressure Position Sitting 05/20/20 18:30 Pulse Oximetry 97 05/20/20 18:30 Oxygen Delivery Method Room Air 05/20/20 18:30 Oxygen Flow Rate 0 05/20/20 18:30 Pain Level 8 05/20/20 18:30
[2020-05-20] MEDS: Normal Saline 1,000 ML 1000 ML IV (18:47)
[2020-05-20 18:49] LABS: Absolute Eosinophil Count 0.78 10^3/uL (0.0-0.7); Absolute Lymphocyte Count 2.29 10^3/uL (1.2-3.4); Absolute Monocyte Count 0.93 10^3/uL (0.1-0.8); Basophils % 0.6; Eosinophils % 5.6; HGB 16.1 g/dL (13.5-17.5); Immature Grans % 1.4; Lymphocytes % 16.4; MCH 31.6 pg (27.0-33.0); MCHC 32.9 % (32.0-36.0); MCV 96.3 fL (80-95); MPV 9.3 fL (8.0-11.0); Monocytes % 6.7; Neutrophils % 69.3; Nucleated RBC 0 %; Platelet Count 347 10^3/uL (130-400); RBC 5.09 10^6/uL (4.36-5.78); RDW 12.5 % (11.8-14.1); RDW-SD 44.7 fL; WBC 13.94 10^3/uL (4.4-10.8)
[2020-05-20] MEDS: Ketorolac 15 MG/ML VIAL IVP (18:49)
[2020-05-20] MEDS: Ondansetron 4 MG/2 ML VIAL IVP (18:49)
[2020-05-20 18:55] LABS: Absolute Basophil Count 0.08 10^3/uL (0.0-0.2); Absolute Neutrophil Count 9.66 10^3/uL (1.2-6.7)
[2020-05-20 19:05] LABS: ALT 38 U/L (16-63); AST 13 U/L (15-37); Alkaline Phosphatase 275 U/L (46-116); Anion Gap 6.2 mmol/L (3-11); BUN 14 mg/dL (7-18); Bilirubin, Total 0.4 mg/dL (0.2-1.0); CO2 31.8 mmol/L (21.0-32.0); CREATININE 0.84 mg/dL (0.70-1.30); Calcium 9.4 mg/dL (8.5-10.1); Chloride 100 mmol/L (98-107); Glucose 111 mg/dL (74-106); Magnesium 1.8 mg/dL (1.8-2.4); Potassium 3.7 mmol/L (3.5-5.1); Sodium 138 mmol/L (136-145); Total Protein 7.5 g/dL (6.4-8.2)
[2020-05-20 19:09] LABS: Lipase 1818 U/L (73-393)
[2020-05-20] MEDS: HYDROmorphone 2 MG/ML VIAL 1 MG IVP ×2 (19:10→23:29)
[2020-05-20 19:57] VITALS: BP 104/68; PULSE 69; RESP 18; O2SAT 95
[2020-05-20] MEDS: Nicotine 21 MG/24 HR PATCH TD (20:18)
[2020-05-20 21:03] LABS: Source Nasopharynx
[2020-05-20 21:38] LABS: COVID-19 PCR Negative (Negative); Influenza A PCR Negative (Negative); Influenza B PCR Negative (Negative); RSV PCR Negative (Negative)
[2020-05-20] MEDS: Lactated Ringers 1,000 ML 200 ML IV (21:54)
[2020-05-20 21:55] VITALS: BP 121/77; PULSE 66; RESP 18; TEMP 36; O2SAT 99
[2020-05-20 23:16] VITALS: BP 127/66; PULSE 69; RESP 18; TEMP 36.3; O2SAT 96
[2020-05-20 23:24] VITALS: BP 95/64; PULSE 65; RESP 18; TEMP 36.2; O2SAT 97
[2020-05-21] MEDS: Lactated Ringers 1,000 ML 200 ML IV (03:14)
[2020-05-21] MEDS: HYDROmorphone 2 MG/ML VIAL 1 MG IVP ×3 (03:25→12:23)
[2020-05-21] MEDS: Normal Saline Flush 10 ML SYR IVP ×3 (03:26→17:36)
--- NOTE | 2020-05-21 06:17 | HPE_ITS ---
Date of service: 05/20/20 Time of Service: 20:26 Assessment and Plan Assessment and plan (1) Acute pancreatitis: Status: Acute Assessment and plan: GI rest. IV hydration PRN dilaudid and toradol for pain. Planned outpt f/u with [facility] for evaluation of dilated common bile duct and masslike finding in biliary/liver area of US. No imaging obtained during this admission, but if WBC count doesn't normalize or symptoms worsen, imaging would be prudent to evaluate for infection/necrosis/worsening pseudocyst. Qualifiers: Pancreatitis type: other (2) Tobacco dependence: Status: Chronic Assessment and plan: Nicoderm prn. History of Present Illness History of Present Illness Chief Complaint: Abd pain Narrative: This is a 39 yo male with a h/o recurrent pancreatitis initially d/t alcohol use. + pancreatic pseudocysts and portal vein thrombosis. The onset of his current upper abdominal pain was approximately 1 week ago. He stated the pain was consistent with his history of pancreatitis related pain. He denies recent alcohol use since d/c from [facility] on 04/23/2020. At that admission an US revealed marked dilatation of the common bile duct associated with question of lazo creatitis and/or pancreatic mass/pseudocysts. Also noted was a question of a masslike focus adjacent to the liver and gallbladder. At that admission his case was discussed with [facility], Dr. Rahman, who recommended EUS with ERCP. The patient has a scheduled appointment with [facility] on 05/27/2020. Upon presenting to the ED currently he denied fever chest pain or sob. He had been intermittently tolerating solid foods but could not on the day of admission. He had no emesis prior to presention but did have an episode in the ED. Review of Systems All systems reviewed & are unremarkable except as noted in HPI and below PFSH Medical History Chronic alcohol use Spoke about life stressors, RCT as alternative, patient receptive. Discharge planning issues Per [facility] consult, continue monitoring until inflammation abates. Consider inpatient or outpatient workup at that time for ERCP and Pancreatitis Hydromorphone PRN PRN for pain. As above. 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 [employer] Medications and Allergies Home Medications Medication Instructions Recorded Confirmed Type omeprazole 20 mg PO DAILY 12/31/19 05/20/20 History ondansetron HCl [Zofran] 4 mg PO BID 12/31/19 05/20/20 History tramadol 50 mg PO TID PRN 04/17/20 05/20/20 History ovtzms-czbrxyzy-iximicq [Creon] 1 cap PO QMEALS #90 cap 04/20/20 05/20/20 Rx sertraline 50 mg PO DAILY 05/20/20 05/20/20 History Allergies Allergy/AdvReac Type Severity Reaction Status Date / Time No Known Allergies Allergy Unverified 05/20/20 18:36 Exam Const General: cooperative and in distress mild Nutritional Appearance: underweight Orientation: alert and oriented x3 Eyes Sclera: sclerae normal Pupils: PERRL Resp Effort & Inspection: normal respiratory effort Auscultation: clear to auscultation bilaterally Cardio Rate: regular rate Rhythm: regular rhythm Heart Sounds: S1 normal and S2 normal GI Inspection: normal to inspection Palpation: soft and tender in the LUQ Auscultation: normal bowel sounds Skin General skin exam: no rashes or lesions noted Neuro General: moves all extremities and no focal motor deficits Cognition: normal cognition Speech: speech normal Extrem General: no pedal edema and no calf tenderness Results Labs Result diagrams: 05/20/20 18:42 05/20/20 18:42 Labs: Laboratory Results - last 24 hr 05/20/20 05/20/20 05/20/20 18:42 18:42 20:50 WBC 13.94 H RBC 5.09 Hgb 16.1 Hct 49.0 MCV 96.3 H MCH 31.6 MCHC 32.9 RDW 12.5 Plt Count 347 MPV 9.3 Immature Gran % 1.4 Neutrophils % 69.3 Lymphocytes % 16.4 Monocytes % 6.7 Eosinophils % 5.6 Basophils % 0.6 Nucleated RBC % 0 Absolute Neutrophils 9.66 H Absolute Lymphocytes 2.29 Absolute Monocytes 0.93 H Absolute Eosinophils 0.78 H Absolute Basophils 0.08 Sodium 138 Potassium 3.7 Chloride 100 Carbon Dioxide 31.8 Anion Gap 6.2 BUN 14 Creatinine 0.84 Estimated GFR/1.73 m2 >= 60.00 Glucose 111 H Calcium 9.4 Magnesium 1.8 Total Bilirubin 0.4 AST 13 L ALT 38 Alkaline Phosphatase 275 H Total Protein 7.5 Albumin 4.0 Lipase 1818 H COVID-19 Source Nasopharynx SARS-CoV-2 (PCR) Negative Influenza Type A (PCR) Negative Influenza Type B (PCR) Negative RSV (PCR) Negative Last Vital Signs Temp 36.2 C L 05/20/20 23:24 Pulse 65 05/20/20 23:24 Resp 18 05/20/20 23:24 BP 95/64 L 05/20/20 23:24 Pulse Ox 97 05/20/20 23:24 COVID-19 Screening Have you, or household traveled for leisure in last 14 days?: No Had IN PERSON contact w/suspected or confirmed C-19 person: No
[2020-05-21 07:02] VITALS: BP 111/77; PULSE 73; RESP 18; TEMP 36.6; O2SAT 99
[2020-05-21] MEDS: Pantoprazole 40 MG VIAL IVP (08:18)
[2020-05-21] MEDS: Sertraline 50 MG TAB PO (08:21)
--- NOTE | 2020-05-21 08:41 | INITIAL_ITS ---
- If Service Date Differs Date of service: 05/21/20 Time of Service: 08:41 Care Management Initial Assess REASON FOR HOSPITALIZATION:: Pancreatitis. PAST MEDICAL HISTORY/PAST SURGICAL HISTORY:: Medical History: Chronic alcohol use - Spoke about life stressors, RCT as alternative, patient receptive; Discharge planning issues - Per [facility] consult, continue monitoring until inflammation abates. Consider inpatient or outpatient workup at that time for ER CP and Pancreatitis - Hydromorphone PRN PRN for pain. As above; Tobacco dependence -. Nicoderm, Nicotrol. PREVIOUS FUNCTIONAL STATUS/SOCIAL/FAMILY SUPPORTS:: Acosta is a 39 year old male who resides in [facility] with his mother. 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 He now occupies his time with bird and sleeping. Acosta states he has one friend, Sanchez, who is supportive of him. CURRENT FUNCTIONAL STATUS:: Acosta is laying in bed and is watching television when CM comes to meet with him. He states he is in a lot of pain and is frustrated with his inability to feel better. He talks about how difficult it is to keep a job when he is constantly ill. CM will continue to follow. ADVANCE DIRECTIVES:: None on file; Acosta was given a form at last admission but he states he has not yet completed it. Has patient been provided with info about the portal/API?: Yes Did the patient sign up for the portal?: No (Declines) CODE STATUS:: Full Code INSURANCE COVERAGE / FINANCIAL ISSUES:: Medicaid and Financial Asst 100. CURRENT HOME/COMMUNITY SERVICES/EQUIPMENT:: Acosta is independent at baseline. He does not currently have any services or equipment. PRIMARY CARE PHYSICIAN:: Antonio Harper. POTENTIAL DISCHARGE NEEDS:: Follow up appointment with PCP and discharge plan of care. PATIENT/FAMILY EDUCATION NEEDS:: Discharge instructions, limitations, and follow up plan of care, including Ask Me Three and self management. ANTICIPATED BARRIERS TO DISCHARGE:: None. TRANSPORTATION:: Via private vehicle with friend. PLAN:: Anticipate Acosta will be discharged home when medically cleared by provider. He will follow up with his PCP, GI appt at [facility] on 05/27/2020, and plan of care as directed. Acosta will be driven home via private vehicle with a friend, Sanchez, when ready. CM will continue to support patient and discharge planning needs.
[2020-05-21] MEDS: Lactated Ringers 1,000 ML 125 ML IV ×2 (09:29→17:36)
[2020-05-21 10:16] LABS: Abs Immature Grans 0.09 10^3/uL (0.0-0.06); Absolute Basophil Count 0.06 10^3/uL (0.0-0.2); Absolute Lymphocyte Count 1.78 10^3/uL (1.2-3.4); Absolute Monocyte Count 0.64 10^3/uL (0.1-0.8); Basophils % 0.7; Eosinophils % 6.9; HCT 41.8 % (40.0-50.0); HGB 13.7 g/dL (13.5-17.5); Lymphocytes % 20.5; MCH 31.9 pg (27.0-33.0); MCHC 32.8 % (32.0-36.0); MCV 97.4 fL (80-95); MPV 9.5 fL (8.0-11.0); Monocytes % 7.4; Neutrophils % 63.5; Nucleated RBC 0 %; Platelet Count 254 10^3/uL (130-400); RBC 4.29 10^6/uL (4.36-5.78); RDW 12.6 % (11.8-14.1); WBC 8.67 10^3/uL (4.4-10.8)
[2020-05-21 10:19] LABS: Absolute Neutrophil Count 5.51 10^3/uL (1.2-6.7)
[2020-05-21 10:32] LABS: ALT 33 U/L (16-63); AST 13 U/L (15-37); Alkaline Phosphatase 212 U/L (46-116); BUN 14 mg/dL (7-18); Bilirubin, Total 0.6 mg/dL (0.2-1.0); CREATININE 0.78 mg/dL (0.70-1.30); Calcium 8.9 mg/dL (8.5-10.1); Chloride 104 mmol/L (98-107); Glucose 96 mg/dL (74-106); Lipase 1174 U/L (73-393); Potassium 4.6 mmol/L (3.5-5.1); Sodium 140 mmol/L (136-145); Total Protein 6.1 g/dL (6.4-8.2)
[2020-05-21] MEDS: Ketorolac 30 MG/ML VIAL IVP ×2 (11:13→17:37)
--- NOTE | 2020-05-21 13:29 | W.PM.PROGNOT ---
Date of Service Date of service: 05/21/20 Time of Service: 13:37 Assessment and Plan Assessment and plan (1) Acute pancreatitis: Status: Acute Assessment and plan: Continue bowel rest. Patient can have sips of water and ice chips but no food. Continue aggressive IV fluid hydration narcotic analgesics and antiemetics. Once his pain improves I will give him a trial of clear liquids and once he is able to take oral foods he can be discharged home to follow-up with his GI specialist at [facility] next week. Qualifiers: Pancreatitis type: other Subjective Subjective Interval history since last seen: Patient has had no further vomiting. He still has nausea and significant epigastric and right upper quadrant abdominal pain. He is requiring parenteral narcotics for his pain. Morning labs and come back late. His white count came down overnight from 13,000 8000. H&H dropped with hydration from 16 g to 13.7 g. Lipase remains elevated at 1100. AST and ALT are normal as is his total bilirubin at 0.6. Alkaline phosphatase remains elevated at 212. Electrolytes are within normal limits and renal function remains normal. For now we will continue n.p.o. status other than some ice chips and sips of water. Continue aggressive IV fluid hydration and narcotic analgesics. Patient was scheduled to see , manufacturing test engineer at [facility] for endoscopic ultrasound of his liver and pancreas to evaluate his pseudocyst and peripancreatic mass. Exam Narrative Exam Narrative: Young male alert and oriented person place time circumstance. Abdomen is firm and tender with active bowel sounds. Voluntary guarding is present but there is no rebound tenderness. Objective Last Vital Signs Temp 36.6 C 05/21/20 07:02 Pulse 73 05/21/20 07:02 Resp 18 05/21/20 07:02 BP 111/77 05/21/20 07:02 Pulse Ox 99 05/21/20 07:02 Laboratory Results - last 24 hr 05/20/20 05/20/20 05/20/20 18:42 18:42 20:50 WBC 13.94 H RBC 5.09 Hgb 16.1 Hct 49.0 MCV 96.3 H MCH 31.6 MCHC 32.9 RDW 12.5 Plt Count 347 MPV 9.3 Immature Gran % 1.4 Neutrophils % 69.3 Lymphocytes % 16.4 Monocytes % 6.7 Eosinophils % 5.6 Basophils % 0.6 Nucleated RBC % 0 Absolute Neutrophils 9.66 H Absolute Lymphocytes 2.29 Absolute Monocytes 0.93 H Absolute Eosinophils 0.78 H Absolute Basophils 0.08 Sodium 138 Potassium 3.7 Chloride 100 Carbon Dioxide 31.8 Anion Gap 6.2 BUN 14 Creatinine 0.84 Estimated GFR/1.73 m2 >= 60.00 Glucose 111 H Calcium 9.4 Magnesium 1.8 Total Bilirubin 0.4 AST 13 L ALT 38 Alkaline Phosphatase 275 H Total Protein 7.5 Albumin 4.0 Lipase 1818 H COVID-19 Source Nasopharynx SARS-CoV-2 (PCR) Negative Influenza Type A (PCR) Negative Influenza Type B (PCR) Negative RSV (PCR) Negative 05/21/20 05/21/20 10:06 10:06 WBC 8.67 D RBC 4.29 L Hgb 13.7 D Hct 41.8 MCV 97.4 H MCH 31.9 MCHC 32.8 RDW 12.6 Plt Count 254 MPV 9.5 Immature Gran % 1.0 Neutrophils % 63.5 Lymphocytes % 20.5 Monocytes % 7.4 Eosinophils % 6.9 Basophils % 0.7 Nucleated RBC % 0 Absolute Neutrophils 5.51 Absolute Lymphocytes 1.78 Absolute Monocytes 0.64 Absolute Eosinophils 0.60 Absolute Basophils 0.06 Sodium 140 Potassium 4.6 D Chloride 104 Carbon Dioxide 32.0 Anion Gap 4.0 BUN 14 Creatinine 0.78 Estimated GFR/1.73 m2 >= 60.00 Glucose 96 Calcium 8.9 Magnesium Total Bilirubin 0.6 AST 13 L ALT 33 Alkaline Phosphatase 212 H Total Protein 6.1 L Albumin 3.0 L Lipase 1174 H COVID-19 Source SARS-CoV-2 (PCR) Influenza Type A (PCR) Influenza Type B (PCR) RSV (PCR)
[2020-05-21 15:04] VITALS: BP 125/80; PULSE 70; RESP 17; TEMP 36; O2SAT 95
[2020-05-21] MEDS: HYDROmorphone 2 MG/ML VIAL IVP ×2 (15:16→20:09)
[2020-05-21 18:52] VITALS: BP 131/88; PULSE 67; RESP 18; TEMP 36.2; O2SAT 97
[2020-05-21] MEDS: Ondansetron 4 MG/2 ML VIAL IVP (20:09)
[2020-05-21 23:50] VITALS: BP 112/67; PULSE 67; RESP 18; TEMP 36.5; O2SAT 96
[2020-05-22] MEDS: Ketorolac 30 MG/ML VIAL IVP
[2020-05-22] MEDS: Lactated Ringers 1,000 ML 125 ML IV ×3 (01:34→17:47)
[2020-05-22] MEDS: HYDROmorphone 2 MG/ML VIAL IVP ×5 (03:13→20:29)
[2020-05-22 07:03] LABS: Abs Immature Grans 0.04 10^3/uL (0.0-0.06); Absolute Basophil Count 0.06 10^3/uL (0.0-0.2); Absolute Eosinophil Count 0.57 10^3/uL (0.0-0.7); Absolute Lymphocyte Count 1.83 10^3/uL (1.2-3.4); Absolute Monocyte Count 0.59 10^3/uL (0.1-0.8); Absolute Neutrophil Count 4.53 10^3/uL (1.2-6.7); Basophils % 0.8; Eosinophils % 7.5; HCT 38.4 % (40.0-50.0); HGB 12.6 g/dL (13.5-17.5); Immature Grans % 0.5; MCH 31.1 pg (27.0-33.0); MCHC 32.8 % (32.0-36.0); MCV 94.8 fL (80-95); MPV 9.7 fL (8.0-11.0); Monocytes % 7.7; Neutrophils % 59.5; Nucleated RBC 0 %; Platelet Count 228 10^3/uL (130-400); RBC 4.05 10^6/uL (4.36-5.78); RDW 12.2 % (11.8-14.1); RDW-SD 42.9 fL; WBC 7.62 10^3/uL (4.4-10.8)
[2020-05-22 07:17] VITALS: BP 115/81; PULSE 64; RESP 18; TEMP 36.6; O2SAT 96
[2020-05-22 07:19] LABS: ALT 28 U/L (16-63); AST 17 U/L (15-37); Albumin 2.7 g/dL (3.4-5.0); Alkaline Phosphatase 188 U/L (46-116); Anion Gap 4.6 mmol/L (3-11); BUN 11 mg/dL (7-18); Bilirubin, Total 0.8 mg/dL (0.2-1.0); CO2 29.4 mmol/L (21.0-32.0); CREATININE 0.76 mg/dL (0.70-1.30); Calcium 8.7 mg/dL (8.5-10.1); Chloride 105 mmol/L (98-107); Glucose 75 mg/dL (74-106); Lipase 1120 U/L (73-393); Potassium 4.7 mmol/L (3.5-5.1); Sodium 139 mmol/L (136-145); Total Protein 5.4 g/dL (6.4-8.2)
[2020-05-22] MEDS: Pantoprazole 40 MG VIAL IVP (08:12)
[2020-05-22] MEDS: Normal Saline Flush 10 ML SYR IVP ×3 (08:12→15:16)
[2020-05-22] MEDS: Sertraline 50 MG TAB PO (08:12)
--- NOTE | 2020-05-22 12:33 | W.PM.PROGNOT ---
Date of Service Date of service: 05/22/20 Time of Service: 09:17 Assessment and Plan Assessment and plan (1) Tobacco dependence: Status: Chronic Assessment and plan: Nicotrol inhaler. He has a cigarette that he holds but doesn't light. He endorses a plan to work on cessation after his pancreatic issue is under better control. (2) Pancreatitis: Status: Chronic Assessment and plan: Acute on chronic. Initially in the setting of Etoh abuse. Now has a pseudocyst, CBD dilitation and a masslike finding near the gallbladder. Clear liquids initiated today; advance as tolerated. He has an outpt appt scheduled with GI at [facility]. Qualifiers: Chronicity: acute Pancreatitis type: alcohol induced Acute pancreatitis complication: no infection or necrosis Qualified Code(s): K85.20 - Alcohol induced acute pancreatitis without necrosis or infection Subjective Subjective Patient reports: no new complaints, feels better, still having pain, pain is less and tolerating liquids well; denies diarrhea, nausea, vomiting and shortness of breath Exam Const General: cooperative and no acute distress Nutritional Appearance: underweight Orientation: alert and oriented x3 Resp Effort & Inspection: normal respiratory effort Auscultation: clear to auscultation bilaterally Cardio Rate: regular rate Rhythm: regular rhythm Heart Sounds: S1 normal and S2 normal GI Palpation: soft and tender in the LUQ Extrem General: no pedal edema and no calf tenderness Psych Appearance: grossly normal Mental Status: mental status grossly normal Affect: normal affect Objective Last Vital Signs Temp 36.6 C 05/22/20 07:17 Pulse 64 05/22/20 07:17 Resp 18 05/22/20 07:17 BP 115/81 05/22/20 07:17 Pulse Ox 96 05/22/20 07:17 Laboratory Results - last 24 hr 05/22/20 05/22/20 06:07 06:07 WBC 7.62 RBC 4.05 L Hgb 12.6 L Hct 38.4 L MCV 94.8 MCH 31.1 MCHC 32.8 RDW 12.2 Plt Count 228 MPV 9.7 Immature Gran % 0.5 Neutrophils % 59.5 Lymphocytes % 24.0 Monocytes % 7.7 Eosinophils % 7.5 Basophils % 0.8 Nucleated RBC % 0 Absolute Neutrophils 4.53 Absolute Lymphocytes 1.83 Absolute Monocytes 0.59 Absolute Eosinophils 0.57 Absolute Basophils 0.06 Sodium 139 Potassium 4.7 Chloride 105 Carbon Dioxide 29.4 Anion Gap 4.6 BUN 11 Creatinine 0.76 Estimated GFR/1.73 m2 >= 60.00 Glucose 75 Calcium 8.7 Total Bilirubin 0.8 AST 17 ALT 28 Alkaline Phosphatase 188 H Total Protein 5.4 L Albumin 2.7 L Lipase 1120 H
--- NOTE | 2020-05-22 12:42 | CMPROGNOTE_ITS ---
- If Service Date Differs Date of service: 05/22/20 Time of Service: 12:43 Care Management Progress Note S/O: Acosta was sitting up in bed when CM met with him. He was pleasant and engaged in conversation. He stated that he is out of work and is concerned about how he will get by with no income. 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 He does not have any supports in his life who do not drink, except the recovery specialist. CM discussed options in the community for resources such as food assistance, fuel assistance, and Voc Rehab. He stated that he has an appointment at [facility] [place] to determine what his next steps are, medically. We discussed sobriety at length, and how he needs to focus on his own health right now, and then make goals for the future to become more independent and self sufficient. Per provider, his diet is being advanced today, and he will likely discharge tomorrow if he is tolerating the advanced diet. CM will continue to follow. A: Acosta is a 39 year old male admitted to [facility] on 05/20/20 with pancreatitis. P: Anticipate Acosta will return home when medically cleared with no services. He will transport via private vehicle driven by a friend. He will follow up with his PCP and discharge plan of care. His follow up at [facility] is scheduled for 05/27/19. CM will continue to follow.
--- NOTE | 2020-05-22 13:22 | PHA.REVIEW ---
Pharmacy Admission Review - Admission Clinical Review (Last Reviewed 05/21/20 @ 06:25 by Wild Meza MD) Acute pancreatitis (Acute) No Known Allergies Allergy (Unverified 05/20/20 18:36) Height 6 ft 4 in Weight 64.6 kg - Renal Dosing Renal Dosing: BUN 11 mg/dL (7-18) 05/22/20 06:07 Creatinine 0.76 mg/dL (0.70-1.30) 05/22/20 06:07 Medications needing adjustments: Reviewed (crcl ~114ml/min) - Anticoagulation Anticoagulation: Hgb 12.6 g/dL (13.5-17.5) L 05/22/20 06:07 Hct 38.4 % (40.0-50.0) L 05/22/20 06:07 Plt Count 228 10^3/uL (130-400) 05/22/20 06:07 Creatinine 0.76 mg/dL (0.70-1.30) 05/22/20 06:07 DVT Prohphylaxis: N/A Therapeutic Anticoagulation: N/A - Relevant Labs Sodium 139 mmol/L (136-145) 05/22/20 06:07 Potassium 4.7 mmol/L (3.5-5.1) 05/22/20 06:07 Chloride 105 mmol/L (98-107) 05/22/20 06:07 Magnesium 1.8 mg/dL (1.8-2.4) 05/20/20 18:42 Electrolytes, C-Reactive P, ESR: Reviewed - DM Control DM Control: Glucose 75 mg/dL (74-106) 05/22/20 06:07 Insulin Dosing: N/A - BP Control BP Control: Blood Pressure 115/81 If elevated: N/A - Qtc Review If Elevated: N/A - Home Meds Home Med List reviewed: Reviewed - Current meds Current Medication Order Review: Reviewed - Comments Comments/Follow Ups: tolerating clears possible discharge
[2020-05-22 14:30] VITALS: BP 123/83; PULSE 68; RESP 19; TEMP 36.9; O2SAT 99
[2020-05-22 20:15] VITALS: BP 162/94; PULSE 57; RESP 18; TEMP 36.9; O2SAT 98
[2020-05-22] MEDS: Ondansetron 4 MG/2 ML VIAL IVP (20:29)
[2020-05-23] MEDS: Ondansetron 4 MG/2 ML VIAL IVP ×2 (00:34→18:09)
[2020-05-23] MEDS: HYDROmorphone 2 MG/ML VIAL IVP ×2 (00:34→05:35)
[2020-05-23] MEDS: Normal Saline Flush 10 ML SYR IVP ×4 (02:01→18:09)
[2020-05-23] MEDS: Lactated Ringers 1,000 ML 125 ML IV (02:01)
[2020-05-23 03:10] VITALS: BP 126/79; PULSE 53; RESP 18; TEMP 36.6; O2SAT 98
[2020-05-23 07:10] VITALS: BP 135/90; PULSE 64; RESP 19; TEMP 37.1; O2SAT 99
[2020-05-23] MEDS: Pantoprazole 40 MG VIAL IVP (08:19)
[2020-05-23] MEDS: Sertraline 50 MG TAB PO (08:20)
[2020-05-23] MEDS: HYDROmorphone 2 MG TAB PO ×4 (09:32→22:37)
--- NOTE | 2020-05-23 13:12 | PGE_ITS ---
Date of Service Date of service: 05/23/20 Time of Service: 13:12 Assessment and Plan Assessment and plan (1) Pancreatitis: Status: Chronic Assessment and plan: acute on chronic. Historically d/t alcohol. Now has findings concerning for a biliary mass. Planning evaluation at [facility] with GI on 05/27/2020 Advance diet as tolerated. Pain control with oral dilaudid. Qualifiers: Chronicity: acute Pancreatitis type: alcohol induced Acute pancre atitis complication: no infection or necrosis Qualified Code(s): K85.20 - Alcohol induced acute pancreatitis without necrosis or infection (2) Tobacco dependence: Status: Chronic Assessment and plan: Nicotrol (3) Protein calorie malnutrition: Status: Acute Assessment and plan: Albumin 2.7. Disadvantaged with intake d/t pancreatitis. Once eating a more normal diet will continue pancreatic enzymes and encourage higher protein intake. Subjective Subjective Patient reports: feels better, still having pain, pain is less, tolerating liquids well, bowel movement and afebrile; denies vomiting and shortness of breath Exam Const General: cooperative, no acute distress and frail appearing Nutritional Appearance: underweight Orientation: alert and oriented x3 Eyes Sclera: sclerae normal Pupils: PERRL Resp Effort & Inspection: normal respiratory effort Auscultation: clear to auscultation bilaterally Cardio Rate: regular rate Rhythm: regular rhythm Heart Sounds: S1 normal and S2 normal GI Palpation: soft and nontender Skin General skin exam: no rashes or lesions noted Extrem General: no pedal edema and no calf tenderness Objective Last Vital Signs Temp 37.1 C 05/23/20 07:10 Pulse 64 05/23/20 07:10 Resp 19 05/23/20 07:10 BP 135/90 05/23/20 07:10 Pulse Ox 99 05/23/20 07:10
--- NOTE | 2020-05-23 13:43 | CMPROGNOTE_ITS ---
- If Service Date Differs Date of service: 05/23/20 Time of Service: 13:43 Care Management Progress Note S/O: Acosta was sleeping when CM attempted to visit with him x3. Per report, his diet was advanced as tolerated, and he has been advanced to full liquids. Discharge readiness will include tolerating an advanced diet as well as weaning off IV pain medication. He has still required IV dilaudid today, twice so far. CM did not awake him as he will likely remain overnight, and his plan has not c hanged. CM will continue to follow. A: Acsota is a 39 year old male admitted to [facility] on 05/20/20 with pancreatitis. P: Anticipate Acosta will return home when medically cleared with no services. He will transport via private vehicle driven by a friend. He will follow up with his PCP and discharge plan of care. His follow up at [facility] is scheduled for 05/27/19. CM will continue to follow.
[2020-05-23] MEDS: Nicotine 14 MG/24 HR PATCH TD (13:48)
[2020-05-23 15:09] VITALS: BP 131/87; PULSE 64; RESP 16; TEMP 37.1; O2SAT 96
[2020-05-23 23:05] VITALS: BP 122/78; PULSE 64; RESP 17; TEMP 36.8; O2SAT 98
[2020-05-24] MEDS: HYDROmorphone 2 MG TAB PO ×3 (03:02→13:32)
[2020-05-24 07:13] VITALS: BP 119/80; PULSE 70; RESP 18; TEMP 36.7; O2SAT 99
[2020-05-24] MEDS: Pantoprazole 40 MG VIAL IVP (08:08)
[2020-05-24] MEDS: Sertraline 50 MG TAB PO (08:08)
[2020-05-24] MEDS: Normal Saline Flush 10 ML SYR IVP (08:08)
--- NOTE | 2020-05-24 12:48 | W.PM.DS.N ---
Date of service: 05/24/20 Time of Service: 12:48 DS: Diagnosis Discharge Diagnosis (1) Pancreatitis: Status: Chronic (2) Tobacco dependence: Status: Chronic (3) Protein calorie malnutrition: Status: Acute Discharge Plan Disposition Patient Disposition: HOME Condition: Improving Discharge Details Reason For Visit: PANCREATITIS Admit Date/Time: 05/20/20 20:20 Admit Provider: Wild Meza Attending Provider: Wild Meza Primary Care Provider: Antonio Harper Home Meds and New Rx's Prescriptions: New hydromorphone 2 mg Tablet 2 mg PO Q6H PRNQty: 15 RF: 0 Discontinued tramadol 50 mg tablet 50 mg PO TID PRNRF: 0 No Action ondansetron HCl [Zofran] 4 mg tablet 4 mg PO BID RF: 0 omeprazole 40 mg capsule,delayed release(DR/EC) 20 mg PO DAILY RF: 0 Creon 6,000-19,000 -30,000 unit Capsule,Delayed Release(Dr/Ec) 1 cap PO QMEALS Qty: 90 RF: 0 sertraline 50 mg tablet 50 mg PO DAILY RF: 0 Discharge Instructions Instructions: Pancreatitis (DC) Stand Alone Forms: Nursing Discharge Form Referrals: Antonio Harper [Primary Care Provider] - 06/02/20 8:40 am Activity:: Activity as Tolerated Equipment/Supplies:: No Equipment Needed Diet:: low fat advance as tolerated Discharge Orders Discharge Orders: Discharge Order (Routine); Ordered 05/24/20 Ordered By: Wild Meza DS: Summary Status at Discharge Functional status at discharge: independent ambulation Overall status at discharge: patient is progressing back to baseline Mental Status: mental status grossly normal Speech and Movement: speech and movement normal Mood: congruent mood Affect: normal affect Exam Const General: cooperative, no acute distress and frail appearing Nutritional Appearance: underweight Orientation: oriented x3 Eyes Sclera: sclerae normal Pupils: PERRL Resp Effort & Inspection: normal respiratory effort Auscultation: clear to auscultation bilaterally and diminished lung sounds Cardio Rate: regular rate Rhythm: regular rhythm Heart Sounds: S1 normal and S2 normal GI Palpation: soft and tender in the LUQ (mild w/o guarding/rebound) Extrem General: no pedal edema and no calf tenderness Psych Appearance: grossly normal Mental Status: mental status grossly normal Speech and Movement: speech and movement normal Mood: congruent mood Affect: normal affect Attitude: cooperative DS: Data Vitals/I&O Vitals and I&O: Vital Signs Temperature 36.7 C 05/24/20 07:13 Temperature Source Tympanic 05/24/20 07:13 Pulse 70 05/24/20 07:13 Pulse Rhythm Regular 05/24/20 08:05 Respiratory Rate 18 05/24/20 07:13 Respiratory Effort Non-Labored 05/24/20 08:05 Respiratory Depth Normal 05/24/20 08:05 Respiratory Pattern Normal 05/24/20 08:05 Blood Pressure 119/80 05/24/20 07:13 Blood Pressure Position Sitting 05/20/20 18:30 Pulse Oximetry 99 05/24/20 07:13 Oxygen Delivery Method Room Air 05/24/20 07:13 Oxygen Flow Rate 0 05/24/20 07:13 Pain Level 7 05/24/20 08:07 Comment 05/22/20 20:15 Intake & Output 05/23/20 05/24/20 05/24/20 23:59 11:59 23:59 Intake Total 670 / 2985.417 250 / 610 360 / 610 Balance 670 / 2985.417 250 / 610 360 / 610 Intake: IV 1964.417 Oral 660 / 1020 250 / 610 360 / 610 Other: Urine Appearance Clear Clear Comment pt voiding independently voids independently RN did not assess urine Voiding Methods Toilet [facility] Medical History Chronic alcohol use Spoke about life stressors, RCT as alternative, patient receptive. Discharge planning issues Per [facility] consult, continue monitoring until inflammation abates. Consider inpatient or outpatient workup at that time for ERCP and Pancreatitis Hydromorphone PRN PRN for pain. As above. 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
--- NOTE | 2020-05-24 14:13 | CHAPLAIN ---
Acosta said he may be discharged later today, he's hasn't heard for sure. He said he's feeling much better. He's been dealing with pancreatitis for a while and said it's difficult at home because it's very painful. The people he lives with got sick of me he said so he came into the hospital where his pain was better controlled, he explained.
--- NOTE | 2020-05-24 17:28 | PDOC.CMDIS ---
- If Service Date Differs Date of service: 05/24/20 Time of Service: 17:28 LACE Index Scoring Tool - Questions: Length of Stay (in days): 4 - 6 Acuity (Admit via E.D.?): Yes E.D. Visits: 9 - Answers: Total Score: 11 Risk of Readmission: High Risk Care Management Discharge Reason for Hospitalization: Pancreatitis. Discharge Plan: Acosta will be discharged home with no new services and follow up with his community providers. He has an outpatient appointment at [facility] [place] for an endoscopic procedure. He will transport home with his mother via private vehicle. Patient/Family Education Needs: Discharge plan, limitations, follow up plan Ask Me Three
== END 2020-05-24 14:23 | disposition home or self-care (01) | DRG 438 ==
LOC: ER 20:19 → MS 21:31
PROVIDERS: Internal Medicine; Admitting Provider Family Medicine; Emergency Provider Nurse Practitioner Acute Care; PCP Neuromusculoskeletal Medicine & OMM; Visit Provider Family Medicine
DX: K85.20 Alcohol induced acute pancreatitis without necrosis or infection (principal); I81 Portal vein thrombosis; K86.3 Pseudocyst of pancreas; E46 Unspecified protein-calorie malnutrition; Z68.1 Body mass index [BMI] 19.9 or less, adult; F17.210 Nicotine dependence, cigarettes, uncomplicated; K86.0 Alcohol-induced chronic pancreatitis
CPT/HCPCS: 36415; 80053; 83690; 87637; 96361; 96374; 96375; 99222; 99239; 99285; NC; 83735; 85025; 99284; J1885; J2405

== ENCOUNTER 2020-09-17 15:00 | Inpatient (IN) | payer MEDICAID, SELFPAY ==
[2020-09-17] VITALS (12 sets, daily range): BP systolic 94–157; BP diastolic 62–122; PULSE 58–117; RESP 14–18; TEMP 36.2–37.1; O2SAT 97–100
[2020-09-17] MEDS: Normal Saline 1,000 ML 1000 ML IV (15:24)
[2020-09-17] MEDS: Ondansetron 4 MG/2 ML VIAL IVP (15:24)
[2020-09-17] MEDS: HYDROmorphone 2 MG/ML VIAL 0.5 MG IVP ×2 (15:24→17:59)
[2020-09-17 15:33] LABS: Abs Immature Grans 0.11 10^3/uL (0.0-0.06); Absolute Basophil Count 0.04 10^3/uL (0.0-0.2); Absolute Eosinophil Count 0.08 10^3/uL (0.0-0.7); Absolute Monocyte Count 1.51 10^3/uL (0.1-0.8); Absolute Neutrophil Count 9.24 10^3/uL (1.2-6.7); Basophils % 0.3; Eosinophils % 0.6; HCT 51.8 % (40.0-50.0); HGB 17.1 g/dL (13.5-17.5); Immature Grans % 0.9; Lymphocytes % 14.1; MCH 32.1 pg (27.0-33.0); MCV 97.2 fL (80-95); MPV 9.6 fL (8.0-11.0); Monocytes % 11.8; Neutrophils % 72.3; Nucleated RBC 0 %; Platelet Count 397 10^3/uL (130-400); RBC 5.33 10^6/uL (4.36-5.78); RDW 14.9 % (11.8-14.1); RDW-SD 53.7 fL; WBC 12.78 10^3/uL (4.4-10.8)
--- NOTE | 2020-09-17 15:38 | W.ED.GENAD ---
Discharge Plan Disposition Patient Disposition: [facility] INPATIENT Condition: Stable Discharge Details Clinical Impression: Acute on chronic pancreatitis Admit Date/Time: 09/17/20 19:01 Admit Provider: Dipak Lopez Attending Provider: Dipak Lopez Primary Care Provider: Antonio Harper ED Provider: Marcia Camacho Discharge Data Discharge Date/Time-TO BE ENTERED AT DEPARTURE: 09/17/20 19:43 Medical Decision Making <Marcia Camacho - Last Filed: 09/17/20 19:51> 40-year-old male with a history of pancreatitis presents to the ER chief complaint of midepigastric abdominal pain radiating around to his back which has been ongoing and worsening over the last 5 to 6 days. He states that he did have couple of beers on Sunday played some golf and that exacerbated his pain and symptoms. He does endorse vomiting is unable to keep anything down including food or medications. He also states he normally takes approximately 4 mg of hydromorphone 3 Times daily which he ran out of on Sunday. He denies any fever or chills denies any diarrhea but does endorse constipation. He denies any chest pain or shortness of breath upon initial exam. Labs show white blood cell count of 12.78, absolute neutrophils 9.24, monocytes 1.51, sodium 139, potassium 3.6, chloride 98 anion gap 11.6, BUN is 20 creatinine 1.2 GFR greater than 60. AST is 23 ALT 69 alk phos is 496, lipase is 1551. 1735: Patient re-evaluation, Patient is actively vomiting and is requesting more pain medications. Will consult with hospitalist for admission for acute on chronic pancreatitis. 1745: Spoke with Dr. Hooker, who is on-call for hospitalist at this time regarding patient case and details and request for admission for acute on chronic pancreatitis. He requests to consult [facility] GI regarding possible emergent need for ERCP due to the pancreatic ductal diet relation and the biliary ductal dilation. 1800: [facility] [place] paged. 1846: Spoke with Dr. Moore with [facility] GI he was able to personally view the CT he does not recommend an emergent ERCP at this point he states that he would just recommend bowel rest fluids trending of the labs and analgesics. He states if there is worsening over the weekend with his bilirubin or patient develops fever then empiric antibiotics could be considered he also reports that a possibility for a down and back ERCP due to [facility] bed capacity, on Sunday or sooner if patient worsens. Will repage hospitalist. 1858: Spoke with Dr. Griffith who agrees to accept patient for admission. I did discuss GI recommendations for fluids, bowel rest, trending of labs and antibiotics if needed. Will discuss plan of care with patient. <Justin Velasquez MD - Last Filed: 09/24/20 22:52> Patient seen, examined, and discussed with DORON Camacho. I agree with treatment plan as discussed/documented. HPI <Marcia Camacho - Last Filed: 09/17/20 19:51> General Mode of arrival: ambulatory. Date/Time Provider Initiated Documentation: 09/17/20 15:08. Limitations to Documentation: no limitations. Information obtained by: patient. HPI Narrative: 40-year-old male with a history of pancreatitis presents to the ER chief complaint of midepigastric abdominal pain radiating around to his back which has been ongoing and worsening over the last 5 to 6 days. He states that he did have couple of beers on Sunday played some golf and that exacerbated his pain and symptoms. He does endorse vomiting is unable to keep anything down including food or medications. He also states he normally takes approximately 4 mg of hydromorphone 3 Times daily which he ran out of on Sunday. He denies any fever or chills denies any diarrhea but does endorse constipation. He denies any chest pain or shortness of breath upon initial exam. Related Data Home Medications Medication Instructions Recorded Confirmed omeprazole 20 mg PO DAILY 12/31/19 09/17/20 ondansetron HCl [Zofran] 4 mg PO BID 12/31/19 09/17/20 Creon 1 cap PO QMEALS #90 cap 04/20/20 09/17/20 sertraline 50 mg PO DAILY 05/20/20 09/17/20 hydromorphone 2 mg PO Q6H PRN #15 tab 05/24/20 09/17/20 amoxicillin-pot clavulanate 1 tab PO BID #10 tab 09/21/20 [Augmentin] hydromorphone 2 mg PO Q6H PRN #14 tab 09/21/20 polyethylene glycol 3350 17 g PO DAILY PRN PRN #0 ea 09/21/20 Previous Rx's Medication Instructions Recorded Creon 1 cap PO QMEALS #90 cap 04/20/20 hydromorphone 2 mg PO Q6H PRN #15 tab 05/24/20 amoxicillin-pot clavulanate 1 tab PO BID #10 tab 09/21/20 [Augmentin] hydromorphone 2 mg PO Q6H PRN #14 tab 09/21/20 polyethylene glycol 3350 17 g PO DAILY PRN PRN #0 ea 09/21/20 Allergies Allergy/AdvReac Type Severity Reaction Status Date / Time No Known Allergies Allergy Unverified 09/17/20 15:08 General Stated Complaint: Abd Prob DEIDRE: 3 Review of Systems <Marcia Camacho - Last Filed: 09/17/20 19:51> Narrative: Constitutional: Negative for weight loss, alert and oriented, well groomed, thin body habitus, appears comfortable. HEENT: Denies trauma, headaches, blurry vision, nasal discharge, sore throat, trouble swallowing. Chest: Denies chest pain, palpitations, irregular rhythm, hypertension. Respiratory: Denies Shortness of breath, cough, hemoptysis. GI: Denies diarrhea, Positive Abdominal pain, nausea, vomiting,constipation. : Denies dysuria, hematuria, rectal bleeding. Neuro: Denies dizziness, blurry vision, weakness, syncope, headache or facial numbness. Hematologic: Denies easy bruising, intolerance to heat or cold, hair loss. PFSH <Marcia Camacho - Last Filed: 09/17/20 19:51> Medical History Chronic alcohol use Spoke about life stressors, RCT as alternative, patient receptive. Discharge planning issues Per [facility] consult, continue monitoring until inflammation abates. Consider inpatient or outpatient workup at that time for ERCP and Pancreatitis Hydromorphone PRN PRN for pain. As above. 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 Appears stated age. Normal body habitus. Head: Normocephalic, no trauma. Eyes: Pupils PERRLA, Red reflex noted, EOM's intact. Eyelids symmetrical without lesions, discharge, or swelling. ENT: Bilateral TM's WNL, External ear normal to inspection, no mastoid TTP, swelling, or erythema, Nasal turbinates WNL, no nasal discharge. Posterior pharynx WNL, no exudate. Dry mucous membranes. Chest: RRR, Normal S1, S2, distal pulses intact. Resp: Lungs clear to auscultation bilaterally, no wheezes, rales, or rhonchi. Abd: Positive guarding, tender to palpation midepigastrum and LUQ, radiates into left flank Musculoskeletal: Normal gait, 5/5 strength to all four extremities. Skin: No suspicious rashes or lesions. Capillary refill less than 2 sec. Neurologic: Cranial nerves II-XII intact. Alert and oriented x 3. DTR's intact. Hematologic/Lymphatic: No ecchymosis, no lymphadenopathy. Course <Marcia Camacho - [facility] Filed: 09/17/20 19:51> Vital Signs Vital signs: Vital Signs Temperature 36.4 C L 09/17/20 15:04 Pulse 117 H 09/17/20 15:04 Respiratory Rate 18 09/17/20 15:04 Blood Pressure 157/122 H 09/17/20 15:04 Pulse Oximetry 99 09/17/20 15:04 Temperature 36.4 C L 09/17/20 15:04 Temperature Source Temporal Artery Scan 09/17/20 15:04 Pulse 117 H 09/17/20 15:04 Respiratory Rate 18 09/17/20 15:04 Respiratory Effort Non-Labored 09/17/20 15:10 Blood Pressure 157/122 H 09/17/20 15:04 Blood Pressure Position Sitting 09/17/20 15:04 Pulse Oximetry 99 09/17/20 15:04 Oxygen Delivery Method Room Air 09/17/20 15:04 Oxygen Flow Rate 0 09/17/20 15:04 Pain Level 8 09/17/20 15:24
[2020-09-17 15:48] LABS: Diff Comment Agrees w/ Instrument; RBC Morphology Normal
[2020-09-17 15:51] LABS: ALT 69 U/L (16-63); AST 23 U/L (15-37); Albumin 4.6 g/dL (3.4-5.0); Alkaline Phosphatase 496 U/L (46-116); Anion Gap 11.6 mmol/L (3-11); BUN 20 mg/dL (7-18); Bilirubin, Total 0.8 mg/dL (0.2-1.0); CO2 29.4 mmol/L (21.0-32.0); CREATININE 1.2 mg/dL (0.70-1.30); Calcium 9.7 mg/dL (8.5-10.1); Chloride 98 mmol/L (98-107); Glucose 86 mg/dL (74-106); Magnesium 2.2 mg/dL (1.8-2.4); Potassium 3.6 mmol/L (3.5-5.1); Sodium 139 mmol/L (136-145); Total Protein 8.6 g/dL (6.4-8.2)
[2020-09-17 15:52] LABS: Lipase 1551 U/L (73-393)
--- NOTE | 2020-09-17 16:00 | DI.CT_ITS ---
Exam(s) CT ABDOMEN PELVIS W EXAM: CT ABDOMEN PELVIS W CLINICAL HISTORY: Abd pain, hx Pancreatitis TECHNIQUE: Imaging Protocol: Axial computed tomography images with coronal and sagittal reformatted images were created and reviewed CONTRAST MATERIAL: Intravenous: Omnipaque 350 Contrast volume:100 mL Oral: No COMPARISON: CT CT ABDOMEN PELVIS W from 02/05/2020 FINDINGS: ABDOMEN: Lung Bases: Normal where visualized. Liver: There is decreased density of the liver consistent with fatty infiltration. No measurable mas s. The liver measures 19 cm in length. Portal, Superior Mesenteric, and Splenic Veins: Unremarkable. Gallbladder and Biliary Tract: The gallbladder is distended. There is pericholecystic fluid present. No radiopaque stones are seen. There is intra and extrahepatic biliary ductal dilatation with the common bile duct measuring 1.4 cm. Pancreas: There is a new pancreatic cyst at the level of the pancreatic head measuring 2.9 cm in maxi mum diameter. The previously seen peripancreatic cystic collection has decreased in size currently m easuring 3.7 x 1.4 cm compared with 4.5 x 3.9 cm. Inflammatory stranding is seen around the pancreas particularly around the level of the pancreatic head. There has been interval development of pancre atic ductal dilatation up to 9 mm. No evidence of pancreatic necrosis is seen. Spleen: Normal. Adrenals: No masses seen. Kidneys: Normal size, contour and axis. No radiodense stones or obstructive uropathy. There are 2 sma ll subcentimeter cysts in the lower pole of the right kidney. No further follow-up is recommended. Abdominal Aorta: Abdominal portion non-dilated. Atherosclerosis. Bowel: No bowel obstruction. There is marked thickening of the wall of the distal stomach and proxim al duodenum. No evidence of appendicitis. Peritoneal Cavity: Please see the above discussion. No free air. Lymph Nodes: Within normal limits. Bones: Within normal limits for the patient's age. Soft Tissues: Unremarkable. PELVIS: Bladder: There is mild diffuse thickening of the wall of the urinary bladder. Reproductive Organs: There is mild enlargement of the prostate gland. Lymph Nodes: Within normal limits. Bones: Within normal limits for the patient's age. IMPRESSION: 1. Findings of acute pancreatitis, most localized to the level of the pancreatic head. 2. Interval development of a new pancreatic cystic lesion measuring 2.9 cm at the level of the pancre atic head. This likely reflects a pseudocyst given the patient's past medical history. Other pancre atic lesion cannot be excluded. 3. Interval development of pancreatic ductal dilatation. Given the history of chronic pancreatitis, an underlying pancreatic head lesion should be considered. Pancreatic MRI should be considered for f urther evaluation following treatment of the current bout of pancreatitis. 4. Distended gallbladder with pericholecystic fluid. Acute cholecystitis cannot be excluded. 5. Bowel wall thickening involving the distal stomach and proximal duodenum likely reflecting acute g astritis/duodenitis secondary to the adjacent pancreatitis. 6. Interval decrease in size of the patient's previously seen peripancreatic fluid collection. 7. Interval development of intra and extrahepatic biliary ductal dilatation. No obvious radiopaque s tones are seen to suggest choledocholithiasis. RADIATION DOSE DELIVERED: 528.79mGy.cm Total DLP DATA REPOSITORY: All CT scans at this facility are submitted to the National Radiology Data Registry (NRDR) Dose Index Registry (DIR) with the [employer] (ACR). RADIATION OPTIMIZATION: All CT scans at this facility use at least one of these dose optimization te chniques: automated exposure control; mA and/or kV adjustment per patient size (includes targeted exa ms where dose is matched to clinical indication); or iterative reconstruction.
[2020-09-17] MEDS: Normal Saline - Diluent 50 ML VIAL IV (16:58)
[2020-09-17] MEDS: Omnipaque 350 MG/ML 100 ML BTL IJ (16:58)
--- NOTE | 2020-09-17 17:20 | DI.VRAD_ITS ---
PROCEDURE INFORMATION: Exam: CT Abdomen And Pelvis With Contrast Exam date and time: 09/17/2020 4:03 PM Age: 40 years old Clinical indication: Generalized; Patient HX: Abdominal pain, HX pancreatitis TECHNIQUE: Imaging protocol: Computed tomography of the abdomen and pelvis with contrast. COMPARISON: CT ABDOMEN PELVIS W 02/05/2020 1:28 PM FINDINGS: Lungs: Lung bases are clear. Liver: There is enlargement of the liver, measuring 19 cm. There is a diffuse decrease in hepatic parenchymal density, consistent with fatty infiltration. Gallbladder and bile ducts: Gallbladder is distended. Pericholecystic fluid is present. No radiopaque gallstones. Intra and extrahepatic biliary ductal dilation is appreciated. CBD measures 1.4 cm in greatest diameter. No radiopaque stones are appreciated within the CBD. Pancreas: Interval appearance of a new pancreatic cyst/cystic lesion at the level of the pancreatic head on image 31 series 4, measuring 2.9 cm in greatest diameter. Decrease in size of a previously identified peripancreatic fluid collection, now measuring 3.7 cm x 1.4 cm (previously 4.5 cm by 3.9 cm when measured in similar fashion). Significant peripancreatic inflammatory fat stranding and free fluid, specially at the level of the pancreatic head. Interval appearance of pancreatic ductal dilation with the pancreatic duct measuring up to 9 mm in greatest diameter. No pancreatic hemorrhage or evidence of pancreatic necrosis is appreciated at this time. Spleen: Normal. No splenomegaly. Adrenal glands: Normal. No mass. Kidneys and ureters: Normal. No hydronephrosis. Stomach and bowel: There is wall thickening and mucosal hyperenhancement at the 1st segment of the duodenum. No bowel obstruction or other significant bowel wall thickening. There is excessive colonic stool content. Appendix: Appendix is not confidently visualized on this examination, however there are no significant inflammatory changes to the right lower quadrant. Intraperitoneal space: There is a small amount of free intraperitoneal fluid present. There is no free intraperitoneal air. Vasculature: The portal venous system remains patent. The splenic vein remains patent. The vasculature demonstrates diffuse mild atherosclerotic calcification. Lymph nodes: Unremarkable. No enlarged lymph nodes. Urinary bladder: Unremarkable as visualized. Reproductive: Unremarkable as visualized. Bones/joints: No acute skeletal abnormality or aggressive osseous lesion. Soft tissues: Unremarkable. IMPRESSION: 1. Distended gallbladder with pericholecystic fluid. Consider ultrasound correlation to exclude cholecystitis. 2. Intra and extrahepatic biliary ductal dilation. Please note that the most distal segments of the CBD appear to be significantly compressed, most likely due to the inflammatory changes at the pancreatic head. I do not see any radiopaque gallstones within the CBD. 3. Interval appearance of a new pancreatic cyst/cystic lesion at the level of the pancreatic head, measuring 2.9 cm in greatest dimension. Considering this patient's history of pancreatitis, this most probably favors a pseudocyst. Pancreatic cystic lesion or acute pancreatic collection are still within the differential diagnosis. 4. Interval decrease in size of a known peripancreatic fluid collection at the level of the pancreatic body, now measuring 3.7 cm x 1.4 cm. This most probably represents a pseudocyst. 5. Severe acute pancreatitis, most focally localized to the level of the pancreatic head. 6. Interval appearance of pancreatic ductal dilation. Please note that the pancreatic head is severely inflamed and engorged, and this could potentially be the cause of the pancreatic ductal dilation and of the above described biliary ductal dilation. Considering the history of pancreatitis in this patient, an underlying lesion at the pancreatic head is within the differential diagnosis. Consider correlation with dedicated pancreatic protocol MRI after appropriate treatment of the current pancreatitis bout. 7. Findings at the 1st segment of the duodenum favor mild acute duodenitis. This is most likely related to contiguous inflammation from the adjacent pancreatitis. 8. Incidental findings as detailed above. Dictated and Authenticated by: Stanislav Haley MD. Ordering:ZOEY Kennedy MD
[2020-09-17] MEDS: FAMOTIDINE 20 MG/50 ML BAG 200 MG IVPB (17:59)
--- NOTE | 2020-09-17 19:15 | HPE_ITS ---
Date of service: 09/17/20 Time of Service: 19:15 Assessment and Plan Assessment and plan (1) Acute on chronic pancreatitis: Start date: 09/17/20 Status: Acute Assessment and plan: This a 40-year-old gentleman with recurrent pancreatitis now severe on CT with swelling of the pancreatic head and causing blockage of the common bile duct. Patient does have a contracted gallbladder. With his slightly elevated WBC he will be placed on Zosyn and continue on IV hydration with bowel rest. Pain control with IV Dilaudid. Imaging is not available this weekend if patient improves he may be advanced on diet with outpatient follow-up at [facility]. If he worsens [facility] should be called for possible transfer. Patient is a full code. (2) Cholecystitis, acute: Start date: 09/17/20 Status: Acute Assessment and plan: With contracted gallbladder and dilated common bile duct patient will be placed on Zosyn. Follow-up clinically with follow-up on blood cultures. Ultrasound not available over the weekend and if patient worsens consider transfer to [facility]. (3) Pancreatic pseudocyst: Start date: 09/17/20 Status: Acute Assessment and plan: Acute formation of pseudocyst over the pancreatic head with decrease in size of pseudocyst over the pancreatic body and tail. Follow-up clinically and treat conservatively. (4) Chronic alcohol use: Status: Chronic Assessment and plan: Patient has recurrent alcohol use which exacerbates his chronic pancreatitis. He was advised alcohol cessation with fair to poor insight on this issue. 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 History of Present Illness History of Present Illness Chief Complaint: Epigastric abdominal pain with nausea and vomiting Narrative: This is a 40-year-old male patient who has a history of alcoholic pancreatitis since June 2019 with repeated episodes of having been hospitalized locally and seen at [facility] with upper endoscopy and what he describes as ERCP in the recent past. 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 He has markedly reduced his alcohol intake but continues to have chronic recurrent pancreatitis and is on Pancrease. He also takes Dilaudid for chronic epigastric abdominal pain. Over last 4 to 5 days he has had increasing epigastric pain radiating into his back which is worsened by eating with nausea and vomiting. He states that he did have 4-5 beers while golfing several days prior to admission which exacerbated his symptoms. He reported to the ED with continuing pain and not able to keep food or medications in his stomach. He ran out of his Dilaudid earlier this week. He denies any fever or chills and has had no other GI symptoms. Denies any chest discomfort or shortness of breath. Patient is a smoker and will need nicotine supplement. Patient was seen in the ED and treated for pain with bowel rest with his imaging reviewed with [facility] who stated that he did not need immediate intervention and should be treated locally. I do not think MRCP was necessary though he did have dilatation of his common bile duct and biliary tree secondary to swelling of his pancreatic head. This has occurred in the past he did have a contracted gallbladder and had no fever or chills with minimal elevation of his WBC the patient was admitted for conservative treatment of his acute pancreatitis. Review of Systems Narrative: 13 point review of systems otherwise unrevealing or stable. Patient has not been losing weight. He denies any jaundice. [facility] Medical History Chronic alcohol use Spoke about life stressors, RCT as alternative, patient receptive. Discharge planning issues Per [facility] consult, continue monitoring until inflammation abates. Consider inpatient or outpatient workup at that time for ERCP and Pancreatitis Hydromorphone PRN PRN for pain. As above. 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[place] [employer] Allergies and Home Medications Allergies Allergy/AdvReac Type Severity Reaction Status Date / Time No Known Allergies Allergy Unverified 09/17/20 15:08 Home Medications Medication Instructions Recorded Confirmed Type omeprazole 20 mg PO DAILY 12/31/19 09/17/20 History ondansetron HCl [Zofran] 4 mg PO BID 12/31/19 09/17/20 History trbjyw-hqaieqik-aoyosug [Creon] 1 cap PO QMEALS #90 cap 04/20/20 09/17/20 Rx sertraline 50 mg PO DAILY 05/20/20 09/17/20 History hydromorphone 2 mg PO Q6H PRN #15 tab 05/24/20 09/17/20 Rx Exam Narrative Exam Narrative: General: Patient appears appropriate for age, alert and oriented x3 and in moderate distress from his epigastric discomfort. Flattened affect with good eye contact. HEENT: Normocephalic, eyes with pupils equal and reactive to light symmetrically, extraocular movement intact and sclera anicteric. Neck: Supple without JVD. Lungs: Bronchovesicular breath sounds diffusely with no rales or rhonchi and normal inspiratory to expiratory phase ratio. No expiratory wheeze. No rhonchi. Fair aeration. Back: Stooped posture, no CVA tenderness. Heart: Regular rate and rhythm with no murmurs gallops appreciated. Abdomen: Scaphoid contour, soft with slight guarding in the epigastrium but no rebound. Tender in the epigastrium. Bowel sounds hypoactive but positive in all quadrants. No palpable hepatosplenomegaly. Genitalia/rectal: Exam deferred per Extremities: Without clubbing, cyanosis or edema. Peripheral pulses intact. Skin: Normal color, warm and dry. No rashes. No jaundice. Normal turgor. Neuro: Cranial nerves II to XII grossly intact, no focalizing motor deficits. Psych: Flattened affect but good eye contact. Normal mood. No abnormal thought processes. Remote and recent memory intact. Results Imaging Imaging Studies: Exam: CT Abdomen And Pelvis With Contrast Exam date and time: 09/17/2020 4:03 PM Age: 40 years old Clinical indication: Generalized; Patient HX: Abdominal pain, HX pancreatitis TECHNIQUE: Imaging protocol: Computed tomography of the abdomen and pelvis with contrast. COMPARISON: CT ABDOMEN PELVIS W 02/05/2020 1:28 PM FINDINGS: Lungs: Lung bases are clear. Liver: There is enlargement of the liver, measuring 19 cm. There is a diffuse decrease in hepatic parenchymal density, consistent with fatty infiltration. Gallbladder and bile ducts: Gallbladder is distended. Pericholecystic fluid is present. No radiopaque gallstones. Intra and extrahepatic biliary ductal dilation is appreciated. CBD measures 1.4 cm in greatest diameter. No radiopaque stones are appreciated within the CBD. Pancreas: Interval appearance of a new pancreatic cyst/cystic lesion at the level of the pancreatic head on image 31 series 4, measuring 2.9 cm in greatest diameter. Decrease in size of a previously identified peripancreatic fluid collection, now measuring 3.7 cm x 1.4 cm (previously 4.5 cm by 3.9 cm when measured in similar fashion). Significant peripancreatic inflammatory fat stranding and free fluid, specially at the level of the pancreatic head. Interval appearance of pancreatic ductal dilation with the pancreatic duct measuring up to 9 mm in greatest diameter. No pancreatic hemorrhage or evidence of pancreatic necrosis is appreciated at this time. Spleen: Normal. No splenomegaly. Adrenal glands: Normal. No mass. Kidneys and ureters: Normal. No hydronephrosis. Stomach and bowel: There is wall thickening and mucosal hyperenhancement at the 1st segment of the duodenum. No bowel obstruction or other significant bowel wall thickening. There is excessive colonic stool content. Appendix: Appendix is not confidently visualized on this examination, however there are no significant inflammatory changes to the right lower quadrant. Intraperitoneal space: There is a small amount of free intraperitoneal fluid present. There is no free intraperitoneal air. Vasculature: The portal venous system remains patent. The splenic vein remains patent. The vasculature demonstrates diffuse mild atherosclerotic calcification. Lymph nodes: Unremarkable. No enlarged lymph nodes. Urinary bladder: Unremarkable as visualized. Reproductive: Unremarkable as visualized. Bones/joints: No acute skeletal abnormality or aggressive osseous lesion. Soft tissues: Unremarkable. IMPRESSION: 1. Distended gallbladder with pericholecystic fluid. Consider ultrasound correlation to exclude cholecystitis. 2. Intra and extrahepatic biliary ductal dilation. Please note that the most distal segments of the CBD appear to be significantly compressed, most likely due to the inflammatory changes at the pancreatic head. I do not see any radiopaque gallstones within the CBD. 3. Interval appearance of a new pancreatic cyst/cystic lesion at the level of the pancreatic head, measuring 2.9 cm in greatest dimension. Considering this patient's history of pancreatitis, this most probably favors a pseudocyst. Pancreatic cystic lesion or acute pancreatic collection are still within the differential diagnosis. 4. Interval decrease in size of a known peripancreatic fluid collection at the level of the pancreatic body, now measuring 3.7 cm x 1.4 cm. This most probably represents a pseudocyst. 5. Severe acute pancreatitis, most focally localized to the level of the pancreatic head. 6. Interval appearance of pancreatic ductal dilation. Please note that the pancreatic head is severely inflamed and engorged, and this could potentially be the cause of the pancreatic ductal dilation and of the above described biliary ductal dilation. Considering the history of pancreatitis in this patient, an underlying lesion at the pancreatic head is within the differential diagnosis. Consider correlation with dedicated pancreatic protocol MRI after appropriate treatment of the current pancreatitis bout. 7. Findings at the 1st segment of the duodenum favor mild acute duodenitis. This is most likely related to contiguous inflammation from the adjacent pancreatitis. 8. Incidental findings as detailed above. Dictated and Authenticated by: Stanislav Haley MD. Labs Result diagrams: 09/18/20 07:12 09/18/20 07:12 Labs: Laboratory Results - last 24 hr 09/17/20 09/17/20 15:24 15:24 WBC 12.78 H RBC 5.33 Hgb 17.1 Hct 51.8 H MCV 97.2 H MCH 32.1 MCHC 33.0 RDW 14.9 H Plt Count 397 MPV 9.6 Immature Gran % 0.9 Neutrophils % 72.3 Lymphocytes % 14.1 Monocytes % 11.8 Eosinophils % 0.6 Basophils % 0.3 Nucleated RBC % 0 Absolute Neutrophils 9.24 H Absolute Lymphocytes 1.80 Absolute Monocytes 1.51 H Absolute Eosinophils 0.08 Absolute Basophils 0.04 RBC Morphology Normal Sodium 139 Potassium 3.6 Chloride 98 Carbon Dioxide 29.4 Anion Gap 11.6 H BUN 20 H Creatinine 1.2 Estimated GFR/1.73 m2 >= 60.00 Glucose 86 Calcium 9.7 Magnesium 2.2 Total Bilirubin 0.8 AST 23 ALT 69 H Alkaline Phosphatase 496 H Total Protein 8.6 H Albumin 4.6 Lipase 1551 H Last Vital Signs Temp 37.1 C 09/17/20 18:24 Pulse 66 09/17/20 18:48 Resp 18 09/17/20 15:04 BP 94/62 L 09/17/20 18:48 Pulse Ox 99 09/17/20 18:50 COVID-19 Screening Have you, or household traveled for leisure in last 14 days?: No Had IN PERSON contact w/suspected or confirmed C-19 person: No
[2020-09-17 19:28] LABS: Source Nasal/Nares
[2020-09-17] MEDS: HYDROmorphone 2 MG/ML VIAL 1 MG IVP (19:34)
[2020-09-17] MEDS: Lactated Ringers 1,000 ML 150 ML IV (19:38)
[2020-09-17 19:49] LABS: Calculated LDL 75 mg/dL (<100); Cholesterol 174 mg/dL (<200); HDL Cholesterol 79 mg/dL (40-60); Triglyceride 103 mg/dL (<150)
[2020-09-17] MEDS: Pantoprazole 40 MG VIAL IVP (20:29)
[2020-09-17] MEDS: Normal Saline Flush 10 ML SYR IVP (20:29)
[2020-09-17] MEDS: Acetaminophen 325 MG TAB 650 MG PO (20:29)
[2020-09-17] MEDS: PIPERACILLIN/TAZO 3.375 GM in Normal Saline 50 ML IVPB (21:58)
[2020-09-17] MEDS: Heparin 5,000 UNITS/ML VIAL 5000 UNITS SC (21:59)
[2020-09-17 22:33] LABS: COVID-19 PCR Negative (Negative)
[2020-09-18] VITALS (7 sets, daily range): BP systolic 113–121; BP diastolic 55–77; PULSE 47–86; RESP 16–18; TEMP 36–36.6; O2SAT 96–100
[2020-09-18] MEDS: HYDROmorphone 2 MG/ML VIAL 1 MG IVP ×5 (02:05→23:33)
[2020-09-18] MEDS: Acetaminophen 325 MG TAB 650 MG PO ×4 (02:05→20:15)
[2020-09-18] MEDS: PIPERACILLIN/TAZO 3.375 GM in Normal Saline 50 ML IVPB ×4 (04:38→21:19)
[2020-09-18] MEDS: Lactated Ringers 1,000 ML 150 ML IV ×2 (04:39→13:35)
[2020-09-18] MEDS: Heparin 5,000 UNITS/ML VIAL 5000 UNITS SC ×3 (05:26→21:20)
[2020-09-18] MEDS: Normal Saline Flush 10 ML SYR IVP ×5 (06:00→20:16)
[2020-09-18 07:27] LABS: Abs Immature Grans 0.04 10^3/uL (0.0-0.06); Absolute Basophil Count 0.06 10^3/uL (0.0-0.2); Absolute Eosinophil Count 0.23 10^3/uL (0.0-0.7); Absolute Lymphocyte Count 2.27 10^3/uL (1.2-3.4); Absolute Monocyte Count 1.09 10^3/uL (0.1-0.8); Absolute Neutrophil Count 4.47 10^3/uL (1.2-6.7); Basophils % 0.7; Eosinophils % 2.8; HCT 43.6 % (40.0-50.0); Immature Grans % 0.5; Lymphocytes % 27.8; MCH 31.7 pg (27.0-33.0); MCHC 32.1 % (32.0-36.0); MCV 98.9 fL (80-95); MPV 9.9 fL (8.0-11.0); Monocytes % 13.4; Neutrophils % 54.8; Nucleated RBC 0 %; Platelet Count 250 10^3/uL (130-400); RBC 4.41 10^6/uL (4.36-5.78); RDW 14.7 % (11.8-14.1); RDW-SD 54.7 fL; WBC 8.16 10^3/uL (4.4-10.8)
[2020-09-18] MEDS: Pantoprazole 40 MG VIAL IVP ×2 (07:45→20:13)
[2020-09-18] MEDS: Nicotine 21 MG/24 HR PATCH TD (07:45)
[2020-09-18 07:49] LABS: ALT 44 U/L (16-63); AST 16 U/L (15-37); Alkaline Phosphatase 294 U/L (46-116); Anion Gap 5.8 mmol/L (3-11); BUN 17 mg/dL (7-18); CO2 30.2 mmol/L (21.0-32.0); Calcium 8.4 mg/dL (8.5-10.1); Chloride 104 mmol/L (98-107); Glucose 103 mg/dL (74-106); Lipase 657 U/L (73-393); Potassium 3.6 mmol/L (3.5-5.1); Sodium 140 mmol/L (136-145); Total Protein 5.8 g/dL (6.4-8.2)
[2020-09-18 08:07] LABS: INR 1.1 (0.9-1.1); Prothrombin Time 11.2 sec (9.3-11.0)
--- NOTE | 2020-09-18 11:19 | NUR.NOTE ---
Nursing Note: Report given and responsibility of care given to Margarita Carreon RN at 1110 on 09/18/20. RN will reassess as necessary.
--- NOTE | 2020-09-18 14:27 | PDOC.CMIN ---
- If Service Date Differs Date of service: 09/18/20 Time of Service: 14:43 Care Management Initial Assess REASON FOR HOSPITALIZATION:: Acute Pancreatitis, Cholecystectomy PAST MEDICAL HISTORY/PAST SURGICAL HISTORY:: Medical History: Chronic alcohol use - Spoke about life stressors, RCT as alternative, patient receptive; Discharge planning issues - Per [facility] consult, continue monitoring until inflammation abates. Consider inpatient or outpatient workup at that time for ERCP and Pancreatitis - Hydromorphone PRN PRN for pain. As above; Tobacco dependence -. Nicoderm, Nicotrol. PREVIOUS FUNCTIONAL STATUS/SOCIAL/FAMILY SUPPORTS:: Acosta is a 39 year old male who resides in [facility] with his mother. He now occupies his time with bird and sleeping. Acosta states he has one friend, Sanchez, who is supportive of him. CURRENT FUNCTIONAL STATUS:: Acosta is experiencing pain but up independently in his room. He remains on IV Zosyn, IV hydration and bowel rest with IV dilaudid for pain. Undetermined if he will require transfer at this time; due to severe pancreatitis with swelling of pancreatic head causing blockage to common bile duct per MD. ADVANCE DIRECTIVES:: None on file; Acosta was given a form at last admission but he states he has not yet completed it. Has patient been provided with info about the portal/API?: Yes Did the patient sign up for the portal?: No CODE STATUS:: Full Code INSURANCE COVERAGE / FINANCIAL ISSUES:: Medicaid and Financial Asst 100. CURRENT HOME/COMMUNITY SERVICES/EQUIPMENT:: Acosta is independent at baseline. He does not currently have any services or equipment. PRIMARY CARE PHYSICIAN:: Antonio Harper. POTENTIAL DISCHARGE NEEDS:: Follow up appointment with PCP and discharge plan of care. PATIENT/FAMILY EDUCATION NEEDS:: Discharge instructions, limitations, and follow up plan of care, including Ask Me Three and self management. ANTICIPATED BARRIERS TO DISCHARGE:: None. TRANSPORTATION:: Via private vehicle with friend. PLAN:: Anticipate Acosta will be discharged home when medically cleared by provider. Acosta will be driven home via private vehicle with a friend, Sanchez, when ready. CM will continue to support patient and discharge planning needs.
--- NOTE | 2020-09-18 15:13 | W.PM.PROGNOT ---
Date of Service Date of service: 09/18/20 Time of Service: 15:14 Assessment and Plan Assessment and plan (1) Cholecystitis, acute: Status: Acute Assessment and plan: Distended gallbladder with pericholecystic fluid. WBC count decreased from 12 to 8. Cont Zosyn Pain improved (2) Acute on chronic pancreatitis: Status: Acute Assessment and plan: Etoh related. Bowel rested overnight; now tolerating clear liquids. Pain management. (3) Protein calorie malnutrition: Status: Acute Assessment and plan: Etoh related. (4) Chronic alcohol use: Status: Chronic Assessment and plan: On CIWA precautions for signs/sxs of withdrawal. Encourage cessation. (5) Tobacco dependence: Status: Chronic Subjective Subjective Patient reports: feels better, pain is less, tolerating liquids well and afebrile; denies nausea and vomiting Exam Const General: cooperative and no acute distress Nutritional Appearance: cachectic Orientation: alert and oriented x3 Eyes Sclera: sclerae normal Pupils: PERRL Resp Effort & Inspection: normal respiratory effort Auscultation: clear to auscultation bilaterally Cardio Rate: regular rate Rhythm: regular rhythm Heart Sounds: S1 normal and S2 normal GI Palpation: soft and tender in the epigastrum (mild) Skin General skin exam: no rashes or lesions noted Extrem General: no pedal edema and no calf tenderness Psych Appearance: grossly normal Mental Status: mental status grossly normal Speech and Movement: speech and movement normal Affect: normal affect Objective Last Vital Signs Temp 36.5 C 09/18/20 07:25 Pulse 47 L 09/18/20 07:39 Resp 18 09/18/20 07:25 BP 114/71 09/18/20 07:25 Pulse Ox 97 09/18/20 07:25 Laboratory Results - last 24 hr 09/17/20 09/17/20 09/17/20 15:14 15:24 15:24 WBC 12.78 H RBC 5.33 Hgb 17.1 Hct 51.8 H MCV 97.2 H MCH 32.1 MCHC 33.0 RDW 14.9 H Plt Count 397 MPV 9.6 Immature Gran % 0.9 Neutrophils % 72.3 Lymphocytes % 14.1 Monocytes % 11.8 Eosinophils % 0.6 Basophils % 0.3 Nucleated RBC % 0 Absolute Neutrophils 9.24 H Absolute Lymphocytes 1.80 Absolute Monocytes 1.51 H Absolute Eosinophils 0.08 Absolute Basophils 0.04 RBC Morphology Normal PT INR Sodium 139 Potassium 3.6 Chloride 98 Carbon Dioxide 29.4 Anion Gap 11.6 H BUN 20 H Creatinine 1.2 Estimated GFR/1.73 m2 >= 60.00 Glucose 86 Calcium 9.7 Magnesium 2.2 Total Bilirubin 0.8 AST 23 ALT 69 H Alkaline Phosphatase 496 H Total Protein 8.6 H Albumin 4.6 Triglycerides Total Cholesterol LDL Cholesterol, Calc HDL Cholesterol Lipase 1551 H Urine Color Cancelled Urine Clarity Cancelled Urine pH Cancelled Ur Specific [place] Cancelled Urine Protein Cancelled Urine Ketones Cancelled Urine Blood Cancelled Urine Nitrite Cancelled Urine Bilirubin Cancelled Urine Urobilinogen Cancelled Ur Leukocyte Esterase Cancelled Urine Glucose Cancelled COVID-19 Source SARS-CoV-2 (PCR) 09/17/20 09/17/20 09/17/20 15:24 19:21 19:25 WBC RBC Hgb Hct MCV MCH MCHC RDW Plt Count MPV Immature Gran % Neutrophils % Lymphocytes % Monocytes % Eosinophils % Basophils % Nucleated RBC % Absolute Neutrophils Absolute Lymphocytes Absolute Monocytes Absolute Eosinophils Absolute Basophils RBC Morphology PT INR Sodium Potassium Chloride Carbon Dioxide Anion Gap BUN Creatinine Estimated GFR/1.73 m2 Glucose Calcium Magnesium Total Bilirubin AST ALT Alkaline Phosphatase Total Protein Albumin Triglycerides 103 Total Cholesterol 174 LDL Cholesterol, Calc 75 HDL Cholesterol 79 Lipase Urine Color Cancelled Urine Clarity Cancelled Urine pH Cancelled Ur Specific [place] Cancelled Urine Protein Cancelled Urine Ketones Cancelled Urine Blood Cancelled Urine Nitrite Cancelled Urine Bilirubin Cancelled Urine Urobilinogen Cancelled Ur Leukocyte Esterase Cancelled Urine Glucose Cancelled COVID-19 Source Nasal/nares SARS-CoV-2 (PCR) Negative 09/18/20 09/18/20 09/18/20 07:12 07:12 07:12 WBC 8.16 D RBC 4.41 Hgb 14.0 D Hct 43.6 MCV 98.9 H MCH 31.7 MCHC 32.1 RDW 14.7 H Plt Count 250 D MPV 9.9 Immature Gran % 0.5 Neutrophils % 54.8 Lymphocytes % 27.8 Monocytes % 13.4 Eosinophils % 2.8 Basophils % 0.7 Nucleated RBC % 0 Absolute Neutrophils 4.47 Absolute Lymphocytes 2.27 Absolute Monocytes 1.09 H Absolute Eosinophils 0.23 Absolute Basophils 0.06 RBC Morphology PT 11.2 H INR 1.1 Sodium 140 Potassium 3.6 Chloride 104 Carbon Dioxide 30.2 Anion Gap 5.8 BUN 17 Creatinine 1.0 Estimated GFR/1.73 m2 >= 60.00 Glucose 103 Calcium 8.4 L Magnesium Total Bilirubin 1.0 AST 16 ALT 44 Alkaline Phosphatase 294 H Total Protein 5.8 L Albumin 3.0 L Triglycerides Total Cholesterol LDL Cholesterol, Calc HDL Cholesterol Lipase 657 H Urine Color Urine Clarity Urine pH Ur Specific [place] Urine Protein Urine Ketones Urine Blood Urine Nitrite Urine Bilirubin Urine Urobilinogen Ur Leukocyte Esterase Urine Glucose COVID-19 Source SARS-CoV-2 (PCR)
[2020-09-18 18:57] LABS: Bilirubin Negative (Negative); Blood Negative (Negative); Clarity Clear (Clear); Glucose Negative (Negative); Ketones Trace mg/dL (Negative); Leukocyte Esterase Negative (Negative); Nitrite Negative (Negative)
[2020-09-19] VITALS (7 sets, daily range): BP systolic 120–154; BP diastolic 77–103; PULSE 47–68; RESP 16–18; TEMP 36–37.4; O2SAT 97–100
[2020-09-19] MEDS: Lactated Ringers 1,000 ML 150 ML IV ×2 (00:28→11:32)
[2020-09-19] MEDS: PIPERACILLIN/TAZO 3.375 GM in Normal Saline 50 ML IVPB ×4 (03:57→21:19)
[2020-09-19] MEDS: Heparin 5,000 UNITS/ML VIAL 5000 UNITS SC ×3 (06:23→21:20)
[2020-09-19 07:00] LABS: ALT 31 U/L (16-63); AST 13 U/L (15-37); Albumin 2.6 g/dL (3.4-5.0); Alkaline Phosphatase 230 U/L (46-116); Anion Gap 7.6 mmol/L (3-11); BUN 9 mg/dL (7-18); Bilirubin, Total 0.5 mg/dL (0.2-1.0); CO2 27.4 mmol/L (21.0-32.0); CREATININE 0.9 mg/dL (0.70-1.30); Chloride 107 mmol/L (98-107); Glucose 76 mg/dL (74-106); PHOSPHORUS 3.9 mg/dL (2.6-4.7); Potassium 3.9 mmol/L (3.5-5.1); Sodium 142 mmol/L (136-145)
[2020-09-19] MEDS: Nicotine 21 MG/24 HR PATCH TD (07:38)
[2020-09-19] MEDS: Pantoprazole 40 MG VIAL IVP ×2 (07:38→20:05)
[2020-09-19] MEDS: Normal Saline Flush 10 ML SYR IVP ×6 (07:39→22:24)
[2020-09-19] MEDS: HYDROmorphone 2 MG/ML VIAL 1 MG IVP ×3 (07:52→22:24)
--- NOTE | 2020-09-19 08:33 | PDOC.CMPRO ---
Care Management Progress Note S/O: Per MD, WBC has come down, and pain is better managed. Acosta continues to be closely monitored at this time, CM continues to follow. A: 40 year old admitted 09/17/20 for acute pancreatitis, cholecystitis P: Anticipate Acosta will be discharged home when medically cleared by provider. Acosta will be driven home via private vehicle with a friend, Sanchez, when ready. CM will continue to support patient and discharge planning needs.
[2020-09-19] MEDS: Acetaminophen 325 MG TAB 650 MG PO (13:36)
--- NOTE | 2020-09-19 15:13 | W.PM.PROGNOT ---
Date of Service Date of service: 09/19/20 Time of Service: 15:14 Assessment and Plan Assessment and plan (1) Cholecystitis, acute: Status: Acute Assessment and plan: His only pain complaint now is in the lateral RUQ; improving. Cont Zosyn. WBC count is normal. Advancing diet as tolerated. Likely d/c tomorrow on oral antibiotic. F/U with surgery as outpt. (2) Acute on chronic pancreatitis: Status: Acute Assessment and plan: Does not complain of LUQ pain. Conjugated bilirubin elevation improving. Total bilirubin normal. Advancing diet as tolerated. (3) Protein calorie malnutrition: Status: Acute Assessment and plan: Encourage improved dietary intake and cessation of alcohol. (4) Pancreatic pseudocyst: Status: Acute Assessment and plan: There is a new pancreatic cyst at the level of the pancreatic head measuring 2.9 cm in maximum diameter. The previously seen peripancreatic cystic collection has decreased in size currently measuring 3.7 x 1.4 cm compared with 4.5 x 3.9 cm. S/P ERCP earlier this year. ED physician at time of admission spoke with Dr. Moore with [facility] he was able to personally view the CT he does not recommend an emergent ERCP at this point he states that he would just recommend bowel rest fluids trending of the labs and analgesics. (5) Chronic alcohol use: Status: Chronic Assessment and plan: No signs/sxs of withdrawal. Subjective Subjective Patient reports: feels better, pain is less (Mild pain in the RUQ) and tolerating liquids well; denies diarrhea, nausea, vomiting and shortness of breath Exam Const General: cooperative and no acute distress Nutritional Appearance: underweight Orientation: alert and oriented x3 Eyes Sclera: sclerae normal Pupils: PERRL Resp Effort & Inspection: normal respiratory effort Auscultation: clear to auscultation bilaterally Cardio Rate: regular rate Rhythm: regular rhythm Heart Sounds: S1 normal and S2 normal GI Palpation: soft and tender in the RUQ; with no rebound tenderness (Mild) Neuro General: no focal motor deficits Cognition: normal cognition Speech: speech normal Extrem General: no pedal edema and no calf tenderness Psych Mood: congruent mood Affect: normal affect Objective Last Vital Signs Temp 36.7 C 09/19/20 07:13 Pulse 56 L 09/19/20 10:33 Resp 18 09/19/20 07:13 BP 154/103 H 09/19/20 07:13 Pulse Ox 98 09/19/20 07:13 Laboratory Results - last 24 hr 09/18/20 09/19/20 17:45 06:10 Sodium 142 Potassium 3.9 Chloride 107 Carbon Dioxide 27.4 Anion Gap 7.6 BUN 9 D Creatinine 0.9 Estimated GFR/1.73 m2 >= 60.00 Glucose 76 Calcium 8.0 L Phosphorus 3.9 Total Bilirubin 0.5 AST 13 L ALT 31 Alkaline Phosphatase 230 H Total Protein 5.0 L Albumin 2.6 L Urine Color Yellow Urine Clarity Clear Urine pH 6.0 Ur Specific [place] 1.020 Urine Protein Negative Urine Ketones Trace H Urine Blood Negative Urine Nitrite Negative Urine Bilirubin Negative Urine Urobilinogen 1.0 H Ur Leukocyte Esterase Negative Urine Glucose Negative
[2020-09-20] MEDS: PIPERACILLIN/TAZO 3.375 GM in Normal Saline 50 ML IVPB ×4 (03:36→22:11)
[2020-09-20] MEDS: Normal Saline Flush 10 ML SYR IVP ×6 (03:36→22:11)
[2020-09-20 03:49] VITALS: BP 143/90; PULSE 60; RESP 18; TEMP 36.4; O2SAT 99
[2020-09-20] MEDS: HYDROmorphone 2 MG/ML VIAL 1 MG IVP ×5 (04:00→22:11)
[2020-09-20] MEDS: Heparin 5,000 UNITS/ML VIAL 5000 UNITS SC ×3 (05:23→22:12)
[2020-09-20 06:43] LABS: Abs Immature Grans 0.04 10^3/uL (0.0-0.06); Absolute Basophil Count 0.05 10^3/uL (0.0-0.2); Absolute Lymphocyte Count 1.23 10^3/uL (1.2-3.4); Absolute Monocyte Count 0.84 10^3/uL (0.1-0.8); Absolute Neutrophil Count 4.87 10^3/uL (1.2-6.7); Basophils % 0.7; Eosinophils % 2.8; HCT 42.5 % (40.0-50.0); HGB 13.6 g/dL (13.5-17.5); Immature Grans % 0.6; MCH 32.1 pg (27.0-33.0); MCV 100.2 fL (80-95); MPV 10.3 fL (8.0-11.0); Monocytes % 11.6; Neutrophils % 67.3; Nucleated RBC 0 %; Platelet Count 219 10^3/uL (130-400); RBC 4.24 10^6/uL (4.36-5.78); RDW 14.2 % (11.8-14.1); RDW-SD 52.9 fL; WBC 7.23 10^3/uL (4.4-10.8)
[2020-09-20 06:58] LABS: ALT 32 U/L (16-63); AST 13 U/L (15-37); Albumin 2.8 g/dL (3.4-5.0); Alkaline Phosphatase 219 U/L (46-116); Anion Gap 7.9 mmol/L (3-11); BUN 8 mg/dL (7-18); Bilirubin, Total 0.4 mg/dL (0.2-1.0); CO2 27.1 mmol/L (21.0-32.0); CREATININE 0.9 mg/dL (0.70-1.30); Calcium 8.1 mg/dL (8.5-10.1); Chloride 107 mmol/L (98-107); Glucose 96 mg/dL (74-106); Potassium 4.2 mmol/L (3.5-5.1); Sodium 142 mmol/L (136-145); Total Protein 5.7 g/dL (6.4-8.2)
[2020-09-20 07:37] VITALS: BP 132/88; PULSE 52; RESP 19; TEMP 36.8; O2SAT 99
[2020-09-20] MEDS: Pantoprazole 40 MG VIAL IVP ×2 (07:45→19:45)
[2020-09-20] MEDS: Nicotine 21 MG/24 HR PATCH TD (07:46)
--- NOTE | 2020-09-20 08:41 | CMPROGNOTE_ITS ---
- If Service Date Differs Date of service: 09/20/20 Time of Service: 08:41 Care Management Progress Note S/O:Acosta was sitting up in bed when CM met with him. he was pleasant and engaged readily [facility] CM, well known to him from previous hospitalizations. He stated that he is still having pain in his RUQ and also R flank area. Acosta talked about the fact that things have been going relatively well since he was last at [facility]. He has been working but has reduced his hours so that he regularly has 1 1/2 to 2 days off a week. Aocsta stated that he has reduced his alcohol consumption to almost zero, even though he is still surrounded by people who drink heavily on a daily basis both at work and at home. Acosta has been able to eat and was pleased to report that he has gained about 10 pounds. This morning he was told that his provider will be consulting with a surgeon. Acosta verbalized that he hopes to have more information by the end of the day regarding the possible inflammation of his gallbladder. A: Acosta is a 40 year old man admitted on 09/17/20 with pancreatitis P:Anticipate Acosta will be discharged home when medically cleared by provider. Acosta will be driven home via private vehicle with a friend, Sanchez, when ready. CM will continue to support patient and discharge planning needs.
[2020-09-20 11:10] VITALS: BP 129/79; PULSE 55; RESP 19; TEMP 36.9; O2SAT 100
--- NOTE | 2020-09-20 12:36 | SCONE_ITS ---
Date of service: 09/20/20 Time of Service: 12:36 Assessment and Plan Assessment and plan (1) Acute on chronic pancreatitis: Status: Acute Assessment and plan: This is the pt third episode of pancreatitis this year. He has two pseodocysts. no signs of infections. He is tolerating soft diet today and is on creon. on CT his pancreatic ducts are quite dilated- once th einflammation goes down- he will need to have an MRI- prob in 2-3 wks. -He needs to stop driking. No more ETOH. If he continues to drink, he will have conintued pancrease problems and progress to cirrhosis. I strongly encourage him to check into a rehab program for 30 days. no signs of infection. abx not warrented. creon and insulin as guided by numbers. He can follow-up with surgery if he so decides as outpatient is to make sure he follows and has the MRI He is a prime candidate for developing chronic pancreatitis and chronic pain from this. We also discussed cirrhosis and liver failure. At this point he needs to stop drinking in his body is not going to be able to compensate for this anymore. I see no signs of acute cholecystitis, infected pseudocyst or infected pancreatitis. Did not feel antibiotics warranted. Patient is very poor surgical candidate. 60 minutes was spent with the patient today in follow-up. Discussing his acute signs and symptoms, chronic pancreatitis and cirrhosis. Chronic pain from pancreatitis. His need to see a dentist. And his need to stop drinking alcohol and some of his options that could be helpful. I also did personally review all his CT scans and labs including CBC/comp/lipase and notes from other consulting providers. I did discuss findings with Dr. Kearney. Surgery would be happy to reevaluate at your request (2) Protein calorie malnutrition: Status: Acute (3) Portal vein thrombosis: Status: Acute (4) Pancreatic pseudocyst: Status: Acute (5) Acute pancreatitis: Status: Acute Qualifiers: Pancreatitis type: other (6) Cyst of pancreas: Status: Acute (7) Cyst and pseudocyst of pancreas: Status: Acute (8) Pancreatic duct dilated: Status: Acute (9) Tobacco dependence: Status: Chronic (10) Chronic alcohol use: Status: Chronic History of Present Illness Narrative: Patient admitted on 08/21 with recurrent pancreatitis from ongoing alcohol abuse. Patient's had multiple admissions for pancreatitis secondary to alcohol abuse. His last admission was in April 2020. He is on Creon but not insulin. He has anywhere from 3-6 stools a day they are much better if he remembers to take the Creon. Today it is 488. But he says he is just drinking beer. From his pancreatitis in June 2019, he did develop a large pseudocyst. Patient commonly is quite painful and bothersome. Per Dr. Richardson July 2019: It does not appear infected and I would not advise antibiotics at this time. Aspiration/culture could be performed if more clinical suspicion for infection arises. The cyst is large and pushing on the stomach. He was advised he will feel full easily and may have some trouble with stomach emptying. It is possible he will only tolerate a liquid diet. The cyst should be followed as it may resolve spontaneously. If it persists or remains too symptomatic then percutaneous or endoscopic drainage is an option. Discussed with 7.8 cm. In reviewing his SHANTI today this appears to be resolving and decreasing in size. However he is developing a second pseudocyst. CT from this admission: COMPARISON: CT CT ABDOMEN PELVIS W from 02/05/2020 Lung Bases: Normal where visualized. Liver: There is decreased density of the liver consistent with fatty infiltration. No measurable mass. The liver measures 19 cm in length. Portal, Superior Mesenteric, and Splenic Veins: Unremarkable. Gallbladder and Biliary Tract: The gallbladder is distended. There is pericholecystic fluid present. No radiopaque stones are seen. There is intra and extrahepatic biliary ductal dilatation with the common bile duct measuring 1.4 cm. Pancreas: There is a new pancreatic cyst at the level of the pancreatic head measuring 2.9 cm in maximum diameter. The previously seen peripancreatic cystic collection has decreased in size currently measuring 3.7 x 1.4 cm compared with 4.5 x 3.9 cm. Inflammatory stranding is seen around the pancreas particularly around the level of the pancreatic head. There has been interval development of pancreatic ductal dilatation up to 9 mm. No evidence of pancreatic necrosis is seen. Spleen: Normal. Adrenals: No masses seen. Kidneys: Normal size, contour and axis. No radiodense stones or obstructive uropathy. There are 2 small subcentimeter cysts in the lower pole of the right kidney. No further follow-up is recommended. Abdominal Aorta: Abdominal portion non-dilated. Atherosclerosis. Bowel: No bowel obstruction. There is marked thickening of the wall of the distal stomach and proximal duodenum. No evidence of appendicitis. Peritoneal Cavity: Please see the above discussion. No free air. Lymph Nodes: Within normal limits. He will need to get an MRI to evaluate cyst in the head of the pancreas and the dilated pancreatic duct.. However we cannot do this until the information from this latest round of pancreatitis is resolved, because of vomiting inflammation. In discussion today patient is noted that he does not have much of an appetite. He is still nauseated but he is tolerating clear liquids. He is having diarrhea, but he just started taking the Creon. He is having no pain and no fullness sensation in the right upper quadrant right flank area. I do not feel that he has cholecystitis. His problems stem from his pancreas and the pseudocysts and recurrent pancreatitis. Patient denies any vomiting within the last 24 hours. He notes nausea. He notes chronic fullness and has minimal appetite. He has no pain or difficulty swallowing. He is has not noted any blood in his stools. He has not noted any dark tarry stools. He has no fever or chills. Consults Consult date: 09/20/20 Review of Systems All systems reviewed & are unremarkable except as noted in HPI and below PFSH Medical History Chronic alcohol use Spoke about life stressors, RCT as alternative, patient receptive. Discharge planning issues Per [facility] consult, continue monitoring until inflammation abates. Consider inpatient or outpatient workup at that time for ERCP and Pancreatitis Hydromorphone PRN PRN for pain. As above. 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 Patient does admit that he has lost weight. He has not been able to eat. His teeth particularly his front teeth are black none of this. Patient states he has no insurance and is unable to seek dental care. He has not been able to work due to the pancreatitis pain and also. Eyes Conjunctivae: conjunctivae normal Sclera: sclerae normal Resp Effort & Inspection: normal respiratory effort and able to speak in complete sentences Auscultation: clear to auscultation bilaterally Cardio Rate: regular rate Rhythm: regular rhythm GI Palpation: soft, no hernias, tender and No ascites Auscultation: normal bowel sounds Other: Diffuse pain. Though there is increased pain in the right flank and right upper quadrant. Extrem General: no pedal edema Results Last Vital Signs Temp 36.9 C 09/20/20 11:10 Pulse 55 L 09/20/20 11:10 Resp 19 09/20/20 11:10 BP 129/79 09/20/20 11:10 Pulse Ox 100 09/20/20 11:10 Labs Result diagrams: 09/20/20 06:30 09/20/20 06:30 Labs: Laboratory Results - last 24 hr 09/20/20 09/20/20 06:30 06:30 WBC 7.23 RBC 4.24 L Hgb 13.6 Hct 42.5 MCV 100.2 H MCH 32.1 MCHC 32.0 RDW 14.2 H Plt Count 219 MPV 10.3 Immature Gran % 0.6 Neutrophils % 67.3 Lymphocytes % 17.0 Monocytes % 11.6 Eosinophils % 2.8 Basophils % 0.7 Nucleated RBC % 0 Absolute Neutrophils 4.87 Absolute Lymphocytes 1.23 Absolute Monocytes 0.84 H Absolute Eosinophils 0.20 Absolute Basophils 0.05 Sodium 142 Potassium 4.2 Chloride 107 Carbon Dioxide 27.1 Anion Gap 7.9 BUN 8 Creatinine 0.9 Estimated GFR/1.73 m2 >= 60.00 Glucose 96 Calcium 8.1 L Total Bilirubin 0.4 AST 13 L ALT 32 Alkaline Phosphatase 219 H Total Protein 5.7 L Albumin 2.8 L
[2020-09-20 13:06] LABS: GGT 488 U/L (15-85)
--- NOTE | 2020-09-20 13:10 | W.PM.PROGNOT ---
Date of Service Date of service: 09/20/20 Time of Service: 13:12 Assessment and Plan Assessment and plan (1) Acute on chronic pancreatitis: Status: Acute Assessment and plan: Improved. Cont his pancreatic enzyme replacement. Alcohol cessation warranted. Spoke with Dr Ashley, general surgery, about the GB findings on CT. His pain is very lateral in the RUQ; more likely hepatic in origin. (2) Chronic alcohol use: Status: Chronic Assessment and plan: Continues to drink but he describes drinking less lately. He is aware of the seriousness of his disease process. He is aware of treatment options. (3) Tobacco dependence: Status: Chronic Assessment and plan: nicoderm patch. Cessation encouraged (4) Protein calorie malnutrition: Status: Acute Assessment and plan: Related to alcohol abuse and chronic pancreatitis. Encouraged routine use of his Creon in order to get the full advantage of his nutritional intakie. Eating regular diet currently. Subjective Subjective Patient reports: feels better, pain is less (Pain is lateral RUQ. No LUQ pain.), tolerating a regular diet and afebrile; denies diarrhea, nausea and vomiting Exam Const General: cooperative and no acute distress Nutritional Appearance: malnourished Eyes Sclera: sclerae normal Pupils: PERRL Resp Effort & Inspection: normal respiratory effort Auscultation: clear to auscultation bilaterally Cardio Rate: regular rate Rhythm: regular rhythm Heart Sounds: S1 normal and S2 normal GI Palpation: soft and tender (Lateral RUQ w/o rebound) Extrem General: no pedal edema and no calf tenderness Psych Appearance: grossly normal Mental Status: mental status grossly normal Speech and Movement: speech and movement normal Mood: congruent mood Affect: normal affect Attitude: cooperative Objective Last Vital Signs Temp 36.9 C 09/20/20 11:10 Pulse 55 L 09/20/20 11:10 Resp 19 09/20/20 11:10 BP 129/79 09/20/20 11:10 Pulse Ox 100 09/20/20 11:10 Laboratory Results - last 24 hr 09/20/20 09/20/20 06:30 06:30 WBC 7.23 RBC 4.24 L Hgb 13.6 Hct 42.5 MCV 100.2 H MCH 32.1 MCHC 32.0 RDW 14.2 H Plt Count 219 MPV 10.3 Immature Gran % 0.6 Neutrophils % 67.3 Lymphocytes % 17.0 Monocytes % 11.6 Eosinophils % 2.8 Basophils % 0.7 Nucleated RBC % 0 Absolute Neutrophils 4.87 Absolute Lymphocytes 1.23 Absolute Monocytes 0.84 H Absolute Eosinophils 0.20 Absolute Basophils 0.05 Sodium 142 Potassium 4.2 Chloride 107 Carbon Dioxide 27.1 Anion Gap 7.9 BUN 8 Creatinine 0.9 Estimated GFR/1.73 m2 >= 60.00 Glucose 96 Calcium 8.1 L Total Bilirubin 0.4 GGT 488 H AST 13 L ALT 32 Alkaline Phosphatase 219 H Total Protein 5.7 L Albumin 2.8 L
[2020-09-20 15:32] VITALS: BP 122/76; PULSE 65; RESP 19; TEMP 36.3; O2SAT 99
[2020-09-20] MEDS: Creon, Lipase 6,000 CAPCR 1 CAP PO (16:50)
[2020-09-20 19:25] VITALS: BP 142/86; PULSE 61; RESP 18; TEMP 36.5; O2SAT 98
[2020-09-20] MEDS: Acetaminophen 325 MG TAB 650 MG PO (19:45)
[2020-09-20 23:10] VITALS: BP 130/76; PULSE 64; RESP 17; TEMP 36.4; O2SAT 99
[2020-09-21] MEDS: Normal Saline Flush 10 ML SYR IVP ×2 (02:43→09:45)
[2020-09-21] MEDS: HYDROmorphone 2 MG/ML VIAL 1 MG IVP ×2 (02:43→08:44)
[2020-09-21 03:59] VITALS: BP 117/78; PULSE 58; RESP 18; TEMP 36; O2SAT 99
[2020-09-21] MEDS: PIPERACILLIN/TAZO 3.375 GM in Normal Saline 50 ML IVPB (05:05)
[2020-09-21] MEDS: Heparin 5,000 UNITS/ML VIAL 5000 UNITS SC (05:06)
[2020-09-21] MEDS: Acetaminophen 325 MG TAB 650 MG PO (05:17)
[2020-09-21 08:01] VITALS: BP 148/86; PULSE 55; RESP 17; TEMP 36.5; O2SAT 99
[2020-09-21] MEDS: Nicotine 21 MG/24 HR PATCH TD (08:30)
[2020-09-21] MEDS: Pantoprazole 40 MG VIAL IVP (08:30)
[2020-09-21] MEDS: Normal Saline 50 ML 200 ML ×2 (08:30→08:43)
[2020-09-21] MEDS: Creon, Lipase 6,000 CAPCR 1 CAP PO (08:31)
--- NOTE | 2020-09-21 09:47 | DSE_ITS ---
Date of service: 09/21/20 Time of Service: 09:47 DS: Diagnosis Discharge Diagnosis (1) Acute on chronic pancreatitis: Status: Acute (2) Protein calorie malnutrition: Status: Acute (3) Portal vein thrombosis: Status: Acute (4) Pancreatic pseudocyst: Status: Acute (5) Acute pancreatitis: Status: Acute Discharge Plan Disposition Patient Disposition: HOME Condition: Stable Discharge Details Reason For Visit: ACUTE PANCREATITIS, CHOLECYCTITIS Admit Date/Time: 09/17/20 19:01 Admit Provider: Dipak Lopez Attending Provider: Dipak Lopez Primary Care Provider: Antonio Harper [facility] Course Hospital Course: This is a 40-year-old male patient who has a history of alcoholic pancreatitis since June 2019 with repeated episodes of having been hospitalized locally and seen at [facility] with upper endoscopy and what he describes as ERCP in the recent past. 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 He has markedly reduced his alcohol intake but continues to have chronic recurrent pancreatitis and is on Pancrease. He also takes Dilaudid for chronic epigastric abdominal pain. Over last 4 to 5 days he has had increasing epigastric pain radiating into his back which is worsened by eating with nausea and vomiting. He states that he did have 4-5 beers while golfing several days prior to admission which exacerbated his symptoms. He reported to the ED with continuing pain and not able to keep food or medications in his stomach. He ran out of his Dilaudid earlier this week. He denies any fever or chills and has had no other GI symptoms. Denies any chest discomfort or shortness of breath. Patient is a smoker and will need nicotine supplement. Patient was seen in the ED and treated for pain with bowel rest with his imaging reviewed with [facility] who stated that he did not need immediate intervention and should be treated locally. I do not think MRCP was necessary though he did have dilatation of his common bile duct and biliary tree secondary to swelling of his pancreatic head. This has occurred in the past he did have a contracted gallbladder and had no fever or chills with minimal elevation of his WBC the patient was admitted for conservative treatment of his acute pancreatitis. His LUQ/epigastric pain related to pancreatitis subsided with GI rest. His diet was advanced to a regular diet. He had persistant mild to mod lateral RUQ discomfort that was not exacerbated by his dietary intake; thought to possibly be related to his liver. However, his GB did have some surrounding fluid and was distended on initial CT abd/pelvis. He was placed on Zosyn and discharged on a 5 day course of Augmentin. General surgery was consulted; no surgical intervention regarding the GB at this time. Encouraged to continue to refrain from Etoh intake; he voices concerns over his alcohol use and recurrent pancreatitis. F/U with his PCP in 1-2 weeks. Home Meds and New Rx's Prescriptions: New hydromorphone 2 mg Tablet 2 mg PO Q6H PRNQty: 14 RF: 0 polyethylene glycol 3350 17 gram Powder In Packet 17 g PO DAILY PRN PRN (Reason: Constipation) Qty: 0 RF: 0 amoxicillin-pot clavulanate [Augmentin] 875-125 mg tablet 1 tab PO BID Qty: 10 RF: 0 Continued ondansetron HCl [Zofran] 4 mg tablet 4 mg PO BID RF: 0 omeprazole 40 mg capsule,delayed release(DR/EC) 20 mg PO DAILY RF: 0 Creon 6,000-19,000 -30,000 unit Capsule,Delayed Release(Dr/Ec) 1 cap PO QMEALS Qty: 90 RF: 0 sertraline 50 mg tablet 50 mg PO DAILY RF: 0 hydromorphone 2 mg Tablet 2 mg PO Q6H PRNQty: 15 RF: 0 Discharge Instructions Instructions: Pancreatitis (DC) Stand Alone Forms: Nursing Discharge Form Referrals: Antonio Harper [Primary Care Provider] - Activity:: Activity as Tolerated Equipment/Supplies:: No Equipment Needed Diet:: As Tolerated Discharge Orders Discharge Orders: Discharge Order (Routine); Ordered 09/21/20 Ordered By: Wild Meza DS: Summary Time Spent with Patient providing and/or coordinating discharge services: Greater than 30 minutes Status at Discharge Functional status at discharge: independent ambulation Overall status at discharge: patient is progressing back to baseline Mental Status: mental status grossly normal Speech and Movement: speech and movement normal Mood: congruent mood Affect: normal affect Exam Const General: cooperative and no acute distress Nutritional Appearance: underweight Orientation: alert and oriented x3 Eyes Sclera: sclerae normal Pupils: PERRL Resp Effort & Inspection: normal respiratory effort Auscultation: clear to auscultation bilaterally Cardio Rate: regular rate Rhythm: regular rhythm Heart Sounds: S1 normal and S2 normal GI Palpation: soft and tender in the RUQ (mild) Neuro General: no focal motor deficits Cognition: normal cognition Speech: speech normal Psych Mental Status: mental status grossly normal Speech and Movement: speech and movement normal Mood: congruent mood Affect: normal affect DS: Data Vitals/I&O Vitals and I&O: Vital Signs Temperature 36.5 C 09/21/20 08:01 Temperature Source Temporal Artery Scan 09/21/20 08:01 Pulse 55 L 09/21/20 08:01 Pulse Rhythm Regular 09/21/20 02:16 Respiratory Rate 17 09/21/20 08:01 Respiratory Effort Non-Labored 09/21/20 02:16 Respiratory Depth Normal 09/21/20 02:16 Respiratory Pattern Normal 09/21/20 02:16 Blood Pressure 148/86 H 09/21/20 08:01 Blood Pressure Mean 69 09/17/20 18:48 Blood Pressure Position Sitting 09/17/20 15:04 Pulse Oximetry 99 09/21/20 08:01 Oxygen Delivery Method Room Air 09/21/20 08:01 Oxygen Flow Rate 0 09/21/20 08:01 Pain Level 7 09/21/20 08:44 Comment 09/19/20 15:52 Intake & Output 09/20/20 09/20/20 09/21/20 11:59 23:59 11:59 Intake Total 460 / 1400 940 / 1400 50 / 50 Balance 460 / 1400 940 / 1400 50 / 50 Weight 68.8 kg 67.7 kg Intake: IV 100 / 200 100 / 200 50 / 50 Oral 360 / 1200 840 / 1200 Other: Comment pt using the toilet independently pt using the toilet independently Voiding Methods Toilet Toilet Toilet Data Completed and Pending Labs on day of discharge: Labs from last 24 hours 09/20/20 06:30 Sodium 142 Potassium 4.2 Chloride 107 Carbon Dioxide 27.1 Anion Gap 7.9 BUN 8 Creatinine 0.9 Estimated GFR/1.73 m2 >= 60.00 Glucose 96 Calcium 8.1 L Total Bilirubin 0.4 GGT 488 H AST 13 L ALT 32 Alkaline Phosphatase 219 H Total Protein 5.7 L Albumin 2.8 L [facility] Medical History Chronic alcohol use Spoke about life stressors, RCT as alternative, patient receptive. Discharge planning issues Per [facility] consult, continue monitoring until inflammation abates. Consider inpatient or outpatient workup at that time for ERCP and Pancreatitis Hydromorphone PRN PRN for pain. As above. 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
--- NOTE | 2020-09-21 15:44 | CMDISCH_ITS ---
- If Service Date Differs Date of service: 09/21/20 Time of Service: 15:44 LACE Index Scoring Tool - Questions: Length of Stay (in days): 4 - 6 Acuity (Admit via E.D.?): Yes Comorbidities: Liver or Renal Disease E.D. Visits: 7 - Answers: Total Score: 16 Risk of Readmission: High Risk Care Management Discharge Reason for Hospitalization: Acute Pancreatitis, Cholecystectomy Discharge Plan: Acosta will be discharged home with no new services. He will fol low up with his PCP and discharge plan of care. He will be driven home via private vehicle with a friend, Sanchez, when ready. Patient/Family Education Needs: Discharge instructions, limitations, and follow up plan of care, including Ask Me Three and self management.
== END 2020-09-21 11:41 | disposition home or self-care (01) | DRG 438 ==
LOC: ER 18:49 → MS 19:45
PROVIDERS: Family Medicine; Nurse Practitioner Family; Student in an Organized Health Care Education/Training Program; Admitting Provider Family Medicine; Emergency Provider Registered Nurse Emergency; PCP Neuromusculoskeletal Medicine & OMM; Visit Provider Family Medicine
DX: K85.20 Alcohol induced acute pancreatitis without necrosis or infection (principal); I81 Portal vein thrombosis; E46 Unspecified protein-calorie malnutrition; Z68.1 Body mass index [BMI] 19.9 or less, adult; K86.3 Pseudocyst of pancreas; K81.0 Acute cholecystitis; K86.0 Alcohol-induced chronic pancreatitis; F10.10 Alcohol abuse, uncomplicated; F17.210 Nicotine dependence, cigarettes, uncomplicated; Z20.822 Contact with and (suspected) exposure to COVID-19
CPT/HCPCS: 36415; 80053; 80061; 83690; 85027; 87635; 96361; 96365; 96366; 96368; 96375; 96376; 99285; 74177; 81003; 82977; 83735; 84100; 85025; 85610; 99223; 99232; 99239; J1644; J2405; J2543; J3490

== ENCOUNTER 2020-11-01 07:24 | Inpatient (IN) | payer MEDICAID, SELFPAY ==
[2020-11-01 07:27] VITALS: BP 121/79; PULSE 86; RESP 18; TEMP 36.6; O2SAT 98
[2020-11-01 07:58] LABS: Abs Immature Grans 0.04 10^3/uL (0.0-0.06); Absolute Basophil Count 0.05 10^3/uL (0.0-0.2); Absolute Eosinophil Count 0.11 10^3/uL (0.0-0.7); Absolute Lymphocyte Count 1.29 10^3/uL (1.2-3.4); Absolute Monocyte Count 1.66 10^3/uL (0.1-0.8); Basophils % 0.4; Eosinophils % 0.9; HCT 46.4 % (40.0-50.0); HGB 15.4 g/dL (13.5-17.5); Immature Grans % 0.3; MCH 31.9 pg (27.0-33.0); MCHC 33.2 % (32.0-36.0); MCV 96.1 fL (80-95); MPV 9.5 fL (8.0-11.0); Monocytes % 14.1; Neutrophils % 73.3; Nucleated RBC 0 %; Platelet Count 292 10^3/uL (130-400); RBC 4.83 10^6/uL (4.36-5.78); RDW 14.7 % (11.8-14.1); RDW-SD 51.8 fL; WBC 11.75 10^3/uL (4.4-10.8)
[2020-11-01 07:59] LABS: Absolute Neutrophil Count 8.61 10^3/uL (1.2-6.7)
--- NOTE | 2020-11-01 08:03 | W.ED.GENAD ---
Discharge Plan Discharge Details Chief Complaint: Abd Prob Admit Date/Time: 11/01/20 08:26 Admit Provider: Wild Meza Attending Provider: Wild Meza Primary Care Provider: Antonio Harper ED Provider: Octavia Velasquez Discharge Data Discharge Date/Time-TO BE ENTERED AT DEPARTURE: 11/01/20 19:19 Medical Decision Making Acosta Manley is a 40-year-old man who presented to the emergency department with pain typical of his usual pancreatitis beginning 3 days ago with a time that he ran out of his home Dilaudid and Zofran, also with vomiting. Patient reporting all symptoms typical of his usual episodes of acute on chronic pancreatitis. On exam patient is well nontoxic-appearing. There is focal right upper quadrant tenderness to palpation. Exam is otherwise benign. Concern for acute on chronic pancreatitis versus typical chronic pancreatitis without usual home meds on board, metabolic/lyte derangement, dehydration, other. Exam/history at this time is not consistent with acute coronary syndrome, pulmonary embolism, sepsis, acute emergent surgical intra-abdominal process. Plan for IV placement, screening labs, IV fluid hydration, IV Dilaudid, IV Zofran. Will monitor and reassess. Lipase greater than 1000, consistent with acute on chronic pancreatitis. Plan for admission. Patient is amenable to the plan. We will hold off on imaging at this point as patient continues to report that all of his symptoms are exactly typical of recent episode of pancreatitis which occurred under 2 months ago. Clinical Impression: pancreatitis Dispostion: [facility] inpatient Medical Records Medical records reviewed: Yes I reviewed the patient's medical records. Lab Data Lab results reviewed: Yes I reviewed the patient's lab results. Labs: Laboratory Tests Range/Units 11/01/20 11/01/20 11/01/20 07:49 07:49 07:49 WBC (4.4-10.8) 10^3/uL 11.75 H RBC (4.36-5.78) 10^6/uL 4.83 Hgb (13.5-17.5) g/dL 15.4 Hct (40.0-50.0) % 46.4 MCV (80-95) fL 96.1 H MCH (27.0-33.0) pg 31.9 MCHC (32.0-36.0) % 33.2 RDW (11.8-14.1) % 14.7 H Plt Count (130-400) 10^3/uL 292 MPV (8.0-11.0) fL 9.5 Immature Gran % 0.3 Neutrophils % 73.3 Lymphocytes % 11.0 Monocytes % 14.1 Eosinophils % 0.9 Basophils % 0.4 Nucleated RBC % % 0 Absolute Neutrophils (1.2-6.7) 10^3/uL 8.61 H Absolute Lymphocytes (1.2-3.4) 10^3/uL 1.29 Absolute Monocytes (0.1-0.8) 10^3/uL 1.66 H Absolute Eosinophils (0.0-0.7) 10^3/uL 0.11 Absolute Basophils (0.0-0.2) 10^3/uL 0.05 RBC Morphology Normal Sodium (136-145) mmol/L 141 Potassium (3.5-5.1) mmol/L 3.6 Chloride (98-107) mmol/L 102 Carbon Dioxide (21.0-32.0) mmol/L 31.6 Anion Gap (3-11) mmol/L 7.4 BUN (7-18) mg/dL 9 Creatinine (0.70-1.30) mg/dL 0.7 Estimated GFR/1.73 m2 (mL/min/1.73m2) >= 60.00 Glucose (74-106) mg/dL 107 H Calcium (8.5-10.1) mg/dL 9.1 Magnesium (1.8-2.4) mg/dL 1.9 Total Bilirubin (0.2-1.0) mg/dL 1.2 H AST (15-37) U/L 16 ALT (16-63) U/L 28 Alkaline Phosphatase (46-116) U/L 488 H Total Protein (6.4-8.2) g/dL 7.4 Albumin (3.4-5.0) g/dL 3.5 Lipase (73-393) U/L 1041 H COVID-19 Source Range/Units 11/01/20 08:45 WBC (4.4-10.8) 10^3/uL RBC (4.36-5.78) 10^6/uL Hgb (13.5-17.5) g/dL Hct (40.0-50.0) % MCV (80-95) fL MCH (27.0-33.0) pg MCHC (32.0-36.0) % RDW (11.8-14.1) % Plt Count (130-400) 10^3/uL MPV (8.0-11.0) fL Immature Gran % Neutrophils % Lymphocytes % Monocytes % Eosinophils % Basophils % Nucleated RBC % % Absolute Neutrophils (1.2-6.7) 10^3/uL Absolute Lymphocytes (1.2-3.4) 10^3/uL Absolute Monocytes (0.1-0.8) 10^3/uL Absolute Eosinophils (0.0-0.7) 10^3/uL Absolute Basophils (0.0-0.2) 10^3/uL RBC Morphology Sodium (136-145) mmol/L Potassium (3.5-5.1) mmol/L Chloride (98-107) mmol/L Carbon Dioxide (21.0-32.0) mmol/L Anion Gap (3-11) mmol/L BUN (7-18) mg/dL Creatinine (0.70-1.30) mg/dL Estimated GFR/1.73 m2 (mL/min/1.73m2) Glucose (74-106) mg/dL Calcium (8.5-10.1) mg/dL Magnesium (1.8-2.4) mg/dL Total Bilirubin (0.2-1.0) mg/dL AST (15-37) U/L ALT (16-63) U/L Alkaline Phosphatase (46-116) U/L Total Protein (6.4-8.2) g/dL Albumin (3.4-5.0) g/dL Lipase (73-393) U/L COVID-19 Source Nasal/nares HPI General Mode of arrival: ambulatory. Date/Time Provider Initiated Documentation: 11/01/20 07:46. Limitations to Documentation: no limitations. Information obtained by: patient. HPI Narrative: Acosta Manley is a 40-year-old man with a history of pancreatitis, portal vein thrombosis presenting to the emergency room with abdominal pain consistent with his typical pancreatitis. Per patient and record review patient was admitted to [facility] for pancreatitis 09/17/20, discharged 09/21/2020. Patient reports that since discharge he has been drinking approximately 8-12 beers per day. He has been taking p.o. Dilaudid for chronic abdominal pain related to his pancreatitis. Patient reports that at times he has been taking more Dilaudid daily than he is prescribed, and ran out of his Dilaudid and also his Zofran 3 days ago. Patient reports that pain has been gradually increasing since that time. He reports that he has had pain in the center of his back that wraps around to his right upper quadrant. He states this is exactly typical of his usual pancreatitis pain. He has also had vomiting over the past few days and has not been able to keep food down. Has been drinking water and keeping that down. Patient reports that his last drink was last night. He states that he does go through withdrawal when he stops drinking, but is not currently having withdrawal symptoms. He denies any other pain, fever, cough, shortness of breath, rash, swelling, numbness, weakness, dysuria. Related Data Home Medications Medication Instructions Recorded Confirmed omeprazole 20 mg PO DAILY 12/31/19 11/01/20 ondansetron HCl [Zofran] 4 mg PO BID 12/31/19 11/01/20 Creon 1 cap PO QMEALS #90 cap 04/20/20 11/01/20 hydromorphone 2 mg PO Q6H PRN #14 tab 09/21/20 11/01/20 polyethylene glycol 3350 17 g PO DAILY PRN PRN #0 ea 09/21/20 11/01/20 Previous Rx's Medication Instructions Recorded Creon 1 cap PO QMEALS #90 cap 04/20/20 hydromorphone 2 mg PO Q6H PRN #14 tab 09/21/20 polyethylene glycol 3350 17 g PO DAILY PRN PRN #0 ea 09/21/20 Allergies Allergy/AdvReac Type Severity Reaction Status Date / Time No Known Allergies Allergy Unverified 11/01/20 07:29 General Stated Complaint: Abd Prob DEIDRE: 3 Review of Systems Narrative: Constitutional: denies fevers Eyes: denies eye pain ENT: denies ear pain, dental pain, sore throat Cardiovascular: denies chest pain, edema Respiratory: denies SOB, cough GI: Reports abdominal pain, vomiting, 1 episode of diarrhea last night diarrhea, denies constipation : denies flank pain, dysuria MSK: denies back pain, neck pain, arthralgias, myalgias Skin: denies rash Neuro: denies headaches, numbness, weakness [facility] Medical History Chronic alcohol use Spoke about life stressors, RCT as alternative, patient receptive. Discharge planning issues Per [facility] consult, continue monitoring until inflammation abates. Consider inpatient or outpatient workup at that time for ERCP and Pancreatitis Hydromorphone PRN PRN for pain. As above. 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 [place] Exam Narrative Exam Narrative: Constitutional: well and [id number], pleasant, conversing normally HENT: head atraumatic/normocephalic/normal inspection, mucous membranes moist Eyes: conjunctiva normal, sclera normal, pupils 3mm b/l Neck: no stridor, normal ROM, trachea midline Chest: normal inspection Resp: normal work of breathing, LCTAB Cardio: normal rate, normal rhythm, no murmur appreciated GI: abdomen soft, focal tenderness to palpation right upper quadrant, no McBurney's point tenderness to palpation, no left-sided abdominal tenderness to palpation, no rebound, no guarding non-distended Back: normal inspection, no rash Skin: warm, dry, normal color, no rash Neuro: alert, not altered, grossly non-focal, normal tone Ext: no edema Psych: normal mood, normal affect, normal behavior Course Vital Signs Vital signs: Vital Signs Temperature 36.6 C 11/01/20 07:27 Pulse 86 11/01/20 07:27 Respiratory Rate 18 11/01/20 07:27 Blood Pressure 121/79 11/01/20 07:27 Pulse Oximetry 98 11/01/20 07:27 Temperature 36.6 C 11/01/20 07:27 Temperature Source Skin 11/01/20 07:27 Pulse 86 11/01/20 07:27 Respiratory Rate 18 11/01/20 07:27 Respiratory Effort Non-Labored 11/01/20 07:30 Blood Pressure 121/79 11/01/20 07:27 Blood Pressure Position Sitting 11/01/20 07:27 Pulse Oximetry 98 11/01/20 07:27 Oxygen Delivery Method Room Air 11/01/20 07:27 Oxygen Flow Rate 0 11/01/20 07:27 Pain Level 8 11/01/20 07:31
[2020-11-01 08:06] LABS: Lipase 1041 U/L (73-393)
[2020-11-01 08:09] LABS: ALT 28 U/L (16-63); AST 16 U/L (15-37); Albumin 3.5 g/dL (3.4-5.0); Alkaline Phosphatase 488 U/L (46-116); Anion Gap 7.4 mmol/L (3-11); BUN 9 mg/dL (7-18); Bilirubin, Total 1.2 mg/dL (0.2-1.0); CO2 31.6 mmol/L (21.0-32.0); CREATININE 0.7 mg/dL (0.70-1.30); Calcium 9.1 mg/dL (8.5-10.1); Chloride 102 mmol/L (98-107); Glucose 107 mg/dL (74-106); Magnesium 1.9 mg/dL (1.8-2.4); Potassium 3.6 mmol/L (3.5-5.1); Sodium 141 mmol/L (136-145); Total Protein 7.4 g/dL (6.4-8.2)
[2020-11-01] MEDS: Normal Saline Flush 10 ML SYR IVP ×4 (08:16→23:49)
[2020-11-01] MEDS: Normal Saline 1,000 ML 1000 ML IV (08:17)
[2020-11-01] MEDS: Ondansetron 4 MG/2 ML VIAL IVP (08:17)
[2020-11-01 08:20] LABS: Diff Comment RBC Morph Reviewed; RBC Morphology Normal
[2020-11-01] MEDS: HYDROmorphone 2 MG/ML VIAL 1 MG IVP ×5 (08:26→23:49)
[2020-11-01 08:48] LABS: Source Nasal/Nares
[2020-11-01 09:14] VITALS: BP 134/91; PULSE 59; RESP 20; TEMP 36.5; O2SAT 100
[2020-11-01 09:28] VITALS: BP 134/93; PULSE 64; RESP 16; TEMP 36.5; O2SAT 99
[2020-11-01 09:31] VITALS: BP 134/93; PULSE 64; RESP 16; TEMP 36.5; O2SAT 99
--- NOTE | 2020-11-01 09:34 | PDOC.ERCMIN ---
- If Service Date Differs Date of service: 11/01/20 Time of Service: 09:34 Care Management Initial Assess REASON FOR HOSPITALIZATION:: Abdominal pain, acute on chronic pancreatitis. PAST MEDICAL HISTORY/PAST SURGICAL HISTORY:: Medical History: Chronic alcohol use - Spoke about life stressors, RCT as alternative, patient receptive., Discharge planning issues - Per [facility] consult, continue monitoring until inflammation abates. Consider inpatient or outpatient workup at that time for ERCP, Pancreatitis - Hydromorphone PRN PRN for pain. As above., and Tobacco dependence - Nicoderm, Nicotrol. No surgical history of record. PREVIOUS FUNCTIONAL STATUS/SOCIAL/FAMILY SUPPORTS:: Acosta lives in [place] with his mother, Ronald. 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 When not working, Acosta enjoys gardening, bird, and cooking meals at home. He names his mom and a friend, Sanchez, as his supports. CURRENT FUNCTIONAL STATUS:: Acosta is sitting up in bed when CM comes to meet with him. He easily engages in conversation and shares his need to give up drinking alcohol. He states he was prescribed antabuse in the past but did not find it helpful, so he stopped taking it. He has also attended AA meetings but this was court mandated, so he was not particularly invested in the meetings at the time. Acosta was also connected with a Bark Skinner from the [facility] at last admission, but he lost contact. Acosta shares he is currently ready to make some changes and is interested in an inpatient rehab. He is also open to receiving support from a Bark Skinner. CM will continue to follow. ADVANCE DIRECTIVES:: None on file; Acosta has the form but has yet to complete it. Has patient been provided with info about the portal/API?: Yes Did the patient sign up for the portal?: No CODE STATUS:: Full Code INSURANCE COVERAGE / FINANCIAL ISSUES:: Medicaid and Financial Asst 100. CURRENT HOME/COMMUNITY SERVICES/EQUIPMENT:: Acosta is independent at baseline and does not currently have any services or equipment. PRIMARY CARE PHYSICIAN:: Antonio Harper. POTENTIAL DISCHARGE NEEDS:: Follow up appointment with PCP, referral to [facility] and/or other inpatient alcohol rehab facility, and discharge plan of care. PATIENT/FAMILY EDUCATION NEEDS:: Discharge instructions, limitations, and follow up plan of care, including Ask Me Three and self management. ANTICIPATED BARRIERS TO DISCHARGE:: None anticipated at this time. TRANSPORTATION:: Via private vehicle with family. PLAN:: Anticipate Acosta will be discharged home when medically cleared by provider. He will follow up with his PCP, Bark Skinner, and discharge plan of care as directed. Acosta will be driven home by his mother, Ronald, via private vehicle when ready. CM will continue to support Acosta and discharge planning needs.
[2020-11-01] MEDS: Acetaminophen 325 MG TAB 650 MG PO ×3 (09:54→20:14)
[2020-11-01] MEDS: Pantoprazole 40 MG VIAL IVP (09:55)
[2020-11-01] MEDS: Heparin 5,000 UNITS/ML VIAL 5000 UNITS SC ×2 (09:55→17:12)
[2020-11-01] MEDS: Lactated Ringers 1,000 ML 125 ML IV ×2 (10:02→17:11)
--- NOTE | 2020-11-01 10:05 | PDOC.CMIN ---
- If Service Date Differs Date of service: 11/01/20 Time of Service: 10:05 Care Management Initial Assess REASON FOR HOSPITALIZATION:: Pancreatitis
--- NOTE | 2020-11-01 10:23 | W.PM.HP.N ---
Date of service: 11/01/20 Time of Service: 10:24 Assessment and Plan Assessment and plan (1) Acute on chronic pancreatitis: Status: Acute Assessment and plan: Recurrent acute bouts of alcohol related pancreatitis in background of chronic pancreatitis. IV pain meds and antiemetics. Clear liquids as tolerated. When able to advance diet will restart his pancreatic enzyme replacement. (2) Protein calorie malnutrition: Status: Acute Assessment and plan: Related to excessive alcohol intake. Previous nutritional consult in 04/2020. When able to tolerate a more normal diet will supplement with protein supplements. (3) DVT prophylaxis: Status: Acute Assessment and plan: SQ Heparin At risk for bleeding d/t chronic alcohol abuse with likely varices and possible current gastritis. (4) Tobacco dependence: Status: Chronic Assessment and plan: Nicotrol inhaler ordered. (5) Chronic alcohol use: Status: Chronic Assessment and plan: He is aware of the serious nature of his pancreatitis. He has not made a committment to stop alcohol intake. History of Present Illness History of Present Illness Chief Complaint: abdominal pain Narrative: This is a 40 yo male, well known to this service with multiple previous admissions. He has a h/o alcohol abuse, alcohol induced pancreatitis, tobacco abuse syndrome, portal vein thrombosis. He describes 3 days of epigastric/RUQ area pain along with N/V. He has been awake most of the last 2 nights with symptoms. He reports running out of his prescribed dilaudid. No hematemesis. No F/C. He has been drinking 8-12 beers daily since discharge from [facility] on 09/21/20 (admitted on 09/17/20). Given IV diluadid and Zofran in the ED with improved pain control. He has been able to tolerate sips of liquids since. WBC count mildly elevated a 11.75, Hgb 15.4. Electrolytes normal. BUN 9, creatinine 0.7. Total bilirubin marginally elevated at 1.2. Conjugated bilirubin elevated at 0.48. AST 16, ALT 28, AP 488. Lipase 1041. Review of Systems All systems reviewed & are unremarkable except as noted in HPI and below [facility] Medical History Chronic alcohol use Spoke about life stressors, RCT as alternative, patient receptive. Discharge planning issues Per [facility] consult, continue monitoring until inflammation abates. Consider inpatient or outpatient workup at that time for ERCP and Pancreatitis Hydromorphone PRN PRN for pain. As above. 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 [employer] Allergies and Home Medications Allergies Allergy/AdvReac Type Severity Reaction Status Date / Time No Known Allergies Allergy Unverified 11/01/20 07:29 Home Medications Medication Instructions Recorded Confirmed Type omeprazole 20 mg PO DAILY 12/31/19 11/01/20 History ondansetron HCl [Zofran] 4 mg PO BID 12/31/19 11/01/20 History Creon 1 cap PO QMEALS #90 cap 04/20/20 11/01/20 Rx hydromorphone 2 mg PO Q6H PRN #14 tab 09/21/20 11/01/20 Rx polyethylene glycol 3350 17 g PO DAILY PRN PRN #0 ea 09/21/20 11/01/20 Rx Exam Const General: cooperative and no acute distress Nutritional Appearance: cachectic Orientation: alert and oriented x3 Eyes Sclera: sclerae normal Pupils: PERRL Resp Effort & Inspection: normal respiratory effort Auscultation: clear to auscultation bilaterally and diminished lung sounds Cardio Rate: regular rate Rhythm: regular rhythm Heart Sounds: S1 normal and S2 normal GI Palpation: soft and tender in the epigastrum; with no rebound tenderness Neuro General: no focal motor deficits Cognition: normal cognition Speech: speech normal Extrem General: no pedal edema and no calf tenderness Psych Mood: congruent mood Affect: blunted Results Labs Result diagrams: 11/01/20 07:49 11/01/20 07:49 Labs: Laboratory Results - last 24 hr 11/01/20 11/01/20 11/01/20 07:49 07:49 07:49 WBC 11.75 H RBC 4.83 Hgb 15.4 Hct 46.4 MCV 96.1 H MCH 31.9 MCHC 33.2 RDW 14.7 H Plt Count 292 MPV 9.5 Immature Gran % 0.3 Neutrophils % 73.3 Lymphocytes % 11.0 Monocytes % 14.1 Eosinophils % 0.9 Basophils % 0.4 Nucleated RBC % 0 Absolute Neutrophils 8.61 H Absolute Lymphocytes 1.29 Absolute Monocytes 1.66 H Absolute Eosinophils 0.11 Absolute Basophils 0.05 RBC Morphology Normal Sodium 141 Potassium 3.6 Chloride 102 Carbon Dioxide 31.6 Anion Gap 7.4 BUN 9 Creatinine 0.7 Estimated GFR/1.73 m2 >= 60.00 Glucose 107 H Calcium 9.1 Magnesium 1.9 Total Bilirubin 1.2 H AST 16 ALT 28 Alkaline Phosphatase 488 H Total Protein 7.4 Albumin 3.5 Lipase 1041 H COVID-19 Source 11/01/20 08:45 WBC RBC Hgb Hct MCV MCH MCHC RDW Plt Count MPV Immature Gran % Neutrophils % Lymphocytes % Monocytes % Eosinophils % Basophils % Nucleated RBC % Absolute Neutrophils Absolute Lymphocytes Absolute Monocytes Absolute Eosinophils Absolute Basophils RBC Morphology Sodium Potassium Chloride Carbon Dioxide Anion Gap BUN Creatinine Estimated GFR/1.73 m2 Glucose Calcium Magnesium Total Bilirubin AST ALT Alkaline Phosphatase Total Protein Albumin Lipase COVID-19 Source Nasal/nares Last Vital Signs Temp 36.5 C 11/01/20 09:31 Pulse 64 11/01/20 09:31 Resp 16 11/01/20 09:31 BP 134/93 H 11/01/20 09:31 Pulse Ox 99 11/01/20 09:31 COVID-19 Screening Have you, or household traveled for leisure in last 14 days?: No Had IN PERSON contact w/suspected or confirmed C-19 person: No
[2020-11-01 12:15] LABS: COVID-19 PCR Negative (Negative)
[2020-11-01 15:29] VITALS: BP 106/70; PULSE 54; RESP 16; TEMP 36.4; O2SAT 100
[2020-11-01 18:46] LABS: Bilirubin Small (Negative); Blood Negative (Negative); Clarity Clear (Clear); Glucose Negative (Negative); Ketones 15 mg/dL (Negative); Leukocyte Esterase Negative (Negative); Nitrite Positive (Negative)
[2020-11-01 18:57] LABS: Bacteria Negative HPF (Negative); C & S Indicated? No; Crystals Negative HPF (Negative); Epithelial Cells Negative HPF (Negative); Mucus Heavy (Negative); Other Cells Few Spermatozoa (Negative); RBC 0-2 HPF (0-2); WBC Negative HPF (0-5)
[2020-11-01 23:31] VITALS: BP 123/79; PULSE 58; RESP 20; TEMP 36.7; O2SAT 100
[2020-11-02] MEDS: Lactated Ringers 1,000 ML 125 ML IV ×4 (00:16→22:12)
[2020-11-02] MEDS: Heparin 5,000 UNITS/ML VIAL 5000 UNITS SC ×3 (02:46→18:01)
[2020-11-02] MEDS: Normal Saline Flush 10 ML SYR IVP ×5 (02:47→23:00)
[2020-11-02] MEDS: Acetaminophen 325 MG TAB 650 MG PO (02:47)
[2020-11-02] MEDS: HYDROmorphone 2 MG/ML VIAL 1 MG IVP ×7 (02:47→23:00)
[2020-11-02 07:08] LABS: Abs Immature Grans 0.04 10^3/uL (0.0-0.06); Absolute Basophil Count 0.08 10^3/uL (0.0-0.2); Absolute Eosinophil Count 0.34 10^3/uL (0.0-0.7); Absolute Lymphocyte Count 2.57 10^3/uL (1.2-3.4); Absolute Monocyte Count 1.03 10^3/uL (0.1-0.8); Absolute Neutrophil Count 3.75 10^3/uL (1.2-6.7); Eosinophils % 4.4; HCT 42.3 % (40.0-50.0); HGB 13.7 g/dL (13.5-17.5); Immature Grans % 0.5; Lymphocytes % 32.9; MCH 31.8 pg (27.0-33.0); MCHC 32.4 % (32.0-36.0); MCV 98.1 fL (80-95); MPV 10.2 fL (8.0-11.0); Monocytes % 13.2; Nucleated RBC 0 %; Platelet Count 217 10^3/uL (130-400); RBC 4.31 10^6/uL (4.36-5.78); RDW 14.5 % (11.8-14.1); RDW-SD 52.5 fL; WBC 7.81 10^3/uL (4.4-10.8)
[2020-11-02 07:20] LABS: ALT 20 U/L (16-63); AST 14 U/L (15-37); Albumin 2.7 g/dL (3.4-5.0); Alkaline Phosphatase 343 U/L (46-116); Anion Gap 4.9 mmol/L (3-11); BUN 7 mg/dL (7-18); Bilirubin, Total 1.1 mg/dL (0.2-1.0); CO2 30.1 mmol/L (21.0-32.0); CREATININE 0.7 mg/dL (0.70-1.30); Calcium 8.5 mg/dL (8.5-10.1); Chloride 104 mmol/L (98-107); Glucose 80 mg/dL (74-106); Potassium 3.9 mmol/L (3.5-5.1); Sodium 139 mmol/L (136-145); Total Protein 5.9 g/dL (6.4-8.2)
[2020-11-02 07:31] VITALS: BP 127/83; PULSE 59; RESP 16; TEMP 36.4; O2SAT 100
[2020-11-02] MEDS: Pantoprazole 40 MG VIAL IVP (10:44)
[2020-11-02] MEDS: Baclofen 10 MG TAB PO ×3 (11:20→20:18)
--- NOTE | 2020-11-02 11:34 | PDOC.CMPRO ---
- If Service Date Differs Date of service: 11/02/20 Time of Service: 11:35 Care Management Progress Note S/O: Acosta was sitting up in bed when CM visited. He discussed the challenges he has had surrounding his attempts at sobriety. He has had increased stress recently, as he is working a lot under stressful conditions, and his boss has an adult child who is suffering from terminal cancer. He expressed that he does not want to let down his boss, who is also a close friend, by missing work while he is in rehab. CM discussed self care and how important it is for him to prioritize his health. He is considering inpatient rehab, and he stated that he will do some research today. CM will contact the head boys golf coach, who can also assist him in planning for sobriety. CM will continue to follow. A: Acosta is a 40 year old male admitted to [facility] on 11/01/20 with acute on chronic pancreatitis. P: Anticipate Acosta will be discharged home when medically cleared by provider. He will follow up with his PCP, Marketing Program Manager, and discharge plan of care as directed. Acosta will be driven home by his mother, Ronald, via private vehicle when ready. CM will continue to support Acosta and discharge planning needs.
--- NOTE | 2020-11-02 12:39 | W.NUTCONSULT ---
Date of service: 11/02/20 Time of Service: 12:39 Nutritional Consult ASSESSMENT: Acosta returns with chronic pancreatitis due to chronic alcohol abuse. BMI 16.9, unchanged since last admission, appears cachexic with protein calorie malnutrition. Acosta reports eating 3 meals daily prior to admit with no discomfort. Unable to stop drinking. May be able to increase in weight with Marinol 2.5 mg BID, ensure clear TID. Reviewed macronutrient requirements for weight gain and importance of following lower fat diet. Estimated Needs for weight gain: 2029-6540 kcal, 90-120 g protein. NUTRITIONAL DIAGNOSIS: severe protein calorie malnutrition INTERVENTION: advance diet as tolerated supplement with ensure clear TID MVI, thiamine, folic acid MONITORING AND EVALUATION: weight, po intake, labs Time Spent in Nutritional Counseling and Treatment: 15
--- NOTE | 2020-11-02 14:35 | PGE_ITS ---
Date of Service Date of service: 11/02/20 Time of Service: 09:35 Assessment and Plan Assessment and plan (1) Acute on chronic pancreatitis: Status: Acute Assessment and plan: Advance to full liquids as tolerated. Plan to change to oral dilaudid tomorrow if conts. to improve. (2) Tobacco dependence: Status: Chronic Assessment and plan: Nicotrol inhaler. (3) Chronic alcohol use: Status: Chronic Assessment and plan: He is very aware of the damage alcohol has caused and will continue to cause. Cont to encourage cessation and to find treatment that he feels would be helpful. (4) Protein calorie malnutrition: Status: Acute Assessment and plan: Supplement diet with protein as tolerated. Subjective Subjective Patient reports: feels better, tolerating liquids well, flatus and afebrile; denies nausea and vomiting Exam Const General: cooperative and no acute distress Nutritional Appearance: malnourished Orientation: alert and oriented x3 Eyes Sclera: sclerae normal Pupils: PERRL Resp Effort & Inspection: normal respiratory effort Auscultation: clear to auscultation bilaterally Cardio Rate: regular rate Rhythm: regular rhythm Heart Sounds: S1 normal and S2 normal GI Palpation: soft and tender (mild epigastric to LUQ) Auscultation: normal bowel sounds Extrem General: no pedal edema and no calf tenderness Psych Appearance: grossly normal Speech and Movement: speech and movement normal Affect: normal affect Objective Last Vital Signs Temp 36.4 C L 11/02/20 07:31 Pulse 59 L 11/02/20 07:31 Resp 16 11/02/20 07:31 BP 127/83 11/02/20 07:31 Pulse Ox 100 11/02/20 07:31 Laboratory Results - last 24 hr 11/01/20 11/02/20 11/02/20 18:30 06:22 06:22 WBC 7.81 D RBC 4.31 L Hgb 13.7 Hct 42.3 MCV 98.1 H MCH 31.8 MCHC 32.4 RDW 14.5 H Plt Count 217 MPV 10.2 Immature Gran % 0.5 Neutrophils % 48.0 Lymphocytes % 32.9 Monocytes % 13.2 Eosinophils % 4.4 Basophils % 1.0 Nucleated RBC % 0 Absolute Neutrophils 3.75 Absolute Lymphocytes 2.57 Absolute Monocytes 1.03 H Absolute Eosinophils 0.34 Absolute Basophils 0.08 Sodium 139 Potassium 3.9 Chloride 104 Carbon Dioxide 30.1 Anion Gap 4.9 BUN 7 Creatinine 0.7 Estimated GFR/1.73 m2 >= 60.00 Glucose 80 Calcium 8.5 Total Bilirubin 1.1 H AST 14 L ALT 20 Alkaline Phosphatase 343 H Total Protein 5.9 L Albumin 2.7 L Urine Color [place]ár[place] Urine Clarity Clear Urine pH 7.0 Ur Specific [place] 1.020 Urine Protein 30 H Urine Ketones 15 H Urine Blood Negative Urine Nitrite Positive H Urine Bilirubin Small H Urine Urobilinogen 2.0 H Ur Leukocyte Esterase Negative Urine RBC 0-2 Urine WBC Negative Ur Epithelial Cells Negative Urine Crystals Negative Urine Bacteria Negative Urine Mucus Heavy Urine Other Few spermatozoa Ur Culture Indicated? No Urine Glucose Negative
[2020-11-02 15:33] VITALS: BP 103/64; PULSE 68; RESP 17; TEMP 36.5; O2SAT 99
[2020-11-02 23:51] VITALS: BP 128/86; PULSE 66; RESP 20; TEMP 36.8; O2SAT 100
[2020-11-03] MEDS: HYDROmorphone 2 MG/ML VIAL 1 MG IVP ×3 (02:04→09:18)
[2020-11-03] MEDS: Heparin 5,000 UNITS/ML VIAL 5000 UNITS SC ×2 (02:04→09:21)
[2020-11-03] MEDS: Normal Saline Flush 10 ML SYR IVP ×3 (02:05→09:17)
[2020-11-03] MEDS: Lactated Ringers 1,000 ML 125 ML IV (06:23)
[2020-11-03 07:51] VITALS: BP 130/77; PULSE 63; RESP 16; TEMP 36.7; O2SAT 100
[2020-11-03] MEDS: Pantoprazole 40 MG VIAL IVP (10:52)
[2020-11-03] MEDS: Baclofen 10 MG TAB PO ×2 (10:52→13:33)
--- NOTE | 2020-11-03 12:26 | NUR.NOTE ---
Nursing Note: 1223: pt moved from room 214 to room 206 at this time. 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 continue to monitor.
[2020-11-03] MEDS: HYDROmorphone 2 MG TAB PO (13:33)
--- NOTE | 2020-11-03 13:50 | W.PM.DS.N ---
Date of service: 11/03/20 Time of Service: 13:50 DS: Diagnosis Discharge Diagnosis (1) Acute on chronic pancreatitis: Status: Acute (2) Tobacco dependence: Status: Chronic (3) Chronic alcohol use: Status: Chronic (4) Protein calorie malnutrition: Status: Acute Discharge Plan Disposition Patient Disposition: HOME Condition: Improving Discharge Details Reason For Visit: Acute on Chronic Pancreatitis Admit Date/Time: 11/01/20 08:26 Admit Provider: Wild Meza Attending Provider: Wild Meza Primary Care Provider: Antonio Harper [facility] Course Hospital Course: This is a 40 yo male, well known to this service with multiple previous admissions. He has a h/o alcohol abuse, alcohol induced pancreatitis, tobacco abuse syndrome, portal vein thrombosis. He describes 3 days of epigastric/RUQ area pain along with N/V. He has been awake most of the last 2 nights with symptoms. He reports running out of his prescribed dilaudid. No hematemesis. No F/C. He has been drinking 8-12 beers daily since discharge from [facility] on 09/21/20 (admitted on 09/17/20). Given IV diluadid and Zofran in the ED with improved pain control. He has been able to tolerate sips of liquids since. WBC count mildly elevated a 11.75, Hgb 15.4. Electrolytes normal. BUN 9, creatinine 0.7. Total bilirubin marginally elevated at 1.2. Conjugated bilirubin elevated at 0.48. AST 16, ALT 28, AP 488. Lipase 1041. His diet was advanced to clear >> full >> regular. His pain improved. He did speak with a assistant cross country coach and acknowledged that he needs to make efforts to stop drinking Etoh. F/U with PCP in 1-2 weeks. Home Meds and New Rx's Prescriptions: New baclofen 10 mg Tablet 10 mg PO TID Qty: 20 RF: 0 Continued ondansetron HCl [Zofran] 4 mg tablet 4 mg PO BID RF: 0 omeprazole 40 mg capsule,delayed release(DR/EC) 20 mg PO DAILY RF: 0 Creon 6,000-19,000 -30,000 unit Capsule,Delayed Release(Dr/Ec) 1 cap PO QMEALS Qty: 90 RF: 0 polyethylene glycol 3350 17 gram Powder In Packet 17 g PO DAILY PRN PRN (Reason: Constipation) Qty: 0 RF: 0 hydromorphone 2 mg Tablet 2 mg PO Q6H PRNQty: 20 RF: 0 Discharge Instructions Instructions: Abuse of Alcohol (DC) Stand Alone Forms: Nursing Discharge Form Referrals: Antonio Harper [Primary Care Provider] - 11/12/20 1:20 pm Activity:: Activity as Tolerated Equipment/Supplies:: No Equipment Needed Diet:: Normal Diet Discharge Orders Discharge Orders: Discharge Order (Routine); Ordered 11/03/20 Ordered By: Wild Meza DS: Summary Time Spent with Patient providing and/or coordinating discharge services: Less than 30 minutes Status at Discharge Functional status at discharge: independent ambulation Overall status at discharge: patient is back to baseline Mental Status: mental status grossly normal Speech and Movement: speech and movement normal Mood: congruent mood Affect: normal affect and blunted Exam Const General: cooperative and no acute distress Nutritional Appearance: malnourished Orientation: alert and oriented x3 Resp Effort & Inspection: normal respiratory effort Auscultation: clear to auscultation bilaterally Cardio Rate: regular rate Rhythm: regular rhythm Heart Sounds: S1 normal and S2 normal GI Palpation: soft and tender ( ) in the epigastrum (mild) Skin General skin exam: no rashes or lesions noted Extrem General: no pedal edema and no calf tenderness Psych Appearance: grossly normal Mental Status: mental status grossly normal Speech and Movement: speech and movement normal Mood: congruent mood Affect: normal affect and blunted DS: Data Vitals/I&O Vitals and I&O: Vital Signs Temperature 36.7 C 11/03/20 07:51 Temperature Source Tympanic 11/03/20 07:51 Pulse 63 11/03/20 07:51 Pulse Rhythm Regular 11/03/20 07:15 Respiratory Rate 16 11/03/20 07:51 Respiratory Effort Non-Labored 11/03/20 07:15 Respiratory Depth Normal 11/03/20 07:15 Respiratory Pattern Normal 11/03/20 07:15 Blood Pressure 130/77 11/03/20 07:51 Blood Pressure Position Sitting 11/01/20 07:27 Pulse Oximetry 100 11/03/20 07:51 Oxygen Delivery Method Room Air 11/03/20 07:51 Oxygen Flow Rate 0 11/03/20 07:51 Pain Level 7 11/03/20 13:33 Comment 11/01/20 23:31 Intake & Output 11/02/20 11/03/20 11/03/20 23:59 11:59 23:59 Intake Total 2695 / 4491.667 1000 / 1000 Balance 2695 / 4491.667 1000 / 1000 Intake: IV 1825 / 3621.667 1000 / 1000 Oral 870 / 870 Other: Comment RN has not assessed urine, RN asked pt if he was voiding, pt states he has been voiding a lot patient state he has been voiding at least once per hour [facility] Medical History Chronic alcohol use Spoke about life stressors, RCT as alternative, patient receptive. Discharge planning issues Per [facility] consult, continue monitoring until inflammation abates. Consider inpatient or outpatient workup at that time for ERCP and Pancreatitis Hydromorphone PRN PRN for pain. As above. 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
--- NOTE | 2020-11-03 18:38 | PDOC.CMDIS ---
- If Service Date Differs Date of service: 11/03/20 Time of Service: 18:38 LACE Index Scoring Tool - Questions: Length of Stay (in days): 2 Acuity (Admit via E.D.?): Yes E.D. Visits: 7 - Answers: Total Score: 9 Risk of Readmission: Low Risk Care Management Discharge Reason for Hospitalization: Abdominal pain, acute on chronic pancreatitis. Discharge Plan: [place] will return home with no additional services today. CM connected him with a field hockey and lacrosse coach, who will follow him out patient. He is considering inpatient rehab for his alcohol use, and the field hockey and lacrosse coach will assist with this from the community. His mother will drive him home via private vehicle. He will follow up with his PCP and discharge plan of care. Patient/Family Education Needs: Review discharge instructions regarding activity levels and medications, discussion of self care needs including ask me three.
== END 2020-11-03 14:42 | disposition home or self-care (01) | DRG 438 ==
LOC: ER 08:34 → MS 09:25
PROVIDERS: Admitting Provider Family Medicine; Emergency Provider Student in an Organized Health Care Education/Training Program; PCP Neuromusculoskeletal Medicine & OMM; Visit Provider Family Medicine
DX: K85.20 Alcohol induced acute pancreatitis without necrosis or infection (principal); E43 Unspecified severe protein-calorie malnutrition; Z68.1 Body mass index [BMI] 19.9 or less, adult; R64 Cachexia; K86.0 Alcohol-induced chronic pancreatitis; F17.210 Nicotine dependence, cigarettes, uncomplicated; F10.10 Alcohol abuse, uncomplicated; Z20.822 Contact with and (suspected) exposure to COVID-19
CPT/HCPCS: 36415; 80053; 83690; 87635; 96361; 96372; 96374; 96375; 99285; 81003; 81015; 83735; 85025; 99223; 99232; 99238; J1644; J2405

== ENCOUNTER 2020-11-15 08:00 | Emergency (ER) | payer MEDICAID, SELFPAY ==
[2020-11-15 08:05] VITALS: BP 127/93; PULSE 99; TEMP 36.4; O2SAT 98
[2020-11-15] MEDS: Normal Saline 1,000 ML 1000 ML IV ×2 (08:15→09:47)
--- NOTE | 2020-11-15 08:27 | W.ED.GENAD ---
Discharge Plan Disposition Patient Disposition: HOME Condition: Improving Discharge Details Clinical Impression: Pancreatitis Primary Care Provider: Antonio Harper ED Provider: Ramón Jaramillo Home Meds and New Rx's Prescriptions: New hydromorphone [Dilaudid] 2 mg tablet 2 mg PO Q6H PRNQty: 4 RF: 0 Continued ondansetron HCl [Zofran] 4 mg tablet 4 mg PO BID RF: 0 omeprazole 40 mg capsule,delayed release(DR/EC) 20 mg PO DAILY RF: 0 Creon 6,000-19,000 -30,000 unit Capsule,Delayed Release(Dr/Ec) 1 cap PO QMEALS Qty: 90 RF: 0 polyethylene glycol 3350 17 gram Powder In Packet 17 g PO DAILY PRN PRN (Reason: Constipation) Qty: 0 RF: 0 baclofen 10 mg Tablet 10 mg PO TID Qty: 20 RF: 0 hydromorphone 2 mg Tablet 2 mg PO Q6H PRNQty: 20 RF: 0 Discharge Instructions Instructions: Pancreatitis (ED) Additional Instructions: At this time we are evaluation is consistent with pancreatitis. We discussed admission versus trialing oral medication at home, you would prefer to go home, and I do believe this to be perfectly reasonable. Take all of your medications as directed. Please watch for new or worsening symptoms and return to the ER for any concerns. Obviously if your pain is more severe, you are unable to hold down any oral medications, he will likely need to return for admission. Continue speaking with your learning coach and discontinue drinking alcohol. I do recommend contacting your primary care provider later today to discuss your ER visit and need for outpatient reevaluation Discharge Data Discharge Date/Time-TO BE ENTERED AT DEPARTURE: 11/15/20 11:21 Medical Decision Making 40-year-old gentleman with history of acute on chronic pancreatitis, continues to occasionally drink alcohol, presents with worsening abdominal pain, nausea, vomiting, diarrhea that began yesterday and worsened throughout the last 24 hours. He reports that his typical oral medications are not helping, he was unable to hold down any of his Dilaudid, breakthrough vomiting on his Zofran. Clinically patient has diffuse abdominal discomfort but certainly nonsurgical in nature. He is afebrile. Will obtain IV access, obtain routine laboratory values, CBC, CMP, lipase, urinalysis, alcohol level, drug screen, give IV fluid, Zofran and Dilaudid. CBC reveals a white count of 13.71, mild nonspecific leukocytosis, patient has presented with leukocytosis and previous pancreatic flareups. Platelet count of 407. Electrolytes unremarkable. Creatinine 0.7 with a GFR greater than 60. Glucose 108, total bili 1.2 alk phosphatase 411, lipase is 1640. Alcohol 3.4. Urinalysis pending I did not obtain an LDH but patient's Thatcher score is otherwise unremarkable, even if his LDH was elevated his Thatcher score to simply be of 1. Likely not severe pancreatitis Upon reevaluation patient is resting comfortably, we discussed how he was feeling, reports nausea has improved, no vomiting while under my care. He would like to try oral intake. Given crackers and water. Tolerated p.o. intake but reports his pain now increasingly for up to a 6, requesting a second dose of Dilaudid. 2 mg IV Dilaudid given. Upon reevaluation patient reports his pain is much improved once again. No clear indication for CT imaging of his abdomen today. We discussed disposition, patient will prefer to be discharged home if at all possible. I do believe this to be perfectly reasonable, he understands that if he has worsening pain, uncontrolled vomiting, he certainly can return for likely admission. He did receive a second liter of IV fluid while he was here in the ER. He was given strict return and discharge instructions. Upon discharge I was called back into the room. Patient now tells me that he is needed to take his Dilaudid more than directed, and he is out of the medication until Sunday. He states that he cannot contact his primary care provider today because the office is closed. I explained to him that we do not typically refill narcotic medication; however, in this case I do not believe we can discharge him home realistically without any analgesia as he is chronically on Dilaudid at baseline. Given this I will provide him 4 tablets to get him through the day, explained to him the importance of understanding we will not be providing refills of narcotic medication here in the ER, and he must contact his primary care provider tomorrow to discuss his overuse of Dilaudid and need for an early refill. I also was contacted by his pharmacy to be sure I was aware he is due for a refill on Sunday. I explained the circumstances of the situation, and we will proceed with giving him 4 tablets of 2 mg p.o. Dilaudid Medical Records Medical records reviewed: Yes I reviewed the patient's medical records. Lab Data Lab results reviewed: Yes I reviewed the patient's lab results. Labs: Laboratory Tests Range/Units 11/15/20 11/15/20 11/15/20 08:08 08:08 08:08 WBC (4.4-10.8) 10^3/uL 13.71 H RBC (4.36-5.78) 10^6/uL 4.93 Hgb (13.5-17.5) g/dL 15.7 Hct (40.0-50.0) % 47.9 MCV (80-95) fL 97.2 H MCH (27.0-33.0) pg 31.8 MCHC (32.0-36.0) % 32.8 RDW (11.8-14.1) % 14.7 H Plt Count (130-400) 10^3/uL 407 H MPV (8.0-11.0) fL 10.1 Immature Gran % 0.4 Neutrophils % 82.5 Lymphocytes % 5.2 Monocytes % 10.8 Eosinophils % 0.6 Basophils % 0.5 Nucleated RBC % % 0 Absolute Neutrophils (1.2-6.7) 10^3/uL 11.31 H Absolute Lymphocytes (1.2-3.4) 10^3/uL 0.71 L Absolute Monocytes (0.1-0.8) 10^3/uL 1.48 H Absolute Eosinophils (0.0-0.7) 10^3/uL 0.08 Absolute Basophils (0.0-0.2) 10^3/uL 0.07 Sodium (136-145) mmol/L 141 Potassium (3.5-5.1) mmol/L 3.8 Chloride (98-107) mmol/L 103 Carbon Dioxide (21.0-32.0) mmol/L 28.6 Anion Gap (3-11) mmol/L 9.4 BUN (7-18) mg/dL 12 Creatinine (0.70-1.30) mg/dL 0.7 Estimated GFR/1.73 m2 (mL/min/1.73m2) >= 60.00 Glucose (74-106) mg/dL 108 H Calcium (8.5-10.1) mg/dL 9.6 Total Bilirubin (0.2-1.0) mg/dL 1.2 H AST (15-37) U/L 25 ALT (16-63) U/L 36 Alkaline Phosphatase (46-116) U/L 411 H Total Protein (6.4-8.2) g/dL 7.7 Albumin (3.4-5.0) g/dL 3.6 Lipase (73-393) U/L 1640 H Urine Color Urine Clarity Urine pH Ur Specific [place] Urine Protein Urine Ketones Urine Blood Urine Nitrite Urine Bilirubin Urine Urobilinogen Ur Leukocyte Esterase Urine Glucose Urine Opiates Screen Urine Methadone Screen Ur Barbiturates Screen Ur Tricyclics Screen Ur Amphetamines Screen U Benzodiazepines Scrn Urine Cocaine Screen Ur THC Screen Ethyl Alcohol (<3) mg/dL 3.4 Range/Units 11/15/20 11/15/20 08:44 08:44 WBC (4.4-10.8) 10^3/uL RBC (4.36-5.78) 10^6/uL Hgb (13.5-17.5) g/dL Hct (40.0-50.0) % MCV (80-95) fL MCH (27.0-33.0) pg MCHC (32.0-36.0) % RDW (11.8-14.1) % Plt Count (130-400) 10^3/uL MPV (8.0-11.0) fL Immature Gran % Neutrophils % Lymphocytes % Monocytes % Eosinophils % Basophils % Nucleated RBC % % Absolute Neutrophils (1.2-6.7) 10^3/uL Absolute Lymphocytes (1.2-3.4) 10^3/uL Absolute Monocytes (0.1-0.8) 10^3/uL Absolute Eosinophils (0.0-0.7) 10^3/uL Absolute Basophils (0.0-0.2) 10^3/uL Sodium (136-145) mmol/L Potassium (3.5-5.1) mmol/L Chloride (98-107) mmol/L Carbon Dioxide (21.0-32.0) mmol/L Anion Gap (3-11) mmol/L BUN (7-18) mg/dL Creatinine (0.70-1.30) mg/dL Estimated GFR/1.73 m2 (mL/min/1.73m2) Glucose (74-106) mg/dL Calcium (8.5-10.1) mg/dL Total Bilirubin (0.2-1.0) mg/dL AST (15-37) U/L ALT (16-63) U/L Alkaline Phosphatase (46-116) U/L Total Protein (6.4-8.2) g/dL Albumin (3.4-5.0) g/dL Lipase (73-393) U/L Urine Color Cancelled Urine Clarity Cancelled Urine pH Cancelled Ur Specific [place] Cancelled Urine Protein Cancelled Urine Ketones Cancelled Urine Blood Cancelled Urine Nitrite Cancelled Urine Bilirubin Cancelled Urine Urobilinogen Cancelled Ur Leukocyte Esterase Cancelled Urine Glucose Cancelled Urine Opiates Screen Cancelled Urine Methadone Screen Cancelled Ur Barbiturates Screen Cancelled Ur Tricyclics Screen Cancelled Ur Amphetamines Screen Cancelled U Benzodiazepines Scrn Cancelled Urine Cocaine Screen Cancelled Ur THC Screen Cancelled Ethyl Alcohol (<3) mg/dL HPI General Mode of arrival: ambulatory. Date/Time Provider Initiated Documentation: 11/15/20 08:01. Limitations to Documentation: no limitations. Information obtained by: patient. HPI Narrative: This is a 40-year-old male, past medical history of acute on chronic pancreatitis, alcohol abuse, current smoker, presenting to the ER reporting pancreatitis flareup, abdominal pain, nausea, vomiting that began yesterday and worsened throughout the night and into today. He reports that he has tried to take his medications as directed but does not feel as though the Zofran is helping, unable to hold down his Dilaudid. Denies recent illness or trauma. Denies fever, chest pain, shortness of breath, diarrhea, constipation, dysuria. Patient reports that his abdominal pain is diffuse, mild to moderate, and radiates through his back. He states this is a very similar presentation compared to his typical pancreatic flareups. Patient reports that since his last admission he has really cut down using any alcohol, he states his last drink was just 2 beers on night. He states that he speaks with his learning coach regularly, feels as though he has his alcohol abuse under control he does not want to pursue detox or speaking with his learning coach today. Related Data Home Medications Medication Instructions Recorded Confirmed omeprazole 20 mg PO DAILY 12/31/19 11/15/20 ondansetron HCl [Zofran] 4 mg PO BID 12/31/19 11/15/20 Creon 1 cap PO QMEALS #90 cap 04/20/20 11/15/20 polyethylene glycol 3350 17 g PO DAILY PRN PRN #0 ea 09/21/20 11/15/20 baclofen 10 mg PO TID #20 tab 11/03/20 11/15/20 hydromorphone 2 mg PO Q6H PRN #20 tab 11/03/20 11/15/20 hydromorphone [Dilaudid] 2 mg PO Q6H PRN #4 tab 11/15/20 Previous Rx's Medication Instructions Recorded Creon 1 cap PO QMEALS #90 cap 04/20/20 polyethylene glycol 3350 17 g PO DAILY PRN PRN #0 ea 09/21/20 baclofen 10 mg PO TID #20 tab 11/03/20 hydromorphone 2 mg PO Q6H PRN #20 tab 11/03/20 hydromorphone [Dilaudid] 2 mg PO Q6H PRN #4 tab 11/15/20 Allergies Allergy/AdvReac Type Severity Reaction Status Date / Time No Known Allergies Allergy Unverified 11/15/20 08:07 General Stated Complaint: Abd Prob DEIDRE: 3 Review of Systems Constitutional Constitutional: Denies fatigue, Denies fever(s) and Denies headache(s) ENT Ears, Nose, Mouth, and Throat: Denies headache(s) Cardiovascular Cardiovascular: Denies chest pain and Denies dyspnea Respiratory Respiratory: Denies cough and Denies dyspnea Gastrointestinal Gastrointestinal: Reports abdominal pain, Reports nausea and Reports vomiting Genitourinary Genitourinary: Denies dysuria Musculoskeletal Musculoskeletal: Reports back pain Integumentary/Breasts Skin/Breast: Denies rash Neurologic Neurologic: Denies headache(s) Endocrine Endocrine: Denies fatigue [facility] Medical History Chronic alcohol use Spoke about life stressors, RCT as alternative, patient receptive. Discharge planning issues Per [facility] consult, continue monitoring until inflammation abates. Consider inpatient or outpatient workup at that time for ERCP and Pancreatitis Hydromorphone PRN PRN for pain. As above. 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 [place] Exam Const General: cooperative and ill appearing chronically Orientation: alert, awake and oriented x3 HENMT Head: normal to inspection, normocephalic and atraumatic Mouth: moist mucous membranes Eyes General: appearance normal, both eyes and all related structures Conjunctivae: conjunctivae normal Neck Neck: normal visual inspection, trachea midline and supple Resp Effort & Inspection: normal respiratory effort and able to speak in complete sentences Auscultation: clear to auscultation bilaterally Cardio Rate: regular rate Rhythm: regular rhythm GI Inspection: normal to inspection Palpation: soft, not firm, no guarding, no pulsatile masses and tender (Diffuse) with no rebound tenderness Auscultation: normal bowel sounds Back/Spine/Pelvis Back: No back tenderness Skin General skin exam: no rashes or lesions noted Neuro General: patient alert, patient awake, moves all extremities and no focal motor deficits Cognition: normal cognition Speech: speech normal Gait: normal gait Sensory Exam: no sensory deficits noted Extrem General: normal to inspection, full ROM, capillary refill normal, no pedal edema and no calf tenderness Psych Appearance: grossly normal Mental Status: mental status grossly normal Course Vital Signs Vital signs: Vital Signs Temperature 36.4 C L 11/15/20 08:05 Pulse 99 H 11/15/20 08:05 Blood Pressure 127/93 H 11/15/20 08:05 Pulse Oximetry 98 11/15/20 08:05 Temperature 36.4 C L 11/15/20 08:05 Temperature Source Temporal Artery Scan 11/15/20 08:05 Pulse 99 H 11/15/20 08:05 Respiratory Effort Non-Labored 11/15/20 08:06 Blood Pressure 127/93 H 11/15/20 08:05 Blood Pressure Position Sitting 11/15/20 08:05 Pulse Oximetry 98 11/15/20 08:05 Oxygen Delivery Method Room Air 11/15/20 08:05 Oxygen Flow Rate 0 11/15/20 08:05 Pain Level 8 11/15/20 08:05
[2020-11-15] MEDS: HYDROmorphone 2 MG/ML VIAL IVP ×2 (08:29→10:52)
[2020-11-15] MEDS: Normal Saline 50 ML 200 ML ×2 (08:29→10:52)
[2020-11-15] MEDS: Ondansetron 4 MG/2 ML VIAL IVP (08:32)
[2020-11-15 08:57] LABS: Abs Immature Grans 0.06 10^3/uL (0.0-0.06); Absolute Basophil Count 0.07 10^3/uL (0.0-0.2); Absolute Eosinophil Count 0.08 10^3/uL (0.0-0.7); Absolute Lymphocyte Count 0.71 10^3/uL (1.2-3.4); Absolute Monocyte Count 1.48 10^3/uL (0.1-0.8); Absolute Neutrophil Count 11.31 10^3/uL (1.2-6.7); Basophils % 0.5; Eosinophils % 0.6; HCT 47.9 % (40.0-50.0); HGB 15.7 g/dL (13.5-17.5); Immature Grans % 0.4; Lymphocytes % 5.2; MCH 31.8 pg (27.0-33.0); MCHC 32.8 % (32.0-36.0); MCV 97.2 fL (80-95); MPV 10.1 fL (8.0-11.0); Monocytes % 10.8; Neutrophils % 82.5; Nucleated RBC 0 %; Platelet Count 407 10^3/uL (130-400); RBC 4.93 10^6/uL (4.36-5.78); RDW 14.7 % (11.8-14.1); RDW-SD 52.8 fL; WBC 13.71 10^3/uL (4.4-10.8)
[2020-11-15 09:07] VITALS: BP 118/71; PULSE 76; RESP 16; TEMP 36.6; O2SAT 99
[2020-11-15 09:10] LABS: ALT 36 U/L (16-63); AST 25 U/L (15-37); Albumin 3.6 g/dL (3.4-5.0); Alkaline Phosphatase 411 U/L (46-116); Anion Gap 9.4 mmol/L (3-11); BUN 12 mg/dL (7-18); Bilirubin, Total 1.2 mg/dL (0.2-1.0); CO2 28.6 mmol/L (21.0-32.0); CREATININE 0.7 mg/dL (0.70-1.30); Calcium 9.6 mg/dL (8.5-10.1); Chloride 103 mmol/L (98-107); Glucose 108 mg/dL (74-106); Potassium 3.8 mmol/L (3.5-5.1); Sodium 141 mmol/L (136-145); Total Protein 7.7 g/dL (6.4-8.2)
[2020-11-15 09:11] LABS: Lipase 1640 U/L (73-393)
[2020-11-15 09:12] LABS: ETHANOL BLOOD 3.4 mg/dL (<3)
[2020-11-15 10:01] VITALS: BP 117/80; PULSE 80; RESP 16; TEMP 37.1; O2SAT 99
[2020-11-15 11:11] VITALS: BP 114/74; PULSE 72; RESP 20; TEMP 36.7; O2SAT 98
== END 2020-11-15 11:21 | disposition home or self-care (01) ==
PROVIDERS: Emergency Provider Physician Assistant; PCP Neuromusculoskeletal Medicine & OMM
DX: K85.90 Acute pancreatitis without necrosis or infection, unspecified (principal); F10.10 Alcohol abuse, uncomplicated; Y90.0 Blood alcohol level of less than 20 mg/100 ml
CPT/HCPCS: 36415; 80053; 80307; 83690; 96361; 96375; 96376; 99284; 80320; 81003; 85025; 99283; J2405

== ENCOUNTER 2020-11-27 16:01 | Inpatient (IN) | payer MEDICAID, SELFPAY ==
[2020-11-27] VITALS (10 sets, daily range): BP systolic 113–150; BP diastolic 72–100; PULSE 59–124; RESP 18; TEMP 36.1–36.4; O2SAT 97–100
--- NOTE | 2020-11-27 | DI.CT_ITS ---
Exam(s) CT ABDOMEN PELVIS W EXAM: CT ABDOMEN PELVIS W CLINICAL HISTORY: recurrent pancreatits TECHNIQUE: Imaging Protocol: Axial computed tomography images with coronal and sagittal reformatted images were created and reviewed CONTRAST MATERIAL: Intravenous: Omnipaque 350 Contrast volume:94 mL Oral: No COMPARISON: CT CT ABDOMEN PELVIS W from 09/17/2020 FINDINGS: ABDOMEN: Lung Bases: Normal where visualized. Liver: Normal density. No measurable mass. Portal, Superior Mesenteric, and Splenic Veins: Unremarkable. Gallbladder and Biliary Tract: No calculi. There is unchanged extrahepatic biliary ductal dilatation measuring 1.1 cm. Pancreas: There is marked inflammation of the head of the pancreas. There has been interval increase in size of the pancreatic fluid collection currently measuring 3.6 x 4.6 cm, compared to 2.3 x 2.7 c m. A 2nd peripancreatic fluid collection has developed which measures 3.8 x 4[address] randing is seen surrounding the pancreatic head there is decreased attenuation of the pancreatic head . There is dilatation of the pancreatic duct in the in the body and tail. There is a stable fluid c ollection anterior to the body of the pancreas. Spleen: Normal. Adrenals: No masses seen. Kidneys: Normal size, contour and axis. No radiodense stones or obstructive uropathy. Stable right re nal cysts. Abdominal Aorta: Abdominal portion non-dilated. Mild atherosclerosis. Bowel: No evidence of bowel obstruction. There is mild thickening of the wall of the distal stomach and duodenum likely secondary to the adjacent pancreatitis. Mild wall thickening is seen in the prox imal jejunum. A mild enteritis is suspected. There is also mild thickening of the wall of the trans verse colon adjacent to the inflammation and likely secondary to the acute pancreatitis. Appendix is unremarkable. Peritoneal Cavity: There is a small amount of free fluid in the right upper quadrant. No free air. Lymph Nodes: Within normal limits. Bones: Within normal limits for the patient's age. Soft Tissues: Unremarkable. PELVIS: Bladder: Symmetric distention, no gross wall thickening. Reproductive Organs: Unremarkable as visualized. Lymph Nodes: Within normal limits. Bones: Within normal limits for the patient's age. IMPRESSION: 1. Findings consistent with acute pancreatitis with phlegmon and pseudocyst formation predominantly i nvolving the pancreatic head and uncinate process. Pancreatic neoplasm cannot be entirely excluded. 2. Adjacent inflammatory process involving the stomach, duodenum, jejunum and transverse colon. RADIATION DOSE DELIVERED: 617mGy.cm Total DLP DATA REPOSITORY: All CT scans at this facility are submitted to the National Radiology Data Registry (NRDR) Dose Index Registry (DIR) with the [employer] ([employer]). RADIATION OPTIMIZATION: All CT scans at this facility use at least one of these dose optimization te chniques: automated exposure control; mA and/or kV adjustment per patient size (includes targeted exa ms where dose is matched to clinical indication); or iterative reconstruction.
--- NOTE | 2020-11-27 16:15 | RT.EKG_ITS ---
APPROVED REPORT Exam: Resting ECG Reason for Exam: epigastric pain Patient Location: E HR:107 bpm ECG Measurements Heart Rate 107 AXIS AR 162 P 76 QRSd 100 QRS 88 QT 331 T 62 QTc 442 Conclusion Sinus tachycardia...rate> 99 Right atrial enlargement...P>0.25mV 2 lds or<-0.24mV aVR/aVL ST elev, probable normal early repol pattern...ST elevation, age<55
[2020-11-27] MEDS: Ondansetron 4 MG/2 ML VIAL IVP (16:31)
[2020-11-27] MEDS: Lactated Ringers 1,000 ML 1000 ML IV ×2 (16:31→17:45)
[2020-11-27] MEDS: HYDROmorphone 2 MG/ML VIAL IVP ×2 (16:31→21:28)
[2020-11-27 16:33] LABS: Abs Immature Grans 0.18 10^3/uL (0.0-0.06); Absolute Basophil Count 0.03 10^3/uL (0.0-0.2); Absolute Eosinophil Count 0.03 10^3/uL (0.0-0.7); Absolute Lymphocyte Count 1.53 10^3/uL (1.2-3.4); Absolute Neutrophil Count 8.57 10^3/uL (1.2-6.7); Basophils % 0.3; Eosinophils % 0.3; HCT 43.1 % (40.0-50.0); HGB 14.3 g/dL (13.5-17.5); Immature Grans % 1.5; Lymphocytes % 13.1; MCH 31.6 pg (27.0-33.0); MCHC 33.2 % (32.0-36.0); MCV 95.1 fL (80-95); MPV 9.4 fL (8.0-11.0); Monocytes % 11.2; Neutrophils % 73.6; Nucleated RBC 0 %; Platelet Count 418 10^3/uL (130-400); RBC 4.53 10^6/uL (4.36-5.78); RDW 14.6 % (11.8-14.1); WBC 11.65 10^3/uL (4.4-10.8)
[2020-11-27 16:46] LABS: ALT 84 U/L (16-63); AST 28 U/L (15-37); Albumin 3.3 g/dL (3.4-5.0); Alkaline Phosphatase 731 U/L (46-116); Anion Gap 14.3 mmol/L (3-11); BUN 10 mg/dL (7-18); Bilirubin, Total 0.4 mg/dL (0.2-1.0); CO2 22.7 mmol/L (21.0-32.0); CREATININE 0.8 mg/dL (0.70-1.30); Calcium 9.1 mg/dL (8.5-10.1); Chloride 102 mmol/L (98-107); Glucose 112 mg/dL (74-106); Lipase 1339 U/L (73-393); Magnesium 1.9 mg/dL (1.8-2.4); Potassium 3.5 mmol/L (3.5-5.1); Sodium 139 mmol/L (136-145); Total Protein 7.8 g/dL (6.4-8.2)
--- NOTE | 2020-11-27 17:09 | W.ED.GENAD ---
Discharge Plan Discharge Details Chief Complaint: Abd Prob Admit Date/Time: 11/27/20 18:26 Admit Provider: Acosta Wyman Attending Provider: Acosta Wyman Primary Care Provider: Antonio Harper ED Provider: Sierra Tse Medical Decision Making Patient is alert, oriented, of decisional capacity History of pancreatic pseudocyst on prior CT scan, states this was a year ago and he has been seen [facility] in June without additional intervention Continue to drink alcohol, no evidence of current withdrawal, last drink around 12 Lipase slightly elevated at 1300, given that the patient's presentation is similar to his prior episodes, I did not order CT scan at this time Patient will need admission for pain control, he is also interested in detox Case was discussed with Dr. Wyman who is willing to admit patient Given 2 mg of IV Dilaudid, Toradol, 2 L of lactated Ringer's CIWA protocol in place Last lipase 1600 per prior evaluation Reviewed prior CT findings with last being in October positive pancreatic pseudocyst -Telemetry monitoring No evidence of electrolyte abnormality Full CODE STATUS Medical Records Medical records reviewed: Yes I reviewed the patient's medical records. Lab Data Lab results reviewed: Yes I reviewed the patient's lab results. HPI General Mode of arrival: ambulatory. Date/Time Provider Initiated Documentation: 11/27/20 16:10. Limitations to Documentation: no limitations. Information obtained by: patient. HPI Narrative: This 40-year-old gentleman with history of pancreatic pseudocyst, acute pancreatitis, alcoholism presents with report of epigastric abdominal pain which started after binge drinking alcohol. He states he typically drinks between 12 and 16 drinks daily. Patient denies any chest pain or shortness of breath. He denies any dizziness or weakness. He had one episode of vomiting this morning. He denies any blood in vomitus. He denies history of DTs. He states his last drink was around 12 today. Denies fever or chills. Denies known sick contacts. Denies any diarrhea. States pain is typical for patient. Describes the pain as sharp. Denies known exacerbating or alleviating factors aside from alcohol. Patient states pain is identical to previous episodes. Denies additional illicit drug use. Related Data Home Medications Medication Instructions Recorded Confirmed omeprazole 20 mg PO DAILY 12/31/19 11/27/20 ondansetron HCl [Zofran] 4 mg PO BID 12/31/19 11/27/20 Creon 1 cap PO QMEALS #90 cap 04/20/20 11/27/20 polyethylene glycol 3350 17 g PO DAILY PRN PRN #0 ea 09/21/20 11/27/20 baclofen 10 mg PO TID #20 tab 11/03/20 11/27/20 hydromorphone 2 mg PO Q6H PRN #20 tab 11/03/20 11/27/20 hydromorphone [Dilaudid] 2 mg PO Q6H PRN #4 tab 11/15/20 11/27/20 Previous Rx's Medication Instructions Recorded Creon 1 cap PO QMEALS #90 cap 04/20/20 polyethylene glycol 3350 17 g PO DAILY PRN PRN #0 ea 09/21/20 baclofen 10 mg PO TID #20 tab 11/03/20 hydromorphone 2 mg PO Q6H PRN #20 tab 11/03/20 hydromorphone [Dilaudid] 2 mg PO Q6H PRN #4 tab 11/15/20 Allergies Allergy/AdvReac Type Severity Reaction Status Date / Time No Known Allergies Allergy Unverified 11/27/20 16:10 General Stated Complaint: Abd Prob DEIDRE: 3 Review of Systems All systems reviewed & are unremarkable except as noted in HPI and below [facility] History Chronic alcohol use Spoke about life stressors, RCT as alternative, patient receptive. Discharge planning issues Per [facility] consult, continue monitoring until inflammation abates. Consider inpatient or outpatient workup at that time for ERCP and Pancreatitis Hydromorphone PRN PRN for pain. As above. 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 [place] Exam Const General: cooperative, no acute distress and frail appearing Eyes Sclera: sclerae normal Pupils: PERRL Resp Effort & Inspection: normal respiratory effort Cardio Rate: regular rate GI Auscultation: normal bowel sounds Other: Diffuse tenderness, no guarding Skin General skin exam: no rashes or lesions noted Neuro General: patient alert and patient oriented x3 Psych Appearance: grossly normal Course Vital Signs Vital signs: Vital Signs Temperature 36.4 C L 11/27/20 16:04 Pulse 124 H 11/27/20 16:04 Respiratory Rate 18 11/27/20 16:04 Blood Pressure 119/88 11/27/20 16:04 Pulse Oximetry 97 11/27/20 16:04 Temperature 36.4 C L 11/27/20 16:04 Temperature Source Temporal Artery Scan 11/27/20 16:04 Pulse 124 H 11/27/20 16:04 Respiratory Rate 18 11/27/20 16:04 Respiratory Effort Non-Labored 11/27/20 16:08 Blood Pressure 119/88 11/27/20 16:04 Blood Pressure Position Sitting 11/27/20 16:04 Pulse Oximetry 97 11/27/20 16:04 Pain Level 8 11/27/20 16:31 Lab/Test Results Lab/Test Results: Laboratory Tests Range/Units 11/27/20 11/27/20 16:18 16:18 WBC (4.4-10.8) 10^3/uL 11.65 H RBC (4.36-5.78) 10^6/uL 4.53 Hgb (13.5-17.5) g/dL 14.3 Hct (40.0-50.0) % 43.1 MCV (80-95) fL 95.1 H MCH (27.0-33.0) pg 31.6 MCHC (32.0-36.0) % 33.2 RDW (11.8-14.1) % 14.6 H Plt Count (130-400) 10^3/uL 418 H MPV (8.0-11.0) fL 9.4 Immature Gran % 1.5 Neutrophils % 73.6 Lymphocytes % 13.1 Monocytes % 11.2 Eosinophils % 0.3 Basophils % 0.3 Nucleated RBC % % 0 Absolute Neutrophils (1.2-6.7) 10^3/uL 8.57 H Absolute Lymphocytes (1.2-3.4) 10^3/uL 1.53 Absolute Monocytes (0.1-0.8) 10^3/uL 1.30 H Absolute Eosinophils (0.0-0.7) 10^3/uL 0.03 Absolute Basophils (0.0-0.2) 10^3/uL 0.03 Sodium (136-145) mmol/L 139 Potassium (3.5-5.1) mmol/L 3.5 Chloride (98-107) mmol/L 102 Carbon Dioxide (21.0-32.0) mmol/L 22.7 Anion Gap (3-11) mmol/L 14.3 H BUN (7-18) mg/dL 10 Creatinine (0.70-1.30) mg/dL 0.8 Estimated GFR/1.73 m2 (mL/min/1.73m2) >= 60.00 Glucose (74-106) mg/dL 112 H Calcium (8.5-10.1) mg/dL 9.1 Magnesium (1.8-2.4) mg/dL 1.9 Total Bilirubin (0.2-1.0) mg/dL 0.4 AST (15-37) U/L 28 ALT (16-63) U/L 84 H Alkaline Phosphatase (46-116) U/L 731 H Total Protein (6.4-8.2) g/dL 7.8 Albumin (3.4-5.0) g/dL 3.3 L Lipase (73-393) U/L 1339 H
[2020-11-27] MEDS: Ketorolac 15 MG/ML VIAL IVP (17:50)
[2020-11-27 18:10] LABS: Source Nasal/Nares
[2020-11-27 18:19] LABS: ETHANOL BLOOD 85.7 mg/dL (<3)
--- NOTE | 2020-11-27 18:26 | HPE_ITS ---
Date of service: 11/27/20 Time of Service: 18:26 Assessment and Plan Assessment and plan (1) Acute on chronic pancreatitis: Status: Acute Assessment and plan: We will check an abdominal pelvic CT today. His alk phos is a bit higher than usual. There has been a question of cholecystitis in the past. We will keep him on intravenous fluids and n.p.o. He will be given pain medicines. (2) Chronic alcohol use: Status: Chronic Assessment and plan: We will put him on alcohol withdrawal protocol. He has been trying to get a hold of [facility] to arrange an admission there. His pancreatitis need to be treated first. History of Present Illness History of Present Illness Chief Complaint: Abdominal pain Narrative: This 40-year-old male is here in the emergency department because of possible recurrent pancreatitis. He was last in the emergency department November 15 and was discharged. He was hospitalized here about 2 weeks earlier. He thinks he has been treated for recurrent pancreatitis about 12-15 times. He been drinking alcohol heavily for the last 10 years. He lives with his mother and he says that she drinks whiskey often but locks her whiskey up so he can get it. However he can get it anywhere else they once chest by calling a friend. He says he has been drinking 12-18 beers per day and occasionally drinks Dr. Gorman with this. Today he drank a 24 ounce a percent drink made by medics. He says he last drank about noon. He said he developed pain about 2 days ago in the epigastric area and radiates to the right upper quadrant and right side of his back. He has been trying to call [facility] many times today to try to get into alcohol treatment there. He says he went to AA meetings in the past many years ago but did not like the evangelical overtones has not been back. He says he is not been any official alcoholic treatment. He says he is able to stop sometimes for a few weeks but then goes back to alcohol when he gets any stress. 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 He smokes about two thirds of a pack cigarettes per day and uses marijuana regularly and occasionally a lorazepam that he gets from someone else. He denies use of other drugs other than what is been prescribed to him. He vomited once today. Review of Systems Constitutional Constitutional: Denies chills, Denies fever(s), Denies headache(s) and Denies lethargy ENT Ears, Nose, Mouth, and Throat: Denies abnormal hearing and Denies headache(s) Cardiovascular Cardiovascular: Denies chest pain, Denies irregular heart rhythm, Denies palpitations and Denies dyspnea Respiratory Respiratory: Denies cough, Denies hemoptysis and Denies dyspnea Gastrointestinal Gastrointestinal: Denies bloating, Reports constipation, Denies diarrhea, Reports nausea and Reports vomiting Genitourinary Genitourinary: Denies oliguria, Denies difficulty urinating and Denies urinary incontinence Neurologic Neurologic: Denies abnormal hearing, Denies headache(s) and Denies other visual disturbances Endocrine Endocrine: Denies palpitations [facility] Medical History Chronic alcohol use Spoke about life stressors, RCT as alternative, patient receptive. Discharge planning issues Per [facility] consult, continue monitoring until inflammation abates. Consider inpatient or outpatient workup at that time for ERCP and Pancreatitis Hydromorphone PRN PRN for pain. As above. 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 [place] Allergies and Home Medications Allergies Allergy/AdvReac Type Severity Reaction Status Date / Time No Known Allergies Allergy Unverified 11/27/20 16:10 Home Medications Medication Instructions Recorded Confirmed Type omeprazole 20 mg PO DAILY 12/31/19 11/27/20 History ondansetron HCl [Zofran] 4 mg PO BID 12/31/19 11/27/20 History Creon 1 cap PO QMEALS #90 cap 04/20/20 11/27/20 Rx polyethylene glycol 3350 17 g PO DAILY PRN PRN #0 ea 09/21/20 11/27/20 Rx baclofen 10 mg PO TID #20 tab 11/03/20 11/27/20 Rx hydromorphone 2 mg PO Q6H PRN #20 tab 11/03/20 11/27/20 Rx hydromorphone [Dilaudid] 2 mg PO Q6H PRN #4 tab 11/15/20 11/27/20 Rx Exam Const General: cooperative, no acute distress, not anxious, ill appearing, not lethargic and well hydrated Nutritional Appearance: malnourished and underweight Orientation: alert, awake and oriented x3 Neck Neck: normal visual inspection and no lymphadenopathy Resp Effort & Inspection: normal respiratory effort and able to speak in complete sentences Auscultation: no rales, no rhonchi and no wheezes Cardio Jugular venous pressure: no JVD Rhythm: regular rhythm Heart Sounds: S1 normal, S2 normal, no click, no gallops and no murmurs GI Inspection: normal to inspection, no abdominal wall ecchymosis and non-distended Palpation: soft, no hepatosplenomegaly, not rigid and tender Neuro General: patient alert, patient awake and patient oriented x3 Speech: speech normal Extrem General: normal to inspection, no cyanosis and no edema Results Labs Result diagrams: 11/27/20 16:18 11/27/20 16:18 Labs: Laboratory Results - last 24 hr 11/27/20 11/27/20 11/27/20 16:18 16:18 16:18 WBC 11.65 H RBC 4.53 Hgb 14.3 Hct 43.1 MCV 95.1 H MCH 31.6 MCHC 33.2 RDW 14.6 H Plt Count 418 H MPV 9.4 Immature Gran % 1.5 Neutrophils % 73.6 Lymphocytes % 13.1 Monocytes % 11.2 Eosinophils % 0.3 Basophils % 0.3 Nucleated RBC % 0 Absolute Neutrophils 8.57 H Absolute Lymphocytes 1.53 Absolute Monocytes 1.30 H Absolute Eosinophils 0.03 Absolute Basophils 0.03 Sodium 139 Potassium 3.5 Chloride 102 Carbon Dioxide 22.7 Anion Gap 14.3 H BUN 10 Creatinine 0.8 Estimated GFR/1.73 m2 >= 60.00 Glucose 112 H Calcium 9.1 Magnesium 1.9 Total Bilirubin 0.4 AST 28 ALT 84 H Alkaline Phosphatase 731 H Total Protein 7.8 Albumin 3.3 L Lipase 1339 H Ethyl Alcohol 85.7 COVID-19 Source 11/27/20 18:00 WBC RBC Hgb Hct MCV MCH MCHC RDW Plt Count MPV Immature Gran % Neutrophils % Lymphocytes % Monocytes % Eosinophils % Basophils % Nucleated RBC % Absolute Neutrophils Absolute Lymphocytes Absolute Monocytes Absolute Eosinophils Absolute Basophils Sodium Potassium Chloride Carbon Dioxide Anion Gap BUN Creatinine Estimated GFR/1.73 m2 Glucose Calcium Magnesium Total Bilirubin AST ALT Alkaline Phosphatase Total Protein Albumin Lipase Ethyl Alcohol COVID-19 Source Nasal/Nares Last Vital Signs Temp 36.4 C L 11/27/20 16:04 Pulse 70 11/27/20 18:15 Resp 18 11/27/20 16:04 BP 135/100 H 11/27/20 18:15 Pulse Ox 98 11/27/20 18:20
[2020-11-27 19:03] LABS: COVID-19 PCR Negative (Negative)
[2020-11-27] MEDS: Omnipaque 350 MG/ML 100 ML BTL IJ (19:18)
[2020-11-27] MEDS: Normal Saline - Diluent 50 ML VIAL IV (19:22)
--- NOTE | 2020-11-27 20:08 | DI.VRAD_ITS ---
PROCEDURE INFORMATION: Exam: CT Abdomen And Pelvis With Contrast Exam date and time: 11/27/2020 6:25 PM Age: 40 years old Clinical indication: Condition or disease; Pancreatic condition; Patient HX: Recurrent pancreatitis TECHNIQUE: Imaging protocol: Computed tomography of the abdomen and pelvis with contrast. COMPARISON: CT ABDOMEN PELVIS W 09/17/2020 4:48 PM FINDINGS: Lungs: Lung bases are clear. Liver: Normal liver parenchyma with heterogeneous enhancement. Negative for suspicious mass. Gallbladder and bile ducts: The gallbladder is moderately distended, similar to previous. The gallbladder wall is uniform and normal thickness, 2.8 mm. Mild intrahepatic biliary ductal dilatation is present, similar to previous. The common bile duct is dilated, 12 mm, similar to previous. The distal common bile duct tapers through the inflamed pancreas. Pancreas: The pancreas is grossly abnormal. Pancreatic parenchyma in the head and uncinate process are essentially replaced by a large complex phlegmon and multiloculated cyst. Normal enhancement and parenchyma are observed in the pancreatic tail. The pancreatic duct remains moderately dilated at the pancreatic tail and body, up to 5 mm diameter. There are no inflammatory changes around the pancreatic tail. The pancreatic duct extends directly to one of the larger cysts at the head-body junction, axial image number 37. The overall phlegmon measures 10.8 cm diameter, increased from 7.1 cm previously. A pancreatic head cyst measures 4.0 x 3.9 cm. A pancreatic body cyst measures 5.2 x 3.9 cm. Both cysts are enlarged previous, and additional smaller cysts are present. Spleen: Normal. No splenomegaly. Adrenal glands: Normal. No mass. Kidneys and ureters: Normal. No hydronephrosis. Stomach and bowel: The stomach is displaced anteriorly into the left. Marked inflammatory changes seen previously at the pylorus/duodenum continue, significantly improved. The duodenum is markedly distended with air and mild fluid. Mild wall thickening is noted in the proximal jejunum. The distal small bowel is normal. The terminal ileum is unremarkable. The ascending colon is normal. Moderate wall thickening is present throughout the transverse colon, adjacent to the abnormal pancreas. The descending and sigmoid colon are collapsed and appear normal. The rectum is unremarkable. Appendix: No evidence of appendicitis. Intraperitoneal space: Moderate fat stranding and mild free fluid are present around the pancreas, extending into the gallbladder fossa. There is no significant fluid in the pericolic gutters or the pelvic cul-de-sac. The exam is negative for intraperitoneal free air. Vasculature: The splenic vein and portal vein remain patent. The main portal vein is displaced laterally to the left by the large pancreatic phlegmon. The superior mesenteric artery and vein are also displaced to the left. The abdominal aorta is negative for aneurysm or dissection, and contains mild calcifications. The inferior vena cava is patent and normal, and the iliac veins appear normal. Lymph nodes: Unremarkable. No enlarged lymph nodes. Urinary bladder: Unremarkable as visualized. Reproductive: Unremarkable as visualized. Bones/joints: Unremarkable. No acute fracture. Soft tissues: Negative for abdominal wall abscess or fluid collection. IMPRESSION: 1. Progression of pancreatic pathology. Necrosis of the pancreatic head and uncinate process are most likely, with an enlarging phlegmon and complex pseudocysts. Aggressive pancreatic neoplasm is not excluded. 2. Continued biliary ductal dilatation, unchanged. 3. Moderate reactive inflammation across the transverse colon, new from previous. 4. Continued inflammation of the pylorus and proximal duodenum, improved from previous. Dictated and Authenticated by: Mansoor Macario MD. Ordering:KANDI Shane MD
[2020-11-27 21:06] LABS: *AMPHETAMINES SCREEN URINE Negative (Negative); *BARBITURATES SCREEN URINE Negative (Negative); *BENZODIAZEPINES SCREEN URINE Negative (Negative); Cannabinoids THC Positive (Negative); Cocaine Screen,Urine Negative (Negative); METHADONE URINE SCREEN Negative (Negative); OPIATES URINE SCREEN Positive (Negative)
[2020-11-27 21:07] LABS: Tricyclic Antidepressants Negative (Negative)
[2020-11-27] MEDS: THIAMINE 100 MG in Normal Saline 100 ML 200 MG IVPB (21:32)
[2020-11-27] MEDS: Lactated Ringers 1,000 ML 125 ML IV (21:32)
[2020-11-28 03:32] VITALS: BP 112/71; PULSE 78; RESP 18; TEMP 36.3; O2SAT 97
[2020-11-28] MEDS: HYDROmorphone 2 MG/ML VIAL IVP ×2 (03:39→08:01)
[2020-11-28] MEDS: Lactated Ringers 1,000 ML 125 ML IV ×3 (05:55→19:57)
[2020-11-28 06:33] LABS: Abs Immature Grans 0.09 10^3/uL (0.0-0.06); Absolute Basophil Count 0.05 10^3/uL (0.0-0.2); Absolute Eosinophil Count 0.19 10^3/uL (0.0-0.7); Absolute Lymphocyte Count 2.12 10^3/uL (1.2-3.4); Absolute Monocyte Count 1.13 10^3/uL (0.1-0.8); Basophils % 0.6; Eosinophils % 2.4; HCT 34.5 % (40.0-50.0); Immature Grans % 1.1; Lymphocytes % 26.5; MCH 31.7 pg (27.0-33.0); MCHC 32.8 % (32.0-36.0); MCV 96.9 fL (80-95); MPV 9.5 fL (8.0-11.0); Monocytes % 14.1; Neutrophils % 55.3; Nucleated RBC 0 %; RBC 3.56 10^6/uL (4.36-5.78); RDW 14.6 % (11.8-14.1)
[2020-11-28 06:43] LABS: Absolute Neutrophil Count 4.42 10^3/uL (1.2-6.7)
[2020-11-28 06:44] LABS: HGB 11.3 g/dL (13.5-17.5); Platelet Count 269 10^3/uL (130-400); WBC 7.99 10^3/uL (4.4-10.8)
[2020-11-28 06:50] LABS: ALT 49 U/L (16-63); AST 15 U/L (15-37); Albumin 2.3 g/dL (3.4-5.0); Alkaline Phosphatase 485 U/L (46-116); Anion Gap 6.5 mmol/L (3-11); BUN 10 mg/dL (7-18); Bilirubin, Total 0.8 mg/dL (0.2-1.0); CO2 26.5 mmol/L (21.0-32.0); CREATININE 0.7 mg/dL (0.70-1.30); Calcium 8.4 mg/dL (8.5-10.1); Chloride 104 mmol/L (98-107); Glucose 114 mg/dL (74-106); Lipase 340 U/L (73-393); Potassium 3.3 mmol/L (3.5-5.1); Sodium 137 mmol/L (136-145); Total Protein 5.6 g/dL (6.4-8.2)
[2020-11-28 07:19] VITALS: BP 144/83; PULSE 63; RESP 18; TEMP 36.5; O2SAT 100
[2020-11-28] MEDS: Ondansetron 4 MG/2 ML VIAL IVP (07:32)
[2020-11-28] MEDS: Pantoprazole 40 MG VIAL IVP (08:01)
[2020-11-28] MEDS: Nicotine 14 MG/24 HR PATCH TD (08:02)
[2020-11-28] MEDS: Thiamine 100 MG TAB PO (08:02)
[2020-11-28] MEDS: Folic Acid 1 MG TAB PO (08:02)
[2020-11-28] MEDS: Baclofen 10 MG TAB PO ×3 (08:02→20:00)
[2020-11-28] MEDS: POTASSIUM CHLORIDE 20 MEQ/100 ML BAG 50 MEQ IVPB (08:16)
[2020-11-28] MEDS: Creon, Lipase 6,000 CAPCR 1 CAP PO ×2 (08:16→12:09)
[2020-11-28] MEDS: LORazepam 1 MG TAB PO/SL (08:28)
--- NOTE | 2020-11-28 08:55 | PGE_ITS ---
Date of Service Date of service: 11/28/20 Time of Service: 08:56 Assessment and Plan Assessment and plan (1) Acute on chronic pancreatitis: Status: Acute Assessment and plan: CT of the abdomen pelvis was done yesterday evening and was consistent with acute pancreatitis with pancreatic inflammation as well as development of pancreatic phlegmon and pseudocyst. He has no evidence for infected cyst as he has no fever and his initial leukocytosis is resolved without antibiotics. Patient understands that his continued consumption of alcohol is worsening his pancreatitis and is leading to pancreatic failure. Patient understands he needs to quit drinking but feels that he cannot do this on his own as an outpatient and has been trying to get into [facility] for inpatient alcohol rehabilitation. (2) Chronic alcohol use: Status: Chronic Assessment and plan: We will put him on alcohol withdrawal protocol. He has been trying to get a hold of [facility] to arrange an admission there. His pancreatitis need to be treated first. Patient has been on [facility] protocol for monitoring for acute alcohol withdrawal symptoms. I will be starting him on phenobarbital prophylactically. I will give him 6 mg/kg loading dose but give in increments w/ 40% given now and 30% in 3 hour and the final 30% in 6 hours. I am using his actual body wt rather than his IBW since he is underweight. (3) Tobacco dependence: Status: Chronic Assessment and plan: Patient is currently on NicoDerm patch 14 mg/day. He is also requesting Nicotrol Inhaler (4) Hypokalemia: Status: Acute Assessment and plan: I will switch his IV potassium supplementation oral as this is causing burning of his peripheral veins. (5) DVT prophylaxis: Status: Acute Assessment and plan: Patient is not currently on any DVT prophylaxis. He will be placed on Lovenox (6) Discharge planning issues: Status: Acute Assessment and plan: I will ask case management to assist the patient with placement at [facility] Subjective Subjective Interval history since last seen: Patient still has abdominal pain in the epigastric and right upper quadrant area. Nausea but no vomiting. He still requiring IV Dilaudid to control his pain. I did start him on clear liquids this morning and he seems to be tolerating it with no vomiting. His lipase is normalized down to 340 from a peak level of 1339. His WBC has normalized. He is afebrile. His CIWA score is 13. His CIWA scores been 0 throughout the night. He did receive Ativan 3 mg orally. I will start him on prophylactic phenobarbital. Patient's potassium was low 3.3 and I ordered 2 doses of potassium chloride 20 mEq each intravenously however he is complaining of right arm burning at the site of his IV. As he is tolerating clear liquids I will give him oral potassium and discontinue the IV potassium. If he tolerates clear liquids for breakfast and lunch today I will advance him to full liquids for supper and hopefully be able to advance him to regular foods tomorrow. I have resumed his Creon. Exam Narrative Exam Narrative: Thin white male alert and oriented to person place and time and circumstance. Abdomen with normal active bowel sounds soft but with some voluntary guarding but no rebound tenderness. Tenderness seems to be focalized over the epigastrium and right upper quadrant. Objective Last Vital Signs Temp 36.5 C 11/28/20 07:19 Pulse 63 11/28/20 07:19 Resp 18 11/28/20 07:19 BP 144/83 H 11/28/20 07:19 Pulse Ox 100 11/28/20 07:19 Laboratory Results - last 24 hr 11/27/20 11/27/20 11/27/20 16:18 16:18 16:18 WBC 11.65 H RBC 4.53 Hgb 14.3 Hct 43.1 MCV 95.1 H MCH 31.6 MCHC 33.2 RDW 14.6 H Plt Count 418 H MPV 9.4 Immature Gran % 1.5 Neutrophils % 73.6 Lymphocytes % 13.1 Monocytes % 11.2 Eosinophils % 0.3 Basophils % 0.3 Nucleated RBC % 0 Absolute Neutrophils 8.57 H Absolute Lymphocytes 1.53 Absolute Monocytes 1.30 H Absolute Eosinophils 0.03 Absolute Basophils 0.03 Sodium 139 Potassium 3.5 Chloride 102 Carbon Dioxide 22.7 Anion Gap 14.3 H BUN 10 Creatinine 0.8 Estimated GFR/1.73 m2 >= 60.00 Glucose 112 H Calcium 9.1 Magnesium 1.9 Total Bilirubin 0.4 AST 28 ALT 84 H Alkaline Phosphatase 731 H Total Protein 7.8 Albumin 3.3 L Lipase 1339 H Urine Opiates Screen Urine Methadone Screen Ur Barbiturates Screen Ur Tricyclics Screen Ur Amphetamines Screen U Benzodiazepines Scrn Urine Cocaine Screen Ur THC Screen Ethyl Alcohol 85.7 COVID-19 Source SARS-CoV-2 (PCR) 11/27/20 11/27/20 11/28/20 18:00 20:30 06:15 WBC RBC Hgb Hct MCV MCH MCHC RDW Plt Count MPV Immature Gran % Neutrophils % Lymphocytes % Monocytes % Eosinophils % Basophils % Nucleated RBC % Absolute Neutrophils Absolute Lymphocytes Absolute Monocytes Absolute Eosinophils Absolute Basophils Sodium 137 Potassium 3.3 L Chloride 104 Carbon Dioxide 26.5 Anion Gap 6.5 BUN 10 Creatinine 0.7 Estimated GFR/1.73 m2 >= 60.00 Glucose 114 H Calcium 8.4 L Magnesium Total Bilirubin 0.8 AST 15 ALT 49 Alkaline Phosphatase 485 H Total Protein 5.6 L Albumin 2.3 L Lipase 340 Urine Opiates Screen Positive A Urine Methadone Screen Negative Ur Barbiturates Screen Negative Ur Tricyclics Screen Negative Ur Amphetamines Screen Negative U Benzodiazepines Scrn Negative Urine Cocaine Screen Negative Ur THC Screen Positive A Ethyl Alcohol COVID-19 Source Nasal/Nares SARS-CoV-2 (PCR) Negative 11/28/20 06:15 WBC 7.99 D RBC 3.56 L Hgb 11.3 L D Hct 34.5 L MCV 96.9 H MCH 31.7 MCHC 32.8 RDW 14.6 H Plt Count 269 D MPV 9.5 Immature Gran % 1.1 Neutrophils % 55.3 Lymphocytes % 26.5 Monocytes % 14.1 Eosinophils % 2.4 Basophils % 0.6 Nucleated RBC % 0 Absolute Neutrophils 4.42 Absolute Lymphocytes 2.12 Absolute Monocytes 1.13 H Absolute Eosinophils 0.19 Absolute Basophils 0.05 Sodium Potassium Chloride Carbon Dioxide Anion Gap BUN Creatinine Estimated GFR/1.73 m2 Glucose Calcium Magnesium Total Bilirubin AST ALT Alkaline Phosphatase Total Protein Albumin Lipase Urine Opiates Screen Urine Methadone Screen Ur Barbiturates Screen Ur Tricyclics Screen Ur Amphetamines Screen U Benzodiazepines Scrn Urine Cocaine Screen Ur THC Screen Ethyl Alcohol COVID-19 Source SARS-CoV-2 (PCR) Reviewed Pertinent PMH: Yes Objective Narrative Objective Narrative: Exam(s) a CT:CT abdomen & pelvis w Exam(s) CT ABDOMEN PELVIS W EXAM: CT ABDOMEN PELVIS W CLINICAL HISTORY: recurrent pancreatits TECHNIQUE: Imaging Protocol: Axial computed tomography images with coronal and sagittal reformatted images were created and reviewed CONTRAST MATERIAL: Intravenous: Omnipaque 350 Contrast volume:94 mL Oral: No COMPARISON: CT CT ABDOMEN PELVIS W from 09/17/2020 IMPRESSION: 1. Findings consistent with acute pancreatitis with phlegmon and pseudocyst formation predominantly involving the pancreatic head and uncinate process. Pancreatic neoplasm cannot be entirely excluded. 2. Adjacent inflammatory process involving the stomach, duodenum, jejunum and transverse colon.
--- NOTE | 2020-11-28 09:56 | INITIAL_ITS ---
- If Service Date Differs Date of service: 11/28/20 Time of Service: 09:56 Care Management Initial Assess REASON FOR HOSPITALIZATION:: Pancreatitis. PAST MEDICAL HISTORY/PAST SURGICAL HISTORY:: Medical History: Chronic alcohol use - Spoke about life stressors, RCT as alternative, patient receptive., Discharge planning issues - Per [facility] consult, continue monitoring until inflammation abates. Consider inpatient or outpatient workup at that time for E DIRECTOR RISK, Pancreatitis - Hydromorphone PRN PRN for pain. As above., and Tobacco dependence - Nicoderm, Nicotrol. Surgical History: No surgical history of record. Alcohol abuse. Substance abuse PREVIOUS FUNCTIONAL STATUS/SOCIAL/FAMILY SUPPORTS:: Acosta lives in [place] with his mother, Ronald. 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 When not working, Acosta enjoys gardening, bird, and cooking meals at home. He names his mom and a friend, Sanchez, as his supports. CURRENT FUNCTIONAL STATUS:: Acosta is laying in bed when CM comes to meet with him. He is pleasant and interactive but appears tired and has difficult keeping his eyes open. Acosta states he wants to get into [facility]. He called them several times yesterday but was unable to connect with anyone. He shares he is motivated to get sober because he is having a lot of health problems. 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 CM will continue to follow. ADVANCE DIRECTIVES:: None on file; Acosta was provided a form during a previous admission but has yet to complete it. Has patient been provided with info about the portal/API?: Yes Did the patient sign up for the portal?: No CODE STATUS:: Full Code INSURANCE COVERAGE / FINANCIAL ISSUES:: Medicaid. CURRENT HOME/COMMUNITY SERVICES/EQUIPMENT:: None. PRIMARY CARE PHYSICIAN:: Antonio Harper. POTENTIAL DISCHARGE NEEDS:: Follow up appointment with PCP and discharge plan of care. PATIENT/FAMILY EDUCATION NEEDS:: Discharge instructions, limitations, and follow up plan of care, including Ask Me Three and self management. ANTICIPATED BARRIERS TO DISCHARGE:: No anticipated barriers at this time. TRANSPORTATION:: Via private vehicle with family. PLAN:: Anticipate Acosta will be discharged home when medically cleared by provider. He will follow up with his PCP, [facility], and discharge plan of care as directed. CM has coordinated a referral to [facility] but anticipate Acosta will be placed on their waitlist. Acosta will be driven home by his mother, Ronald, via private vehicle when ready. CM will continue to support Acosta and discharge planning needs. Readmission - Within the Past 30 Days Yes or No: Y - Date of First Admission Date of 1st Admission: 11/01/20 - Date of this Admission Date of Admission: 11/28/20 This admission was: Through ED - Office Visit Since 1st Admission Have you seen your PCP in the office since discharge?: Yes Date of PCP Appointment: A couple of weeks ago. Unsure of date. Had an appointment Been Scheduled?: Yes Date of Scheduled Appointment: Unsure of date. - Speicalist Appointments Have you seen any other specialist since your 1st Admission?: No - I. Interview patient and/or Family Difficulty reaching your doctor or getting an office appt?: No Have you had trouble purchasing/ or taking medication?: No How do you take your medications and set up your pills?: Acosta administers own medications and keeps them in the bottles they are dispensed in. Have you had trouble with getting meals at home?: No Describe your typical meals since you have been home: Eats lean meats and a vegetarian diet. Did you feel ready for discharge when you left the last time: Yes Did you call your physician beore you came to the ED?: No How do you think you became sick enough to come back?: I was told to stop drinking alcohol and I can't stop. - If the patient had a VNA ordered Did the patient have a VNA order?: No - Ask the Care Team Members: What do you think caused the patient to be readmitted: Patient continues to consume alcohol and this is worsening his pancreatitis and leading to pancreatic failure. - ED visits How many ED visits in the past 12 months: 9 - Assessment for Readmission Summary of readmission circumstances, based upon interviews: Patient's ongoing use of alcohol is worsening his pancreatitis and leading to pancreatic failure. A referral is made to [facility] for inpatient alcohol use treatment.
[2020-11-28] MEDS: PHENobarbital 130 MG/ML VIAL 160 MG IVP (10:12)
[2020-11-28] MEDS: Normal Saline Flush 10 ML SYR IVP ×3 (10:12→19:58)
[2020-11-28] MEDS: Nicotine 21 MG/24 HR PATCH TD (10:12)
[2020-11-28] MEDS: Potassium Chloride 10 MEQ CAPCR 40 MEQ PO (10:13)
[2020-11-28] MEDS: Enoxaparin 30 MG/0.3 ML SYR SC (10:13)
[2020-11-28 11:20] VITALS: BP 122/79; PULSE 73; RESP 17; TEMP 36.3; O2SAT 100
--- NOTE | 2020-11-28 11:20 | PHA.REVIEW ---
Pharmacy Admission Review - Admission Clinical Review (Last Reviewed 11/15/20 @ 09:30 by STACIE Reynolds) Hypokalemia (Acute) Acute on chronic pancreatitis (Acute) Discharge planning issues (Acute) DVT prophylaxis (Acute) No Known Allergies Allergy (Unverified 11/27/20 16:10) Resuscitation Status Full Code Height 6 ft 4 in Weight 65.771 kg - Renal Dosing Renal Dosing: BUN 10 mg/dL (7-18) 11/28/20 06:15 Creatinine 0.7 mg/dL (0.70-1.30) 11/28/20 06:15 Medications needing adjustments: Reviewed (crcl ~115ml/min) - Anticoagulation Anticoagulation: Hgb 11.3 g/dL (13.5-17.5) L D 11/28/20 06:15 Hct 34.5 % (40.0-50.0) L 11/28/20 06:15 Plt Count 269 10^3/uL (130-400) D 11/28/20 06:15 Creatinine 0.7 mg/dL (0.70-1.30) 11/28/20 06:15 DVT Prophylaxis: Reviewed Medications: Enoxaparin Therapeutic Anticoagulation: N/A - Opiate Usage Evaluate Pain Scale/Pains Meds: Reviewed Scheduled Bowel Reg ordered if on Opiates?: No (prn last BM 11/27/20) - Relevant Labs Sodium 137 mmol/L (136-145) 11/28/20 06:15 Potassium 3.3 mmol/L (3.5-5.1) L 11/28/20 06:15 Chloride 104 mmol/L (98-107) 11/28/20 06:15 Magnesium 1.9 mg/dL (1.8-2.4) 11/27/20 16:18 Electrolytes, C-Reactive P, ESR: Reviewed (PO KCl ordered) - DM Control DM Control: Glucose 114 mg/dL (74-106) H 11/28/20 06:15 Insulin Dosing: N/A - BP Control BP Control: Blood Pressure 144/83 Blood Pressure 112/71 Blood Pressure 113/72 If elevated: N/A - Qtc Review If Elevated: N/A - IV to PO Switch IV Medications: Reviewed (trying to get to use just PO pain meds, clear liq diet to be advanced if tolerated) - Current meds Current Medication Order Review: Reviewed
[2020-11-28] MEDS: PHENobarbital 130 MG/ML VIAL 120 MG IVP ×2 (13:26→16:05)
[2020-11-28] MEDS: HYDROmorphone 2 MG TAB PO ×3 (13:27→19:59)
[2020-11-28] MEDS: Potassium Chloride 10 MEQ CAPCR 20 MEQ PO ×2 (13:27→20:00)
[2020-11-28 15:02] LABS: Potassium 5.1 mmol/L (3.5-5.1)
[2020-11-28 15:24] VITALS: BP 112/67; PULSE 65; RESP 17; TEMP 36.7; O2SAT 99
[2020-11-28 19:21] VITALS: BP 127/86; PULSE 70; RESP 18; TEMP 36.3; O2SAT 100
[2020-11-29] VITALS (8 sets, daily range): BP systolic 107–139; BP diastolic 18–91; PULSE 63–78; RESP 10–18; TEMP 36–36.7; O2SAT 99–100
[2020-11-29] MEDS: HYDROmorphone 2 MG TAB PO ×5 (00:09→22:14)
[2020-11-29] MEDS: Lactated Ringers 1,000 ML 125 ML IV (00:58)
[2020-11-29] MEDS: Lactated Ringers 1,000 ML 200 ML IV ×2 (06:20→17:03)
[2020-11-29 06:27] LABS: Abs Immature Grans 0.07 10^3/uL (0.0-0.06); Absolute Basophil Count 0.06 10^3/uL (0.0-0.2); Absolute Eosinophil Count 0.23 10^3/uL (0.0-0.7); Absolute Lymphocyte Count 1.35 10^3/uL (1.2-3.4); Absolute Monocyte Count 1.05 10^3/uL (0.1-0.8); Absolute Neutrophil Count 6.74 10^3/uL (1.2-6.7); Basophils % 0.6; Eosinophils % 2.4; HGB 12.6 g/dL (13.5-17.5); Immature Grans % 0.7; Lymphocytes % 14.2; MCH 31.5 pg (27.0-33.0); MCHC 32.3 % (32.0-36.0); MCV 97.5 fL (80-95); MPV 9.9 fL (8.0-11.0); Monocytes % 11.1; Nucleated RBC 0 %; Platelet Count 278 10^3/uL (130-400); RDW 14.6 % (11.8-14.1); RDW-SD 52.4 fL
[2020-11-29 06:38] LABS: ALT 41 U/L (16-63); AST 29 U/L (15-37); Albumin 2.3 g/dL (3.4-5.0); Alkaline Phosphatase 521 U/L (46-116); Anion Gap 4.7 mmol/L (3-11); BUN 5 mg/dL (7-18); Bilirubin, Total 1.3 mg/dL (0.2-1.0); CO2 30.3 mmol/L (21.0-32.0); CREATININE 0.7 mg/dL (0.70-1.30); Calcium 8.5 mg/dL (8.5-10.1); Chloride 103 mmol/L (98-107); Glucose 85 mg/dL (74-106); Potassium 4.3 mmol/L (3.5-5.1); Sodium 138 mmol/L (136-145); Total Protein 5.5 g/dL (6.4-8.2)
[2020-11-29] MEDS: Nicotine 21 MG/24 HR PATCH TD (07:59)
[2020-11-29] MEDS: Pantoprazole 40 MG VIAL IVP (07:59)
[2020-11-29] MEDS: Enoxaparin 30 MG/0.3 ML SYR SC (07:59)
[2020-11-29] MEDS: Potassium Chloride 10 MEQ CAPCR 20 MEQ PO (08:01)
[2020-11-29] MEDS: Thiamine 100 MG TAB PO (08:01)
[2020-11-29] MEDS: Folic Acid 1 MG TAB PO (08:01)
[2020-11-29] MEDS: Baclofen 10 MG TAB PO ×3 (08:01→19:44)
[2020-11-29] MEDS: Creon, Lipase 6,000 CAPCR 1 CAP PO ×3 (08:02→16:18)
--- NOTE | 2020-11-29 11:10 | PGE_ITS ---
Date of Service Date of service: 11/29/20 Time of Service: 11:10 Assessment and Plan Assessment and plan (1) Acute on chronic pancreatitis: Status: Acute Assessment and plan: Chronic pancreatitis complicated by pancreatic phlegmon's and pseudocyst. No evidence for infection. Lipase is normalized. If he tolerates his diet today he will be discharged home in the morning. I will advance his diet at suppertime. (2) Chronic alcohol use: Status: Chronic Assessment and plan: Patient slept most the day yesterday after the phenobarbital but is completely alert and oriented today. He is having no tremors no diaphoresis and no nausea or other symptoms of withdrawal. Phenobarbital has been ordered as needed but at this time he does not appear to need any additional doses (3) Tobacco dependence: Status: Chronic Assessment and plan: P continue NicoDerm CQ 21 mg daily along with Nicotrol inhalers as needed (4) Hypokalemia: Status: Resolved Assessment and plan: Continue daily supplementation. (5) DVT prophylaxis: Status: Acute Assessment and plan: Currently on enoxaparin at a reduced dose due to his low body weight (6) Discharge planning issues: Status: Acute Assessment and plan: Discharge tomorrow if he tolerates his diet today and has no worsening abdominal pain or nausea or vomiting. Patient can follow-up with [facility] as an outpatient. Subjective Subjective Interval history since last seen: Patient is feeling better this morning no nausea or vomiting. Abdominal pain is improving. Patient was started back on clear liquids this morning and seems to have tolerated his diet so far. Case management has given him the phone number for [facility]. Patient has had phone interview with [facility]. Currently they do not have any beds available. He has plans to return home then try to enter into [facility] as an outpatient rather than transferring directly from [facility]. From alcohol withdrawal standpoint he is doing very well. CIWA score is 0. He was medicated yesterday with phenobarbital which is mitigated any alcohol withdrawal symptoms. Lipase remains normal at 177. Alkaline phosphatase is chronically elevated at 521. Rest of his transaminases are normal. Potassium and magnesium levels are normal. CBC is stable with a mild chronic anemia with macrocytosis. I told Acosta my plan is to advance his diet as tolerated continue IV fluid hydration and hopefully if he is not requiring any narcotic analgesics we can discharge him home tomorrow with follow-up with [facility] for alcohol [facility]. Exam Narrative Exam Narrative: male alert and oriented person place time and circumstance. Abdomen soft no guarding no rebound tenderness normal bowel sounds Neuropsychiatric exam unremarkable with no tremors no diaphoresis and no agitation or hallucinations. Objective Last Vital Signs Temp 36.3 C L 11/29/20 07:17 Pulse 63 11/29/20 07:17 Resp 10 L 11/29/20 07:17 BP 128/82 11/29/20 07:17 Pulse Ox 100 11/29/20 08:58 Laboratory Results - last 24 hr 11/28/20 11/29/20 11/29/20 14:50 06:18 06:18 WBC 9.50 RBC 4.00 L Hgb 12.6 L Hct 39.0 L MCV 97.5 H MCH 31.5 MCHC 32.3 RDW 14.6 H Plt Count 278 MPV 9.9 Immature Gran % 0.7 Neutrophils % 71.0 Lymphocytes % 14.2 Monocytes % 11.1 Eosinophils % 2.4 Basophils % 0.6 Nucleated RBC % 0 Absolute Neutrophils 6.74 H Absolute Lymphocytes 1.35 Absolute Monocytes 1.05 H Absolute Eosinophils 0.23 Absolute Basophils 0.06 Sodium 138 Potassium 5.1 D 4.3 Chloride 103 Carbon Dioxide 30.3 Anion Gap 4.7 BUN 5 L Creatinine 0.7 Estimated GFR/1.73 m2 >= 60.00 Glucose 85 Calcium 8.5 Total Bilirubin 1.3 H AST 29 ALT 41 Alkaline Phosphatase 521 H Total Protein 5.5 L Albumin 2.3 L
[2020-11-29 11:18] LABS: Lipase 177 U/L (73-393)
--- NOTE | 2020-11-29 17:26 | PDOC.CMPRO ---
- If Service Date Differs Date of service: 11/29/20 Time of Service: 17:26 Care Management Progress Note S/O: Acosta was sitting up in bed when CM met with him. He reported that he was doing ok today, and was started on clear liquids. CM gave him information to call Rosibel from [facility] to complete intake information for admission. He stated that he has been drinking more recently, and is concerned about his health. He stated that he doesn't know if he is ready, but is not sure if he ever will be. Per MD, he will be monitored overnight, and his diet will be advanced tomorrow, as tolerated. CM will follow up with [facility] regarding bed availability. CM will continue to follow. A: Acosta is a 40 year old male admitted to [facility] on 11/28/20 with pancreatitis. P: Acosta is inquiring about going to [facility] for alcohol rehab following this acute admission. Once he is medically cleared, if a bed is available at [facility], he will transport there via private vehicle by family vs [facility]. He will follow up with his PCP and discharge plan of care. CM will continue to follow.
[2020-11-30] MEDS: Lactated Ringers 1,000 ML 200 ML IV (01:38)
[2020-11-30] MEDS: HYDROmorphone 2 MG TAB PO ×4 (01:49→17:04)
[2020-11-30 03:25] VITALS: BP 127/58; RESP 20; TEMP 36.5; O2SAT 99
[2020-11-30 07:03] VITALS: BP 126/79; PULSE 56; RESP 20; TEMP 36.5; O2SAT 100
[2020-11-30] MEDS: Enoxaparin 30 MG/0.3 ML SYR SC (07:51)
[2020-11-30] MEDS: Potassium Chloride 10 MEQ CAPCR 20 MEQ PO (07:52)
[2020-11-30] MEDS: Thiamine 100 MG TAB PO (07:52)
[2020-11-30] MEDS: Folic Acid 1 MG TAB PO (07:52)
[2020-11-30] MEDS: Nicotine 21 MG/24 HR PATCH TD (07:52)
[2020-11-30] MEDS: Baclofen 10 MG TAB PO ×2 (07:53→11:55)
[2020-11-30] MEDS: Creon, Lipase 6,000 CAPCR 1 CAP PO ×3 (07:53→17:04)
[2020-11-30] MEDS: Pantoprazole 40 MG TABCR PO (07:53)
[2020-11-30 10:39] VITALS: O2SAT 98
[2020-11-30 11:50] VITALS: BP 110/72; PULSE 52; RESP 14; TEMP 36.6; O2SAT 98
--- NOTE | 2020-11-30 14:41 | CHAPLAIN ---
Acosta was sitting up in his bed when I visited. He provided short answers, and at first was not interested in a conversation, but then began telling me about his plans to got to [facility] for rehab. He said his mother can't drive him because she's too busy baking, so he was going to connect with Care Management about a ride. He said he wasn't sure he was ready to go into rehab, but the wants to try. I offered support and listened to his plans.
--- NOTE | 2020-11-30 14:43 | W.PM.DS.N ---
Date of service: 11/30/20 Time of Service: 14:44 DS: Diagnosis Discharge Diagnosis (1) Acute on chronic pancreatitis: Status: Resolved Asessment and Plan: His acute pancreatitis has resolved but he still has pseudocysts and pancreatic phelegmons w/ increase in the size of the cysts (see CT scan report for details). His pancreatic duct remains dilated and he needs follow up ERCP w/ GI which [place] [facility] PCP. (2) Chronic alcohol use: Status: Chronic Asessment and Plan: patient is entering himself to [facility] to try to go through alcohol detox and hopefully will follow up w/ some type of outpatient alcohol rehab program. Acosta knows that he needs to change his living conditions and job in order to get himself out of an environment which has not been conducive to a life of sobriety. While an inpatient he was prophylaxed w/ iv phenobarbital to treat for withdrawal symptoms. He never went through any severe symptoms and at the time of discharge was not exhibiting alcohol withdrawal. (3) Tobacco dependence: Status: Chronic Asessment and Plan: patient was treated w/ nicotrol inhaler and nicoderm CQ patch while hospitalized. (4) Hypokalemia: Status: Resolved Asessment and Plan: treated w/ parenteral potassium but d/t peripheral vein burning the iv potassium was stopped in favor of oral potassium. (5) DVT prophylaxis: Status: Resolved Asessment and Plan: patient was treated w/ lovenox 30 mg SC daily for dvt prevention. (6) Discharge planning issues: Status: Resolved Asessment and Plan: patient called [facility] and arranged for interview and he was accepted for their inpatient alcohol addiction program. Patient is being discharged home w/ family to provide ride to [facility] later today. Discharge Plan Disposition Patient Disposition: HOME Condition: Improving Discharge Details Reason For Visit: Pancreatitis Admit Date/Time: 11/28/20 09:15 Admit Provider: Acosta Wyman Attending Provider: Acosta Wyman Primary Care Provider: Antonio Harper Hospital Course Hospital Course: 40 yr old male w/ PMH of chronic pancreatitis w/ multiple admissions and complicated by pseudocysts/phlegmons, who presented to the ER 11/27/2020 w/ 2 days of epigstric abdominal pain w/ radiation to his back and RUQ. He has been drinking 12 to 18 beers per day. 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 He has been trying as an outpatient to get into inpatient alcohol rehab program through [facility]. He has been in AA meetings in the past but quit AA d/t the yazidi overtones of the meetings. Evaluation in the ER included routine labs (CMP, CBC, lipase) and CT abdomen and pelvis. Labs demonstrated elevated lipase 1339, alkaline phosphatase 485, potassium 3.3, WBC 11,650, Hb 11.3 gm, platelets 269,000. Patient was given antiemetic, parenteral narcotics (dilaudid) and started on iv fluids. CT abdomen and pelvis demonstrated findings c/w acute pancreatitis w/ phlegmon and pseudocyst formation predominantly involving the pancreatic head and uncinate process. Adjacent inflammatory process seen around the stomach, duodenum, and jejunum and transverse colon. Patient was admitted to the hospital and made NPO and given aggressive iv fluids along w/ parenteral narcotis and antiemetics. His lipase and leukocytosis and hypokalemic quickly resolved. Lipase came down to 340 overnight and he was trialed on clear liquids on 11/28 but had worsening abdominal pains so he was made NPO again. On 11/29 he was feeling better and his lipase was 177 and his WBC was normal at 9500. He was put on clear liquids on the morning of 11/29 and over the course of the day advanced to full liquid low fat diet and his Creon was reordered. He was transitioned off parenteral narcotics and put back on his oral dilaudid. The morning of discharge, he was tolerating a regular low fat diet w/out nausea nor any increased abdominal pain. The patient was able to call [facility] and was told that they could accept him as an inpatient for acute alcohol addiction treatment. Patient coordinated his admission process to [facility]. Patient was discharged in markedly improved condition. During his hospital stay he was treated w/ parenteral phenobarbital to prevent acut alcohol withdrawal. He did not experience any severe withdrawal symptoms. Home Meds and New Rx's Prescriptions: Continued ondansetron HCl [Zofran] 4 mg tablet 4 mg PO BID RF: 0 omeprazole 40 mg capsule,delayed release(DR/EC) 20 mg PO DAILY RF: 0 Creon 6,000-19,000 -30,000 unit Capsule,Delayed Release(Dr/Ec) 1 cap PO QMEALS Qty: 90 RF: 0 polyethylene glycol 3350 17 gram Powder In Packet 17 g PO DAILY PRN PRN (Reason: Constipation) Qty: 0 RF: 0 hydromorphone [Dilaudid] 2 mg tablet 2 mg PO Q6H PRNQty: 4 RF: 0 baclofen 10 mg Tablet 10 mg PO TID Qty: 20 RF: 0 hydromorphone 2 mg Tablet 2 mg PO Q6H PRNQty: 20 RF: 0 Discharge Instructions Instructions: Pancreatitis (DC), Alcohol Dependence (DC) Activity:: Activity as Tolerated Equipment/Supplies:: No Equipment Needed Diet:: low fat Discharge Orders Discharge Orders: Discharge Order (Routine); Ordered 11/30/20 Ordered By: Ramón Winters DS: Summary Time Spent with Patient providing and/or coordinating discharge services: Less than 30 minutes Status at Discharge Functional status at discharge: independent ambulation Overall status at discharge: patient is back to baseline Mental Status: mental status grossly normal Speech and Movement: speech and movement normal Mood: congruent mood Affect: normal affect Exam Narrative Exam Narrative: male alert and oriented person place time and circumstance. Abdomen soft no guarding no rebound tenderness normal bowel sounds Neuropsychiatric exam unremarkable with no tremors no diaphoresis and no agitation or hallucinations. Psych Mental Status: mental status grossly normal Speech and Movement: speech and movement normal Mood: congruent mood Affect: normal affect DS: Data Vitals/I&O Vitals and I&O: Vital Signs Temperature 36.6 C 11/30/20 11:50 Temperature Source Tympanic 11/30/20 11:50 Pulse 52 L 11/30/20 11:50 Pulse Rhythm Regular 11/30/20 10:39 Respiratory Rate 14 11/30/20 11:50 Respiratory Effort 11/30/20 10:39 Respiratory Depth Normal 11/30/20 10:39 Respiratory Pattern Normal 11/30/20 10:39 Blood Pressure 110/72 11/30/20 11:50 Blood Pressure Mean 108 11/27/20 18:15 Blood Pressure Position Sitting 11/27/20 16:04 Pulse Oximetry 98 11/30/20 11:50 Oxygen Delivery Method Room Air 11/30/20 11:50 Oxygen Flow Rate 0 07/13/21 11:50 Pain Level 6 11/30/20 11:50 Intake & Output 11/29/20 11/30/20 11/30/20 23:59 11:59 23:59 Intake Total 3680 / 4977.916 480 / 480 Output Total 400 / 1200 Balance 3280 / 3777.916 480 / 480 Intake: IV 1999 / 3297.916 Oral 1680 / 1680 480 / 480 Output: Urine 400 / 1200 Other: Urine Color Yellow Urine Appearance Clear Clear Voiding Methods Toilet [facility] Medical History Chronic alcohol use Spoke about life stressors, RCT as alternative, patient receptive. Discharge planning issues Per [facility] consult, continue monitoring until inflammation abates. Consider inpatient or outpatient workup at that time for ERCP and Pancreatitis Hydromorphone PRN PRN for pain. As above. 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
[2020-11-30 16:17] VITALS: BP 143/91; PULSE 64; RESP 16; TEMP 36.9; O2SAT 100
--- NOTE | 2020-11-30 18:46 | CMDISCH_ITS ---
- If Service Date Differs Date of service: 11/30/20 Time of Service: 18:46 LACE Index Scoring Tool - Questions: Length of Stay (in days): 2 Acuity (Admit via E.D.?): Yes E.D. Visits: 9 - Answers: Total Score: 9 Risk of Readmission: Low Risk Care Management Discharge Reason for Hospitalization: Pancreatitis. Discharge Plan: Acosta will discharge home today, and will collect some belongings before checking into [facility], which he coordinated with support from CM. He reports being anxious about rehab, but understands the importance of his attempt to quit drinking. He will transport via private vehicle by his mother. He will follow up with his PCP and discharge plan of care. Patient/Family Education Needs: Review discharge instructions, discuss expectations for rehab, self care needs including ask me three and goals of care.
== END 2020-11-30 17:14 | disposition home or self-care (01) | DRG 439 ==
LOC: ER 18:46 → MS 19:36
PROVIDERS: Internal Medicine; Admitting Provider Family Medicine; Emergency Provider Physician Assistant; PCP Neuromusculoskeletal Medicine & OMM; Visit Provider Family Medicine
DX: K85.90 Acute pancreatitis without necrosis or infection, unspecified (principal); K86.3 Pseudocyst of pancreas; F17.210 Nicotine dependence, cigarettes, uncomplicated; E87.6 Hypokalemia; Z20.822 Contact with and (suspected) exposure to COVID-19; K86.1 Other chronic pancreatitis; F10.10 Alcohol abuse, uncomplicated
CPT/HCPCS: 36415; 80053; 80307; 83690; 87635; 93005; 96361; 96374; 96375; 99285; 74177; 80320; 83735; 84132; 85025; 93010; 99223; 99231; 99232; 99238; 99284; G0378; J1650; J1885; J2405; J2560; J3480; J3490

== ENCOUNTER 2021-01-11 15:09 | Emergency (ER) | payer MEDICAID, SELFPAY ==
[2021-01-11] VITALS (7 sets, daily range): BP systolic 113–128; BP diastolic 71–90; PULSE 70–98; RESP 12–18; TEMP 36.5–37.2; O2SAT 93–99
--- NOTE | 2021-01-11 15:15 | DI.US_ITS ---
Exam(s) US ABDOMEN EXAM: US ABDOMEN CLINICAL HISTORY: RUQ pain, hx pancreatitis TECHNIQUE: Ultrasound of complete upper abdomen performed using standard protocol. COMPARISON: CT CT ABDOMEN PELVIS W from 02/05/2020 US US ABDOMEN LIMITED from 04/17/[address] ABDOMEN PELVIS W from 09/17/[address] ABDOMEN PELVIS W from 11/27/[address] ABDOMEN PELVIS W from 11/27/2020 FINDINGS: There is no ascites evident. LIVER: There are no hepatic lesions evident nor obvious dilatation of intrahepatic ducts. GALLBLADDER/BILIARY: There are no gallstones. No gallbladder wall edema nor pericholecystic fluid. The common hepatic duct isdilated, measuring 11mm at the level of carmen hepatis. This probably relat ed to edematous findings in the pancreatic head. PANCREAS: There is a large complex cystic structure pancreatic head measuring approximately 5.6 x 3.8 x 8.0 cm, most probably consistent with the large pseudocyst seen at this location on recent CT scan s, most recent being 11/27/2020. presently exhibits a thickened wall. Cannot exclude possibility of necrotic neoplasm. SPLEEN: The spleen is not enlarged and there are no intrasplenic lesions evident. KIDNEYS:Kidneys exhibit normal size with no evidence of solid mass, calculus, nor hydronephrosis. No cortical cysts evident. ABDOMINAL AORTA: There is no evidence of abdominal aortic aneurysm. IVC: Normal diameter where visualized. IMPRESSION: 1. Large complex solid/cystic mass in the pancreatic head measuring approximately 5.6 x 3.8 x 8.0 cm , most probably evolution of what was seen at this location on the recent CT scans. Nevertheless, ca nnot exclude possibly of malignancy at this location. Recommend follow-up CT or MRI. 2. Dilated CBD (11 millimeters) is most probably related to the edema/mass in the pancreatic head. 3. Recommend follow-up MRI or CT scan. DATA REPOSITORY:
[2021-01-11] MEDS: Normal Saline 1,000 ML 1000 ML IV (15:33)
[2021-01-11] MEDS: Normal Saline Flush 10 ML SYR IVP (15:34)
[2021-01-11 15:38] LABS: Absolute Basophil Count 0.07 10^3/uL (0.0-0.2); Absolute Eosinophil Count 0.16 10^3/uL (0.0-0.7); Absolute Monocyte Count 0.84 10^3/uL (0.1-0.8); Absolute Neutrophil Count 7.95 10^3/uL (1.2-6.7); Basophils % 0.7; Eosinophils % 1.5; HCT 46.2 % (40.0-50.0); HGB 15.2 g/dL (13.5-17.5); Immature Grans % 0.9; Lymphocytes % 14.1; MCH 30.6 pg (27.0-33.0); MCHC 32.9 % (32.0-36.0); MCV 93.1 fL (80-95); MPV 9.7 fL (8.0-11.0); Monocytes % 7.9; Neutrophils % 74.9; Nucleated RBC 0 %; Platelet Count 281 10^3/uL (130-400); RBC 4.96 10^6/uL (4.36-5.78); RDW 13.2 % (11.8-14.1); WBC 10.62 10^3/uL (4.4-10.8)
--- NOTE | 2021-01-11 15:38 | ED.GENADUL_ITS ---
Discharge Plan Disposition Patient Disposition: HOME Condition: Improving Discharge Details Clinical Impression: Pancreatic pseudocyst Primary Care Provider: Antonio Harper ED Provider: Yves Zambrano Home Meds and New Rx's Prescriptions: New hydromorphone 2 mg tablet 2 mg PO Q6H PRN (Reason: pain) Qty: 5 RF: 0 Continued omeprazole 40 mg capsule,delayed release(DR/EC) 20 mg PO DAILY RF: 0 Creon 6,000-19,000 -30,000 unit Capsule,Delayed Release(Dr/Ec) 1 cap PO QMEALS Qty: 90 RF: 0 baclofen 10 mg Tablet 10 mg PO TID Qty: 20 RF: 0 No Action ondansetron HCl [Zofran] 4 mg tablet 4 mg PO BID RF: 0 polyethylene glycol 3350 17 gram Powder In Packet 17 g PO DAILY PRN PRN (Reason: Constipation) Qty: 0 RF: 0 hydromorphone [Dilaudid] 2 mg tablet 2 mg PO Q6H PRNQty: 4 RF: 0 hydromorphone 2 mg Tablet 2 mg PO Q6H PRNQty: 20 RF: 0 Discharge Instructions Additional Instructions: Follow-up with regular doctor on as planned. Observe a bland diet. Continue your nonalcohol lifestyle. May use the prescribed allotted every 6 hours as needed for severe or breakthrough pain. Return to the emergency department for any acute concerns. Medical Decision Making 40-year-old male with a history of pancreatitis with pseudocyst, previous significant alcohol abuse, presents with recurrent epigastric abdominal pain that began 2 days ago, became worse overnight now associated with nausea, depressed appetite and bloating. Patient arrives to the ER alert and interactive, blood pressure 113/71, pulse 98, afebrile and oxygenating normally. He is fairly diffusely tender in his epigastrium and right side of the abdomen. Differential diagnosis includes recurrent pancreatitis, biliary colic. Patient IV access established, screening laboratories obtained, and patient given parenteral analgesia, antiemetic and fluids. Patient's laboratories are reassuring with a white count of 10, hematocrit 46, platelets 281. Chemistries note slight elevation of LFTs, lipase of 298 which is down from previous of of greater than 1000 during recent admission. Ultrasound reveals known complex pancreatic cyst measuring 5.6 x 3.8 x 8 cm. No evidence of common bile duct dilatation. Gallbladder without evidence of wall thickening or stones. Following parenteral analgesia, the patient feels improvement of his pain and is able to tolerate p.o. trial. He is certainly at risk for flareup of pancreatitis although this appears to be mild today. He has follow-up with his primary care physician on . He has follow-up planned with [facility] gastroenterology. He is stable, improving and appropriate for discharge to home. Medical Records Medical records reviewed: Yes I reviewed the patient's medical records. Lab Data Lab results reviewed: Yes I reviewed the patient's lab results. Labs: Laboratory Results - last 24 hr 01/11/21 01/11/21 01/11/21 15:25 15:25 15:25 WBC 10.62 RBC 4.96 Hgb 15.2 Hct 46.2 MCV 93.1 MCH 30.6 MCHC 32.9 RDW 13.2 Plt Count 281 MPV 9.7 Immature Gran % 0.9 Neutrophils % 74.9 Lymphocytes % 14.1 Monocytes % 7.9 Eosinophils % 1.5 Basophils % 0.7 Nucleated RBC % 0 Absolute Neutrophils 7.95 H Absolute Lymphocytes 1.50 Absolute Monocytes 0.84 H Absolute Eosinophils 0.16 Absolute Basophils 0.07 Sodium 139 Potassium 4.2 Chloride 104 Carbon Dioxide 27.4 Anion Gap 7.6 BUN 10 Creatinine 0.8 Estimated GFR/1.73 m2 >= 60.00 Glucose 98 Calcium 9.2 Total Bilirubin 0.4 AST 47 H ALT 150 H Alkaline Phosphatase 384 H Total Protein 7.5 Albumin 3.5 Lipase 298 Ethyl Alcohol < 3.0 HPI General Mode of arrival: ambulatory . Date/Time Provider Initiated Documentation: 01/11/21 15:18 . Limitations to Documentation: no limitations . Information obtained by: patient . History of Present Illness 40 year old M presents to the emergency department with the chief complaint of Abdominal pain, described as moderate, severe and similar to prior episodes, Quality is described as dull and constant, and is localized to the abdomen and right. P atient reports radiation to back. Patient started experiencing this hour(s) and it has been constant. No relieving factors improve symptom(s), No exacerbating factors reported . Patient notes loss of appetite and other (Nauseated, feels bloated, no vomiting); denies chest pain, cough, fever/chills, shortness of breath and syncope. Patient did receive the following treatments prior to arrival, none Related Data Home Medications Medication Instructions Recorded Confirmed omeprazole 20 mg PO DAILY 12/31/19 11/27/20 ondansetron HCl [Zofran] 4 mg PO BID 12/31/19 11/27/20 Creon 1 cap PO QMEALS #90 cap 04/20/20 11/27/20 polyethylene glycol 3350 17 g PO DAILY PRN PRN #0 ea 09/21/20 11/27/20 baclofen 10 mg PO TID #20 tab 11/03/20 11/27/20 hydromorphone 2 mg PO Q6H PRN #20 tab 11/03/20 11/27/20 hydromorphone [Dilaudid] 2 mg PO Q6H PRN #4 tab 11/15/20 11/27/20 hydromorphone 2 mg PO Q6H PRN #5 tab 01/11/21 Previous Rx's Medication Instructions Recorded Creon 1 cap PO QMEALS #90 cap 04/20/20 polyethylene glycol 3350 17 g PO DAILY PRN PRN #0 ea 09/21/20 baclofen 10 mg PO TID #20 tab 11/03/20 hydromorphone 2 mg PO Q6H PRN #20 tab 11/03/20 hydromorphone [Dilaudid] 2 mg PO Q6H PRN #4 tab 11/15/20 hydromorphone 2 mg PO Q6H PRN #5 tab 01/11/21 Allergies Allergy/AdvReac Type Severity Reaction Status Date / Time No Known Allergies Allergy Unverified 11/27/20 16:10 General Stated Complaint: Abd Prob DEIDRE: 2 Review of Systems Narrative: No vomiting. See HPI. No recent illness. Stopped drinking alcohol. 8 systems reviewed and otherwise negative. [facility] Medical History Chronic alcohol use Spoke about life stressors, RCT as alternative, patient receptive. Discharge planning issues Per [facility] consult, continue monitoring until inflammation abates. Consider inpatient or outpatient workup at that time for ERCP and Pancreatitis Hydromorphone PRN PRN for pain. As above. 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 Pleasant, well groomed, interactive. HEAD: Normocephalic, atraumatic ENT: Mucous membranes moist, oropharynx unremarkable, External ear exam unremarkable EYES: PERRL, EOMI NECK: Full ROM, no ANA, no menigismus CHEST/RESP: Nontender, clear to auscultation bilateral, no wheeze/rhonchi/rales CARDIOVASCULAR: RRR, no murmur, rub mirella. 2+ Rad pulse bilateral ABDOMEN: Soft, tender in epigastrium and right side of the abdomen. no mass. +Bowel sounds EXT: Full ROM, no edema, no rash, discrete 1 cm area thermal burn left forearm. Neuro: Grossly normal neurologic exam, conversant, interactive. Psych: Speech fluent, thoughts congruent, affect normal Course Vital Signs Vital signs: Vital Signs Temperature 37.2 C 01/11/21 15:16 Pulse 98 H 01/11/21 15:16 Blood Pressure 113/71 01/11/21 15:16 Pulse Oximetry 97 01/11/21 15:16 Temperature 37.2 C 01/11/21 15:16 Temperature Source Temporal Artery Scan 01/11/21 15:16 Pulse 98 H 01/11/21 15:16 Respiratory Effort Non-Labored 01/11/21 15:18 Blood Pressure 113/71 01/11/21 15:16 Blood Pressure Position Sitting 01/11/21 15:16 Pulse Oximetry 97 01/11/21 15:16 Oxygen Delivery Method Room Air 01/11/21 15:16 Oxygen Flow Rate 0 01/11/21 15:16 Pain Level 8 01/11/21 15:16
[2021-01-11] MEDS: Ondansetron 4 MG/2 ML VIAL IVP (15:42)
[2021-01-11] MEDS: HYDROmorphone 2 MG/ML VIAL IVP (15:43)
[2021-01-11 15:53] LABS: ALT 150 U/L (16-63); AST 47 U/L (15-37); Albumin 3.5 g/dL (3.4-5.0); Alkaline Phosphatase 384 U/L (46-116); Anion Gap 7.6 mmol/L (3-11); BUN 10 mg/dL (7-18); Bilirubin, Total 0.4 mg/dL (0.2-1.0); CO2 27.4 mmol/L (21.0-32.0); CREATININE 0.8 mg/dL (0.70-1.30); Calcium 9.2 mg/dL (8.5-10.1); Chloride 104 mmol/L (98-107); Glucose 98 mg/dL (74-106); Lipase 298 U/L (73-393); Potassium 4.2 mmol/L (3.5-5.1); Sodium 139 mmol/L (136-145); Total Protein 7.5 g/dL (6.4-8.2)
[2021-01-11 16:04] LABS: ETHANOL BLOOD < 3.0 mg/dL (<3)
--- NOTE | 2021-01-11 16:26 | DI.VRAD_ITS ---
PROCEDURE INFORMATION: Exam: US Abdomen Complete Exam date and time: 01/11/2021 3:28 PM Age: 40 years old Clinical indication: Abdominal pain; Epigastric; Patient HX: HX pancreatitis TECHNIQUE: Imaging protocol: Real-time ultrasound of the abdomen with image documentation. COMPARISON: US ABDOMEN LIMITED 04/17/2020 10:32 AM FINDINGS: Liver: Normal. No mass. Gallbladder: Normal. No gallstones. There is no gallbladder wall thickening. Common bile duct: Normal. No stones. No dilation. Pancreas: 5.6 x 3.8 x 8 cm complex pancreatic head lesion with internal vascularity. Right kidney: Normal. No mass. No hydronephrosis. Left kidney: Normal. No mass. No hydronephrosis. Spleen: Normal. No splenomegaly. Aorta: Normal. No aneurysm. Inferior vena cava: Normal. IMPRESSION: 5.6 x 3.8 x 8 cm complex pancreatic head lesion with internal vascularity. Differential diagnosis includes benign or malignant tumor or pseudocyst. Consider contrast-enhanced MRI. Dictated and Authenticated by: Adam Mendoza MD. Ordering:ZHAO Marinelli MD
[2021-01-11] MEDS: HYDROmorphone 2 MG TAB 6 MG PO (17:05)
== END 2021-01-11 17:14 | disposition home or self-care (01) ==
PROVIDERS: Emergency Provider Emergency Medicine; PCP Neuromusculoskeletal Medicine & OMM
DX: K86.3 Pseudocyst of pancreas (principal)
CPT/HCPCS: 36415; 80053; 83690; 96361; 96374; 96375; 99284; 76700; 80320; 81003; 85025; J2405

== ENCOUNTER 2021-08-30 10:06 | Inpatient (IN) | payer MEDICAID, SELFPAY ==
[2021-08-30] VITALS (23 sets, daily range): BP systolic 129–139; BP diastolic 83–92; PULSE 60–79; RESP 8–27; TEMP 36–37.1; O2SAT 96–100
[2021-08-30 10:43] LABS: Absolute Basophil Count 0.03 10^3/uL (0.0-0.2); Absolute Lymphocyte Count 0.61 10^3/uL (1.2-3.4); Absolute Monocyte Count 0.57 10^3/uL (0.1-0.8); Absolute Neutrophil Count 9.18 10^3/uL (1.2-6.7); Basophils % 0.3; HCT 48.1 % (40.0-50.0); HGB 15.7 g/dL (13.5-17.5); Lymphocytes % 5.8; MCH 31.7 pg (27.0-33.0); MCHC 32.6 % (32.0-36.0); Monocytes % 5.4; Neutrophils % 87.5; Nucleated RBC 0 %; Platelet Count 271 10^3/uL (130-400); RBC 4.96 10^6/uL (4.36-5.78); RDW 15.3 % (11.8-14.1); RDW-SD 55.3 fL; WBC 10.49 10^3/uL (4.4-10.8)
[2021-08-30] MEDS: Lactated Ringers 1,000 ML 1000 ML IV (10:43)
[2021-08-30 10:59] LABS: ALT 52 U/L (16-63); AST 26 U/L (15-37); Albumin 3.6 g/dL (3.4-5.0); Alkaline Phosphatase 699 U/L (46-116); Anion Gap 12.2 mmol/L (3-11); BUN 13 mg/dL (7-18); Bilirubin, Total 1.5 mg/dL (0.2-1.0); CO2 22.8 mmol/L (21.0-32.0); CREATININE 0.8 mg/dL (0.70-1.30); Chloride 101 mmol/L (98-107); Glucose 88 mg/dL (74-106); Lipase 557 U/L (73-393); Potassium 4.2 mmol/L (3.5-5.1); Sodium 136 mmol/L (136-145); Total Protein 7.2 g/dL (6.4-8.2)
--- NOTE | 2021-08-30 11:00 | DI.CT_ITS ---
Exam(s) CT ABDOMEN PELVIS W EXAM: CT ABDOMEN PELVIS W CLINICAL HISTORY: pain, h/o pancreatitis and pseudocyst TECHNIQUE: Imaging Protocol: Axial computed tomography images with coronal and sagittal reformatted images were created and reviewed CONTRAST MATERIAL: Intravenous: Omnipaque 350 Contrast volume:100 mL Oral: No COMPARISON: CT CT ABDOMEN PELVIS W from 11/27/2020 FINDINGS: ABDOMEN: Lung Bases: Normal where visualized. Liver: Normal density. No measurable mass. The liver is enlarged measuring 18.3 cm long. Portal, Superior Mesenteric, and Splenic Veins: Unremarkable. Gallbladder and Biliary Tract: There is persistent extra and intrahepatic biliary ductal dilatation. The common duct measures 1.3 cm compared to 1.2 on the prior examination. The gallbladder is disten ded measuring 4.1 cm in diameter. Pancreas: There has been interval decrease in size of the complex cystic lesion in the head of the pa ncreas. It currently measures 3.8 x 2.6 cm. This compares to 5 x 3.4 cm.There is dilatation of the pa ncreatic duct. Mild inflammatory changes are again seen around the pancreas, particularly the head. The 2nd large fluid collection has decreased in size. It currently measures 1.4 x 1 cm. This cari res to 3.8 x 3.7 cm. No new fluid collections are appreciated. Calcifications are seen in the head and proximal body of the pancreas. Spleen: Normal. Adrenals: No masses seen. Kidneys: Normal size, contour and axis. No radiodense stones or obstructive uropathy. Stable right re nal cysts. No follow-up is recommended. Abdominal Aorta: Abdominal portion non-dilated. Atherosclerosis. Bowel: No obstruction or bowel wall thickening. Appendix is unremarkable. There is a large amount of stool throughout the colon suggesting constipation. Peritoneal Cavity: No ascites, collection or mesenteric inflammatory response. No free air. Lymph Nodes: Within normal limits. Bones: Within normal limits for the patient's age. Soft Tissues: Unremarkable. PELVIS: Bladder: Symmetric distention, no gross wall thickening. Reproductive Organs: Unremarkable as visualized. Lymph Nodes: Within normal limits. Bones: Within normal limits for the patient's age. IMPRESSION: 1. Inflammatory changes seen around the pancreas suggest seen of flare-up of acute pancreatitis. Tyson cifications seen in the pancreas suggesting underlying chronic pancreatitis. 2. Interval decrease in size of the peripancreatic fluid collections since 11/27/2020. 3. Persistent intra and extrahepatic biliary ductal dilatation. 4. Large amount of stool throughout the colon suggesting constipation. 5. Results of this exam have been verbally communicated with provider. RADIATION DOSE DELIVERED: 601.42mGy.cm Total DLP DATA REPOSITORY: All CT scans at this facility are submitted to the National Radiology Data Registry (NRDR) Dose Index Registry (DIR) with the [employer] ([employer]). RADIATION OPTIMIZATION: All CT scans at this facility use at least one of these dose optimization te chniques: automated exposure control; mA and/or kV adjustment per patient size (includes targeted exa ms where dose is matched to clinical indication); or iterative reconstruction.
[2021-08-30] MEDS: Ondansetron 4 MG/2 ML VIAL IVP ×2 (11:15→12:23)
[2021-08-30] MEDS: HYDROmorphone 2 MG/ML VIAL 1 MG IVP ×2 (11:15→12:23)
--- NOTE | 2021-08-30 11:20 | NUR.NOTE ---
Nursing Note: Pt to DI for ordered exams.
[2021-08-30] MEDS: Omnipaque 350 MG/ML 100 ML BTL IJ (11:26)
--- NOTE | 2021-08-30 11:40 | NUR.NOTE ---
Nursing Note:Pt return from Di, reports pain subsiding w/medication, IVF continued.
--- NOTE | 2021-08-30 11:47 | ED.GENADUL_ITS ---
Discharge Plan Disposition Patient Disposition: [facility] INPATIENT Condition: Improving Discharge Details Clinical Impression: Acute pancreatitis, Increased anion gap metabolic acidosis Admit Date/Time: 08/30/21 12:20 Admit Provider: Wild Meza Attending Provider: Wild Meza Primary Care Provider: Antonio Harper ED Provider: Justin Velasquez Discharge Data Discharge Date/Time-TO BE ENTERED AT DEPARTURE: 08/30/21 13:18 Medical Decision Making 1152 --41-year-old male with history of pancreatitis and pancreatic pseudocyst, last flare in 12/08, here with mid abdominal pain, nausea and vomiting, not able to tolerate oral intake. Patient is dehydrated. Patient was given Dilaudid 1 mg IV for pain. He was given Zofran 4 mg IV for nausea. IV fluid bolus administered. Labs reviewed and mild anion gap acidosis likely secondary to decreased oral intake. Lipase is elevated consistent with acute pancreatitis. Plan for CT of the abdomen pelvis to assess for acute surgical process including pancreatic abscess. 1200 --CT the abdomen pelvis was interpreted by radiology: Acute pancreatitis, pseudocyst improved in size, no abscess. Patient reassessed and notes return of nausea vomiting and abdominal pain. Plan to admit. I called and spoke to the hospitalist on-call, Dr. Meza, discussed ED presentation course, he will admit the patient. Care transitioned at time of admission. Lab Data Lab results reviewed: Yes I reviewed the patient's lab results. Labs: Laboratory Tests Range/Units 08/30/21 08/30/21 10:35 10:35 WBC (4.4-10.8) 10^3/uL 10.49 RBC (4.36-5.78) 10^6/uL 4.96 Hgb (13.5-17.5) g/dL 15.7 Hct (40.0-50.0) % 48.1 MCV (80-95) fL 97.0 H MCH (27.0-33.0) pg 31.7 MCHC (32.0-36.0) % 32.6 RDW (11.8-14.1) % 15.3 H Plt Count (130-400) 10^3/uL 271 MPV (8.0-11.0) fL 10.0 Immature Gran % 1.0 Neutrophils % 87.5 Lymphocytes % 5.8 Monocytes % 5.4 Eosinophils % 0.0 Basophils % 0.3 Nucleated RBC % % 0 Absolute Neutrophils (1.2-6.7) 10^3/uL 9.18 H Absolute Lymphocytes (1.2-3.4) 10^3/uL 0.61 L Absolute Monocytes (0.1-0.8) 10^3/uL 0.57 Absolute Eosinophils (0.0-0.7) 10^3/uL 0.00 Absolute Basophils (0.0-0.2) 10^3/uL 0.03 Sodium (136-145) mmol/L 136 Potassium (3.5-5.1) mmol/L 4.2 Chloride (98-107) mmol/L 101 Carbon Dioxide (21.0-32.0) mmol/L 22.8 Anion Gap (3-11) mmol/L 12.2 H BUN (7-18) mg/dL 13 Creatinine (0.70-1.30) mg/dL 0.8 Estimated GFR/1.73 m2 (mL/min/1.73m2) >= 60.00 Glucose (74-106) mg/dL 88 Calcium (8.5-10.1) mg/dL 9.0 Total Bilirubin (0.2-1.0) mg/dL 1.5 H AST (15-37) U/L 26 ALT (16-63) U/L 52 Alkaline Phosphatase (46-116) U/L 699 H Total Protein (6.4-8.2) g/dL 7.2 Albumin (3.4-5.0) g/dL 3.6 Lipase (73-393) U/L 557 H HPI General Mode of arrival: ambulatory . Date/Time Provider Initiated Documentation: 08/30/21 10:18 . Limitations to Documentation: no limitations . Information obtained by: patient . HPI Narrative: 41-year-old male with history of alcohol abuse in the past, prior pancreatitis with pseudocyst, here with chief complaint of abdominal pain. Patient notes abdominal pain with associated nausea vomiting over the past 4 days. Pain is moderate to severe, constant, no modifiers. Vomiting is severe. He is unable to tolerate oral intake and feels dehydrated. Patient notes symptoms feel exactly like prior pancreatitis. Patient does note he continues to drink alcohol but significantly reduced amount to 2 cans/week. Patient denies associated fever. Related Data Home Medications Medication Instructions Recorded Confirmed omeprazole 40 mg capsule,delayed 20 mg PO DAILY 12/31/19 08/30/21 release ondansetron HCl 4 mg tablet 4 mg PO BID 12/31/19 08/30/21 (Zofran) ikgsod-wwboupzi-lxdaryw 1 cap PO QMEALS #90 cap 04/20/20 08/30/21 6,000-19,000-30,000 unit capsule,delayed rel (Creon) polyethylene glycol 3350 17 gram 17 g PO DAILY PRN PRN #0 ea 09/21/20 08/30/21 oral powder packet methadone 40 mg soluble tablet 60 mg PO DAILY 08/30/21 08/30/21 Previous Rx's Medication Instructions Recorded nzorge-wbuoztaj-jdozblz 1 cap PO QMEALS #90 cap 04/20/20 6,000-19,000-30,000 unit capsule,delayed rel (Creon) polyethylene glycol 3350 17 gram 17 g PO DAILY PRN PRN #0 ea 09/21/20 oral powder packet Allergies Allergy/AdvReac Type Severity Reaction Status Date / Time No Known Allergies Allergy Unverified 08/30/21 10:21 General Stated Complaint: Abd Prob DEIDRE: 3 Review of Systems All systems reviewed & are unremarkable except as noted in HPI and below Constitutional Constitutional: Denies fever(s) Respiratory Respiratory: Denies cough Gastrointestinal Gastrointestinal: Reports abdominal pain, Reports nausea and Reports vomiting PFSH All Active Problems (Updated 09/02/21 @ 00:04 by EVELIO VIDES) Acute on chronic pancreatitis (Acute) Constipation (Acute) Pancreatic duct dilated (Acute) Cyst and pseudocyst of pancreas (Acute) Cyst of pancreas (Acute) Cholecystitis, acute (Acute) Protein calorie malnutrition (Acute) Portal vein thrombosis (Acute) As above. Pancreatic pseudocyst (Acute) As above. Acute pancreatitis (Acute) Begin clear liquid diet tonight. Maintain saline infusion 100 mls/hr. Continue monitoring LFTs, bilirubin, and CMP. Pancreatitis (Chronic) Hydromorphone PRN PRN for pain. As above. Chronic alcohol use (Chronic) Spoke about life stressors, RCT as alternative, patient receptive. Medical History Discharge planning issues Per [facility] consult, continue monitoring until inflammation abates. 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 [place] Exam Const General: cooperative and no acute distress HENMT Head: normocephalic Mouth: mucous membranes dry Eyes Conjunctivae: normal conjunctivae Sclera: normal sclerae Neck Neck: trachea midline and supple Resp Auscultation: clear to auscultation bilaterally, no rales, no rhonchi and no wheezes Cardio Rate: regular rate and not tachycardic Rhythm: regular rhythm GI Palpation: soft, not firm, guarding, no masses, tender in the epigastrum and No ascites Skin General skin exam: no rashes or lesions noted and turgor decreased Neuro General: patient alert, patient awake, patient oriented x3 and tone normal Extrem General: no edema Psych Appearance: grossly normal Mental Status: mental status grossly normal Speech and Movement: speech and movement normal Course Vital Signs Vital signs: Vital Signs Temperature 36.3 C L 08/30/21 10:17 Pulse 76 08/30/21 10:17 Respiratory Rate 16 08/30/21 10:17 Blood Pressure 138/92 H 08/30/21 10:17 Pulse Oximetry 98 08/30/21 10:17 Temperature 36.3 C L 08/30/21 10:17 Temperature Source Temporal Artery Scan 08/30/21 10:17 Pulse 76 08/30/21 10:17 Respiratory Rate 16 08/30/21 10:17 Respiratory Effort 08/30/21 10:17 Blood Pressure 138/92 H 08/30/21 10:17 Blood Pressure Position Supine 08/30/21 10:17 Pulse Oximetry 98 08/30/21 10:17 Oxygen Delivery Method Room Air 08/30/21 10:17 Oxygen Flow Rate 0 08/30/21 10:17 Pain Level 7 08/30/21 11:17 Lab/Test Results Lab/Test Results: Laboratory Tests Range/Units 08/30/21 08/30/21 10:35 10:35 WBC (4.4-10.8) 10^3/uL 10.49 RBC (4.36-5.78) 10^6/uL 4.96 Hgb (13.5-17.5) g/dL 15.7 Hct (40.0-50.0) % 48.1 MCV (80-95) fL 97.0 H MCH (27.0-33.0) pg 31.7 MCHC (32.0-36.0) % 32.6 RDW (11.8-14.1) % 15.3 H Plt Count (130-400) 10^3/uL 271 MPV (8.0-11.0) fL 10.0 Immature Gran % 1.0 Neutrophils % 87.5 Lymphocytes % 5.8 Monocytes % 5.4 Eosinophils % 0.0 Basophils % 0.3 Nucleated RBC % % 0 Absolute Neutrophils (1.2-6.7) 10^3/uL 9.18 H Absolute Lymphocytes (1.2-3.4) 10^3/uL 0.61 L Absolute Monocytes (0.1-0.8) 10^3/uL 0.57 Absolute Eosinophils (0.0-0.7) 10^3/uL 0.00 Absolute Basophils (0.0-0.2) 10^3/uL 0.03 Sodium (136-145) mmol/L 136 Potassium (3.5-5.1) mmol/L 4.2 Chloride (98-107) mmol/L 101 Carbon Dioxide (21.0-32.0) mmol/L 22.8 Anion Gap (3-11) mmol/L 12.2 H BUN (7-18) mg/dL 13 Creatinine (0.70-1.30) mg/dL 0.8 Estimated GFR/1.73 m2 (mL/min/1.73m2) >= 60.00 Glucose (74-106) mg/dL 88 Calcium (8.5-10.1) mg/dL 9.0 Total Bilirubin (0.2-1.0) mg/dL 1.5 H AST (15-37) U/L 26 ALT (16-63) U/L 52 Alkaline Phosphatase (46-116) U/L 699 H Total Protein (6.4-8.2) g/dL 7.2 Albumin (3.4-5.0) g/dL 3.6 Lipase (73-393) U/L 557 H
[2021-08-30] MEDS: Lactated Ringers 1,000 ML 150 ML IV (12:07)
[2021-08-30 12:21] LABS: Source Nasal/Nares
--- NOTE | 2021-08-30 12:21 | NUR.NOTE ---
Nursing Note: Pt medicated as ordered for pain/nausea. Covid swab done, cont. to monitor.
--- OUTSIDE RECORDS SUMMARY | 2021-08-30 13:21 | XMS_ITS ---
:1980 Author Care Team Providers Name Role Phone TUNDE REAL, DO Primary Care Provider Unavailable Allergies Code Code System Name Reaction Severity Status Onset NKDA ? Medications Name Status Start Date Stop Date ? ? acyclovir 400 mg tablet Completed ? 07/24/19 20 Take 1 tablet every 8 hours by oral route as needed. dextroamphetamine-amphetamine 20 mg tablet Active ? Not available TAKE ONE TABLET BY MOUTH EVERY DAY dextroamphetamine-amphetamine 30 mg tablet Active ? Not available TAKE ONE TABLET BY MOUTH EVERY DAY FOR 7 DAYS amoxicillin 875 mg tablet Completed ? 2019 amoxicillin 875 mg-potassium Active ? Not available clavulanate 125 mg tablet azithromycin 250 mg tablet Completed 09/28/201610/03 1 (one) Tablet: see comments baclofen 10 mg tablet Active ? Not availa ble ciprofloxacin 500 mg tablet Completed ? 04/20 Creon 6,000-19,000-30,000 unit capsule,delayed release Active ? Not available TAKE 1 CAPSULE BY MOUTH WITH MEALS disulfiram 250 mg tablet Active ? Not edwige ilable disulfiram 500 mg tablet Completed ? 021 Take 1 tablet every day by oral route for 30 days. Eliquis 5 mg tablet Active ? Not availabl e TAKE ONE TABLET BY MOUTH TWICE A DAY hydrocodone 5 mg-acetaminophen Active ? N ot available 325 mg tablet hydromorphone 2 mg tablet Active ? Not av ailable TAKE 1 TABLET BY MOUTH EVERY 8 HOURS NEEDED FOR PAIN FOR 5 DAYS DO NOT EXCEED 3 TABLETS A DAY ibuprofen 600 mg tablet Completed 03/10/2011 09/29/19 17 1 Tablet: qid - four times a day Imitrex 100 mg tablet Completed 03/10/2011 09/28/2016 1 Tablet: onset of migraine lorazepam 0.5 mg tablet Completed 10/18/2016 11/09/19 17 1 (one) Tablet: q 6 hours prn panic attack Narcan 4 mg/actuation nasal spray Completed ? 09/30/2020 USE 1 SPRAY NASALLY NEEDED DIRECTED PER PACKAGE INSTRUCTI ONS omeprazole 20 mg delayed release,disintegrating tablet Completed ? 09/30/2020 Take 1 tablet every day by oral route. omeprazole 40 mg capsule,delayed release Completed ? 05/18/2021 Take 1 capsule every day by oral route for 14 days. ondansetron HCl 4 mg tablet Completed ? 04/21 penicillin V potassium 500 mg tablet Completed 03/10/2011 03/20/2011 1 Tablet: bid - twice daily polyethylene glycol 3350 17 gram oral powder packet Active ? Not available Take 1 packet every day by oral route. sertraline 100 mg tablet Active ? Not edwige ilable sertraline 50 mg tablet Completed ? 06/15/19 tramadol 50 mg tablet Completed ? 05/18/2021 Vicodin Completed ? 02/18/2020 Mother took them from him. Problems Name Status Onset Date Source ? Pancreatitis Active 07/15/2019 ? Pseudocyst of Pancreas Active 09/21/2020 ? Herpes Simplex Active ? History Depressive Disorder Active ? History Migraine Active ? History Tracheobronchitis Unknown ? History Impetigo Active ? History Cough Unknown ? History Tooth Finding Unknown ? History SNOMED CT Concept Unknown ? History Procedures Date Name Performed by ? 06/24/2021 Esophagogastroduodenoscopy Information n ot available 05/28/2020 Endoscopic Ultrasound of Upper Informati on not available Gastrointestinal Tract 09/10/2019 CT, Chest + Abdomen + Pelvis, W/ Contras t Xray [facility] [address] [place], [place] [address] (Work Place) Results Lab Results Date Name Specimen Result Interpretation Description Value Range Status Address ? 03/24/2020 Venipuncture Blood ? Location Left ? ? P_nc Primary venous Antecubital Care [place]: [address] [place], [place] ? ? Blood ? Needle 21g ? ? P_nc Prim aleta venous Vacutainer Care [place]: [address] [place], [place] ? ? Blood ? Number of 1 ? ? P_nc P rimary venous Attempts Care [place]: [address] [place], [place] ? ? Blood ? Successful Yes ? ? P_nc Primary venous Care [place]: [address] [place], [place] ? ? Blood ? Dressing Pressure ? ? P_nc Primary venous Band-aid Care Applied [place]: [address] 03/23/2020 CBC W/ Auto BLD ? Wbc 9.6 10*3/uL 5.0- [facility] Diff 10.0 l Hospital L ab 10*3 (Internal) : 189 /uL [address] Jose [place] ? ? BLD ? Rbc 4.60 10*6/uL 4.60 [facility] -6.0 l Hospital L ab 0 (Internal) : [address] 10*[address], /uL Jose ? ? BLD ? Hgb 15.0 g/dL 14.0 [facility] ountry -18. l Hospital L ab 0 (Internal) : 189 g/dL Lorenzo Jose [place] ? ? BLD ? Hct 46.5 % 41.0 [facility] Coun try -51. l Hospital L ab 0 % (Internal) : [address] ? ? BLD High Mcv 101.[address] [facility] untry -96. l Hospital L ab 0 fL (Internal) : 189 [address] ? ? BLD High Mch 32.6 pg 26.0 [facility] Cou ntry -32. l Hospital L ab 0 pg (Internal) : 189 [address] ? ? BLD ? Mchc 32.3 g/dL 31.0 [facility] ountry -35. l Hospital L ab 0 (Internal) : 189 g/dL Lorenzo Jose [place] ? ? BLD ? Rdw 14.0 % 11.5 [facility] Coun try -14. l Hospital L ab 5 % (Internal) : 189 [address] ? ? BLD ? Plt 367 10*3/uL 130- [facility] 450 l Hospital L ab 10*3 (Internal) : 189 /uL [address] Jose [place] ? ? BLD ? Anc 6.53 10*3/uL ? [facility] l Hospital L ab (Internal) : 189 [address] ? ? BLD High Nlr 4.35 0.00 [facility] Coun try -3.2 l Hospital L ab 0 (Internal) : [address] ? ? BLD ? Neutro 68.2 % 40.0 [facility] ntry -75. l Hospital L ab 0 % (Internal) : 189 [address] ? ? BLD Low Lymph 15.7 % 20.0 [facility] Coun try -50. l Hospital L ab 0 % (Internal) : 189 [address] ? ? BLD ? [place] 8.5 % 2.0- [facility] Coun try 10.0 l Hospital L ab % (Internal) : 189 [address] ? ? BLD High Eos 6.2 % 1.0- [facility] Coun try 6.0 l Hospital L ab % (Internal) : 189 [address] Jose ? ? BLD ? Baso 0.8 % 0.0- [facility] Coun try 1.0 l Hospital L ab % (Internal) : 189 [address] Jose ? ? BLD ? Ig 0.6 % 0.0- [facility] Coun try 0.9 l Hospital L ab % (Internal) : 189 [address] 03/23/2020 CMP, Serum or S ? g/r 106 mg/dL 74-1 [facility] Plasma 06 l Hospital L ab mg/d (Internal) : [address] [place] ? ? S ? Bun 9 mg/dL 9-20 [facility] ntry mg/d l Hospital L ab L (Internal) : [address] ? ? S Low Crea 0.60 mg/dL 0.66 [facility] -1.2 l Hospital L ab 5 (Internal) : 189 mg/d Lorenzo , L Jose ? ? S ? Ca 9.5 mg/dL 8.4- [facility] C ountry 10.2 l Hospital L ab mg/d (Internal) : [address] [place] ? ? S ? Na 140 mmol/L 137- [facility] 145 l Hospital L ab mmol (Internal) : 189 /L [address] [place] ? ? S ? K 4.5 mmol/L 3.5- [facility] 5.1 l Hospital L ab mmol (Internal) : 189 /L [address] Jose ? ? S ? Cl 104 mmol/L 98-1 [facility] 07 l Hospital L ab mmol (Internal) : 189 /L [address] Jose Sch[place] ? ? S ? Tco2 28.0 mmol/L 22.0 [facility] -30. l Hospital L ab 0 (Internal) : 189 mmol Lorenzo , /L [place] ? ? S ? Tp 7.0 g/dL 6.3- [facility] untry 8.2 l Hospital L ab g/dL (Internal) : 189 [address] ? ? S ? Alb 3.9 g/dL 3.5- [facility] untry 5.0 l Hospital L ab g/dL (Internal) : 189 [address] ? ? S ? Tbil 0.8 mg/dL 0.2- [facility] ountry 1.3 l Hospital L ab mg/d (Internal) : 189 L [address] ? ? S High Alp 504 U/L 50-1 [facility] ntry 36 l Hospital L ab U/L (Internal) : [address] ? ? S High Alt (Sgpt) 110 U/L 21-7 [facility] 2 l Hospital L ab U/L (Internal) : [address] ? ? S High Ast (Sgot) 102 U/L 17-5 [facility] 9 l Hospital L ab U/L (Internal) : [address] 03/23/2020 Ldh, Serum or S ? Ldh 423 U/L 313- [facility] Plasma 618 l Hospital L ab U/L (Internal) : [address] 03/23/2020 Lipase, Serum S High Lip 1030 U/L 23-3 [facility] or Plasma 00 l Hospita l Lab U/L (Internal) : [address] 03/23/2020 RBC BLD ? Macro small ? [facility] Morphology, l Hospi tanisha Lab Blood (Internal) : [address] ? ? BLD ? Stomat occasional ? [facility] l Hospital L ab (Internal) : [address] 08/07/2019 CBC W/ Auto BLD ? Wbc 8.9 10*3/uL 5.0- [facility] [place] Diff 10.0 l Hospital L ab 10*3 (Internal) : 189 /uL [address], [place] ? ? BLD ? Rbc 4.85 10*6/uL 4.60 [facility] -6.0 l Hospital L ab 0 (Internal) : [address], /uL [place] ? ? BLD ? Hgb 15.4 g/dL 14.0 [facility] ountry -18. l Hospital L ab 0 (Internal) : 189 g/dL [address], [place] ? ? BLD ? Hct 48.0 % 41.0 [facility] Coun try -51. l Hospital L ab 0 % (Internal) : [address], [place] ? ? BLD High Mcv 99.0 fL 80.0 [facility] ntry -96. l Hospital L ab 0 fL (Internal) : [address], [place] ? ? BLD ? Mch 31.8 pg 26.0 [facility] ntry -32. l Hospital L ab 0 pg (Internal) : [address], [place] ? ? BLD ? Mchc 32.1 g/dL 31.0 [facility] ountry -35. l Hospital L ab 0 (Internal) : 189 g/dL [address], [place] ? ? BLD ? Rdw 13.2 % 11.5 [facility] Coun try -14. l Hospital L ab 5 % (Internal) : [address], [place] ? ? BLD ? Plt 393 10*3/uL 130- [facility] Country 450 l Hospital L ab 10*3 (Internal) : 189 /uL [address], [place] ? ? BLD ? Anc 5.19 10*3/uL ? [facility] l Hospital L ab (Internal) : [address], [place] ? ? BLD ? Neutro 58.4 % 40.0 [facility] ntry -75. l Hospital L ab 0 % (Internal) : [address], [place] ? ? BLD ? Lymph 23.2 % 20.0 [facility] Coun try -50. l Hospital L ab 0 % (Internal) : [address], [place] ? ? BLD High [place] 11.0 % 2.0- [facility] Coun try 10.0 l Hospital L ab % (Internal) : [address] ? ? BLD ? Eos 5.2 % 1.0- [facility] Coun try 6.0 l Hospital L ab % (Internal) : [address]ady[address] ? ? BLD High Baso 1.1 % 0.0- [facility] Coun try 1.0 l Hospital L ab % (Internal) : [address] [place] ? ? BLD High Ig 1.1 % 0.0- [facility] Coun try 0.9 l Hospital L ab % (Internal) : [address] [place] 08/07/2019 Lipase, Serum S High Lip 696 U/L 23-3 [facility] or Plasma 00 l Hospita l Lab U/L (Internal) : [address] [place] 08/07/2019 Magnesium, S ? mg 1.9 mg/dL 1.6- [facility] QN, Serum or 2.3 l Hosp ital Lab Plasma mg/d (Internal) : [address] Jose 08/07/2019 Venipuncture Blood ? Location Left ? ? P_nc Primary venous Antecubital Care [place]: [address] [place], [place] ? ? Blood ? Needle 21g ? ? P_nc Prim aleta venous Vacutainer Care [place]: [address] [place], [place] ? ? Blood ? Number of 1 ? ? P_nc P rimary venous Attempts Care [place]: [address] [place], [place] ? ? Blood ? Successful Yes ? ? P_nc Primary venous Care [place]: [address] [place], [place] ? ? Blood ? Dressing Pressure ? ? P_nc Primary venous Band-aid Care Applied [place]: [address] [place], [place] 08/02/2019 CBC W/ Auto ? No ? ? ? [facility]osp[facility]: [address] [place] [facility] 08/02/2019 Lipase, Serum ? No ? ? ? [facility] or Plasma observation [facility] recorded. Hospita l: [address], [place] 07/30/2019 Lipase, Serum S High Lip 1173 U/L 23-3 [facility] or Plasma 00 l Hospita l Lab U/L (Internal) : [address] [place] 07/30/2019 CBC W/ Auto BLD ? Wbc 9.9 10*3/uL 5.0- [facility] Diff 10.0 l Hospital L ab 10*3 (Internal) : 189 /uL [address] Jose ? ? BLD Low Rbc 4.38 10*6/uL 4.60 [facility] -6.0 l Hospital L ab 0 (Internal) : [address], /uL [place] ? ? BLD Low Hgb 13.9 g/dL 14.0 [facility] ountry -18. l Hospital L ab 0 (Internal) : 189 g/dL [address] Dr Jose ? ? BLD ? Hct 44.3 % 41.0 [facility] Coun try -51. l Hospital L ab 0 % (Internal) : [address] [place] ? ? BLD High Mcv 101.[address] [facility] untry -96. l Hospital L ab 0 fL (Internal) : [address] [place] ? ? BLD ? Mch 31.7 pg 26.0 [facility] ntr -32. l Hospital L ab 0 pg (Internal) : [address] [place] ? ? BLD ? Mchc 31.4 g/dL [facility] [facility] Hospital L ab 0 (Internal) : 189 g/dL Lorenzo Jose Schilling ? ? BLD ? Rdw 13.4 % 11.5 [facility] Coun try -14. l Hospital L ab 5 % (Internal) : 189 [address] ? ? BLD High Plt 685 10*3/uL 130- [facility] 450 l Hospital L ab 10*3 (Internal) : 189 /uL [address] [place] 07/30/2019 Differential, BLD ? Polys 61 % 40-7 [facility] Manual, Blood 5 % l Hos pital Lab (Internal) : [address] ? ? BLD ? Bands 0 % 0-5 [facility] Coun try % l Hospital L ab (Internal) : [address] ? ? BLD Low Lymphs 14 % 20-5 [facility] Cou ntry 0 % l Hospital L ab (Internal) : [address] ? ? BLD High [place] 12 % 2-10 [facility] Coun try % l Hospital L ab (Internal) : [address] [place] ? ? BLD High Eos 8 % 0-6 [facility] Coun try % l Hospital L ab (Internal) : [address] [place] ? ? BLD High Baso 3 % 0-1 [facility] Coun try % l Hospital L ab (Internal) : [address] [place] ? ? BLD ? Atyp Lymph 0 % ? [facility] Country l Hospital L ab (Internal) : 189 [address] ? ? BLD ? [place] 2 % ? [facility] try l Hospital L ab (Internal) : [address] ? ? BLD ABNOR Plts, Est. elevated adeq [facility] MAL uate l Hospital L ab (Internal) : [address] ? ? BLD ABNOR RBC abnormal norm [facility] untry MAL Morphology al l Hospit al Lab (Internal) : [address] ? ? BLD ? Macro small ? [facility] try l Hospital L ab (Internal) : [address] [place] 07/30/2019 Neutrophil BLD ? Anc-manual 6.05 10*3/uL ? [facility] Count, l Hospital L ab Absolute (Interna l): 189 (Anc), Blood Prou ty Dr [place] 07/24/2019 CBC W/ Auto BLD High Wbc 14.3 10*3/uL 5.0- [facility] [place] [facility] Diff 10.0 l Hospital L ab 10*3 (Internal) : 189 /uL [address] Jose Schilling ? ? BLD Low Rbc 4.34 10*6/uL 4.60 [facility] Country -6.0 l Hospital L ab 0 (Internal) : 189 10*6 Lorenzo , /uL [place] ? ? BLD Low Hgb 13.9 g/dL 14.0 [facility] ountry -18. l Hospital L ab 0 (Internal) : 189 g/dL Lorenzo Jose [place]illing ? ? BLD ? Hct 43.7 % 41.0 [facility] Coun try -51. l Hospital L ab 0 % (Internal) : 189 [address] ? ? BLD High Mcv 100.7 fL 80.0 [facility] untry -96. l Hospital L ab 0 fL (Internal) : 189 [address] ? ? BLD ? Mch 32.0 pg 26.0 [facility] Cou ntry -32. l Hospital L ab 0 pg (Internal) : 189 [address] ? ? BLD ? Mchc 31.8 g/dL 31.0 [facility] ountry -35. l Hospital L ab 0 (Internal) : 189 g/dL Lorenzo Jose ? ? BLD ? Rdw 13.7 % 11.5 [facility] Coun try -14. l Hospital L ab 5 % (Internal) : 189 [address] Jose ? ? BLD High Plt 739 10*3/uL 130- [facility] 450 l Hospital L ab 10*3 (Internal) : 189 /uL Lorenzo Jose 07/24/2019 Hepatic S ? Tbil 0.4 mg/dL 0.2- [facility] Function 1.3 l Hospital Lab Panel, Serum mg/d (Int ernal): [address] [place] ? ? S ? Dbil 0.2 mg/dL 0.0- [facility] ount 0.3 l Hospital L ab mg/d (Internal) : [address] [place] ? ? S ? Alp 88 U/L 50-1 [facility] Coun try 36 l Hospital L ab U/L (Internal) : [address] [place] ? ? S ? Alt (Sgpt) 25 U/L 21-7 [facility] 2 l Hospital L ab U/L (Internal) : [address] [place] ? ? S ? Ast (Sgot) 43 U/L 17-5 [facility] 9 l Hospital L ab U/L (Internal) : [address] [place] ? ? S High Ggt 88 U/L 15-7 [facility] Coun try 3 l Hospital L ab U/L (Internal) : [address] [place] ? ? S ? Tp 7.3 g/dL 6.3- [facility] untry 8.2 l Hospital L ab g/dL (Internal) : 189 [address] ? ? S ? Alb 3.8 g/dL 3.5- [facility] untry 5.0 l Hospital L ab g/dL (Internal) : [address] 07/24/2019 Magnesium, S ? mg 2.2 mg/dL 1.6- [facility] QN, Serum or 2.3 l Hosp ital Lab Plasma mg/d (Internal) : [address] 07/24/2019 Renal S High g/r 111 mg/dL 74-1 [facility] Function 06 l Hospital Lab Panel, Serum mg/d (Int ernal): [address] ? ? S ? Bun 10 mg/dL 9-20 [facility] untry mg/d l Hospital L ab L (Internal) : [address] ? ? S Low Crea 0.60 mg/dL 0.66 [facility] -1.2 l Hospital L ab 5 (Internal) : 189 mg/d Lorenzo Ryan Schilling ? ? S ? Ca 9.7 mg/dL 8.4- [facility] ountry 10.2 l Hospital L ab mg/d (Internal) : [address] ? ? S ? Phos 4.4 mg/dL 2.5- [facility] ountry 4.5 l Hospital L ab mg/d (Internal) : 189 L [address] Jose ? ? S ? Na 139 mmol/L 137- [facility] 145 l Hospital L ab mmol (Internal) : 189 /L [address] Jose ? ? S ? K 4.6 mmol/L 3.5- [facility] 5.1 l Hospital L ab mmol (Internal) : 189 /L [address] Jose ? ? S ? Cl 101 mmol/L 98-1 [facility] 07 l Hospital L ab mmol (Internal) : 189 /L [address] Jose ? ? S ? Tco2 27.0 mmol/L 22.0 [facility] -30. l Hospital L ab 0 (Internal) : 189 mmol Lorenzo , /L [place] ? ? S ? Alb 3.8 g/dL 3.5- [facility] untry 5.0 l Hospital L ab g/dL (Internal) : [address] ? ? S ? GFR (Calc) 151 >89 [facility] l Hospital L ab (Internal) : [address] [place] 07/24/2019 Lipase, Serum S High Lip 1141 U/L 23-3 [facility] or Plasma 00 l Hospita l Lab U/L (Internal) : [address] [place] 07/24/2019 Differential, BLD High Polys 76 % 40-7 [facility] Manual, Blood 5 % l Hos pital Lab (Internal) : [address] ? ? BLD ? Bands 1 % 0-5 [facility] Coun try % l Hospital L ab (Internal) : [address] [place] ? ? BLD Low Lymphs 13 % 20-5 [facility] Cou ntry 0 % l Hospital L ab (Internal) : [address] [place] ? ? BLD ? [place] 7 % 2-10 [facility] Coun try % l Hospital L ab (Internal) : [address] ? ? BLD ? Eos 1 % 0-6 [facility] Coun try % l Hospital L ab (Internal) : [address] ? ? BLD ? Baso 0 % 0-1 [facility] Coun try % l Hospital L ab (Internal) : [address] ? ? BLD ? Atyp Lymph 1 % ? [facility] l Hospital L ab (Internal) : [address] ? ? BLD High [place] 1 % 0-0 [facility] % l Hospital L ab (Internal) : [address] ? ? BLD ABNOR Plts, Est. elevated adeq [facility] MAL uate l Hospital L ab (Internal) : [address] ? ? BLD ABNOR RBC abnormal norm [facility] untry MAL Morphology al l Hospit al Lab (Internal) : [address] ? ? BLD ? Macro small ? [facility] Coun try l Hospital L ab (Internal) : 189 Lorenzo , [place] 07/24/2019 Neutrophil BLD ? Anc-manual 10.97 ? [facility] Count, 10*3/uL l Hospital Lab Absolute (Interna l): 189 (Anc), Blood Prou ty , [place] 07/24/2019 Venipuncture Blood ? Location Left ? ? P_nc Primary venous Antecubital Care [place]: [address], [place] ? ? Blood ? Needle 21g ? ? P_nc Prim aleta venous Vacutainer Care [place]: [address], [place] ? ? Blood ? Number of 1 ? ? P_nc P rimary venous Attempts Care [place]: [address], [place] ? ? Blood ? Successful Yes ? ? P_nc Primary venous Care [place]: [address], [place] ? ? Blood ? Dressing Pressure ? ? P_nc Primary venous Band-aid Care Applied [place]: [address], [place] ? Venipuncture ? Location Left ? ? P _nc Primary Antecubital Care [place]: [address], [place] ? ? ? Needle 21g ? ? P_nc Prim aleta Vacutainer Care [place]: [address], [place] ? ? ? Number of 1 ? ? P_nc P rimary Attempts Care [place]: [address], [place] ? ? ? Successful Yes ? ? P_nc Primary Care [place]: [address], [place] ? ? ? Dressing Pressure ? ? P_nc Primary Band-aid Care Applied [place]: [address], [place] ? ? ? Initials hj ? ? P_nc Pr imary Care [place]: [address], [place] Past Encounters 06/15/2021 Pancreatitis; Depressive Disorder; Alcoh ol Abuse Tunde Real, DO: [address], [place] [address], Ph. 05/18/2021 Pseudocyst of Pancreas; Pancreatitis Tunde Real DO: [address], [place] [address], Ph. 01/13/2021 Pancreatitis; Alcohol Abuse Tunde Real DO: [address], [place] [address], Ph. 12/23/2020 History of Pancreatitis; Anxiety Tunde Real, DO: [address], [place] [address], Ph. 12/01/2020 Alcohol Abuse; Pseudocyst of Pancreas Tunde Real, DO: [address], [place] [address], Ph. 11/11/2020 Pancreatitis; Alcohol Dependence Tunde Real, DO: [address], [place] [address], Ph. 09/30/2020 Pseudocyst of Pancreas; Pancreatitis Tunde Real, DO: [address], [place] [address], Ph. 06/02/2020 Pancreatitis; Tobacco Dependence Syndrom e Tunde Real DO: [address], [place] [address], Ph. 05/19/2020 Medication Monitoring; Pancreatitis Tunde Real DO: [address], [place] [address], Ph. 04/13/2020 Pancreatitis; Administration of Influenz a Vaccine; Thoracic Back Pain Tunde Real, DO: [address], [place] [address], Ph. 03/23/2020 Low Back Pain; Pancreatitis Tunde Real DO: [address], [place] [address], Ph. 03/02/2020 Pancreatitis; Alcohol Abuse; Low Back Pa in Tunde Real DO: [address], [place] [address], Ph. Social History Tobacco Smoking Status Heavy Tobacco Smoker (1 pack per day) Vaccine List Vaccine Type COVID-19 vaccine, vector-nr, [id number], PF , 0.5 mL ([facility]) 09/21/2020 influenza, seasonal, injectable, preserv ative free 03/24/2011?0.5 mL Tdap 03/24/2011?0.5 mL Plan of Care Reminders Provider Appointments None ? ? recorded. Lab None ? ? recorded. Referral None ? ? recorded. Procedures None ? ? recorded. Surgeries None ? ? recorded. Imaging None ? ? recorded. Vitals 06/15/2021 01:20PM Follow Up 20 Height Weight BMI Blood Pressure 191.77 cm 68.95 kg 18.7 kg/m2 112/70 mm[Hg] 05/18/2021 03:20PM Follow Up 20 Height Weight BMI Blood Pressure 191.77 cm 64.41 kg 17.5 kg/m2 118/80 mm[Hg] 01/13/2021 10:20AM Follow Up 20 Height Weight BMI Blood Pressure 191.77 cm 64.86 kg 17.6 kg/m2 104/70 mm[Hg] 12/23/2020 10:00AM Follow Up 20 Height Weight BMI Blood Pressure 191.77 cm 65.32 kg 17.8 kg/m2 116/74 mm[Hg] 12/01/2020 02:20PM Follow Up 20 Height Weight BMI Blood Pressure 191.77 cm 64.86 kg 17.6 kg/m2 130/80 mm[Hg] 11/11/2020 11:00AM Follow Up 20 Height Weight BMI Blood Pressure 191.77 cm 64.86 kg 17.6 kg/m2 130/88 mm[Hg] 09/30/2020 01:20PM Follow Up 20 Height Weight BMI Blood Pressure 191.77 cm 66.22 kg 18 kg/m2 108/74 mm[Hg] 06/02/2020 08:40AM Follow Up 20 Height Weight BMI Blood Pressure 191.77 cm 63.5 kg 17.3 kg/m2 108/80 mm[Hg] 05/19/2020 08:00AM Follow Up 20 Height Weight BMI Blood Pressure 191.77 cm 65.32 kg 17.8 kg/m2 118/80 mm[Hg] 04/13/2020 08:00AM Follow Up 20 Height Weight BMI Blood Pressure 191.77 cm 63.96 kg 17.4 kg/m2 130/82 mm[Hg] 03/23/2020 08:40AM Follow Up 20 Height Weight BMI Blood Pressure 191.77 cm 65.32 kg 17.8 kg/m2 128/84 mm[Hg] 03/02/2020 01:40PM Follow Up 20 Height Weight BMI Blood Pressure 191.77 cm 66.68 kg 18.1 kg/m2 138/86 mm[Hg] 02/18/2020 02:20PM Follow Up 20 Height Weight BMI Blood Pressure 191.77 cm 65.32 kg 17.8 kg/m2 140/82 mm[Hg] 01/15/2020 10:00AM Follow Up 20 Height Weight BMI Blood Pressure 191.77 cm 67.13 kg 18.3 kg/m2 130/80 mm[Hg] 12/25/2019 09:20AM Follow Up 20 Height Weight BMI Blood Pressure 191.77 cm 64.41 kg 17.5 kg/m2 160/92 mm[Hg] 12/05/2019 01:00PM CPE 20 Height Weight BMI Blood Pressure 191.77 cm 63.96 kg 17.4 kg/m2 144/96 mm[Hg] 08/07/2019 11:00AM Follow Up 20 Weight Blood Pressure 71.67 kg 104/78 mm[Hg] 07/24/2019 10:20AM Acute 20 Weight Blood Pressure 72.57 kg 124/80 mm[Hg] 08/21/2017 Weight Blood Pressure 78.02 kg 130/86 mm[Hg] 10/18/2016 Weight Blood Pressure 77.11 kg 130/82 mm[Hg] 09/28/2016 Height Weight Blood Pressure 187.96 cm 77.11 kg 132/80 mm[Hg] 03/24/2011 Height Weight Blood Pressure 187.96 cm 73.48 kg 120/80 mm[Hg] 03/10/2011 Height Weight Blood Pressure 187.96 cm 73.48 kg 126/80 mm[Hg]
--- OUTSIDE RECORDS SUMMARY | 2021-08-30 13:21 | XMS_ITS | Encounter Summary ---
:1980 Author Care Team Providers Name Role Phone Antonio Snyder Leroy, Primary Care Provider Unavailable Reason for Visit Pancreatitis; alcohol/substance abuse; a nxiety Assessment and Plan 1. Pancreatitis Refilled medications. Advised Acosta that I will continue to fill his hydromore phone until his appointment [facility] the first week of June. If he does not keep that appoi ntment and I will no longer fill the hydromorphone as he is relied on this me dication much too heavily. There is a history of him going to the [facility] emergency room to get additional refills when he runs out of milk that I will give him. He has mis sed multiple gastroenterology appointments over the past 2 years. This time to addr ess this issue once and for all. His mother is present with him today and she states that she will ensure that he makes his appointment. Ultimately it is up to Acosta . ? hydromorphone 2 mg tablet ? Creon 6,000-19,000-30,000 unit capsule,delayed release 2. Depressive disorder Depression worsening. Patient has lost his job due to anger management issues. He is here today accompanied by his mother for slight intervention. Lengthy discussion describing that until Acosta montgomery to take positive steps is little at the medical community can do. If he is willi ng for referral to a psychiatrist, to see a counselor, and to seek help for his alco hol abuse there is little that I as his physician can do. He is reluctant but by the end of the visit agrees to comply with the help that we can offer. Will referra l these are when we will give him a call and offer member services we have in the are a that may be of help. ? social worker assistant referral - E fawn intervention- ? psychiatrist referral 3. Alcohol abuse Patient stopped taking the dis ulfiram. Feels that he cannot stop drinking. Currently not interested in any rehabilitation services however hopeful that this will change. Discussion Note: None recorded.Patient educational handouts: No information available. Plan of Care Reminders Provider Appointments None recorded. ? ? Lab None recorded. ? ? Referral Copy Holder Rosmery Rider Referral 06/21/2021 ? Psychiatrist Diana Mix NP Referral 08/01/2021 Procedures None recorded. ? ? Surgeries None recorded. ? ? Imaging None recorded. ? ? Medications Name Start Date ? ? Creon 6,000-19,000-30,000 unit capsule,delayed release ? TAKE 1 CAPSULE BY MOUTH WITH MEALS disulfiram 250 mg tablet ? TAKE 2 TABLETS 500MG BY MOUTH EVERY DAY hydromorphone 2 mg tablet ? TAKE 1 TABLET BY MOUTH EVERY 8 HOURS NEEDED FOR PAIN FOR 5 DAYS DO NOT EXCEED 3 TABLETS A DAY polyethylene glycol 3350 17 gram oral powder packet ? Take 1 packet every day by oral route. Medications Administered None recorded. Vitals Height Weight BMI Blood Pressure 6 ft 3.5 in 151 lbs 16 oz 18.7 kg/m2 112/70 mm[Hg] Results Lab Results None recorded. Allergies Code Code System Name Reaction Severity Onset NKDA ? ? ? Problems Name Status Onset Date Source ? Pancreatitis Active 07/15/2019 ? Pseudocyst of Pancreas Active 09/21/2020 ? Herpes Simplex Active ? History Depressive Disorder Active ? History Migraine Active ? History Impetigo Active ? History Procedures Date Name Performed by ? 06/24/2021 Esophagogastroduodenoscopy Information n ot available 05/28/2020 Endoscopic Ultrasound of Upper Informati on not available Gastrointestinal Tract Vaccine List Vaccine Type COVID-19 vaccine, vector-nr, [id number], PF , 0.5 mL (b-datum) 09/21/2020 influenza, seasonal, injectable, preserv ative free 03/24/2011?0.5 mL Tdap 03/24/2011?0.5 mL Social History Tobacco Smoking Status Heavy Tobacco Smoker (1 pack per day) What was the date of your most recent 09/30/2020 tobacco screening? What is your code status? 0 Functional Status Unknown. Past Encounters 06/15/2021 Pancreatitis; Depressive Disorder; Alcoh ol Abuse Antonio Harper, DO: [address] [facility], [place] [address], Ph. 05/18/2021 Pseudocyst of Pancreas; Pancreatitis Antonio Harper, DO: [address] [facility] [place] [address], Ph. History of Present Illness ? Alcohol Abuse Reported By: Patient HPI: Duration: years. 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 Types of alcohol beer, liquor. Associated Symptoms: abdomin al pain; Pancreatitis. Treatments tried: use of medication for alcohol ad diction; Patient refuses to do inpatient treatment ? Abdominal Pain Reported By: Patient Abdominal Pain: Location: generalized; back included. Quality: pain, cramping. Severity: moderate. Onset/Ti candice: worse. Context: ; Alcoholic Pancreatitis. Aggravating Fa ctors: eating. Alleviating Factors: moving bowels, belching; med icattion. Associated Symptoms: no fever, no constipation. Previous Te sts, Treatment and/or Diagnostic Procedures: prescription med ication Notes: <p>
</p> ? Anxiety/Depression Reported By: Patient HPI: Quality: increased anxiety. Context: major life stressors, trouble at work, ETOH use, tobacco use, drug use Review of Systems: ROS as noted in the HPI Review of Systems None recorded. Physical Exam ? Comprehensive PE (male) Reported By: Patient Constitutional: General Appearance: healthy- appearing, well-nourished, well-developed. Level of Dis tress: no apparent distress. Ambulation: ambulating amando lly Respiratory: Respiratory effort: unlabore d respirations, no use of accessory muscles. RUL Auscultation: b reath sounds normal, good air movement, clear to auscultation except as noted, no wheezing, no rales/crackles, no rhonchi. RLL Auscultation: breath sounds normal, good air movement, clear to auscultation except as noted, no wheezing, no rales/crackles, no rhonchi. DIANNA Auscultation: breath sounds normal, good air move ment, clear to auscultation except as noted, no wheezing, no rales /crackles, no rhonchi. LLL Auscultation: breath sounds normal, good air movement, clear to auscultation except as noted , no wheezing, no rales/crackles, no rhonchi Cardiovascular: Apical Impulse: not displace d. Heart Auscultation: regular rate and rhythm (RRR), normal S1, nor mal S2, no murmurs, no rubs, no gallops. Neck vessels: no ca rotid bruits. Pulses including femoral / pedal: normal throughout Gastrointestinal: Bowel Sounds: LLQ bowel soun ds normal, LUQ bowel sounds normal, RUQ bowel sounds normal, RLQ bow el sounds normal. Inspection and Palpation: epigastric tender ness; Baseline epigastric tenderness due to his recurrent pancrea titis secondary to his drinking Neurologic: Orientation: oriented to per son, place, time and situation. Memory: recent memory normal, remote memory normal Psychiatric: Insight: good insight, good judgment. Mental Status: anxious, depressed, agitated; Severel y anxious and severely agitated, depressed
--- NOTE | 2021-08-30 13:52 | W.PM.HP.N ---
Date of service: 08/30/21 Time of Service: 13:52 Assessment and Plan Assessment and plan (1) Acute on chronic pancreatitis: Start date: 08/30/21 Start time: 14:32 Status: Acute Assessment and plan: Patient with acute pancreatitis. Unable to eat or drink. Alcohol intake on Sunday. Has been vomiting Anion gap of 12. lipase of 500's pain to LOREN and LL quads with mid epigastric pain radiating to back NPO, antiemtics Pain management Treat alcohol w/d (2) Alcohol dependence with withdrawal: Start date: 08/30/21 Start time: 14:34 Status: Acute Assessment and plan: CIWA protocol, phenobarb IV Banana bag. LR at 200 NPO 72 hours since last drink Monitor for worsening sx at this time CIWA score is 8, patient states only 1 drink however well known to us and has hx of not being honest with exactly how much he drinks. States only had one twisted tea, monitor for sx. (3) Constipation: Start date: 08/30/21 Start time: 14:38 Status: Acute Assessment and plan: Found on CT. severe constipation At this time will give ducolax suppository d/t n/v/d Consider SSE if unsuccessful. (4) Tobacco dependence: Start date: 08/30/21 Start time: 14:37 Status: Chronic Assessment and plan: Nicotine patch (5) DVT prophylaxis: Start date: 08/30/21 Start time: 14:39 Status: Acute (6) Discharge planning issues: Start date: 08/30/21 Start time: 14:40 Assessment and plan: Home when medically ready discussed with Dr. Meza History of Present Illness History of Present Illness Chief Complaint: Pancreatitis, ETOH w/d, constipation Narrative: 41 y.o male well known to us with PMH of pancreatitis, alcohol dependence, tobacco dependence, pancreatic cyst, presents to [facility] today with abdominal pain, nausea, vomiting, and inability tolerate oral intake. He has been driking and his last drink was on Sunday. Labs in the ED reveal 12.2 anion gap, lipase of 557, alk phos of 699. CT findings show: IMPRESSION: 1. Inflammatory changes seen around the pancreas suggest seen of flare-up of acute pancreatitis.? Calcifications seen in the pancreas suggesting underlying chronic pancreatitis. 2. Interval decrease in size of the peripancreatic fluid collections since 11/27/2020. 3. Persistent intra and extrahepatic biliary ductal dilatation. 4. Large amount of stool throughout the colon suggesting constipation. 5. Results of this exam have been verbally communicated with provider. Therefore he has been asked to be admitted to m/s for further management. He is actively w/d at this time. He has never had w/d seizures.Will implement CIWA. Phenobarb IV. he is actively throwing up, antiemetics x3 NPO, banana bag, LR at 200,Dilaudid for pain. Per CT he is constipated suppository for constipation, if that is not successful will order SSE. Review of Systems All systems reviewed & are unremarkable except as noted in HPI and below PFSH All Active Problems (Updated 08/30/21 @ 14:40 by Salina Jiménez NP) DVT prophylaxis (Acute) Continue holding Enoxaparin Acute on chronic pancreatitis (Acute) Constipation (Acute) Alcohol dependence with withdrawal (Acute) Increased anion gap metabolic acidosis (Acute) Pancreatic duct dilated (Acute) Cyst and pseudocyst of pancreas (Acute) Cyst of pancreas (Acute) Cholecystitis, acute (Acute) Protein calorie malnutrition (Acute) Portal vein thrombosis (Acute) As above. Pancreatic pseudocyst (Acute) As above. Acute pancreatitis (Acute) Begin clear liquid diet tonight. Maintain saline infusion 100 mls/hr. Continue monitoring LFTs, bilirubin, and CMP. Pancreatitis (Chronic) Hydromorphone PRN PRN for pain. As above. Tobacco dependence (Chronic) Nicoderm, Nicotrol Chronic alcohol use (Chronic) Spoke about life stressors, RCT as alternative, patient receptive. Medical History Discharge planning issues Per [facility] consult, continue monitoring until inflammation abates. 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[place] [employer] Allergies and Home Medications Allergies Allergy/AdvReac Type Severity Reaction Status Date / Time No Known Allergies Allergy Unverified 08/30/21 10:21 Home Medications Medication Instructions Recorded Confirmed Type omeprazole 40 mg capsule,delayed 20 mg PO DAILY 12/31/19 08/30/21 History release ondansetron HCl 4 mg tablet 4 mg PO BID 12/31/19 08/30/21 History (Zofran) hibcut-tznnrouc-jdlesmd 1 cap PO QMEALS #90 cap 04/20/20 08/30/21 Rx 6,000-19,000-30,000 unit capsule,delayed rel (Creon) polyethylene glycol 3350 17 gram 17 g PO DAILY PRN PRN #0 ea 09/21/20 08/30/21 Rx oral powder packet methadone 40 mg soluble tablet 60 mg PO DAILY 08/30/21 08/30/21 History Exam Const General: cooperative, not healthy appearing, uncomfortable, not well developed, ill appearing chronically and No well hydrated Nutritional Appearance: thin Orientation: alert, awake and oriented x3 HENMT Head: normal to inspection and atraumatic Ears: hearing grossly normal bilaterally Mouth: mucous membranes dry Teeth and gingiva: abnormal dentition, abnormal gingiva, abnormal tooth or associated gingiva and poor dentition Eyes Conjunctivae: abnormal conjunctivae and conjunctival abnormality Pupils: PERRL EOM: EOM intact bilaterally Neck Neck: normal visual inspection, full ROM and no lymphadenopathy Lymphatic: no lymphadenopathy noted Chest Chest: normal inspection of the chest Resp Effort & Inspection: normal respiratory effort Auscultation: clear to auscultation bilaterally Cardio Jugular venous pressure: no JVD Rate: regular rate Rhythm: regular rhythm Heart Sounds: S1 normal and S2 normal GI Inspection: normal to inspection Palpation: tender in the epigastrum, in the LLQ and in the LUQ Auscultation: hypoactive bowel sounds Skin General skin exam: jaundice Rashes: no rashes Wounds: no wounds Neuro General: patient alert, patient awake and patient oriented x3 Extrem General: normal to inspection and full ROM Psych Appearance: disheveled Insight: poor Judgment: poor Results Labs Result diagrams: 08/30/21 10:35 08/30/21 10:35 Labs: Laboratory Results - last 24 hr 08/30/21 08/30/21 08/30/21 10:35 10:35 12:10 WBC 10.49 RBC 4.96 Hgb 15.7 Hct 48.1 MCV 97.0 H MCH 31.7 MCHC 32.6 RDW 15.3 H Plt Count 271 MPV 10.0 Immature Gran % 1.0 Neutrophils % 87.5 Lymphocytes % 5.8 Monocytes % 5.4 Eosinophils % 0.0 Basophils % 0.3 Nucleated RBC % 0 Absolute Neutrophils 9.18 H Absolute Lymphocytes 0.61 L Absolute Monocytes 0.57 Absolute Eosinophils 0.00 Absolute Basophils 0.03 Sodium 136 Potassium 4.2 Chloride 101 Carbon Dioxide 22.8 Anion Gap 12.2 H BUN 13 Creatinine 0.8 Estimated GFR/1.73 m2 >= 60.00 Glucose 88 Calcium 9.0 Total Bilirubin 1.5 H AST 26 ALT 52 Alkaline Phosphatase 699 H Total Protein 7.2 Albumin 3.6 Lipase 557 H COVID-19 Source Nasal/Nares Last Vital Signs Temp 36.0 C L 08/30/21 13:28 Pulse 76 08/30/21 13:28 Resp 23 08/30/21 13:28 BP 137/91 H 08/30/21 13:28 Pulse Ox 99 08/30/21 13:28 PAWSS Have you Been Recently Intoxicated or Drunk Within the Last 30 days?: No Have you Ever Experienced Previous Episodes of Alcohol Withdrawal?: No Have you ever Experienced Withdrawal Seizures?: No Have you ever Experienced Delirium Tremens(DT)s?: No Have you ever undergone Alcohol Rehabilitation Treatment (i.e, inpt ot outpatient treatment programs)?: No Have you ever Experienced Blackouts?: No Have you ever Combined Alcohol with other Downers within the last 90 days?: No Have you ever Combined Alcohol with any other Substance of Abuse during the last 90 days?: No Positive Blood Alcohol level on Presentation? [PCS.BAL]: No Evidence of Increased Autonomic Activity (i.e. HR>120, tremor, sweating, agitation, nausea)?: No Result: 0
[2021-08-30] MEDS: Normal Saline Flush 10 ML SYR IVP ×4 (14:09→23:42)
[2021-08-30 14:39] LABS: COVID-19 PCR Negative (Negative)
[2021-08-30] MEDS: Lactated Ringers 1,000 ML 200 ML IV ×2 (16:11→21:58)
[2021-08-30] MEDS: Heparin 5,000 UNITS/ML VIAL 5000 UNITS SC ×2 (16:16→21:57)
[2021-08-30] MEDS: Bisacodyl 10 MG SUPP PR (16:17)
[2021-08-30] MEDS: Nicotine 21 MG/24 HR PATCH TD (17:56)
[2021-08-30] MEDS: Pantoprazole 40 MG VIAL IVP (17:59)
[2021-08-30] MEDS: HYDROmorphone 2 MG/ML SYR 1 MG IVP (23:41)
[2021-08-31] MEDS: Lactated Ringers 1,000 ML 200 ML IV ×2 (02:40→07:30)
[2021-08-31] MEDS: Heparin 5,000 UNITS/ML VIAL 5000 UNITS SC ×3 (05:25→22:27)
[2021-08-31 06:27] LABS: Abs Immature Grans 0.06 10^3/uL (0.0-0.06); Absolute Basophil Count 0.05 10^3/uL (0.0-0.2); Absolute Eosinophil Count 0.11 10^3/uL (0.0-0.7); Absolute Lymphocyte Count 1.78 10^3/uL (1.2-3.4); Absolute Monocyte Count 0.83 10^3/uL (0.1-0.8); Absolute Neutrophil Count 4.97 10^3/uL (1.2-6.7); Basophils % 0.6; Eosinophils % 1.4; HCT 42.8 % (40.0-50.0); HGB 13.8 g/dL (13.5-17.5); Immature Grans % 0.8; Lymphocytes % 22.8; MCH 31.5 pg (27.0-33.0); MCHC 32.2 % (32.0-36.0); MCV 97.7 fL (80-95); MPV 10.5 fL (8.0-11.0); Monocytes % 10.6; Neutrophils % 63.8; Nucleated RBC 0 %; Platelet Count 214 10^3/uL (130-400); RBC 4.38 10^6/uL (4.36-5.78); RDW 15.2 % (11.8-14.1); RDW-SD 55.5 fL
[2021-08-31 06:46] LABS: ALT 31 U/L (16-63); AST 18 U/L (15-37); Albumin 2.6 g/dL (3.4-5.0); Alkaline Phosphatase 477 U/L (46-116); Anion Gap 5.2 mmol/L (3-11); BUN 12 mg/dL (7-18); Bilirubin, Total 1.9 mg/dL (0.2-1.0); CO2 28.8 mmol/L (21.0-32.0); CREATININE 0.8 mg/dL (0.70-1.30); Calcium 8.3 mg/dL (8.5-10.1); Chloride 103 mmol/L (98-107); Glucose 85 mg/dL (74-106); Lipase 701 U/L (73-393); Potassium 3.6 mmol/L (3.5-5.1); Sodium 137 mmol/L (136-145); Total Protein 5.4 g/dL (6.4-8.2)
[2021-08-31 07:23] VITALS: BP 127/77; PULSE 76; RESP 18; TEMP 36.7; O2SAT 98
[2021-08-31] MEDS: Pantoprazole 40 MG VIAL IVP (07:30)
[2021-08-31] MEDS: HYDROmorphone 2 MG/ML SYR 1 MG IVP (07:31)
[2021-08-31] MEDS: Normal Saline Flush 10 ML SYR IVP ×3 (07:31→23:07)
[2021-08-31] MEDS: Nicotine 21 MG/24 HR PATCH TD (08:54)
[2021-08-31] MEDS: MULTIVITAMIN 10 ML, THIAMINE 100 MG, FOLIC ACID 1 MG in DEXTROSE 5%-0.45% SALINE 1,000 ML 42 ML IV (08:54)
[2021-08-31] MEDS: Methadone Liquid 10 MG/ML 65 MG PO (08:55)
--- NOTE | 2021-08-31 10:34 | PDOC.CMIN ---
- If Service Date Differs Date of service: 08/31/21 Time of Service: 10:34 Care Management Initial Assess REASON FOR HOSPITALIZATION:: pancreatitis PAST MEDICAL HISTORY/PAST SURGICAL HISTORY:: All Active Problems (Updated 08/30/21 @ 14:40 by Salina Jiménez NP). DVT prophylaxis (Acute). Continue holding Enoxaparin. Acute on chronic pancreatitis (Acute). Constipation (Acute). Alcohol dependence with withdrawal (Acute). Increased anion gap metabolic acidosis (Acute). Pancreatic duct dilated (Acute). Cyst and pseudocyst of pancreas (Acute). Cyst of pancreas (Acute). Cholecystitis, acute (Acute). Protein calorie malnutrition (Acute). Portal vein thrombosis (Acute). As above. Pancreatic pseudocyst (Acute). As above. Acute pancreatitis (Acute). Begin clear liquid diet tonight. Maintain saline infusion 100 mls/hr. Continue monitoring LFTs, bilirubin, and CMP. Pancreatitis (Chronic). Hydromorphone PRN PRN for pain. As above. Tobacco dependence (Chronic). Nicoderm, Nicotrol. Chronic alcohol use (Chronic). Spoke about life stressors, RCT as alternative, patient receptive. Medical History . Discharge planning issues. Per [facility] consult, continue monitoring until inflammation abates. Consider inpatient or outpatient workup at that time for ERCP and PREVIOUS FUNCTIONAL STATUS/SOCIAL/FAMILY SUPPORTS:: Acosta resides with his mother in [facility]. 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 He is independent at baseline, although he does not drive at this time. He stated that he has family/friend supports locally, and that he helps care for his mother. CURRENT FUNCTIONAL STATUS:: Acosta was sitting up in bed when CM met with him. He was pleasant and engaged readily with CM, well known to him from previous admissions. Acosta shared that he has been doing very well. He has not needed to be hospitalized for his pancreatitis since November 2020. Prior to that he was hospitalized 4 time in 2 months and 9 times in 2019. Acosta informed CM that he has stopped drinking almost completely. He may have 1-2 beers/week as opposed to daily drinking. He has been in therapy and is learning new ways to mange his anger and frustrations. Acosta also shared that he was started on methadone for pain management about a month ago. He wanted to transition off of narcotics and the methadone has been very helpful. Acosta continues to work at the [employer] but has made some changes in schedule and responsibilities which has created a safer, healthier work environment for him. ADVANCE DIRECTIVES:: none on file. no interest at this time Has patient been provided with info about the portal/API?: Yes Did the patient sign up for the portal?: No INSURANCE COVERAGE / FINANCIAL ISSUES:: Medicaid CURRENT HOME/COMMUNITY SERVICES/EQUIPMENT:: none PRIMARY CARE PHYSICIAN:: Antonio Harper POTENTIAL DISCHARGE NEEDS:: follow up with PCP and plan of care PATIENT/FAMILY EDUCATION NEEDS:: Discharge instructions, limitations, follow up plan, diet and discuss [employer] TRANSPORTATION:: via private vehicle with family PLAN:: Acosta will be discharged home with no new services. He will follow up with his PCP and discharge plan of care and transport with a friend or family member. CM will continue to support Acosta and assess for discharge planning considerations.
--- NOTE | 2021-08-31 11:40 | W.PM.PROGNOT ---
Date of Service Date of service: 08/31/21 Time of Service: 11:41 Assessment and Plan Assessment and plan (1) Acute on chronic pancreatitis: Status: Acute Assessment and plan: pain feels better. will try to advance diet. (2) Alcohol dependence with withdrawal: Status: Acute Assessment and plan: no sign of withdrawal. CIWA protocol, phenobarb IV Banana bag. LR at 200 advancing diet (3) Constipation: Status: Acute Assessment and plan: Found on CT. severe constipation At this time will give ducolax suppository d/t n/v/d relistor today (4) Tobacco dependence: Status: Chronic Assessment and plan: Nicotine patch (5) DVT prophylaxis: Status: Acute Assessment and plan: heparin (6) Discharge planning issues: Assessment and plan: Home when medically ready discussed with Dr. Meza Subjective Subjective Patient reports: no new complaints, feels better, voiding w/o difficulty, no bowel movement and afebrile Exam Const General: cooperative, comfortable and no acute distress Nutritional Appearance: thin Orientation: alert, awake and oriented x3 HENMT Head: normal to inspection Mouth: oral mucosae normal Resp Effort & Inspection: normal respiratory effort Auscultation: clear to auscultation bilaterally Cardio Rate: regular rate Rhythm: regular rhythm GI Inspection: normal to inspection Palpation: soft and tender in the epigastrum and in the RUQ Skin General skin exam: no rashes or lesions noted Neuro General: patient alert, patient awake and patient oriented x3 Extrem General: normal to inspection, full ROM and no pedal edema Objective Last Vital Signs Temp 36.7 C 08/31/21 07:23 Pulse 76 08/31/21 07:23 Resp 18 08/31/21 07:23 BP 127/77 08/31/21 07:23 Pulse Ox 98 08/31/21 07:23 Laboratory Results - last 24 hr 08/30/21 08/31/21 08/31/21 12:10 05:42 05:42 WBC 7.80 RBC 4.38 Hgb 13.8 Hct 42.8 MCV 97.7 H MCH 31.5 MCHC 32.2 RDW 15.2 H Plt Count 214 MPV 10.5 Immature Gran % 0.8 Neutrophils % 63.8 Lymphocytes % 22.8 Monocytes % 10.6 Eosinophils % 1.4 Basophils % 0.6 Nucleated RBC % 0 Absolute Neutrophils 4.97 Absolute Lymphocytes 1.78 Absolute Monocytes 0.83 H Absolute Eosinophils 0.11 Absolute Basophils 0.05 Sodium 137 Potassium 3.6 Chloride 103 Carbon Dioxide 28.8 Anion Gap 5.2 BUN 12 Creatinine 0.8 Estimated GFR/1.73 m2 >= 60.00 Glucose 85 Calcium 8.3 L Total Bilirubin 1.9 H AST 18 ALT 31 Alkaline Phosphatase 477 H Total Protein 5.4 L Albumin 2.6 L Lipase 701 H COVID-19 Source Nasal/Nares SARS-CoV-2 (PCR) Negative PAWSS Have you Been Recently Intoxicated or Drunk Within the Last 30 days?: No Have you Ever Experienced Previous Episodes of Alcohol Withdrawal?: No Have you ever Experienced Withdrawal Seizures?: No Have you ever Experienced Delirium Tremens(DT)s?: No Have you ever undergone Alcohol Rehabilitation Treatment (i.e, inpt ot outpatient treatment programs)?: No Have you ever Experienced Blackouts?: No Have you ever Combined Alcohol with other Downers within the last 90 days?: No Have you ever Combined Alcohol with any other Substance of Abuse during the last 90 days?: No Positive Blood Alcohol level on Presentation? [PCS.BAL]: No Evidence of Increased Autonomic Activity (i.e. HR>120, tremor, sweating, agitation, nausea)?: No Result: 0
[2021-08-31] MEDS: Methylnaltrexone 12 MG/0.6 ML VIAL SC (12:09)
[2021-08-31 15:45] VITALS: BP 130/85; PULSE 61; RESP 20; TEMP 36; O2SAT 100
[2021-08-31] MEDS: Acetaminophen 325 MG TAB PO (20:27)
[2021-08-31] MEDS: HYDROmorphone 2 MG/ML SYR 0.5 MG IVP (20:28)
[2021-08-31 22:34] VITALS: BP 125/86; PULSE 60; RESP 16; TEMP 36.4; O2SAT 98
[2021-09-01] MEDS: Acetaminophen 325 MG TAB PO (03:07)
[2021-09-01] MEDS: HYDROmorphone 2 MG/ML SYR 0.5 MG IVP ×2 (03:07→07:43)
[2021-09-01] MEDS: Lactated Ringers 1,000 ML 100 ML IV (05:31)
[2021-09-01] MEDS: Heparin 5,000 UNITS/ML VIAL 5000 UNITS SC (05:32)
[2021-09-01 07:30] VITALS: BP 138/84; PULSE 60; RESP 16; TEMP 35.9; O2SAT 100
[2021-09-01] MEDS: Methadone Liquid 10 MG/ML 65 MG PO (07:42)
[2021-09-01] MEDS: Nicotine 21 MG/24 HR PATCH TD (07:42)
[2021-09-01] MEDS: Pantoprazole 40 MG VIAL IVP (07:43)
[2021-09-01] MEDS: Normal Saline Flush 10 ML SYR IVP (07:43)
--- NOTE | 2021-09-01 10:48 | W.PM.DS.N ---
Date of service: 09/01/21 Time of Service: 10:48 DS: Diagnosis Discharge Diagnosis (1) Acute on chronic pancreatitis: Status: Acute (2) Alcohol dependence with withdrawal: (3) Constipation: Status: Acute (4) Tobacco dependence: Discharge Plan Disposition Patient Disposition: HOME Condition: Improving Discharge Details Reason For Visit: Pancreatitis Admit Date/Time: 08/30/21 12:20 Admit Provider: Wild Meza Attending Provider: Wild Meza Primary Care Provider: Antonio Harper Hospital Course Hospital Course: This is a 41 y.o male well known to us with PMH of pancreatitis, alcohol dependence, tobacco dependence, pancreatic cyst, presents to [facility] ED with abdominal pain, nausea, vomiting, and inability tolerate oral intake. He has been drinking and his last drink was on Sunday. work up in the ED consistent with pancreatitis. He was made NPO, given IV fluids, antiemetics, pain medication and admitted to med/surg for further management. His symptoms slowly resolved and diet advanced. He remained hemodynamically stable. He experienced some constipation and was given bowel regimen with little results. He then was given relistor with no further c/o constipation. He is medically stable and ready for discharge to home. He is tolerating a regular diet well. discharge to home with no services. no new medications. advised to avoid alcohol discussed with DR Meza. Home Meds and New Rx's Prescriptions: Continued ondansetron HCl [Zofran] 4 mg tablet 4 mg PO BID 0RF omeprazole 40 mg capsule,delayed release(DR/EC) 20 mg PO DAILY 0RF Label Comments: TAKE 1 CAPSULE BY MOUTH ONCE DAILY FOR 14 DAYS Creon 6,000-19,000 -30,000 unit Capsule,Delayed Release(Dr/Ec) 1 cap PO QMEALS Qty: 90 0RF polyethylene glycol 3350 17 gram Powder In Packet 17 g PO DAILY PRN PRN (Reason: Constipation) Qty: 0 0RF methadone 40 mg Tablet,Soluble 60 mg PO DAILY 0RF Discharge Instructions Instructions: Pancreatitis (DC) Additional Instructions: avoid alcohol take medication as directed Stand Alone Forms: Nursing Discharge Form Referrals: Antonio Harper [Primary Care Provider] - 09/14/21 9:00 am Activity:: Activity as Tolerated Equipment/Supplies:: No Equipment Needed Diet:: As Tolerated Discharge Orders Discharge Orders: Discharge Order (Routine); Ordered 09/01/21 Ordered By: Yelitza Ramirez Discharge Data Discharge Date/Time-TO BE ENTERED AT DEPARTURE: 09/01/21 11:52 DS: Summary Time Spent with Patient providing and/or coordinating discharge services: Less than 30 minutes Status at Discharge Functional status at discharge: independent ambulation Overall status at discharge: patient is back to baseline Mental Status: mental status grossly normal Speech and Movement: speech and movement normal Mood: congruent mood Affect: normal affect Exam Const General: cooperative, comfortable and no acute distress Nutritional Appearance: thin Orientation: alert, awake and oriented x3 HENMT Head: normal to inspection Mouth: oral mucosae normal Resp Effort & Inspection: normal respiratory effort Auscultation: clear to auscultation bilaterally Cardio Rate: regular rate Rhythm: regular rhythm GI Inspection: normal to inspection Palpation: soft and tender in the epigastrum and in the RUQ Skin General skin exam: no rashes or lesions noted Neuro General: patient alert, patient awake and patient oriented x3 Extrem General: normal to inspection, full ROM and no pedal edema Psych Mental Status: mental status grossly normal Speech and Movement: speech and movement normal Mood: congruent mood Affect: normal affect DS: Data Vitals/I&O Vitals and I&O: Vital Signs Temperature 35.9 C L 09/01/21 07:30 Temperature Source Tympanic 09/01/21 07:30 Pulse 60 09/01/21 07:30 Pulse Rhythm Regular 09/01/21 08:56 Pulse 64 08/30/21 13:00 Respiratory Rate 16 09/01/21 07:30 Respiratory Effort Non-Labored 09/01/21 08:56 Respiratory Depth Normal 09/01/21 08:56 Respiratory Pattern Normal 09/01/21 08:56 Blood Pressure 138/84 09/01/21 07:30 Blood Pressure Mean 96 08/30/21 12:31 Blood Pressure Position Supine 08/30/21 10:17 Pulse Oximetry 100 09/01/21 07:30 Oxygen Delivery Method Room Air 09/01/21 07:30 Oxygen Flow Rate 0 09/01/21 07:30 Pain Level 7 09/01/21 07:30 Intake & Output 08/31/21 08/31/21 09/01/21 11:59 23:59 11:59 Intake Total 2190.000 / 3961.200 1771.2 / 3961.200 1040 / 1040 Balance 2190.000 / 3961.200 1771.2 / 3961.200 1040 / 1040 Intake: IV 2190.000 / 3241.200 1051.2 / 3241.200 560 / 560 Oral 720 / 720 480 / 480 Other: Urine Appearance Clear Comment pT said he only voided once today. Voiding Methods Toilet PFSH All Active Problems (Updated 09/02/21 @ 00:04 by EVELIO VIDES) Acute on chronic pancreatitis (Acute) Constipation (Acute) Pancreatic duct dilated (Acute) Cyst and pseudocyst of pancreas (Acute) Cyst of pancreas (Acute) Cholecystitis, acute (Acute) Protein calorie malnutrition (Acute) Portal vein thrombosis (Acute) As above. Pancreatic pseudocyst (Acute) As above. Acute pancreatitis (Acute) Begin clear liquid diet tonight. Maintain saline infusion 100 mls/hr. Continue monitoring LFTs, bilirubin, and CMP. Pancreatitis (Chronic) Hydromorphone PRN PRN for pain. As above. Chronic alcohol use (Chronic) Spoke about life stressors, RCT as alternative, patient receptive. Medical History Discharge planning issues Per [facility] consult, continue monitoring until inflammation abates. 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
--- NOTE | 2021-09-01 12:17 | PDOC.CMDIS ---
- If Service Date Differs Date of service: 09/01/21 Time of Service: 12:18 LACE Index Scoring Tool - Questions: Length of Stay (in days): 2 Acuity (Admit via E.D.?): Yes E.D. Visits: 6 - Answers: Total Score: 9 Risk of Readmission: Low Risk Care Management Discharge Reason for Hospitalization: pancreatitis Discharge Plan: Acosta will be discharged home with no new services. He will follow up with his PCP and discharge plan of care and transport with his mother. Patient/Family Education Needs: review discharge instructions, limitations, follow up plan, diet and discuss Ask Me Three
== END 2021-09-01 11:52 | disposition home or self-care (01) | DRG 439 ==
LOC: ER 12:10 → MS 13:20
PROVIDERS: Admitting Provider Family Medicine; Emergency Provider Student in an Organized Health Care Education/Training Program; PCP Neuromusculoskeletal Medicine & OMM; Visit Provider Family Medicine
DX: K85.90 Acute pancreatitis without necrosis or infection, unspecified (principal); F10.239 Alcohol dependence with withdrawal, unspecified; E46 Unspecified protein-calorie malnutrition; Z68.1 Body mass index [BMI] 19.9 or less, adult; K86.3 Pseudocyst of pancreas; E87.2 Acidosis; K59.00 Constipation, unspecified; F17.210 Nicotine dependence, cigarettes, uncomplicated; K86.1 Other chronic pancreatitis
CPT/HCPCS: 36415; 80053; 83690; 87635; 96361; 96374; 96375; 99285; 74177; 85025; 99223; 99233; 99238; J1170; J1644; J2405; J2560; J3490